=== PATIENT | male | born 2000 | race Caucasian/White ===

== ENCOUNTER 2022-05-30 10:00 | Outpatient (CLI) | payer BC, SELFPAY ==
--- NOTE | 2022-05-30 10:15 | CRLHL7_ITS ---
For Patients: As a result of the Century Cures Act, medical imaging exams and procedure reports are released immediately into your electronic medical record. You may view this report before your referring provider. If you have questions, please contact your health care provider. INDICATION: Neck pain. TECHNIQUE: Noncontrast sagittal T1, T2, STIR and axial GRE sequences are provided. No comparisons. FINDINGS: Loss of cervical lordosis which may be due to muscle spasm or positioning. The overall stature, alignment and intrinsic marrow signal of the cervical spine is within normal limits. Cervical cord is normal. No suspicious disc bulges or protrusions. No suspicious central canal or foraminal narrowing. IMPRESSION: 1. Loss of cervical lordosis which may be due to muscle spasm or positioning. 2. Otherwise, unremarkable MRI of the cervical spine. Dictated by Deon Castillo MD @ 05/30/2022 1:48:35 PM (Electronically Signed)
== END 2022-05-30 10:01 | disposition home or self-care (01) ==
PROVIDERS: PCP Family Medicine; Visit Provider Nurse Practitioner Family
DX: M25.512 Pain in left shoulder (principal); S43.432A Superior glenoid labrum lesion of left shoulder, initial encounter; M54.2 Cervicalgia
CPT/HCPCS: 72141

== ENCOUNTER 2022-06-15 07:56 | Outpatient (CLI) | payer BC, SELFPAY ==
--- NOTE | 2022-06-15 08:15 | CRLHL7_ITS ---
For Patients: As a result of the Century Cures Act, medical imaging exams and procedure reports are released immediately into your electronic medical record. You may view this report before your referring provider. If you have questions, please contact your health care provider. Indication: LT SHOULDER LABRAL LESION Procedure : Informed consent was obtained. The site was marked. Time-out was performed. The skin of the left shoulder was cleansed with ChloraPrep. A sterile drape was placed. 8 cc of 1 percent lidocaine was administered for superficial anesthesia. Subsequently a 22 gauge spinal needle was introduced into the left shoulder joint under intermittent fluoroscopic guidance. Injection of 2 cc nonionic Omnipaque 240 contrast confirmed intra-articular location. Subsequently 11 cc of dilute gadolinium were injected. The needle was removed and hemostasis achieved with direct pressure. A dressing was placed. The patient tolerated the procedure well without immediate complication and was immediately sent to MRI for imaging. Total fluoroscopy time 15 seconds. Impression: Successful fluoroscopically guided left shoulder arthrogram for MRI. Dictated by Jacob Green MD @ 06/15/2022 9:23:46 AM (Electronically Signed)
--- NOTE | 2022-06-15 09:15 | MR_ITS ---
[facility] [address] [facility] [address] Phone:?[phone] Fax:?[phone] Referring Physician Information: Kane Pelayo M.D. [address] [address] Phone:?[phone] Fax:?[phone] Patient:Ivanna High D.O.B:?2000 Sex:?Male Phone:?[phone] [facility] MRN:?[id number] Exam Date:?06/15/2022 ? EXAM: MR ARTHROGRAM of the?LEFT?SHOULDER CLINICAL INFORMATION: Male, 21 years old, with shoulder pain after fall injury 05/2018 INDICATION: Evaluate for anterior labral tear PRIOR SURGERY: None reported. PLAIN FILMS: None available. COMPARISONS: No prior MRIs available. TECHNICAL INFORMATION: Using a 1.5T MR scanner and a localizing surface coil: coronal obliques: PDFS, T1FS sagittal obliques: PD, T1FS axials: PD, T1FS SEDATION: None CONTRAST: No intravenous contrast was administered. FINDINGS: Bones: Proximal humerus: No fracture or marrow edema/pathology. No humeral Hill-Sachs or reverse Hill-Sachs lesion/impaction or contusion. Glenoid: No fracture or marrow edema/pathology. No osseous Bankart lesion. Rotator cuff and muscles/tendons: Supraspinatus: No tendinopathy, tear or atrophy. Infraspinatus: No tendinopathy, tear or atrophy. Teres minor: No tendinopathy, tear or atrophy. Subscapularis: No tendinopathy, tear or atrophy. Deltoid: No strain or atrophy. Coracoacromial arch: Acromion morphology: The acromion has type I morphology. No discrete subacromial osseous spur or os acromiale. Acromiohumeral space: The acromiohumeral space is within normal limits. Coracohumeral space: The coracohumeral space is within normal limits. Acromioclavicular joint: Joint: No acute injury, arthropathy, or inferior hypertrophy. Ligaments: Coracoclavicular ligaments are intact. Bursae: Subacromial-subdeltoid: No convincing subacromial bursal thickening/bursitis. Subcoracoid: No convincing subcoracoid bursal thickening/bursitis. Biceps tendon: The long head of the biceps tendon is present within the bicipital groove. The intra-articular and extra-articular segments are intact without tendinosis, tenosynovitis, or displacement Glenohumeral joint: Contrast: Gadolinium-based contrast distends the glenohumeral joint, as expected, and fails to extend into the subacromial-subdeltoid bursa. Articular cartilage: Humeral head: No osteochondral abnormalities. Glenoid: No osteochondral abnormalities. Loose bodies: No discrete intra-articular body within the joint. Labrum:?Surface fraying along the posterior superior labrum (coronal series 5 images 15-18), without more discrete appearance of labral tear. No other definite evidence for labral tear. No paralabral ganglion cyst is identified. Inferior glenohumeral ligament/axillary pouch:?Intact. The axillary pouch is normal in thickness and signal. No evidence of adhesive capsulitis or capsular injury. IMPRESSION: 1. Surface fraying of the posterior superior labrum, without more discrete appearance of SLAP tearing. No other definite evidence for labral tear. 2. No rotator cuff tendinopathy or tear 3. No tendinopathy, tear, or displacement of the long head of the biceps tendon. 4. No osteochondral defect. KME Electronically signed on 06/15/2022 1:45:00 PM by Danielle Brennan M.D.
== END 2022-06-15 07:57 | disposition home or self-care (01) ==
LOC: RAD 07:57
PROVIDERS: PCP Family Medicine; Visit Provider Orthopaedic Surgery Sports Medicine
DX: S43.432A Superior glenoid labrum lesion of left shoulder, initial encounter (principal); M25.512 Pain in left shoulder
CPT/HCPCS: 23350; 73222; 77002; A9575; Q9966

== ENCOUNTER 2022-06-30 15:30 | Outpatient (CLI) | payer BC, SELFPAY ==
--- OUTSIDE RECORDS SUMMARY | 2022-06-30 15:42 | XMS_ITS | Encounter Summary ---
:2000 Author Organization [facility] Address [address], [place] [address] Care Team Providers Name Role Phone Corinne Hazel MD Primary Care Provider Encounter Details Date Type Department Care Team Description 10/31/2019 Notes/Orders [facility] Kilo Gregg MD [address] [place] [address] [place] [address] [phone] (Wo rk) Social History Tobacco Use Types Packs/Day Years Used Date Smoking Tobacco: Never Smokeless Tobacco: Never Alcohol Use Standard Drinks/Week Comments Never 0 (1 standard drink = 0.6 oz pure alcoho l) Alcohol Habits Answer Date Recorded How often do you have a drink containing alcohol? Never 09/05/2018 How many drinks containing alcohol do you have on a typical Not asked day when you are drinking? How often do you have six or more drinks on one occasion? 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
--- OUTSIDE RECORDS SUMMARY | 2022-06-30 15:42 | XMS_ITS | Encounter Summary ---
:2000 Author Organization [facility] Address [address] [place] [address] Care Team Providers Name Role Phone Corinne Hazel MD Primary Care Provider Reason for Visit Reason Comments Knee Problem Encounter Details Date Type Department Care Team Description 09/13/2018 Office Visit [facility] Christiane Ku, Left kn ee pain, Center, Physical PT unspecified Therapy [address] [facility] chronicity (Primary [address] [place], [place] Dx) [address] [address] [place], [place] [address] [phone] Social History Tobacco Use Types Packs/Day Years [...] on file documented as of this encounter Progress Notes Christiane Ku, PT - 09/13/2018 9:30 AM CST Physical Therapy Post-Op Knee Evaluation/Plan of Care Visit Number: 1 [facility] Initial Certification Period: 09/13/2018 to 12/12/18 Referring Provider: Kilo Gregg MD Diagnosis: OCD lesion Date of Surgery: 09/05/2018 Surgical Procedure: 1. Left knee diagnostic arthroscopy with mobilization and debridement of the osteochondral lesion. 2. Microfracture of the base of the osteochondral lesion. 3. Open reduction internal fixation osteochondral lesion using 2 Arthrex bioabsorbable headless compression screws. Orders: Evaluate & treat and Per protocol Precautions/Contraindications: Plan will be for toe-touch weightbearing for 6 weeks. Range of motion 0-45 degrees in the brace. He can begin his CPM at 0-45 and increase up to 60 degrees. The goal for the first 2 weeks is 0-60 degrees, 0-90 degrees weeks 2-4, 0-120 degrees weeks 4-6, and then range of motion to tolerance. Physical therapy alternatively could use the [facility] or [facility] postop protocol Date of Onset: January 2018 Standardized Functional Score: PT - Musculoskeletal - Knee Knee Outcome Survey - ADL (0-100%, 100 being best): 58 Knee Outcome Survey - Sport (0-100%, 100% being best): 63 History: OCD lesion in 2014, treated non-operatively. Method of Injury: when pushing off first base in an attempt to steal second he twisted his knee and felt a pop Functional Limitations: Walking, stairs, bending his knee, squatting Patient???s Therapy Goals: return to ADL's and sports/fitness SUBJECTIVE: Pain Ratin/10 Falls in the Past Year: No. Past Medical History: See EMR for details regarding past medical history, medications and drug allergies. History is unremarkable. Review of Systems: Denies fever, chills, night sweats, unrelenting night pain, unexplained weight loss, bowel/bladder changes, saddle sensation changes No past medical history on file. No past surgical history on file. OBJECTIVE: General: Mood, orientation and behavior were appropriate. Patient was alert and oriented. Observation/Gait: NWB, B crutches - leans axilla on them rather than using arms Inspection of knee/LE: No signs of infection Edema: Patellar tap test: pos [place] test: pos ROM ([id number]): 0-0-30 Strength: Quad set: Poor - states he can feel the screws Supine SLR: Unable to lift leg unassisted Palpation: No tenderness Joint Mobility: Good patellar mobility Proprioception: Patient is non-weightbearing. TREATMENT TODAY: Physical Therapy Evaluation (CPT 83404): An evaluation was performed. The patient was determined to have low complexity based on history, examination, clinical presentation of the patient and the PT's clinical decision making. The patient was educated on the condition, planned therapy intervention and expectations from treatment. Goals were a collaborative effort of the therapist and patient. Therapeutic Exercise (CPT 07226) x 15 minutes: . gastroc stretch with strap Quad set - attempted Patellar mobilizations Instructed and set crutches to proper height Stair negotiation Timed Code Treatment Minutes: 15 Total Treatment Minutes: 30 Plan for next treatment session: kneehab for quad recruitment Education/Handouts: Diagnosis Education, Post-op restrictions, RICE principles, Signs of infection, Sleep/rest positions, Use of immobilizer Response to treatment: Good understanding of HEP, Improved gait ASSESSMENT: Therapist Impression: patient presents s/p the above surgical procedure. Very poor quad activation and muscle recruitment but improved ease of ambulation and stair negotiation following crutch adjustment. Would benefit from skilled intervention to address above impairments and return to pain free activities. Barriers to Learning: none Rehab Prognosis: Excellent PLAN: Planned Intervention/Education: Evaluation, Re-Evaluation, Education, Therapeutic Exercise, Manual Therapy, Neuromuscular Re-education, Self Care/Home Management, Gait Training, Therapeutic Activities,Isokinetic/Performance Testing, Aquatic THerapy, Ice, Heat, Ultrasound, Vasopneumatic Compression, E- Stim: Unattended PT Frequency/Duration: 2 x/week for 2 weeks and then following up when he returns for MD appointments Discharge Plan: Goal achievement, goal achievement with home exercise program or if progress plateaus. Informed Consent: Risks, benefits and alternatives to treatment have been explained. Patient and/or family in agreement with care plan. EXPECTED FUNCTIONAL OUTCOMES/GOALS: HEP/Independent Management: Demonstrate independence with HEP and self- management following each treatment session ADL's: Perform sit to stand transfer using involved lower extremity in 3-4 weeks. Sit for greater than 1 hour(s) with minimal/no symptoms in 4-8 weeks. Ambulation: Ambulate and navigate stairs safely with assistive device in 1-2 weeks. Evaluation and Plan of Care completed by: Christiane Ku PT 10:13 AM 09/13/2018 The paint stripper is completed by the therapist and the referring clinician's electronic signature certifies medical necessity for the plan above. 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 [place] [address] documented as of this encounter
--- OUTSIDE RECORDS SUMMARY | 2022-06-30 15:42 | XMS_ITS | Encounter Summary ---
:2000 Author Organization [facility] Address [address] [place] [address] Care Team Providers Name Role Phone Corinne Hazel MD Primary Care Provider Encounter Details Date Type Department Care Team Description 09/05/2018 Surgery [facility] Kilo Gregg MD LEFT knee diagnostic [address] [facility] [place] [address] arthroscopy and open [place], [place] [address] [place], [place] reduction internal [phone] fixation of [phone] (Wo rk) osteochondral lesion Social History Tobacco Use Types Packs/Day Years [...] on file documented as of this encounter Last Filed Vital Signs Vital Sign Reading Time Taken Comments Blood Pressure 152/82 09/05/2018 10:30 AM TILE ERECTOR Pulse 76 09/05/2018 10:30 AM TILE ERECTOR Temperature 36.8 ??C (98.2 ??F) 09/05/2018 10:30 AM TILE ERECTOR Respiratory Rate 16 09/05/2018 10:30 AM TILE ERECTOR Oxygen Saturation 100% 09/05/2018 10:30 AM TILE ERECTOR Inhaled Oxygen Concentration - - Weight 73.5 kg (162 lb) 09/05/2018 10:30 AM TILE ERECTOR Height 180.3 cm (5' 11) 09/05/2018 10:30 AM TILE ERECTOR Body Mass Index 22.59 09/05/2018 10:30 AM TILE ERECTOR Body Mass Index Percentile 52.86 % 09/05/2018 10:[address] Growth Chart: [facility] (Boys, 2-20 Years) documented in this encounter Discharge Instructions Discharge InstructionsToshia Wellington RN - 09/05/2018 3:57 PM CST Post-Operative instructions Stitches - keep dry. May shower but cover area with waterproof bag or wrap. Dressing- large dressing may be removed in 3 days and then redress with gauze and an NORBERTO wrap Activity- walking, ROM, towel roll exercises and strengthening at home. Brace locked in extension for ambulation and sleep. May unlock to do ROM exercises. PT will begin in 7-10 days. Flexion 0-60 only x 2 weeks. 0-90 for weeks 2-4. 0- 120 for weeks 4-6, then ROM to tolerance. Follow-up: 7-10days Weight bearing status: TTWB, crutches x 6 weeks CPM: 0-45 initially, increase by 5 - 10 degrees daily up to 60. Use for 1-2 weeks based on ROM. Kilo Gregg MD Discharge Information The following was provided to the patient - Instruction sets: Caring for yourself after surgery Collateral information: How to prevent and treat constipation after surgery Knee exercises following surgery Medication counseling Prescription Opioid Pain Medication Recover Well Understanding Pain Patient take-homes: Brace Ice pack(s) ERECTOR documented in this encounter Medications at Time of Discharge Medication Sig Dispensed Refills Start Date End Date Fexofenadine HCl (AKA Take by mouth 2 0 2 AMY) 30 MG tablet times daily. hydrOXYzine pamoate Take 1 Capsule by 30 Capsule 0 8 (VISTARIL) 25 MG capsule mouth three times a day as needed for Itching. oxyCODONE-acetaminophen Take 1-2 Tablets by 30 Tablet 0 (PERCOCET) 5-325 MG tablet mouth every 4 hours as needed. documented as of this encounter Progress Notes Kilo Gregg MD - 09/05/2018 12:06 PM CST The patient's pre operative history and physical has been reviewed by me. Patient examined today. Nointerval changes. Kilo Gregg MD ERECTOR documented in this encounter Procedure Notes Kilo Gregg MD - 09/05/2018 2:45 PM CST [facility] Brief Operative Progress Note Surgery Date: 09/05/2018 Surgeon(s) and Role: * Kilo Gregg MD - Primary Pre-op Diagnosis: Left unstable OCD lesion, lateral femoral condyle 18 x 24 mm Post-op Diagnosis: Same Procedure(s) (LRB): LEFT knee diagnostic arthroscopy and open reduction internal fixation of osteochondral lesion (Left) EBL: 10 cc Specimens: * No specimens in log * Complications / Findings: See dictation Kilo Gregg MD ERECTOR Kilo Gregg MD - 09/05/2018 12:00 PM CST NAME: HAYES HIGH MR#: [id number] CSN: [id number] AUTHENTICATING CLINICIAN: Kilo Gregg MD CONFIRM #: [id number] LOC: 725 OPERATIVE REPORT DATE OF OPERATION: 09/05/2018 : 2000 SURGEON: Kilo Gregg MD PREOPERATIVE DIAGNOSIS: Left knee unstable osteochondritis dissecans lesion, lateral femoral condyle, measuring 18 x 24 mm. POSTOPERATIVE DIAGNOSIS: Left knee unstable osteochondritis dissecans lesion, lateral femoral condyle, measuring 18 x 24 mm. PROCEDURE: 1.Left knee diagnostic arthroscopy with mobilization and debridement of the osteochondral lesion. 2.Microfracture of the base of the osteochondral lesion. 3.Open reduction internal fixation osteochondral lesion using 2 Arthrex bioabsorbable headless compression screws. ESTIMATED BLOOD LOSS: 10 mL. SPECIMENS: None. ANESTHESIA: General. CASINO HOST: GALINA Burns COMPLICATIONS: None. INDICATIONS: Mr. High is an 17-year-old gentleman who has had an unstable osteochondritis dissecans lesion based on the MRI scan. He is having continued pain after athletic activity. I saw him in April. We made this diagnosis. He was going off to college and wanted to wait until the wintertime to perform a surgery. He had been relatively sedentary and was having minimal symptoms. He did admit to playing basketball a couple times and did note increased symptoms. Based on the unstable nature of the lesion and thefact he is skeletally mature and continuing to have pain and unable to perform the activities that he enjoyed, we discussed the role of operative treatment, and the patient and patient's family electedto proceed. I counseled them in the preop area that this may be repairable. It may not and require secondary procedures. They were aware of all that and elected to proceed. We also reviewed all the risks and benefits of surgery, risks to include, not limited to pain, bleeding, infection, damage to nearby structures, including tendons, arteries, and nerves, incomplete resolution of symptoms, progression to arthritis, loosening of the fragment, nonunion, hardware failure, blood clot, heart attack, stroke, . They were aware of all this and elected to proceed. DESCRIPTION OF PROCEDURE: The patient was identified in the preoperative holding area. Correct site and side of surgery were signed. Consent was obtained. He was taken to the operating room where he underwent successful induction of general anesthesia. A nonsterile thigh tourniquet was placed, and the limb was prepped and draped in the usual sterile fashion. Preoperative antibiotics, clindamycin, were given as Ancef was on back order. The time-out procedure was performed again, identifying the correct patient, site, and side of surgery. We began with diagnostic arthroscopy. Standard infrapatellar arthroscopic portals were created. These were injected with 0.5% Marcaine plain. The scope was introduced. Findings are as follows: Patellofemoral joint: Showed no evidence of chondromalacia. Some mild synovitis was seen. Medial compartment: Showed no evidence of meniscal or chondral pathology. Intercondylar notch: Showed ACL and PCL were intact. Lateral compartment: Showed the meniscus was intact. Tibial cartilage was intact. There was an unstable osteochondral lesion involving the posterior weightbearing zone of the lateral femoral condyle. This measured approximately 18 mm medial to lateral by 24 mm anterior to posterior. There was viable bone on the undersurface of the chondral fragment. The bony bed of the lateral femoral condyle showed fibrinous tissue. There was an intact hinge on the inferomedial aspect. After diagnostic arthroscopy was performed, the unstable cartilage was debrided with a shaver and ring curette. The base of the lesion was debrided with a curette and shaver as was the undersurface of the osteochondral fragment. Microfracture was performed using an awl around the perimeter and base ofthe bony bed. Good bleeding bone was achieved. After all this was performed arthroscopically, we elected to make a small arthrotomy to have appropriate trajectory to place our screws. Scope instruments were removed. The lateral portal was extended proximally and distally. Skin flaps were created. A lateral arthrotomy was created, exposing the lateral femoral condyle. The lesion was probed and placed into the appropriate position, stabilized with 2 K-wires. We began with the posterior- more screw. The Arthrex cannulated drill was placed, drilled to the depth stop. The tap was placedover this. The guidewire was then removed, and the 18 mm x 3.7 mm Arthrex bioabsorbable compression screw was placed. Excellent purchase was achieved, and the screw head was recessed by approximately 2-3 mm. We then repeated this step with a more anterior screw, again drilling, tapping, removing the wire, and placing the screw in standard fashion, making sure that the head of the screw was recessed. After this was performed, gentle probe was used to confirm stability of the lesion. The knee was copiously irrigated. Ropivacaine was injected around the arthrotomy, and the arthrotomy was closed in layered fashion with 0 Vicryl, 2-0 Vicryl, 3-0 Monocryl for the skin, and a 3-0 nylon for the medial portal site. Sterile dressings were applied as well as a hinged knee brace. The patient was transferred to the PACU in stable condition. All counts were correct at the end of the case. There were no complications. Patient will not require any DVT prophylaxis. POSTOPERATIVE PLAN: Plan will be for toe-touch weightbearing for [...] the [facility]A OCD or OATS postop protocol if one has been developed. He will return in 1 week for suture removal, initiation of physical therapy, and I will see him back in 6 weeks for repeat clinical check. RTM:MEDQ C: R:09/05/18 15:03 CONFIRM#:[id number] ERECTOR documented in this encounter Plan of Treatment Scheduled Orders Name Type Priority Associated Diagnoses Order S chedule POCT Glucose: Point of Care Routine Once today st arting now for 1 Occurrences s tarting 09/05/2018 unti l 09/05/2018 documented as of this encounter Procedures Procedure Name Priority Date/Time Associated Diagnosis Comme nts KNEE ARTHROSCOPY WITH 09/05/2018 12:47 PM Knee pain, l eft REPAIR OSTEOCHONDRAL TILE ERECTOR LESION documented in this encounter Visit Diagnoses Diagnosis Knee pain, left Pain in joint, lower leg documented in this encounter Administered Medications Inactive Administered Medications - up to 3 most recent administrations Medication Order MAR Action Action Date Dose Rate Site bupivacaine-epinephrine PF Given 09/05/2018 1:07 PM TILE ERECTOR 9 mL Left Knee (SENSORCAINE) 0.5% -1:[id number] injection ONCE PRN, Starting on Luanne 09/05/18 at 1307, Until Luanne 09/05/18 at 1912, Intra-op diphenhydrAMINE (BENADRYL) injection 25- 50 mg Given 09/05/2018 3:00 PM TILE ERECTOR 25 mg 25-50 mg, Intravenous, Q6H PRN, Itching, Starting on Luanne 09/05/18 at 1524, Until Luanne 09/05/18 at 1912, PACU & Post-op EPINEPHrine 1 mg in sodium chloride 0.9 Given 09/05/2018 1:11 PM TILE ERECTOR 1 mL Left Knee % 3,000 mL ONCE PRN, Starting on Luanne 09/05/18 at 1311, Intra-op fentaNYL (SUBLIMAZE) injection 25-100 mc g 25-100 mcg, Intravenous, [id number], Pain, Sedation, Pro cedure, Severe Pain (pain score 8-10), Starting on Luanne 09/05/18 at 1522, Until Luanne 09/05/18 at 1911, Notify Anesthesiologist if total cumulative dose in excess of 250 mcg., Pre-op fentaNYL (SUBLIMAZE) injection 25-50 mcg 25-50 mcg, Intravenous, [id number], Other, Moderate to Severe Pain (pain score 5 and above) in the immediate postop period when faster on-s et, short acting agent is desired., Starting on Luanne 09/05/18 at 10 53, Until Luanne 09/05/18 at 1912, Administer every 5 minutes as needed, to a maximum cumulative dose of 250 mcg. For patients with a regional, spinal, or local anesth etic, may give for anticipated pain as the anesthetic wears off., PACU/Recovery HYDROmorphone injectable 0.2-0.4 mg 0.2-0.4 mg, Intravenous, Q10MIN PRN, Oth er, : Moderate to Severe Pain (pain score 5 and above) in the immediate postop period when longer acting agent is desired., Starting on Luanne 09/05/18 at 1053, Until Luanne 09/05/18 at 191, Maximum cumulative dose is 2 mg. For patients with a region al, spinal, or local anesthetic, may give for anticipated pain as the anesthetic wears off., PAC U/Recovery lactated ringers infusion Intravenous, at 30 mL/hr, CONTINUOUS, Starting on Luanne 09/05/18 at 1545, Pre-op meperidine (DEMEROL) injection 12.5 mg 12.5 mg, Intravenous, [id number], Shiverin g, Starting on Luanne 09/05/18 at 1053, Until Luanne 09/05/18 at 1912, For 2 doses, Maxim um cumulative dose is 25 mg. Do not give to patients receiving MAO inhibitors (e.g. phenelzine (NA RDIL), tranylcypromine (PARNATE), selegiline (ELDEPRYL))., PACU/Recovery midazolam (VERSED) injection 1-2 mg 1-2 mg, Intravenous, [id number], Sedation, Anxiety, Proc edure, Starting on Luanne 09/05/18 at 1522, Until Luanne 09/05/18 at 1912, MAX Dose 2mg, Pre-op morphine injectable 1-2 mg 1-2 mg, Intravenous, [id number], Other, Moderate to Malissa re Pain (pain score 5 and above) Moderate to Severe Pain (pain score 5 and above ) in the immediate postop period when longer acting agent is desired and HYDROmo rphone is not tolerated., Starting on Luanne 09/05/18 at 1053, Until Luanne 09/05/18 at 1912, Maximum cumulative dose is 12 mg. For patients with a regio nal, spinal, or local anesthetic, may give for anticipated pain as the anesthetic wears off., PAC U/Recovery ondansetron (ZOFRAN) injection 4 mg 4 mg, Intravenous, Q4H PRN, Nausea, Vomiting, Starting on Luanne 09/05/18 at 1053, Until Luanne 09/05/18 at 1912, If multiple medications ar e ordered for nausea or vomiting - administer in the following priority based on medications ordered, effectiveness and availability: ondanset saba (ZOFRAN) > prochlorPERAZINE (COMPAZINE) > diphenhydrAMINE (BENADRYL) > hydrOXYzine HCl (VISTAR IL)> ePHEDrine > scopolamine (TRANSDERM-SCOP)., PACU/Recovery ropivacaine (NAROPIN) injection Given 09/05/2018 2:15 PM TILE ERECTOR 30 mL Left Knee ONCE PRN, Starting on Luanne 09/05/18 at 1415, Until Luanne 09/05/18 at 1912, Intra-op documented in this encounter Active and Recently Administered Medications Times are shown in TILE ERECTOR. Scheduled Medication Order 09/03/2018 09/04/2018 09/05/2018 ceFAZolin (aka ANCEF) 2 g in dextrose 100 ml IVPB 1115 (Due) 2 g, Intravenous, Administer over 30 Min utes, ONCE, Luanne 09/05/18 at 1115, For 1 dose, Infuse within 60 minutes prior to incision; Re-dose 1 gram IV every 4 hours after initial dose until incision closed., Pre-op chloroprocaine (NESACAINE) 3 % injection 2 mL 1230 (Due) 2 mL, Regional Nerve Block, ONCE, Luanne 09/05/18 at 1230, For 1 do se, Pre-op Continuous Medication Order 09/03/2018 09/04/2018 09/05/2018 lactated ringers infusion 1545 ( Due) Intravenous, at 30 mL/hr, CONTINUOUS, Starting Luanne 09/05/18 at 1 545, Pre-op PRN Medication Order 09/03/2018 09/04/2018 09/05/2018 acetaminophen (TYLENOL) tablet 325-650 mg 325-650 mg, Oral, Q4H PRN, Fever, Mild P ain (pain score 1-4) (OR elevated temperature), Starting Luanne 09/05/18 at 1522, Give for mild pain or if patient prefers acetaminophen over other options for pain (all pain scores)., Post-op bupivacaine-epinephrine PF (SENSORCAINE) 0.5% -1:[id number] injectio n 1307 (Given - Provider: Kilo Gregg MD - Comment: injection) ONCE PRN, Starting Luanne 09/05/18 at 1307, Intra-op diphenhydrAMINE (BENADRYL) injection 25-50 mg 1500 (Given - Provider: Rosa Maria Cruz RN) 25-50 mg, Intravenous, Q6H PRN, Itching, Starting Luanne 09/05/18 at 1524, PACU & Post-op EPINEPHrine 1 mg in sodium chloride 0.9 % 3,000 mL 1311 (Given - Provider: Kilo Gregg MD) ONCE PRN, Starting Luanne 09/05/18 at 1311, Intra-op fentaNYL (SUBLIMAZE) injection 25-100 mcg 25-100 mcg, Intravenous, [id number], Pain, Sedation, Procedure, Severe Pain (pain score 8-10), Starting Luanne 09/05/18 at 1522, Notify Anesthesiologist if total cumulative dose in excess of 250 mcg., Pre-op fentaNYL (SUBLIMAZE) injection 25-50 mcg 25-50 mcg, Intravenous, [id number], Other, Moderate to Severe Pain (pain score 5 and above) in the immediate postop period when faster on-set, short acting agent is desired., Starting Luanne 09/05/18 at 1053 , Administer every 5 minutes as needed, to a maximum cumulative dose of 250 mcg. For patients with a regional, spinal, or local anesthetic, may give for anticipated pain as the anesthetic wears off., PACU/Recovery HYDROmorphone injectable 0.2-0.4 mg 0.2-0.4 mg, Intravenous, Q10MIN PRN, Oth er, : Moderate to Severe Pain (pain score 5 and above) in the immediate postop period when longer acting agent is desired., Starting Luanne 09/05/18 at 1053, Maximum cumulative dose is 2 mg. For patients w ith a regional, spinal, or local anesthetic, may give for anticipated pain as the anesthetic wears off., PACU/Recovery meperidine (DEMEROL) injection 12.5 mg 12.5 mg, Intravenous, [id number], Shiverin g, Starting Luanne 09/05/18 at 1053, For 2 doses, Maximum cumulative dose is 25 mg. Do not give to patients receiving MAO inhibitors (e.g. phenelzine (NARDIL), trany lcypromine (PARNATE), selegiline (ELDEPRYL))., PACU/Recovery midazolam (VERSED) injection 1-2 mg 1-2 mg, Intravenous, [id number], Sedation, Anxiety, Procedure, Starting Luanne 09/05/18 at 1522, MAX Dose 2mg, Pre-op morphine injectable 1-2 mg 1-2 mg, Intravenous, [id number], Other, Mo derate to Severe Pain (pain score 5 and above) Moderate to Severe Pain (pain score 5 and above) in the immediate postop period when longer acting agent is desired and HYDROmorphone is not tolerated., St arting Luanne 09/05/18 at 1053, Maximum cumulative dose is 12 mg. For patients with a regional, spinal, or local anesthetic, may give for anticipated pain as the anesthetic wears off., PACU/Recovery ondansetron (ZOFRAN) injection 4 mg 4 mg, Intravenous, Q4H PRN, Nausea, Vomi ting, Starting Luanne 09/05/18 at 1053, If multiple medications are ordered for nausea or vomiting - administer in the following priority based on medications ordere d, effectiveness and availability: ondan setron (ZOFRAN) > prochlorPERAZINE (COMPAZINE) > diphenhydrAMINE (BENADRYL) > hydrOXYzine HCl (VISTARIL)> ePHEDrine > scopolamine (TRANSDERM-SCOP)., PACU/Recovery oxyCODONE (ROXICODONE) immediate release tablet 5 mg 5 mg, Oral, Q4H PRN, Other, Severe Pain (pain score 8-10), Starting Luanne 09/05/18 at 1522, Post-op oxyCODONE-acetaminophen (PERCOCET) 5-325 MG per tablet 1-2 Table t 1-2 Tablet, Oral, Q4H PRN, Other, Modera te Pain (pain score 5-7), Starting Luanne 09/05/18 at 1522, Post-op ropivacaine (NAROPIN) injection 1415 (Given - Provider: Kilo Gregg MD) ONCE PRN, Starting Luanne 09/05/18 at 1415, Intra-op documented in this encounter Care Teams Back Up Worker Relationship Specialty Start Date End Date Corinne Hazel MD PCP - General 12/19/10 1415 [facility] [place] [id number] documented as of this encounter
--- OUTSIDE RECORDS SUMMARY | 2022-06-30 15:42 | XMS_ITS | Encounter Summary ---
:2000 Author Organization [facility] Address [address] [place] [address] Care Team Providers Name Role Phone Corinne Hazel MD Primary Care Provider Reason for Visit Reason Comments QUESTIONS, GENERAL Encounter Details Date Type Department Care Team Description 10/18/2018 Telephone [facility] Kilo Sky MD QUESTIONS, GENERAL [address] [facility] [address] [address] [place], [place] [address] [address] [place] [address] [phone] (Wo rk) Social History Tobacco Use Types [...] on file documented as of this encounter Nursing Notes Vibha Melvin RN - 10/18/2018 3:12 PM CST Mother is calling and would like PT orders faxed to: [facility] [phone]. Faxed orders along with op note. Mother will call back to schedule Jn's follow up. 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
--- OUTSIDE RECORDS SUMMARY | 2022-06-30 15:42 | XMS_ITS | Clinical Summary ---
:2000 [facility] Address [address], [place] [address] Care Team Providers Name Role Phone Corinne Hazel MD Primary Care Provider Source Comments You are receiving this document as you are listed as the primary care provider,follow-up provider, or the patient has been referred to you for consultation.This is in compliance with the Medicare and Medicaid EHR Incentive Program,which states Providers who transition their patient to another setting of careor provider of care or refers their patient to another provider of care shouldprovide summarycare record for each transition of care or referral. [employer] Allergies No known active allergies Medications Medication Sig Dispensed Refills Start Date End Date Status Fexofenadine HCl (AKA Take by mouth 2 0 04/16/2012 Active AMY) 30 MG tablet times daily. hydrOXYzine pamoate Take 1 Capsule by 30 Capsule 0 09/05/2018 Active (VISTARIL) 25 MG mouth three times capsule a day as needed for Itching. oxyCODONE-acetaminophe Take 1-2 Tablets 30 Tablet 0 09/05/2018 Active n (PERCOCET) 5-325 MG by mouth every 4 tablet hours as needed. Active Problems Problem Noted Date Closed fracture of left proximal tibia 07/15/2015 Osteochondritis dissecans 07/15/2015 [place]-Schlatter's disease 03/29/2015 Allergic rhinitis 04/16/2012 Overview: Allergic rhinitis- Immunizations Name Administration Dates Next Due 4vHPV (Gardasil) 03/26/2015 9vHPV (Gardasil 9) 07/08/2015 DTaP 05/09/2005, 05/09/2000, 03/14/2000, 01/11/2000 DTaP/Hib 02/18/2001 Flu Vac Preserv Free (3+yrs) 07/29/2010 HepA Ped/Adol (1-18 yrs) 11/27/2008, 05/06/2008 HepB Adult (Engerix-B, 20+ yrs, 3 11/19/2000, 05/09/2000, dose series) Hib (ActHIB) 05/09/2000, 03/14/2000, 01/11/2000 IPV (Polio) 05/09/2005, 05/09/2000, 03/14/2000, 01/11/2000 Influenza IIV4 (Quadrivalent) 0.5mL 07/08/2015 (78604) Influenza, Unspecified Formulation 07/14/2003, 09/23/2001, 1 10/15/2000 MCV4 (Menactra) 04/16/2012 MCV4 (Menveo) 03/26/2015 MMR 05/09/2005, 02/18/2001 Pneumococcal 7, PED 02/18/2001, 11/19/2000, 09/12/2000 TDAP (ADACEL) 04/16/2012 Varicella 11/27/2008, 11/19/2000 Social History Tobacco Use Types Packs/Day Years [...] Assigned at Date Recorded Not on file Last Filed Vital Signs Vital Sign Reading Time Taken Comments Blood Pressure 130/63 09/05/2018 3:54 PM [employer]OOK[facility] HELPER Pulse 86 09/05/2018 3:54 PM [facility] Temperature 36.3 ??C (97.4 ??F) 09/05/2018 3:50 PM [facility] HEL[facility] Respiratory Rate 16 09/05/2018 3:50 PM [facility] HELPER Oxygen Saturation 100% 09/05/2018 3:50 PM [facility]OOK[facility] HELPER Inhaled Oxygen Concentration - - Weight 73.5 kg (162 lb) 09/05/2018 10:30 AM [employer]OOKER HEL[employer] Height 180.3 cm (5' 11) 09/05/2018 10:30 AM COOKER HELPER Body Mass Index 22.59 09/05/2018 10:30 AM COOKER HELPER Plan of Treatment Health Maintenance Due Date Last Done Comments Hep C Screening (Preventive 1999 Services) COVID-19 Vaccine (#1) 05/08/2000 HIV Screening (Preventive 2015 Services) Adult Preventive Visit 2017 DTaP/Tdap/Td (7 - Tdap) 04/16/2022 04/16/2012, 05/09/2005, 02/18/2001, Additional history exists Influenza (#1) 2022 08/15/2019, 08/09/2018, 06/27/2017, Additional history exists Zoster/Shingles (1 of 2) 2049 HepB Completed 11/19/2000, 05/09/2000, 03/14/2000 Hib Completed 02/18/2001, 05/09/2000, 03/14/2000, Additional history exists Pneumococcal Aged Out 02/18/2001, 11/19/2000, No longe r eligible 09/12/2000 based on patient 's age to complete this topic IPV (Polio) Completed 05/09/2005, 05/09/2000, 03/14/2000, Additional history exists HepA Completed 11/27/2008, 05/06/2008 Varicella Completed 11/27/2008, 11/19/2000 MCV4 Aged Out 03/26/2015, 04/16/2012 No longer eligible based on patient 's age to complete this topic HPV Vaccine Completed 06/27/2017, 07/08/2015, 03/26/2015 Medical Devices Implanted Type Area Natural Gas Trader Device Shelf Model / Identifier Expiration Date Ser ial / Lot Bio-Compression Screw DEVICE Left: 04/16/20 19 [id number] / Implanted: Qty: 1 on 09/05/2018 by Kilo Gregg MD at [facility] 00 / [id number] Insurance Payer Benefit Subscriber ID Effective Phone Address Type Plan / Dates Group [facility] [id number] 2019-Pre [phone] [phone] [place] [address] Advance Directives Latest Code Status on File Code Status Date Activated Date Inactivated Comments Full Code 09/05/2018 12:08 PM 09/05/2018 7:17 PM Full code in effect for 30 days Care Teams Electrologist Relationship Specialty Start Date End Date Corinne Hazel MD PCP - General 12/19/10 [address] [id number]
--- OUTSIDE RECORDS SUMMARY | 2022-06-30 15:42 | XMS_ITS | Encounter Summary ---
:2000 [facility] Organization [facility] Address [address] [place] [address] Care Team Providers Name Role Phone Corinne Hazel MD Primary Care Provider Reason for Visit Reason Comments Post-Op Check Encounter Details Date Type Department Care Team Description 09/13/2018 Office Visit [facility] Cassidy Connors Postop check (Primary CENTER M, ATC Dx) [address] [place], [place] [address] Social History Tobacco Use Types Packs/Day Years [...] on file documented as of this encounter Patient Instructions Patient InstructionsCassidy Connors, ATC - 09/13/2018 11:[address] Kilo Gregg MD Orthopaedic Surgeon, Board Certified Overhead Distribution Engineer: Juliette Radford Please contact Juliette for all administrative questions Please contact [facility] Triage for all medical related questions at Medication Requests: Prescriptions are not filled on Weekends or on Weekdays after 3:00PM For all medication refills: Request a refill using [employer] or contact your Pharmacy TTWB for 6 wks ROM 0-45 degress in the brace CPM at 0-45 degrees and increase up to 60. First 2 wks 0-60. Wk 2-4 0-120 degrees. Wk 4-6 0-120. Continue PT Please provide disability parking accomodation STRIAL EDUCATION INSTRUCTOR documented in this encounter Progress Notes Cassidy Connors ATC - 09/13/2018 11:00 AM CST [facility] Orthopaedic Center Surgeon: Kilo Gregg MD Date of surgery: 09/05/18 Days Post-op: 8 Days Surgery: 1. Left knee diagnostic arthroscopy with mobilization and debridement of the osteochondral lesion. 2. Microfracture of the base of the osteochondral lesion 3. Open reduction internal fixation osteochondral lesion using 2 Arthrex bioabsorble headless compression screws Subjective: Hayes is a very pleasant 17 y.o male presenting for his first postop visit. He ambulated TTWB withcrutches locked in extension. His father accompanies him to this visit. Pain is controlled with current analgesics. Medication(s) being used: narcotic analgesics including Percocet. The patient denies fever, wound drainage, increasing redness, pus, increasing pain, increasing swelling. Post op problems reported: none. Pt reports attending PT at [facility], his first visit today. Objective: General : alert, cooperative, no distress, appears stated age Skin Closure: 3-0 Monocryl for the skin, which was used to close the longitudinal wound was snipped at skin, nylon portals were subcutaneous. Incision: healing well, no significant drainage, no dehiscence, no significant erythema Tenderness: none Wound Care: cleansed with alcohol x2, closed with steri strips and benzoin tincture Physical Exam: NA ROM: Not assessed Strength: Not assessed Neurologic Exam: WNL Neurovascularly intact distally. Sensation intact to light touch. Vascular Exam: WNL popliteal and post tib pulses. Capillary refill brisk. Calf and thigh are supple non tender. Assistive Devise: TTWB for 2 wks with brace. 0-45 degrees in the brace. Xray: not performed today. Assessment: 1. Postop check Plan: 1. At this point I reinforced pt will be TTWB for 6 wks, in the brace 2. Pt was provided a disability parking certificate as well as a statement he can provided to his school, so they will accommodate his parking needs. 3. P.T referral was previously submitted, Pt encouraged to attend. 4. CPM instructions given per operative report. 5. Follow up with Dr. Gregg will be in about 5 weeks time at which point we will be approximately 6weeks from surgery for clinical recheck. STRIAL EDUCATION INSTRUCTOR documented in this encounter Plan of Treatment Not on filedocumented as of this encounter Visit Diagnoses Diagnosis Postop check - Primary Follow-up examination, following unspeci fied surgery documented in this encounter Care Teams Front End Developer Relationship Specialty Start Date End Date Corinne Hazel MD PCP - General 12/19/[address] [place], [place] [address] [address] documented as of this encounter
--- OUTSIDE RECORDS SUMMARY | 2022-06-30 15:42 | XMS_ITS | Encounter Summary ---
:2000 [facility] Organization [facility] Address [address], [place] [address] Care Team Providers Name Role Phone Corinne Hazel MD Primary Care Provider Reason for Referral Procedure/Equipment (Routine) - Incomplete Specialty Diagnoses / Procedures Referred By Contact Refer red To Contact Diagnoses Left knee pain, unspecified chronicity Kilo Gregg MD Procedures XR Knee Lt [address] [place] [address] Referral ID Status Reason Start Date Expiration Date Visits V isits Requested Authorized [id number] Incomplete 11/27/2018 02/26/2020 1 1 Reason for Visit Reason Comments Knee Pain or Injury post op Encounter Details Date Type Department Care Team Description 11/27/2018 Office Visit [facility] Kilo Gregg MD Left knee pain, unspecified chronicity ( Primary Dx); CENTER [id number] [address] S/P left knee arthroscopy [address] [place], [place] [id number] [phone] Social History Tobacco Use Types Packs/Day Years [...] encounter Progress Notes Kilo Gregg MD - 11/27/2018 11:15 AM CDT Post-Operative knee progress note Name: Hyaes High : 2000 Date of visit: 11/27/18 Surgery: Left knee ORIF osteochondral lesion, microfracture. Date of surgery: 09/05/18 Patient returns today for follow up after above mentioned procedure. He continues physical therapy and is doing well. He reports decreased sensation around the incision but denies any other complaints today. Denies calf pain, chest pain, shortness of breath, fever, chills. Physical Exam, Left knee: Incisions clean, dry and intact. Full ROM. No effusion. Swelling: None. Nontender. No erythema No calf tenderness Stable Satya XRAYs: AP and lateral ordered and interpreted by me. No evidence of OCD loosening or hardware failure. Smooth bony and articular margins seen. Diagnosis: Status post above surgery. Doing well. Plan: Will obtain an AP lateral today and have the patient follow-up with me in 6-8 weeks when he returns from school. He will avoid any high-impact activity until then but can increase his strengthening with bike and elliptical but no running or jumping. They are happy with this. All questions were answered. Scribed for Kilo Gregg MD by Nicohle Aldana Product Designer. I, Kilo Gregg MD, have personally reviewed and agree with the information provided by the scribe. documented in this encounter Plan of Treatment Not on filedocumented as of this encounter Results XR Knee Lt 2 Views (11/27/2018 12:02 PM CDT) Anatomical Region Laterality Modality Lower Extremity, Knee Digital Radiograph y Specimen (Source) Anatomical Location Collection Method / Collectio n Time Received Time / Laterality Volume Narrative 12/09/2018 7:35 AM CDT AP and lateral left knee. ?? No evidence of OCD loosening or hardware failure. ??Smooth bony and articular margins seen. Kilo Gregg MD RAD GD documented in this encounter Visit Diagnoses Diagnosis Left knee pain, unspecified chronicity - Primary S/P left knee arthroscopy Other postprocedural status Left knee pain, unspecified chronicity documented in this encounter Care Teams Double Needle Stitcher Relationship Specialty Start Date End Date Corinne Hazel MD PCP - General 12/19/[address] [place] [address] documented as of this encounter
--- OUTSIDE RECORDS SUMMARY | 2022-06-30 15:42 | XMS_ITS | Encounter Summary ---
:2000 [facility] Address [address] [address] Care Team Providers Name Role Phone Corinne Hazel MD Primary Care Provider Reason for Visit Reason Comments QUESTIONS, GENERAL Encounter Details Date Type Department Care Team Description 10/14/2018 Telephone [facility] [address] Kilo Gregg MD QUESTIONS, GENERAL [address] [facility] [address] [place], [place] [address] [address] [place] [address] [phone] (Wo rk) Social History Tobacco Use Types [...] documented as of this encounter Nursing Notes Kilo Gregg MD - 10/15/2018 12:49 PM CST Called patient and discussed progress. Overall doing ok. PLAN: WBAT ROM to tolerance Follow up in 3-4 weeks to recheck and get Xrays S MOULD CLEANER Terry Dorsey RN - 10/14/2018 4:40 PM CST Pt's mom calling wondering if provider could call patient at [phone]. Pt is at college up in [place] and is not going to be able to make his Sunday appointment. Per mom pt is out of his brace and walking. Mom does not know his ROM. Mom would like provider to discuss with patient his progress and make sure he is recovering ok. Pt is usually free in the afternoon. Thank you Mom's cell is [phone] Pt's DOS was 09/05/18 1. Left knee diagnostic arthroscopy with mobilization and debridement of the osteochondral lesion. 2. Microfracture of the base of the osteochondral lesion. 3. Open reduction internal fixation osteochondral lesion using 2 Arthrex bioabsorbable headless compression screws. ?? S MOULD CLEANER documented in this encounter Plan of Treatment Not on filedocumented as of this encounter Visit Diagnoses Not on filedocumented in this encounter Care Teams Pipeline Operator Relationship Specialty Start Date End Date Corinne Hazel MD PCP - General 12/19/10 [address] [address] documented as of this encounter
--- OUTSIDE RECORDS SUMMARY | 2022-06-30 15:42 | XMS_ITS | Encounter Summary ---
:1999 Author Organization [facility] Address [address] [place] [address] Care Team Providers Name Role Phone Corinne Hazel MD Primary Care Provider Encounter Details Date Type Department Care Team Description 09/05/2018 Anesthesia Event [facility] Jorge A Rdz MD [address] [place], [place] [id number] 8100 [facility] Avinash Neff MD [address] [place], [place] [address] [place], [place] [address] Anesthesia Record Procedure Summary Procedure Name Responsible Anesthesia Start Anesthesia Stop Anesthesiologist Time Time LEFT knee diagnostic Jorge A Rdz MD 09/05/18 1243 1449 arthroscopy and open reduction internal fixation of osteochondral lesion (Left: Knee) Events Date Time Event Comment 09/05/2018 1128 IV plmt Kaleb Beach am, APRN, ORTHOPAEDIC DOCTOR 1133 IV Plmt Comp IV was placed in Preop area by Kaleb Jacobson APRN, ORTHOPAEDIC DOCTOR for a dministration of IV fluids, IV antibiotics, and IV pre-op sedation. Patient was continuously mon itored by Kaleb Jacobson APRN, ORTHOPAEDIC DOCTOR during the placement. 1243 1243 An Start 1248 An Start Data 1249 MD/DO Present 1250 An Induction 1252 An LMA 1307 an terry now 1340 MD/DO Present 1434 MD/DO Present 1443 An LMA Removed Spontaneous resp irations with adequate air exchange. LMA re moved without complications. Transported with oxygen to recovery. 1443 An Oxygen Mask Spontaneous res pirations with adequate air exchange. 1443 an stop data 1449 An Stop Care transferred . 1449 Care Handoff Note I discussed wi th the receiving nurse and we: 1) Identified the p atient, gann family member(s) or patient surrogat e 2) Identified the responsible practitioner 3) Reviewed the pertinent medical history 4) Discu ssed the surgical/procedure course 5) Reviewed intr a-op anesthesia management and issues during an esthesia 6) Set expectations for the post-procedu re period 7) Allowed opportunity for questions an d acknowledgement of understanding of report Electr onically signed by Kaleb Jacobson APRN, C RNA Name Total midazolam 2 mg/2 mL injection (aka VERSED) 2 mg FENTanyl injection (aka SUBLIMAZE) 100 mcg lidocaine 2% PF injection aka (XYLOCAINE) 60 mg propofol 10 mg/mL for procedural sedation (aka diPRIva n) 280 mg propofol 10 mg/mL (aka diPRIvan) 800.42 mg glycopyrrolate injection (aka ROBINUL) 0.2 mg ondansetron injection (aka ZOFRAN) 4 mg dexamethasone 4 mg/mL injection (aka DECADRON) 4 mg ketorolac 30 mg/mL injection (aka TORADOL) 30 mg HYDROmorphone 2 mg/mL injection (aka DILAUDID) 1.5 mg lactated ringer infusion 1,200 mL Agents Name O2 N2O Blood No blood administrations on file. Lines, Drains, and Airways Type Details Placement Removal Peripheral IV Placement Date: 09/05/18 0000 by 09/05/18 1711 b y 09/05/18; Kaleb Jacobson, Toshia Wellington RN Pre-existing: No; FILTERATION OPERATOR, LARY Inserted by?: ORTHOPAEDIC DOCTOR; Size (Gauge): 20 G; Orientation: Left; Site Prep: Alcohol; Local Anesthetic: Injectable, Lidocaine 1%; Insertion attempts: 1; Blood draw with insertion?: no; Patient Tolerance: Tolerated well; Removal Date: 09/05/18; Removal Time: 171; Removal Reason: Patient discharged LMA Placement Date: 09/05/18 1252 by 09/05/18 1443 b y 09/05/18; Placement Kaleb Jacobson, aKleb Jacobson, Time: 1252; Placed By: LARY BAILEY APRN, CRN A CRNA; Induction Type: IV; Size (mm): 5; Difficulty: Atraumatic; Removal Date: 09/05/18; Removal Time: 1443; Transferred with Oxygen: Yes Incision/Surgical 09/05/18; 1307; Knee; 09/05/18 1307 by 9 1712 by Lda, Site Anterior, Left; Ted Celis RN Discontinue 09/19/18; 1712 documented in this encounter Social History Tobacco Use Types Packs/Day Years [...] documented as of this encounter Progress Notes Kaleb Jacobson APRN, CRNA - 2018 7:11 AM CST Addendum created 11/08/18 0711 by Kaleb Jacobson APRN, CRNA Intraprocedure Staff edited SERVICE AMBASSADOR documented in this encounter Miscellaneous Notes Anesthesia Postprocedure Evaluation - Jorge A Rdz MD - 09/05/2018 4:17 PM CST [facility] An[facility] Post-op Note Patient: Hayes High Post-Op Diagnosis: Knee pain, left Procedure Performed: Procedure(s): LEFT knee diagnostic arthroscopy and open reduction internal fixation of osteochondral lesion Anesthesia Type: General Post-op vital signs: BP 130/63 Pulse 86 Temp 36.3 ??C (97.4 ??F) (Oral) Resp 16 Ht 5' 11 Wt 73.5 kg (162 lb) SpO2 100% BMI 22.59 kg/m?? Pain Score: Presence Of Pain: complains of pain/discomfort Preferred Pain Scale: number (Numeric Rating Pain Scale) Pain Rating (0-10): Rest: 2 Post-op assessment: No anesthesia complication. Patient location: Phase 2 Airway Status: Patent Cardiovascular function: Satisfactory Hydration status: Satisfactory PONV: None Level of Consciousness: Awake Fully Participates Postop Assessment: Patient tolerated procedure well. Electronically signed by: Jorge A Rdz MD 09/05/2018 4:17 PM SERVICE AMBASSADOR Anesthesia Preprocedure Evaluation - Jorge A Rdz MD - 09/05/2018 11:51 AM CST [facility] Anest[facility] Pre-op Evaluation Procedure: Procedure(s): LEFT knee diagnostic arthroscopy with possible debridement and possible open reduction internal fixation of osteochondral lesion HPI: 17 y.o. old male with Knee pain, left NPO Status: Last Fluid Intake Date: 09/04/18 Last Food Intake Date: 09/04/18 No Known Allergies History reviewed. No pertinent past medical history. Patient Active Problem List Diagnosis ??? Allergic rhinitis ??? Mal-Schlatter's disease ??? Closed fracture of left proximal tibia ??? Osteochondritis dissecans History reviewed. No pertinent surgical history. Outpatient Medications Marked as Taking for the 09/05/18 encounter (Hospital Encounter) Medication Sig Dispense Refill ??? Fexofenadine HCl (AKA AMY) 30 MG tablet Take by mouth 2 times daily. Current Facility-Administered Medications Medication Dose Route Frequency ??? ceFAZolin (aka ANCEF) 2 g in dextrose 100 ml IVPB 2 g Intravenous Once ??? chloroprocaine (NESACAINE) 3 % injection 2 mL 2 mL Regional Nerve Block Once ??? fentaNYL (SUBLIMAZE) injection 25-50 mcg 25-50 mcg Intravenous Q5MIN PRN ??? HYDROmorphone injectable 0.2-0.4 mg 0.2-0.4 mg Intravenous Q10MIN PRN ??? meperidine (DEMEROL) injection 12.5 mg 12.5 mg Intravenous Q5MIN PRN ??? morphine injectable 1-2 mg 1-2 mg Intravenous Q5MIN PRN ??? ondansetron (ZOFRAN) injection 4 mg 4 mg Intravenous Q4H PRN Labs: No results found for: SODIUM, K, CHLORIDE, CO2, BUN, CREATININE, GLUCOSE Lab Results Component Value Date/Time HGB 12.8 09/12/2000 04:34 PM No results found for: INR No results found for: HCGQUANT Urine : Urine : Blood Bank: No results found for: ABORH, ABSCR EKG: No results found for this or any previous visit. Physical Exam: BP (!) 152/82 Pulse 76 Temp 36.8 ??C (98.2 ??F) (Oral) Resp 16 Ht 5' 11 Wt 73.5 kg (162 lb) SpO2 100% BMI 22.59 kg/m?? Assessment/Plan: Review of Systems Patient does not have GERD. Patient is not a smoker. The patient denies alcohol use. Patient denies any recent URI. History of PONV: No. History of motion sickness: No. Patient denies any personal or family history of anesthesia complications (PONV). Exam Mental Status: Alert and oriented. Mallampati score: II (Two). Mouth opening: Normal Thyromental Distance: Normal Neck Extension: Full Neck Circumference > 40 cm?: No Current airway assessment:Normal Dentition: Normal. Cardiac Exam: Regular rate and rhythm. Respiratory Exam: Breath sounds clear to auscultation Assessment ASA Status: 1 . Plan Anesthesia type: General and LMA Induction: PropofolMaintenance: TIVA Postoperative pain management (PONV): Plan for postoperative opioid use PONV Risk Score Peds:0 PONV Risk Score Adult: 2 PONV Prophylaxis (planned):Ondansetron and Decadron Anesthetic plan, risks, benefits and alternatives discussed with: Patient H&P Reviewed and Patient examined, no change observed IV access Antibiotics per surgery Electronically signed by: Jorge A Rdz MD 09/05/2018 11:51 AM SERVICE AMBASSADOR documented in this encounter Plan of Treatment Not on filedocumented as of this encounter Visit Diagnoses Not on filedocumented in this encounter Administered Medications Inactive Administered Medications - up to 3 most recent administrations Medication Order MAR Action Action Date Dose Rate Site dexamethasone (aka DECADRON) Given 09/05/2018 1:12 PM FOOD SERVICE AMBASSADOR 4 mg injection Intravenous, Starting on Luanne 18 at 1312 fentaNYL (SUBLIMAZE) injection Given 09/05/2018 1:04 PM FOOD SERVICE AMBASSADOR 50 mcg Intravenous, Starting on Luanne 09/05/18 at 1243 Given 09/05/2018 12:43 PM FOOD SERVICE AMBASSADOR 50 mcg glycopyrrolate (aka ROBINUL) injection Given 09/05/2018 12:54 PM FOOD SERVICE AMBASSADOR 0.2 mg Intravenous, Starting on Luanne 09/05/18 at 1254 HYDROmorphone (DILAUDID) injection Given 09/05/2018 2:12 PM FOOD SERVICE AMBASSADOR 0.5 mg Starting on Luanne 09/05/18 at 1354, Until Luanne 09/05/18 at 1449 Given 09/05/2018 1:59 PM FOOD SERVICE AMBASSADOR 0.5 mg Given 09/05/2018 1:54 PM FOOD SERVICE AMBASSADOR 0.5 mg ketorolac (TORADOL) injection Given 09/05/2018 12:58 PM FOOD SERVICE AMBASSADOR 30 mg Intravenous, Starting on Luanne 09/05/18 at 1258, Until Luanne 09/05/18 at 1449 lactated ringers infusion Started 09/05/2018 2:02 PM FOOD SERVICE AMBASSADOR Starting on Luanne 09/05/18 at 1133 Started 09/05/2018 11:33 AM FOOD SERVICE AMBASSADOR lidocaine 2% PF (XYLOCAINE) injection Given 09/05/2018 12:50 PM FOOD SERVICE AMBASSADOR 60 mg Intravenous, Starting on Luanne 09/05/18 at 1250, Until Luanne 09/05/18 at 1449 midazolam (aka VERSED) injection Given 09/05/2018 12:43 PM FOOD SERVICE AMBASSADOR 2 mg Intravenous, Starting on Luanne 09/05/18 at 1243 ondansetron (ZOFRAN) injection Given 09/05/2018 2:24 PM FOOD SERVICE AMBASSADOR 4 mg Intravenous, Starting on Luanne 09/05/18 at 1424, Until Luanne 09/05/18 at 1449 propofol (aka diPRIvan) injection Given 09/05/2018 12:50 PM FOOD SERVICE AMBASSADOR 280 mg Intravenous, Starting on Luanne 09/05/18 at 1250 propofol (aka diPRIvan) Rate/Dose 09/05/2018 2:25 40 mcg/kg/min 17.6 4 injection Change PM FOOD SERVICE AMBASSADOR mL/hr Intravenous, Starting on Luanne 09/05/18 at 1250 Rate/Dose Change 09/05/2018 2:15 PM FOOD SERVICE AMBASSADOR 80 mcg/kg/min 35.28 mL/hr Rate/Dose Change 09/05/2018 1:15 PM FOOD SERVICE AMBASSADOR 120 mcg/kg/min 52.92 mL/hr documented in this encounter Care Teams Heel Trimmer Relationship Specialty Start Date End Date Corinne Hazel MD PCP - General 12/19/10 1415 [facility] [place] [id number] documented as of this encounter
--- OUTSIDE RECORDS SUMMARY | 2022-06-30 15:42 | XMS_ITS | Encounter Summary ---
:1999 [facility] Address [address], [place] [address] Care Team Providers Name Role Phone Corinne Hazel MD Primary Care Provider Encounter Details Date Type Department Care Team Description 10/31/2020 Notes/Orders [facility] Kilo Sky MD 8100 [facility] [address] [place] [address] [place] [address] [phone] (Wo rk) Social History Tobacco Use Types [...] on filedocumented in this encounter Care Teams Plant Nursery Worker Relationship Specialty Start Date End Date Corinne Hazel MD PCP - General 12/19/10 1415 [facility] [place] [phone] documented as of this encounter
--- OUTSIDE RECORDS SUMMARY | 2022-06-30 15:42 | XMS_ITS | Encounter Summary ---
:1999 [facility] Address [address] [place] [address] Care Team Providers Name Role Phone Corinne Hazel MD Primary Care Provider Reason for Referral Therapies (Routine) - Closed Specialty Diagnoses / Procedures Referred By Contact Refer red To Contact Diagnoses Left [place], [place] [address] [place] [address] Referral ID Status Reason Start Date Expiration Date Visits Requ ested Visits Authorized [id number] Closed 09/05/2018 11/04/2018 1 1 Scheduling Instructions This order is your clinician's recommend ation for a service and is not an insurance referral which authorizes payment. The r ecommended service and/or location may not be covered by your insurance plan. Please c all the number on your insurance card to find out your specific benefits and coverage for the recommended services and/or location. If you need help scheduling the recommen ded services, please ask your clinician's staff to assist you. MIXER Reason for Visit Reason Comments Knee Pain or Injury Encounter Details Date Type Department Care Team Description 09/05/2018 Notes/Orders [facility] Kilo Gregg MD Left knee pain, CENTER [address] [address] unspecified [address] [place], [place] chronicity (Primary [place], [place] [address] Dx) [phone] Social History Tobacco Use Types Packs/Day Years [...] as of this encounter Plan of Treatment Scheduled Referrals Name Type Priority Associated Diagnoses Order S chedumurali Physical Therapy Referral Routine Left knee pain, unspecif ied Ordered: 09/05/2018 chronicity documented as of this encounter Visit Diagnoses Diagnosis Left knee pain, unspecified chronicity - Primary documented in this encounter Care Teams Cancer Program Consultant Relationship Specialty Start Date End Date Corinne Hazel MD PCP - General 12/19/[address] [facility] [place] [phone] documented as of this encounter
--- OUTSIDE RECORDS SUMMARY | 2022-06-30 15:42 | XMS_ITS | Encounter Summary ---
:1999 Author Organization [facility] Address [address] [address] Care Team Providers Name Role Phone Corinne Hazel MD Primary Care Provider Encounter Details Date Type Department Care Team Description 09/05/2018 Notes/Orders [facility] [address] Kilo Gregg MD [address] [place] [address] [place] [address] [phone] (Wo rk) Social History Tobacco Use Types [...] on filedocumented in this encounter Care Teams Beef Farmer Relationship Specialty Start Date End Date Corinne Hazel MD PCP - General 12/19/10 1415 [facility] [place] [phone] documented as of this encounter
--- OUTSIDE RECORDS SUMMARY | 2022-06-30 15:42 | XMS_ITS | Encounter Summary ---
:1999 [facility] Organization [facility] Address [address] [place] [address] Care Team Providers Name Role Phone Corinne Hazel MD Primary Care Provider Reason for Visit Reason Comments Knee Problem Encounter Details Date Type Department Care Team Description 09/18/2018 Office Visit [facility] and Ed Sam Pritchett, Left kn pain, Center, Physical PT unspecified Therapy 8100 [facility] chronicity (Primary [address] [place], [place] Dx) [address] [address] [place], [place] [address] [phone] Social History Tobacco Use Types Packs/Day Years [...] documented as of this encounter Progress Notes Sam Pritchett, PT - 09/18/2018 9:45 AM CST [facility] Physical Therapy Daily Note Visit Number: 2 [facility] Initial Certification Period: 09/13/2018 to 12/12/18 Referring Provider: Kilo Gregg MD Diagnosis: OCD lesion Date of Surgery: 09/05/2018 Surgical Procedure: 1.?Left knee diagnostic arthroscopy with mobilization and debridement of the osteochondral lesion. 2.?Microfracture of the base of the osteochondral lesion. 3.?Open reduction internal fixation osteochondral lesion using 2 Arthrex bioabsorbable headless compression screws. ?? Orders: Evaluate & treat and Per protocol Precautions/Contraindications: Plan will be for toe-touch weightbearing for 6 weeks. ??Range of motion 0-45 degrees in the brace. ??He can begin his CPM at 0-45 and increase up to 60 degrees. ??The goal for the first 2 weeks is 0-60degrees, 0-90 degrees weeks 2- 4, 0-120 degrees weeks 4-6, and then range of motion to tolerance. ??Physical therapy alternatively could use the [facility] OCD or OATS postop protocol Date of Onset: January 2018 Standardized Functional Score: PT - Musculoskeletal - Knee Knee Outcome Survey - ADL (0-100%, 100 being best): 58 Knee Outcome Survey - Sport (0-100%, 100% being best): 63 ?? History: OCD lesion in 2014, treated non-operatively. Method of Injury: when pushing off first base in an attempt to steal second he twisted his knee and felt a pop Functional Limitations: Walking, stairs, bending his knee, squatting Patient???s Therapy Goals: return to ADL's and sports/fitness SUBJECTIVE: Patient Report: Patient reports that he is happy with his progression. He feels much better and notes that his knee can comfortably bend within his unlocked brace. OBJECTIVE: Today???s Findings: SLR: > 5 deg extensor lag Knee ROM: 0-60 deg Gait: TTWB TREATMENT TODAY: Therapeutic Exercise (CPT 68957) x 25 minutes: ?? Supine quad set ?? Supine heel slide ?? Supine straight leg raise ?? Sidelying hip abduction ?? Standing hip abduction/extension Timed Code Treatment Minutes: 25 Total Treatment Minutes: 25 ASSESSMENT: Patient presents with limited mobility within restrictions, quad weakness, and gait abnormality. Patient was encouraged in range of motion and progress strengthening for lower extremity muscles within NWB positions. Patient will benefit from continued physical therapy in order to improve function. PLAN: Knee AROM, quad strength, LE strengthening EXPECTED FUNCTIONAL OUTCOMES/GOALS: HEP/Independent Management: Demonstrate independence with HEP and self- management following each treatment session ADL's: Perform sit to stand transfer using involved lower extremity in 3-4 weeks. Sit for greater than 1 hour(s) with minimal/no symptoms in 4-8 weeks. Ambulation: Ambulate and navigate stairs safely with assistive device in 1-2 weeks. - MET Therapist: Sam Pritchett, PT 9:48 AM 09/18/2018 EL MAINTENANCE ELECTRICIAN documented in this encounter Plan of Treatment Not on filedocumented as of this encounter Visit Diagnoses Diagnosis Left knee pain, unspecified chronicity - Primary documented in this encounter Care Teams Air Conditioning Engineer Relationship Specialty Start Date End Date Corinne Hazel MD PCP - General 12/19/10 [address]15 [place] [address] documented as of this encounter
--- OUTSIDE RECORDS SUMMARY | 2022-06-30 15:42 | XMS_ITS | Encounter Summary ---
:1999 Author Organization [facility] Address [address] [place] [address] Care Team Providers Name Role Phone Corinne Hazel MD Primary Care Provider Reason for Referral Procedure/Equipment (Routine) - Incomplete Specialty Diagnoses / Procedures Referred By Contact Refer red To Contact Diagnoses S/P left knee arthroscopy Kilo Gregg MD Procedures Continuous Passive Motion for knees only (E0935) [address] [place] [address] Referral ID Status Reason Start Date Expiration Date Visits V isits Requested Authorized [id number] Incomplete 09/05/2018 12/05/2019 1 1 LAMINATOR Reason for Visit Reason Comments Knee Pain or Injury Encounter Details Date Type Department Care Team Description 09/05/2018 Notes/Orders [facility] Kilo Gregg MD S/P left knee CENTER [address] arthroscopy (Primary [address] [place], [place] Dx) [place], [place] [address] [phone] Social History Tobacco Use Types Packs/Day Years [...] as of this encounter Visit Diagnoses Diagnosis S/P left knee arthroscopy - Primary Other postprocedural status documented in this encounter Care Teams Probation Officer Relationship Specialty Start Date End Date Corinne Hazel MD PCP - General 12/19/10 1415 [place] [address] documented as of this encounter
--- OUTSIDE RECORDS SUMMARY | 2022-06-30 15:43 | XMS_ITS | Encounter Summary ---
:1999 Author Organization [facility] Address [address] [place] [address] Care Team Providers Name Role Phone Corinne Hazel MD Primary Care Provider Encounter Details Date Type Department Care Team Description 11/29/2015 [facility] 3931 Osteoc hondritis dessicans Radiology X-ray 3931 [place] [address] Social History Tobacco Use Types Packs/Day Years Used Date Smoking Tobacco: Never Assessed Alcohol Habits Answer Date Recorded How often [...] Not on filedocumented as of this encounter Procedures Procedure Name Priority Date/Time Associated Diagnosis Comme nts XR KNEE LT 4 VIEWS Routine 11/29/2015 8:46 AM Osteochondritis Results for this CDT dessicans procedure are i n the results section. documented in this encounter Results XR Knee Lt 4 Views (11/29/2015 8:46 AM CDT) Anatomical Region Laterality Modality Lower Extremity, Knee Other Specimen (Source) Anatomical Location Collection Method / Collectio n Time Received Time / Laterality Volume Narrative 11/29/2015 8:55 AM CDT COMPARISON: ??07/08/2015 FINDINGS: ??Area of osteochondritis diss ecans noted in the lateral femoral condyle posteriorly. No fragmentation is identified. Procedure Note Josué Buck MD - 03/05/2016Formatti ng of this note might be different from the original. COMPARISON: 07/08/2015 FINDINGS: Area of osteochondritis dissec ans noted in the lateral femoral condyle posteriorly. No fragmentation is identified. Brian Brennan MD RAD GD documented in this encounter Visit Diagnoses Diagnosis Osteochondritis dessicans Osteochondritis dissecans documented in this encounter Care Teams Datastage Architect Relationship Specialty Start Date End Date Corinne Hazel MD PCP - General 12/19/10 1415 [facility] [place] [phone] documented as of this encounter
--- OUTSIDE RECORDS SUMMARY | 2022-06-30 15:43 | XMS_ITS | Encounter Summary ---
:1999 [facility] Address [address] [address] Care Team Providers Name Role Phone Corinne Hazel MD Primary Care Provider Reason for Visit Reason Comments RESULTS, TEST Encounter Details Date Type Department Care Team Description 07/09/2015 Telephone [facility] Chava Iverson MD RESULTS, TEST 1415 [facility] . [address] [place] [address] [place] [address] [phone] (Wo rk) Social History Tobacco Use Types [...] documented as of this encounter Nursing Notes Iveth Casanova LPN - 07/09/2015 2:19 PM CDT Left v/m for parents with MD message. Chava Iverson MD - 07/09/2015 9:25 AM CDT pcd at [phone], knee XR normal, we will set up the MRI please arrange MRI at [facility] documented in this encounter Plan of Treatment Not on filedocumented as of this encounter Visit Diagnoses Diagnosis Knee instability, left - Primary Left knee pain Pain in joint, lower leg documented in this encounter Care Teams [place] Relationship Specialty Start Date End Date Corinne Hazel MD PCP - General 12/19/10 1415 [facility] [place] [phone] documented as of this encounter
--- OUTSIDE RECORDS SUMMARY | 2022-06-30 15:43 | XMS_ITS | Encounter Summary ---
:2000 Author Organization [facility] Address [address], [place] [address] Care Team Providers Name Role Phone Corinne [place]el MD Primary Care Provider Encounter Details Date Type Department Care Team Description 07/14/2015 Imaging [facility] MRI Left knee pain; [address] [facility] Knee instability, left [place], [place] [address] Social History Tobacco Use Types Packs/Day Years [...] Name Priority Date/Time Associated Diagnosis Comme nts MR KNEE LT WO IV Routine 07/14/2015 5:39 PM Left knee pa in Results for this CONT CDT Knee instability, procedure are in left the results section. documented in this encounter Results MR Knee Lt WO IV Cont (07/14/2015 5:39 PM CDT) Anatomical Region Laterality Modality Lower Extremity, Knee, Skeletal, Thigh, Leg Left Other Specimen (Source) Anatomical Location Collection Method / Collectio n Time Received Time / Laterality Volume Impressions 07/15/2015 10:14 AM CDT IMPRESSION: 1. Small nondisplaced and incomplete sub chondral fracture of the anterior surface of the lateral tibial plateau on sagittal image 26. 2. 2.5 x 1.6 cm OCD lesion of the hand icer ior weightbearing surface of the lateral femoral condyle. This has evidence for at least partial instability with a fluid signal cleft along the deep surface of a portion of this lesion. No displacement or significant loss of overlying articular cartilage. 3. No significant meniscal or ligament t ear. Narrative 07/15/2015 10:14 AM CDT TECHNIQUE: Routine MRI of the left knee was performed without contrast. COMPARISON: None. FINDINGS: MEDIAL COMPARTMENT: There are no focal c artilage defects. The medial meniscus is normal without evidence of tear. ?? LATERAL COMPARTMENT: There is a 2.5 x 1. 6 cm osteochondral lesion of the posterior weightbearing surface of the lateral femoral condyle. There is a thin T2 hyperintense rim along a significant portion o f the deep surface of the osteochondral lesion on sagittal image 21 and coronal image 8 wh ich does raise concern for at least partial instability of this lesion. There is also some fissuring of the articular cartilage along the margin of the osteochond ral lesion. There is no displacement pre sent. Mild marrow edema signal adjacent to this. Th ere is a small linear nondisplaced and incomplete subchondral fracture of the anterior surface of the lateral tibial plateau on sagittal image 26. No evidence for lateral meniscal tear. PATELLOFEMORAL JOINT: There are no focal cartilage defects in the patellofemoral joint. There is no significant joint effusion or popliteal cyst. No osteocartilaginous bodies are identified. LIGAMENTS AND TENDONS: No significant AC L fiber disruption. Small fluid along the posterior surface of the proximal ACL could represent focal joint fluid or small early cyst formation. PCL, MCL, and FCL are intact. Popliteus and biceps femori s tendons are intact. Anterolateral ligament is in tact. There is no evidence of injury to the posterolateral corner supporting structures. EXTENSOR MECHANISM: The quadriceps and p atellar tendons are normal. The medial retinaculum, medial patellofemoral ligament, and lateral retinaculum are normal. MARROW AND SOFT TISSUES: No additional a reas of significant bone marrow signal abnormality. As noted above, there is a small nondisplaced subchondral fracture of the anterior surface of the lateral tibi al plateau and a osteochondral lesion of the lateral femoral condyle. Procedure Note Diogo Berry MD - 03/05/2016 TECHNIQUE: Routine MRI of the left knee was performed without contrast. COMPARISON: None. FINDINGS: MEDIAL COMPARTMENT: There are no focal c artilage defects. The medial meniscus is normal without evidence of tear. LATERAL COMPARTMENT: There is a 2.5 x 1. 6 cm osteochondral lesion of the posterior weightbearing surface of the lateral femoral condyle. There is a thin T2 hyperintense rim along a significant portion of the deep surface of the osteochondral lesion on sagittal image 21 and coronal image 8 wh ich does raise concern for at least partial instability of this lesion. There is also some fissuring of the articular cartilage along the margin of the osteochondral lesion. There is no displacement present. Mild marrow edema signal adjacent to this. Th ere is a small linear nondisplaced and incomplete subchondral fracture of the anterior surface of the lateral tibial plateau on sagittal image 26. No evidence for lateral meniscal tear. PATELLOFEMORAL JOINT: There are no focal cartilage defects in the patellofemoral joint. There is no significant joint effusion or popliteal cyst. No osteocartilaginous bodies are identified. LIGAMENTS AND TENDONS: No significant AC L fiber disruption. Small fluid along the posterior surface of the proximal ACL could represent focal joint fluid or small early cyst formation. PCL, MCL, and FCL are intact. Popliteus and biceps femoris tendons are intact. Anterolateral ligament is in tact. There is no evidence of injury to the posterolateral corner supporting structures. EXTENSOR MECHANISM: The quadriceps and p atellar tendons are normal. The medial retinaculum, medial patellofemoral ligament, and lateral retinaculum are normal. MARROW AND SOFT TISSUES: No additional a reas of significant bone marrow signal abnormality. As noted above, there is a small nondisplaced subchondral fracture of the anterior surface of the lateral tibial plateau and a osteochondral lesion of the latera l femoral condyle. IMPRESSION IMPRESSION: 1. Small nondisplaced and incomplete sub chondral fracture of the anterior surface of the lateral tibial plateau on sagittal image 26. 2. 2.5 x 1.6 cm OCD lesion of the hand icer ior weightbearing surface of the lateral femoral condyle. This has evidence for at least partial instability with a fluid signal cleft along the deep surface of a portion of this lesion. No displacement or significant loss of overlying articular cartilage. 3. No significant meniscal or ligament t ear. Chava Iverson MD RAD MRI documented in this encounter Visit Diagnoses Diagnosis Left knee pain Pain in joint, lower leg Knee instability, left documented in this encounter Care Teams Onyx Chip Terrazzo Worker Relationship Specialty Start Date End Date Corinne [place] MD PCP - General 12/19/10 14[address] [facility] [place] [id number] documented as of this encounter
--- OUTSIDE RECORDS SUMMARY | 2022-06-30 15:43 | XMS_ITS | Encounter Summary ---
:2000 Author Organization [facility] Address [address], [place] [address] Care Team Providers Name Role Phone Corinne [place] MD Primary Care Provider Reason for Referral Procedure/Equipment (Routine) - Incomplete Specialty Diagnoses / Procedures Referred By Contact Refer red To Contact Diagnoses Osteochondritis gurpreetsicans Brian Brennan MD Procedures XR Knee Lt 4 Views [address] [place] [address] Referral ID Status Reason Start Date Expiration Date Visits V isits Requested Authorized [id number] Incomplete 07/20/2016 10/19/2017 1 1 Reason for Visit Reason Comments Knee Pain or Injury left Encounter Details Date Type Department Care Team Description 07/20/2016 Office Visit [facility] Brian Brennan, Oste ochondritis [address] (Primary Dx) Orthopedics [address] [place] [address] [phone] Social History Tobacco Use Types Packs/Day Years Used Date Smoking Tobacco: Never Alcohol Habits Answer Date Recorded How often [...] documented as of this encounter Progress Notes Brian Brennan - 09/05/2016 8:03 PM CST NAME: MICAH HIGH MR#: [id number] CSN: [id number] AUTHENTICATING CLINICIAN: Brian Brennan MD CONFIRM #: [id number] LOC: 211 CLINIC PROGRESS NOTE DATE OF VISIT: 07/20/2016 : 2000 Seen and accompanied by both parents for assessment of a left-sided OCD lesion. He is 15 years of age involved in multiple ways school sports, principally football during the course of the past football season as well as plans for the running sports and basketball this upcoming season. He is seen today with images of the knee in 4 respective views comparing it with previous MRIs dating back to November of 2015 as well as July of 2015. He has had multiple series to follow the integrity of the overlying cartilage given the size of this initial lesion which was dating back to June 2015, approximately a year ago. At that time, he had the changes and the subsequent MRI which by measurement was 2.5 x 1.6. It was on the posterior weightbearing surface. Today's x-rays show the lateral area per Radiology in multiple views to clinically have subchondral changes. The patient has no evidence of loose bodies. No mention of osteal chondroitic instability. The patient is wholly comfortable and denies any notable knee pain both on examination as well as with weightbearing. The patient's last MR arthrogramwas in November approximately 6 months prior. The lesion at that time shows it to be stable with healthy overlying cartilage, still some changes in the subchondral bone. The patient's MRI examination, serial studies as well as serial examinations were assessed. Interpretation at time of the last MRI showed the lesion on the weightbearing surfaces to be unchanged in size. They are described as some irregularities with cartilage overlying the lesion. There is seen to be some subchondral issues on the anterior margin. Question of partial linear extension of contrast between the lesion and the femur posterior medially. Study has not shown any notable interval change. The patient now is however virtually clinically comfortable and on examination the patient is normocephalic. No frontal bossing. No limb deformities with regard to length or girth. The range of motion of his involved knee in comparison with other side shows full flexion on the left side and right, full motor strength. No longer is there percussion tenderness along the left lateral condyle. There is no clicking. There is no evidence of restrictions of range. There are no effusions or swelling. The patient is clinically comfortable and doing well. I think that lesion is stable and symptomatic and all is well for him is the fact that it is a posterior weightbearing area. The patient has not had any changes since his last MRIs. The plain films show subchondral changes but no evidence of overlying instability. They will follow up to see me dependent upon his symptoms. He is going to return to basketball. If there is any change in his symptoms, i.e. swelling, clicking or a sense of giving way, he is to return for plain films. The films at that time will be taken without an MRI here in the clinic in 3 respective views to assess the fracture fragment. The timing of his return to comfort even during periods of heavy running if bones are well but if there is any change in his symptoms he will make his followup visits p.r.n. SPE:MEDQ C: CONFIRM #: [id number] NEERING OFFICER documented in this encounter Plan of Treatment Not on filedocumented as of this encounter Results XR Knee Lt 4 Views (07/20/2016 4:22 PM CDT) Anatomical Region Laterality Modality Lower Extremity, Knee Computed Radiograp hy Specimen (Source) Anatomical Collection Method Collection Time Re ceived Time Location / / Volume Laterality 07/20/2016 4:16 PM CDT Narrative 07/20/2016 4:28 PM CDT COMPARISON: ??04/06/2016 FINDINGS: ??Changes of osteochondritis d issecans seen involving the lateral femoral condyle slight fragmentation at this time. Procedure Note Josué Buck MD - 07/20/2016Format ting of this note might be different from the original. COMPARISON: 04/06/2016 FINDINGS: Changes of osteochondritis dis secans seen involving the lateral femoral condyle slight fragmentation at this time. 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
--- OUTSIDE RECORDS SUMMARY | 2022-06-30 15:43 | XMS_ITS | Encounter Summary ---
:2000 [facility] Address [address], [place] [address] Care Team Providers Name Role Phone Corinne [place] MD Primary Care Provider Reason for Visit Reason Comments Knee Problem Encounter Details Date Type Department Care Team Description 08/30/2015 Office Visit Specialty Center Brian Brennan, Oste ochondritis [address] dessicans (Primary Dx) Orthopedics [address] [place] [address], [address] [place] [id number] [phone] Social History Tobacco Use Types Packs/Day Years [...] this encounter Progress Notes Brian Brennan - 08/31/2015 9:49 AM CST Progress Notes signed by Brian Brennan MD at 09/01/15639 Author: Brian Brennan MD Service: (none) Author Type: Physician Filed: 09/01/15639 Note Time: 09/01/15147 Status: Signed Director Of Gift Planning: Brian Brennan MD (Physician) NAME: MICAH HIGH MR#: [id number] CSN: [id number] AUTHENTICATING CLINICIAN: Brian Brennan MD CONFIRM #: [id number] LOC: 211 CLINIC PROGRESS NOTE DATE OF VISIT: 08/30/2015 : 2000 Followup MRI arthrogram. Micah High is a 14-year-old boy, who presented with a nondisplaced fracture after a fall of his proximal tibial plateau, but he also had an MR arthrogram done in the first week of July. His lesion is approximately 2.5 x 1.6 in size on the weightbearing surface of the lateral femoral condyle. It is hyperdense in area. My interpretation is no notable contrast extension underneath the lesion. The articular surface appears grossly intact. The lesion appears intact. It is anondisplaced fracture on the margins. No past medical history on file. No past surgical history on file. History Substance Use Topics ??? Smoking status: Never Smoker ??? Smokeless tobacco: Not on file ??? Alcohol Use: Not on file Outpatient Prescriptions Prior to Visit Medication Sig ??? adapalene (DIFFERIN) 0.1 % gel Apply topically nightly. To the face. Start every other night; after 2 weeks, increase to every night. ??? clindamycin (CLEOCIN T) 1 % lotion Apply topically every morning. ??? doxycycline (MONODOX) 100 mg capsule Take 1 capsule by mouth daily (every 24 hours). ??? fexofenadine (AMY) 30 mg tablet Take by mouth 2 times daily. No facility-administered medications prior to visit. No family history on file. No Known Allergies Immunization History Administered Date(s) Administered ??? DTaP 01/11/2000, 03/14/2000, 05/09/2000, 05/09/2005 ??? DTaP-HiB 02/18/2001 ??? FLUARIX INFLUENZA QIV (36+ MOS) 07/08/2015 ??? HPV 03/26/2015 ??? HPV9 07/08/2015 ??? Hep A Ped/adol (1-18 yrs) 05/06/2008, 11/27/2008 ??? Hep B Adult Vaccine (20+ yrs) 03/14/2000, 05/09/2000, 11/19/2000 ??? Hib (ActHIB) 01/11/2000, 03/14/2000, 05/09/2000 ??? IPV 01/11/2000, 03/14/2000, 05/09/2000, 05/09/2005 ??? Influenza TIV 0.5ml (36+ mos) 07/29/2010 ??? Influenza Virus Trival (36+ mo) 07/14/2003 ??? Influenza Virus Trivalent/Conversion 08/15/2001, 09/23/2001 ??? MCV4 (Menactra) 04/16/2012 ??? MMR 02/18/2001, 05/09/2005 ??? Menveo (MCV4) 03/26/2015 ??? PCV7 09/12/2000, 11/19/2000, 02/18/2001 ??? Tdap (Adacel) 04/16/2012 ??? Varicella 11/19/2000, 11/27/2008 ROS: Patient has no evidence or history of neuromuscular disease or developmental delay.. No evidence of metabolic bone disease. ROS / Pertinent negatives 1. Constitution - developmentally within normal limits / No notable weight changes 2. Eyes - within normal limits 3. Cardiac - No history of heart disease 4. Bowel - No change in function 5. Bladder - Normal function 6. Musculoskeletal - No history of arthritis 7. Skin - No history of rashes or bruising or skin breakdown 8. Neuro - No loss of consciousness. Normal balance issues or seizures or static encephalopathy 9. Psych - No history of injurious behavior / lives in safe environment 10. Endocrine - No history of osteogenesis imperfecta or metabolic bone disease, no hemoglobinopathies or vascular conditions. EXAMINATION: His range of motion is full. He has no mechanical symptoms. He has no notable point tenderness with flexion and extension. There are no effusions. Spoke of with the brace getting back to sports for support, repeating x-rays in approximately 3 months' time. We had approximately a 20 minute to 30 minute discussion today regarding any change in symptoms, which would prompt an arthroscopic versus open stabilization with absorbable or nonabsorbable screws to stabilize the lesion. At present, given his lack of symptoms as well as the fact that it is intact and there is no notable extension underneath the lesion, he would follow up to see me on a 3-month basis. Plain films will be AP, lateral and notch views at that time. Any considerations of stabilization would be based upon any increase in symptoms or any change. He does not have to have an MRI a rthrogram of his left knee in such short sequence. 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
--- OUTSIDE RECORDS SUMMARY | 2022-06-30 15:43 | XMS_ITS | Encounter Summary ---
:2000 [facility] Address [address], [place] [address] Care Team Providers Name Role Phone Corinne [place] MD Primary Care Provider Reason for Visit Reason Comments ACNE Encounter Details Date Type Department Care Team Description 07/24/2015 Office Visit [facility] Acne vulgaris (Primary Dx) [address] [place] [address] Social History Tobacco Use Types Packs/Day Years [...] documented as of this encounter Progress Notes Leatha Monroy MD - 08/02/2015 9:46 PM CST This note has been dictated. Karols Monroy LASS FRAMES INSPECTOR Jennifer Juarez MD - 07/24/2015 12:33 PM CST Progress Notes signed by Jennifer Juarez MD at 08/02/152145 Author: Jennifer Juarez MD Service: (none) Author Type: Physician Filed: 08/02/152145 Note Time: 07/25/15 1016 Status: Addendum Engine Room Operator: Jennifer Juarez MD (Physician) Related Notes: Original Note by Jennifer Juarez MD (Physician) filed at 07/25/151931 NAME: MICAH HIGH MR#: [id number] CSN: [id number] AUTHENTICATING CLINICIAN: Jennifer Juarez MD CONFIRM #: [id number] LOC: 427 CLINIC PROGRESS NOTE DATE OF VISIT: 07/24/2015 : 2000 HISTORY OF PRESENT ILLNESS: Jn is a pleasant 14-year-old male who presents with his mother for evaluation of acne, which has been going on for six months on the face, and occasionally the chest. He has tried a gentle facial cleanser, BHA Astringent, Proactiv, benzoyl peroxide 2.5%, and salicylic acid. He notes some improvement, but finds these products to be drying. He notes that his face seems to get more red throughout the day at school. He plays football and wearing the helmet chin strap makes the acne worse on the chin. Since he has been injured and not playing football, the chin acne has improved. He does better in thesummer he feels. The chest flared some when he was playing basketball and sweating. He notes that hegets red spots, hard bumps, and pimples and he does pick at them. His mother had acne as a teenager,but she does not remember how this was treated. PAST MEDICAL HISTORY: Otherwise healthy. FAMILY HISTORY: He has a great grandmother with melanoma. SOCIAL: He plays football, basketball, and baseball. MEDICATIONS: Reviewed in [employer]. ALLERGIES: Reviewed in [employer]. He has seasonal allergies. REVIEW OF SYSTEMS: No other skin concerns. Feels otherwise well. PHYSICAL EXAMINATION: A focused exam of the face was noted for multiple closed comedones on the forehead and cheeks. Erythematous papules on the cheeks and chin, some of which are crusted. There is no evidence of scarring. ASSESSMENT/PLAN: 1. Mild to moderate comedonal and inflammatory acne. We recommend that Jn begin to use Adapalene 0.1% gel to the affected areas at night, clindamycin 1% lotion to the affected areas in the morning, and that he purchase an [id number] benzoyl peroxide wash for affected areas. Given his level of c oncern and the inflammatory component to his acne, we have prescribed doxycycline 100 mg daily to beused for three months. If at the end of three months he is not doing better, he should return to theclinic to discuss potential ongoing oral treatment. He should continue the topical treatments indefinitely for the next few years. 2. Return to clinic p.r.n. Dictated by: Leatha Monroy MD CC: JENNIFER JUAREZ MD [address] [place] [address] KKL:MEDQ C: CONFIRM #: [id number] I personally evaluated and examined the patient with the dermatology resident. I was present for thekey portions of the history and examination. I was present for procedures performed. I discussed andagree with the resident's findings, assessment and plan, as documented in the resident's note. Jennifer Juarez MD LASS FRAMES INSPECTOR documented in this encounter Plan of Treatment Not on filedocumented as of this encounter Visit Diagnoses Diagnosis Acne vulgaris - Primary Other acne documented in this encounter Care Teams Matte Cutter Relationship Specialty Start Date End Date Corinne Hazel MD PCP - General 12/19/10 1415 [place] [id number] documented as of this encounter
--- OUTSIDE RECORDS SUMMARY | 2022-06-30 15:43 | XMS_ITS | Encounter Summary ---
:2000 Author Organization [facility] Address [address], [place] [address] Care Team Providers Name Role Phone Corinne Hazel MD Primary Care Provider Reason for Visit Reason Comments Knee Pain or Injury L knee OCD lesion Encounter Details Date Type Department Care Team Description 05/02/2018 Office Visit [facility] Kilo Gregg, [facility] dissecans of knee, left [address] [facility] [id number] [place] [address] (Primary Dx) [place] [address] [phone] Social History Tobacco Use Types Packs/Day Years Used Date Smoking Tobacco: Never Smokeless Tobacco: Never Alcohol Habits Answer Date Recorded [...] Sign Reading Time Taken Comments Blood Pressure - - Pulse - - Temperature - - Respiratory Rate - - Oxygen Saturation - - Inhaled Oxygen Concentration - - Weight 73.6 kg (162 lb 4.8 oz) 05/02/2018 8:40 AM CDT Height 180.3 cm (5' 11) 05/02/2018 8:40 AM CDT Body Mass Index 22.64 05/02/2018 8:40 AM CDT Body Mass Index Percentile 56.21 % 05/02/2018 8:40 AM CD T Growth Chart: [facility] (Boys, 2-20 Years) documented in this encounter Progress Notes Kilo Gregg MD - 05/02/2018 12:00 PM CDT NAME: MICAH HIGH MR#: [id number] CSN: [id number] AUTHENTICATING CLINICIAN: Kilo Gregg MD CONFIRM #: [id number] LOC: 711 CLINIC PROGRESS NOTE DATE OF VISIT: 05/02/2018 : 2000 CHIEF COMPLAINT: Second opinion regarding left knee pain. HPI: Micah is an 17-year-old gentleman, who has had a longstanding history of left knee troubles. He has a history of an osteochondritis dissecans lesion, back in 2014 which was treated nonoperatively. Hehad been doing well with some intermittent pain and swelling in his knee until January 2018, when at theend of the baseball season [place] attempting to steal when he pushed off, twisted, felt a pop in his knee. Now, his knee gives out, feels unstable and he is having more lateral pain and swelling. He saw Dr. Brennan, who recommended surgical intervention at this point, given the unstable nature of the OCD and he presents to me for further treatment recommendations. Currently swelling is mild. No numbness, tingling. No hip or back pain. No other areas of injury. No other complaints atthis time. For complete details of his past medical history, past surgical history, medications, allergies, social and family history, review of systems, please refer the patient intake form from today as well asEpic, which I also reviewed today. PHYSICAL EXAM: GENERAL: Patient is alert and oriented x3. No acute distress. Well-appearing. Appears stated age. Normal and affect. VITALS: Reviewed in Epic. HEENT: Extraocular movements are intact. MUSCULOSKELETAL: Stands in neutral alignment. Walks with a nonantalgic gait. His lumbar spine is nontender to palpation. Full, painless range of motion of the lumbar spine. Bilateral hips show full, painless range of motion with normal strength and stability. Right knee exam is within normal limits. Nontender to palpation Range of motion: 0-135 Effusion: None Patellofemoral Crepitation: None Stable to varus and valgus stress at 0 and 30 degrees. Negative Satya Negative anterior drawer Negative posterior drawer Kit's test is negative No calf tenderness Grade 5 strength tibialis anterior, EHL, gastrocsoleus Sensation intact to light touch L2-S1 Foot warm, well perfused with normal cap refill. Left knee exam shows a trace effusion. Skin is intact. Range of motion is full 0 to 140 degrees. Symmetric to the contralateral side. He is nontender topalpation about the knee, over the epicondyles, condyles, joint lines. Negative anterior posterior drawer. Negative Satya's. Stable to varus and valgus stress 0 and 30 degrees. Negative Kit's and Apley's. No calf tenderness. Grade 5 strength to his anterior EHL, gastrocsoleus. Sensation intact to light touch L2-S1. The foot is warm, well perfused. Normal cap refill. IMAGING STUDIES: X-rays reviewed by me from 02/28/2018, show a lytic area at the distal lateral femoral condyle. No associated loose bodies present. No significant joint space narrowing. MRI scan reviewed by me from 03/11/2018, shows a lateral femoral condyle osteochondritis dissecans lesion, appears unstable. There is fluid deep to the lesion. The lesion has a good bony surface attached to the overlying cartilage which is intact. The lesion measures approximately 2.4 A to P by 1.8 cmmedial to lateral. No meniscus pathology or ligamentous pathology is appreciated. ASSESSMENT: Left knee lateral femoral condyle unstable osteochondritis dissecans lesion. PLAN: I discussed diagnosis, prognosis treatment with the patient. At this point, Jn is now skeletally mature. 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 Our plan will be for left knee diagnostic arthroscopy with plan for ORIF of the osteochondral lesion. If we are unable to perform an ORIF at that time due to the fragmentation or inability to achieve fixation in the bony fragment, then debridement would be performed and possible 2nd stage operation with an osteochondral allograft at a future date. We did discuss all of these options in detail, and they elected to proceed. Jn is headed off to college as a freshman at [employer] in a couple weeks and would like to delay surgery until the wintertime. I counseled him on signs and symptoms to look out for, for worsening of this and I think as long as he is maintaining a relatively sedentary lifestyle, given the fact that this is posterior to the weightbearing area, that he will be probably be okay to delay surgery until August. We did discuss that it is possible that the OCD could become further displaced creatinga locking phenomenon in the knee and may render the fragment irreparable. He is aware of this and will limit his activities. We will see him in August for operative treatment. We discussed all the risks and benefits of surgery and the surgery recovery time was outlined as well as the risks and benefits. All benefits and risks of surgery were discussed with the patient. These include but are not limitedto pain, bleeding, scarring, infection, damage to nearby structures including tendons, arteries and nerves, incomplete resolution of symptoms, need for further surgery, blood clots, heart attack, stroke and . The patient is aware of all these and would like to proceed. We will schedule the patient at the earliest convenience after appropriate preoperative clearance. 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
--- OUTSIDE RECORDS SUMMARY | 2022-06-30 15:43 | XMS_ITS | Encounter Summary ---
:2000 Author Organization [facility] Address [address] [address] Care Team Providers Name Role Phone Corinne Hazel MD Primary Care Provider Encounter Details Date Type Department Care Team Description 09/05/2018 Hospital Encounter [facility] Kilo Gregg MD [address] [facility] [address] [address] [place], [place] [address] [place], [place] [phone] (Wo rk) Social History Tobacco Use Types [...] Comments Blood Pressure 130/63 09/05/2018 3:54 PM [employer] Pulse 86 09/05/2018 3:54 PM [employer] Temperature 36.3 ??C (97.4 ??F) 09/05/2018 3:50 PM [employer] Respiratory Rate 16 09/05/2018 3:50 PM [employer] Oxygen Saturation 100% 09/05/2018 3:50 PM [employer] Inhaled Oxygen Concentration - - Weight 73.5 kg (162 lb) 09/05/2018 10:30 AM [employer] Height 180.3 cm (5' 11) 09/05/2018 10:30 AM [employer] Body Mass Index 22.59 09/05/2018 10:30 AM [employer] Body Mass Index Percentile 52.86 % 09/05/2018 10:[address] Growth Chart: [facility] (Boys, 2-20 Years) documented in this encounter [...] Understanding Pain Patient take-homes: Brace Ice pack(s) [employer] documented in this encounter Medications at Time [...] examined today. Nointerval changes. Kilo Gregg MD [employer] documented in this encounter Procedure Notes Kilo [...] / Findings: See dictation Kilo Gregg MD [employer] Kilo Gregg MD - 09/05/2018 12:00 PM CST NAME: HAYES HIGH MR#: [id number] CSN: [id number] AUTHENTICATING CLINICIAN: Kilo Gregg MD CONFIRM #: [id number] LOC: 725 OPERATIVE REPORT DATE OF OPERATION: [...] LOSS: 10 mL. SPECIMENS: None. ANESTHESIA: General. BANKRUPTCY PARALEGAL: GALINA Burns COMPLICATIONS: None. INDICATIONS: Mr. High [...] repeat clinical check. RTM:MEDQ C: R:09/05/18 15:03 CONFIRM#:[id number] [employer] documented in this encounter Plan of Treatment Scheduled Orders Name Type Priority Associated Diagnoses Order S chedule POCT Glucose: Point of Care Routine Once today st arting now for 1 Occurrences s tarting 09/05/2018 unti l 09/05/2018 documented as of this encounter Procedures Procedure Name Priority Date/Time Associated Diagnosis Comme nts KNEE ARTHROSCOPY WITH 09/05/2018 12:47 PM Knee pain, l eft REPAIR OSTEOCHONDRAL [employer] LESION documented in this encounter Visit Diagnoses Not on filedocumented in this encounter Administered Medications Inactive Administered Medications - up to 3 most recent administrations Medication Order MAR Action Action Date Dose Rate Site bupivacaine-epinephrine PF Given 09/05/2018 1:07 PM [employer] 9 mL Left Knee (SENSORCAINE) 0.5% -1:125859 injection ONCE PRN, Starting on Luanne 09/05/18 at 1307, Until Luanne 09/05/18 at 1912, Intra-op diphenhydrAMINE (BENADRYL) injection 25- 50 mg Given 09/05/2018 3:00 PM [employer] 25 mg 25-50 mg, Intravenous, Q6H PRN, Itching, Starting on Luanne 09/05/18 at 1524, Until Luanne 09/05/18 at 1912, PACU & Post-op EPINEPHrine 1 mg in sodium chloride 0.9 Given 09/05/2018 1:11 PM [employer] 1 mL Left Knee % 3,000 mL ONCE PRN, Starting on Luanne 09/05/18 at 1311, Intra-op fentaNYL (SUBLIMAZE) injection 25-100 mc g 25-100 mcg, Intravenous, [id number], Pain, Sedation, Pro cedure, Severe Pain (pain score 8-10), Starting on Luanne 09/05/18 at 1522, Until Luanne 09/05/18 at 1911, Notify Anesthesiologist if total cumulative dose in excess of 250 mcg., Pre-op fentaNYL (SUBLIMAZE) injection 25-50 mcg 25-50 mcg, Intravenous, [id number], Other, Moderate to Severe Pain (pain score 5 and above) in the immediate postop period when faster on-s et, short acting agent is desired., Starting on Luanne 09/05/18 at 10 53, Until Luanne 09/05/18 at 191, Administer every 5 minutes as needed, to [...] 09/05/18 at 1053, Until Luanne 09/05/18 at 1911, Maximum cumulative dose is 2 mg. For patients with a region al, spinal, or local anesthetic, may give for anticipated pain as the anesthetic wears off., PAC U/Recovery lactated ringers infusion Intravenous, at 30 mL/hr, CONTINUOUS, Starting on Luanne 09/05/18 at 1545, Pre-op meperidine (DEMEROL) injection 12.5 mg 12.5 mg, Intravenous, [id number], Shiverin g, Starting on Luanne 09/05/18 at 1053, Until Luanne 09/05/18 at 1911, For 2 doses, Maxim um cumulative dose is 25 mg. Do not give to patients receiving MAO inhibitors (e.g. phenelzine (NA RDIL), tranylcypromine (PARNATE), selegiline (ELDEPRYL))., PACU/Recovery midazolam (VERSED) injection 1-2 mg 1-2 mg, Intravenous, [id number], Sedation, Anxiety, Proc edure, Starting on Luanne 09/05/18 at 1522, Until Luanne 09/05/18 at 1911, MAX Dose 2mg, Pre-op morphine injectable 1-2 mg 1-2 mg, Intravenous, [id number], Other, Moderate to Malissa re Pain (pain [...] ropivacaine (NAROPIN) injection Given 09/05/2018 2:15 PM [employer] 30 mL Left Knee ONCE PRN, Starting on Luanne 09/05/18 at 1415, Until Luanne 09/05/18 at 1912, Intra-op documented in this encounter Active and Recently Administered Medications Times are shown in [employer]. Scheduled Medication Order 09/03/2018 09/04/2018 09/05/2018 ceFAZolin [...] pain scores)., Post-op bupivacaine-epinephrine PF (SENSORCAINE) 0.5% -1:[id number] injectio n 1307 (Given - Provider: Kilo [...] (SUBLIMAZE) injection 25-100 mcg 25-100 mcg, Intravenous, [id number], Pain, Sedation, Procedure, Severe Pain (pain score 8-10), Starting Luanne 09/05/18 at 1522, Notify Anesthesiologist if total cumulative dose in excess of 250 mcg., Pre-op fentaNYL (SUBLIMAZE) injection 25-50 mcg 25-50 mcg, Intravenous, [id number], Other, Moderate to Severe Pain (pain score [...] (DEMEROL) injection 12.5 mg 12.5 mg, Intravenous, [id number], Shiverin g, Starting Luanne 09/05/18 at 1053, For 2 doses, Maximum cumulative dose is 25 mg. Do not give to patients receiving MAO inhibitors (e.g. phenelzine (NARDIL), trany lcypromine (PARNATE), selegiline (ELDEPRYL))., PACU/Recovery midazolam (VERSED) injection 1-2 mg 1-2 mg, Intravenous, [id number], Sedation, Anxiety, Procedure, Starting Luanne 09/05/18 at 1522, MAX Dose 2mg, Pre-op morphine injectable 1-2 mg 1-2 mg, Intravenous, [id number], Other, Mo derate to Severe Pain (pain [...] Intra-op documented in this encounter Care Teams Veneer Lathe Operator Relationship Specialty Start Date End Date Corinne Hazel MD PCP - General 12/19/10 [address] [facility] [place] [address] documented as of this encounter
--- OUTSIDE RECORDS SUMMARY | 2022-06-30 15:43 | XMS_ITS | Encounter Summary ---
:2000 Author Organization [facility] Address [address] [place] [address] Care Team Providers Name Role Phone Corinne Hazel MD Primary Care Provider Encounter Details Date Type Department Care Team Description 11/29/2015 Hospital Baptism Brian Brennan Osteochondr itis Encounter Radiology MRI PMD dessicans [address] [facility] [address] [phone] Social History Tobacco Use Types Packs/Day Years [...] on file documented as of this encounter Medications at Time of Discharge Medication Sig Dispensed Refills Start Date End Date Fexofenadine HCl (AKA Take by mouth 2 0 2 AMY) 30 MG tablet times daily. adapalene (AKA DIFFERIN) Apply topically 45 g 11 201409/05/2018 0.1 % gel nightly. To the face. Start every other night; after 2 weeks, increase to every night. clindamycin (AKA CLEOCIN Apply topically 60 mL 201409/05/2018 T) 1 % lotion every morning. doxycycline monohydrate Take 1 capsule by 60 capsule 2 09/2109/05/2018 (MONODOX) 100 MG capsule mouth 2 times daily. documented as of this encounter Plan of Treatment Not on filedocumented as of this encounter Procedures Procedure Name Priority Date/Time Associated Diagnosis Comme nts MR POST ARTHROGRAM Routine 11/29/2015 2:18 Osteochondritis Res ults for this KNEE LT PM CDT dessicans procedure are i n the results section. documented in this encounter Results MR Post Arthrogram Knee Lt (11/29/2015 2:18 PM CDT) Anatomical Region Laterality Modality Lower Extremity, Knee, Skeletal, Thigh, Leg, Other Other Specimen (Source) Anatomical Location Collection Method / Collectio n Time Received Time / Laterality Volume Impressions 11/29/2015 2:57 PM CDT IMPRESSION: ?? 1. Osteochondral lesion in the posterior weightbearing portion of the lateral femoral condyle is unchanged in size. As on the prior study, there is irregularity involving the cartilage overlying the pos terior medial aspect of the lesion with possible partial linear extension of contrast bet ween the lesion and the femur posteromedially. The overall appearance is similar to the previous study. 2. Previously seen subchondral fracture involving the anterior margin of the lateral tibial plateau is no longer visualized. Narrative 11/29/2015 2:57 PM CDT TECHNIQUE: ??Routine MR arthrogram marcell col of the left knee was performed following the intraarticular injection of 20 mL of sterile saline with a 1:400 dilution of Gadavist. COMPARISON: ??08/30/2015. FINDINGS: MEDIAL COMPARTMENT: ??There are no focal cartilage defects. The medial meniscus is normal without evidence of tear. LATERAL COMPARTMENT: ??Osteochondral les ion involving the posterior weightbearing portion of the lateral femoral condyles unchanged in size measuring 2.6 x 2.0 cm. As on the prior study, there is hyperi ntense T2 signal intensity at the interf rae between the osteochondral lesion and the femur. Mild irregularity involving the cartilage overlying the posterior medial aspect of the lesion is again noted with possible partial linear extension of contrast be tween the lesion and the femur posterome dially. The lateral meniscus is normal without evide nce of tear. PATELLOFEMORAL JOINT: ??There are no foc al cartilage defects in the patellofemoral joint. ? No osteocartilaginous bodies are identified. LIGAMENTS AND TENDONS: ??The anterior an d posterior cruciate ligaments, medial collateral ligament, iliotibial band, fibular collateral ligament and biceps femoris tendons are intact. The popliteus musc le and tendon are normal. There is no ev idence of injury to the posterolateral corner supp orting structures. The quadriceps and patellar tendons are normal. MARROW AND SOFT TISSUES: ??See above gurpreet cription of the osteochondral lesion in the lateral femoral condyle. Marrow signal is otherwise normal Procedure Note Pradip Fuller MD - 03/05/2016 TECHNIQUE: Routine MR arthrogram protoco l of the left knee was performed following the intraarticular injection of 20 mL of sterile saline with a 1:400 dilution of Gadavist. COMPARISON: 08/30/2015. FINDINGS: MEDIAL COMPARTMENT: There are no focal c artilage defects. The medial meniscus is normal without evidence of tear. LATERAL COMPARTMENT: Osteochondral lesio n involving the posterior weightbearing portion of the lateral femoral condyles unchanged in size measuring 2.6 x 2.0 cm. As on the prior study, there is hyperintense T2 signal intensity at the interface betwee n the osteochondral lesion and the femur. Mild irregularity involving the cartilage overlying the posterior medial aspect of the lesion is again noted with possible partial linear extension of contrast between the lesion and the femur posteromedially. Th e lateral meniscus is normal without evide nce of tear. PATELLOFEMORAL JOINT: There are no focal cartilage defects in the patellofemoral joint. No osteocartilaginous bodies are identified. LIGAMENTS AND TENDONS: The anterior and posterior cruciate ligaments, medial collateral ligament, iliotibial band, fibular collateral ligament and biceps femoris tendons are intact. The popliteus muscle and tendon are normal. There is no evidence of injury to the posterolateral corner supp orting structures. The quadriceps and patellar tendons are normal. MARROW AND SOFT TISSUES: See above descr iption of the osteochondral lesion in the lateral femoral condyle. Marrow signal is otherwise normal IMPRESSION IMPRESSION: 1. Osteochondral lesion in the posterior weightbearing portion of the lateral femoral condyle is unchanged in size. As on the prior study, there is irregularity involving the cartilage overlying the posterior medial aspect of the lesion with possible partial linear extension of contrast bet ween the lesion and the femur posteromedially. The overall appearance is similar to the previous study. 2. Previously seen subchondral fracture involving the anterior margin of the lateral tibial plateau is no longer visualized. Brian Brennan MD RAD MRI documented in this encounter Visit Diagnoses Diagnosis Osteochondritis dessicans Osteochondritis dissecans documented in this encounter Care Teams Purchasing/Receiving Relationship Specialty Start Date End Date Corinne Hazel MD PCP - General 12/19/[address] [place] [id number] documented as of this encounter
--- OUTSIDE RECORDS SUMMARY | 2022-06-30 15:43 | XMS_ITS | Encounter Summary ---
:2000 Author Organization [facility] Address [address] [place] [address] Care Team Providers Name Role Phone Corinne Hazel MD Primary Care Provider Encounter Details Date Type Department Care Team Description 08/30/2015 [facility] Brian Brennan Osteochondr itis Encounter Radiology MRI PMD dissecans [address] [facility] [address] [phone] Social History Tobacco Use Types Packs/Day Years [...] 2 AMY) 30 MG tablet times daily. doxycycline (AKA Take 1 capsule by 30 capsule 2 07/24/2015 0 09/21/2015 VIBRAMYCIN) 100 MG mouth daily (every capsule 24 hours). adapalene (AKA DIFFERIN) Apply topically 45 g 11 201409/05/2018 0.1 % gel nightly. To the face. Start every other night; after 2 weeks, increase to every night. clindamycin (AKA CLEOCIN Apply topically 60 mL 11 201409/05/2018 T) 1 % lotion every morning. documented as of this encounter Plan of Treatment Not on filedocumented as of this encounter Procedures Procedure Name Priority Date/Time Associated Diagnosis Comme nts MR POST ARTHROGRAM Routine 08/30/2015 2:46 Osteochondritis Res ults for this KNEE LT PM COMIC BOOK DESIGNER dissecans procedure are i n the results section. documented in this encounter Results MR Post Arthrogram Knee Lt (08/30/2015 2:46 PM COMIC BOOK DESIGNER) Anatomical Region Laterality Modality Lower Extremity, Knee, Skeletal, Thigh, Leg, Other Other Specimen (Source) Anatomical Location Collection Method / Collectio n Time Received Time / Laterality Volume Impressions 08/30/2015 3:22 PM COMIC BOOK DESIGNER IMPRESSION: ?? 1. 2.4 x 1.6 cm osteochondral lesion of the posterior weightbearing surface of the lateral femoral condyle. At least partial instability persists with thin T2 hyperintense rim about this lesion, not sig nificantly changed. Question tiny focus of contrast extension between this lesion and the avila bchondral bone at the anteromedial margin on coronal image 9 and 10. Overlying articular cartilage is otherwise intact. 2. Healing nondisplaced subchondral frac ture of the anterior margin of the lateral tibial plateau with only minimal residual bone marrow edema. Narrative 08/30/2015 3:22 PM COMIC BOOK DESIGNER TECHNIQUE: ??Routine MR arthrogram marcell col of the left knee was performed following the intraarticular injection of 10 mL of sterile saline with a 1:400 dilution of Gadavist. COMPARISON: ??07/26/2015 and 07/14/2015 FINDINGS: MEDIAL COMPARTMENT: ??There are no focal cartilage defects. The medial meniscus is normal without evidence of tear. LATERAL COMPARTMENT: ??2.4 x 1.6 cm oste ochondral lesion of the posterior weightbearing surface of the lateral femoral condyle is again seen. Thin T2 hyperintense rim about the majority of this lesion persists, similar when compared to prior study. Question tiny focus of contrast extensio n between this lesion and the subchondral bone at its anteromedial margin on coronal image 9 and 10. Overlying articular cartilage otherwise appears intact. The nondisplaced subchondral fracture of the lateral tibial plateau demonstrates only minimal residual bone marrow edema. The lateral meniscus is normal without e vidence of tear. PATELLOFEMORAL JOINT: ??There are no foc al cartilage defects in the patellofemoral joint. There [...] tendons are normal. MARROW AND SOFT TISSUES: ??No soft tissu e mass. Bone marrow signal is otherwise within normal limits. Procedure Note Vandana Levine MD - 03/05/2016Formattalthea funes of this note might be different from the original. TECHNIQUE: Routine MR arthrogram protoco l of the left knee was performed following the intraarticular injection of 10 mL of sterile saline with a 1:400 dilution of Gadavist. COMPARISON: 07/26/2015 and 07/14/2015 FINDINGS: MEDIAL COMPARTMENT: There are no focal c artilage defects. The medial meniscus is normal without evidence of tear. LATERAL COMPARTMENT: 2.4 x 1.6 cm osteoc hondral lesion of the posterior weightbearing surface of the lateral femoral condyle is again seen. Thin T2 hyperintense rim about the majority of this lesion persists, similar when compared to prior study. Question tiny focus of contrast extensio n between this lesion and the subchondral bone at its anteromedial margin on coronal image 9 and 10. Overlying articular cartilage otherwise appears intact. The nondisplaced subchondral fracture of the lateral tibial plateau demonstrates only minimal residual bone marrow edema. The lateral meniscus is normal without e vidence of tear. PATELLOFEMORAL JOINT: There are no [...] tendons are normal. MARROW AND SOFT TISSUES: No soft tissue mass. Bone marrow signal is otherwise within normal limits. IMPRESSION IMPRESSION: 1. 2.4 x 1.6 cm osteochondral lesion of the posterior weightbearing surface of the lateral femoral condyle. At least partial instability persists with thin T2 hyperintense rim about this lesion, not significantly changed. Question tiny foc us of contrast extension between this lesion and the avila bchondral bone at the anteromedial margin on coronal image 9 and 10. Overlying articular cartilage is otherwise intact. 2. Healing nondisplaced subchondral frac ture of the anterior margin of the lateral tibial plateau with only minimal residual bone marrow edema. Brian Brennan MD RAD MRI documented in this encounter Visit Diagnoses Diagnosis Osteochondritis dissecans documented in this encounter Care Teams Lumber Estimator Relationship Specialty Start Date End Date Corinne Hazel MD PCP - General 12/19/[address] [place], [place] [address] [address] documented as of this encounter
--- OUTSIDE RECORDS SUMMARY | 2022-06-30 15:43 | XMS_ITS | Encounter Summary ---
:2000 Author Organization [facility] Address [address] [place] [address] Care Team Providers Name Role Phone Corinne Hazel MD Primary Care Provider Encounter Details Date Type Department Care Team Description 07/26/2015 Hospital [facility] Brian Brennan Osteochondr itis Encounter Radiology PMD dessicans [address] [facility] [address] [phone] Social History Tobacco Use Types Packs/Day Years [...] Name Priority Date/Time Associated Diagnosis Comme nts FL PRE MR Routine 07/26/2015 2:31 PM Osteochondritis Result s for this INJECTION KNEE LT MANUFACTURING PROJECT ENGINEER dessicans procedure are in the results section. documented in this encounter Results FL Pre MR Injection Knee Lt (07/26/2015 2:31 PM MANUFACTURING PROJECT ENGINEER) Anatomical Region Laterality Modality Lower Extremity, Knee Other Specimen (Source) Anatomical Location Collection Method / Collectio n Time Received Time / Laterality Volume Narrative 07/26/2015 2:58 PM MANUFACTURING PROJECT ENGINEER The risks and benefits of the procedure were discussed with the patient. ??Patient was prepped and draped in a normal sterile fashion. ??1% lidocaine was used for local anesthetic. ??Under fluoroscopic guidance a 22-gauge needle was placed in to the left knee joint from a medial approach. ??Nee dle position confirmed with 2 mL injection of Isovue-200. Approximately 30 mL of 1 in 400 diluted diluted Gadavist into Isovue-200 were injected (0.05 cc Gadavist used for dilution). ??No complications. ? Procedure Note Darrick Jenkins MD - 03/05/2016For matting of this note might be different from the original. The risks and benefits of the procedure were discussed with the patient. Patient was prepped and draped in a normal sterile fashion. 1% lidocaine was used for local anesthetic. Under fluoroscopic guidance a 22-gauge needle was placed into the left knee joint from a medial approach. Needl e position confirmed with 2 mL injection of Isovue-200. Approximately 30 mL of 1 in 400 diluted diluted Gadavist into Isovue-200 were injected (0.05 cc Gadavist used for dilution). No complications. Brian Brennan MD RAD [place] documented in this encounter Visit Diagnoses Diagnosis Osteochondritis dessicans Osteochondritis dissecans documented in this encounter Care Teams Tare Worker Relationship Specialty Start Date End Date Corinne Hazel MD PCP - General 12/19/[address] [place] [address] documented as of this encounter
--- OUTSIDE RECORDS SUMMARY | 2022-06-30 15:43 | XMS_ITS | Encounter Summary ---
:2000 Author [facility] Address [address], [place] [address] Care Team Providers Name Role Phone Corinne Hazel MD Primary Care Provider Reason for Visit Procedure/Equipment (Routine) - Incomplete Specialty Diagnoses / Procedures Referred By Contact Refer red To Contact Diagnoses Osteochondritis dissecans Brian Brennan MD Procedures XR Knee Lt 4 Views [address] [place] [address] Referral ID Status Reason Start Date Expiration Date Visits V isits Requested Authorized [id number] Incomplete 02/28/2018 05/30/2019 1 1 Encounter Details Date Type Department Care Team Description 02/28/2018 [facility] Brian Brennan, Osteochondritis dissecans Radiology X-ray [address] [facility] [address] [place], [place] [address] [place] [address] [id number] Social History Tobacco Use Types Packs/Day Years [...] nts XR KNEE LT 4 VIEWS Routine 02/28/2018 2:52 PM Osteochondritis Results for this CDT dissecans procedure are i n the results section. documented in this encounter Results XR Knee Lt 4 Views (02/28/2018 2:52 PM CDT) Anatomical Region Laterality Modality Lower Extremity, Knee Computed Radiograp hy Specimen (Source) Anatomical Collection Method Collection Time Re ceived Time Location / / Volume Laterality 02/28/2018 2:44 PM CDT Narrative 02/28/2018 3:04 PM CDT COMPARISON: ??07/20/2016 FINDINGS: ??Area of osteochondritis diss ecans in the central portion of the lateral femoral condyle is again visualized but previously seen fragment does not appear present. No other change. Procedure Note Josué Buck MD - 02/28/2018Format ting of this note might be different from the original. COMPARISON: 07/20/2016 FINDINGS: Area of osteochondritis dissec ans in the central portion of the lateral femoral condyle is again visualized but previously seen fragment does not appear present. No other change. Brian Brennan MD RAD GD documented in this encounter Visit Diagnoses Diagnosis Osteochondritis dissecans documented in this encounter Care Teams Worm Raiser Relationship Specialty Start Date End Date Corinne Hazel MD PCP - General 12/19/10 [address] [facility] [place] [id number] documented as of this encounter
--- OUTSIDE RECORDS SUMMARY | 2022-06-30 15:43 | XMS_ITS | Encounter Summary ---
:2000 Author Organization [facility] Address [address] [place] [address] Care Team Providers Name Role Phone Corinne Hazel MD Primary Care Provider Encounter Details Date Type Department Care Team Description 07/15/2015 Notes/Orders [facility] Chava Iverson, Closed fracture of [address] proximal end of left [place] [address] tibia with routine [phone] Ave healing, unspecified [place] [phone] fracture morphology, subsequent enco unter (Work) (Primary Dx) Social History Tobacco Use Types Packs/Day Years [...] as of this encounter Visit Diagnoses Diagnosis Closed fracture of proximal end of left tibia with routine healing, unspecified fracture morphology, subsequent encounte r - Primary documented in this encounter Care Teams Senior Lead Developer Relationship Specialty Start Date End Date Corinne Hazel MD PCP - General 12/19/[address] [place] [address] documented as of this encounter
--- OUTSIDE RECORDS SUMMARY | 2022-06-30 15:43 | XMS_ITS | Encounter Summary ---
:2000 [facility] Address [address] [place] [address] Care Team Providers Name Role Phone Corinne Hazel MD Primary Care Provider Encounter Details Date Type Department Care Team Description 07/08/2015 [facility] Knee instability, [facility] [facility] [place], [place] [id number] Social History Tobacco Use Types Packs/Day Years [...] Associated Diagnosis Comme nts XR KNEE LT 3 VIEWS Routine 07/08/2015 4:28 PM Knee instability , Results for this CDT left procedure are i n the results section. documented in this encounter Results XR Knee Lt 3 Views (07/08/2015 4:28 PM CDT) Anatomical Region Laterality Modality Lower Extremity, Knee Other Specimen (Source) Anatomical Location Collection Method / Collectio n Time Received Time / Laterality Volume Narrative 07/08/2015 4:33 PM CDT COMPARISON: ??None. FINDINGS: ??Three views were obtained. ? ?No acute or significant bone or joint abnormality of the left knee is identified. ??Alignment is unremarkable. If internal drainage movement is clinically suspected, MRI could be performed. Procedure Note Josué Buck MD - 03/05/2016Formatti ng of this note might be different from the original. COMPARISON: None. FINDINGS: Three views were obtained. No acute or significant bone or joint abnormality of the left knee is identified. Alignment is unremarkable. If internal drainage movement is clinically suspected, MRI could be performed. Chava Iverson MD RAD GD documented in this encounter Visit Diagnoses Diagnosis Knee instability, left documented in this encounter Care Teams Sourcer Relationship Specialty Start Date End Date Corinne Hazel MD PCP - General 12/19/10 [address] [place] [address] documented as of this encounter
--- OUTSIDE RECORDS SUMMARY | 2022-06-30 15:43 | XMS_ITS | Encounter Summary ---
:2000 [facility] Address [address] [address] Care Team Providers Name Role Phone Corinne Hazel MD Primary Care Provider Reason for Visit Reason Comments ACNE Encounter Details Date Type Department Care Team Description 01/28/2016 Office Visit Batool Horta MD Acne vulgaris (Primary Dx); Dermatology [address] [place] [address] Nevus spis; [address] [facility] [place] [address] [place], [place] [phone] Social History Tobacco Use Types Packs/Day Years [...] documented as of this encounter Progress Notes Batool Urbina MD - 01/28/2016 12:46 PM CDT Chief Complaint Patient presents with ??? Acne Pt here for a recheck of acne History of Present Illness: Hayes High is a 15 y.o. male who presents to clinic today with his mother for follow up of acne.He was last seen in Dermatology on 07/24/[address] Jennifer Kelly in resident clinic for treatment of mild to moderate comedonal and inflammatory acne. He was prescribed Adapalene 0.1% gel to be applied tothe affected areas at night as well as clindamycin 1% lotion to use in the morning, and he was instructed to purchase an [id number] benzoyl peroxide wash for affected areas. He was also started on doxycycline 100 mg daily to be used for three months. Today the patient returns to clinic for recheck of acne. He states he has been taking doxycycline since his last visit. His acne flared two months after his last visit, despite being on doxycycline. Heis currently taking 100 mg tablets twice a day. He also uses a benzoyl peroxide 2.5% gel in the mornings. His acne has recently become worse, although today is a good day in terms of acne. He is frustrated with his acne and is not happy with the current level of involvement. He reports he was consistently using adapalene 0.1% gel every night, but did not like the adapalene and felt it irritated his skin and made his acne worse. He stopped adapalene after two months of use and he believes his acne improved. The patient is interested in other therapeutic options for his acne. He does not voice other concerns at this time. Past Medical History: Otherwise healthy. Family History: He has a great grandmother with melanoma. Mother had acne as a teenager. Social History: The patient is accompanied by his mother. He plays football, basketball, and baseball. Medications: The patient has a current medication list which includes the following prescription(s): adapalene, clindamycin, doxycycline, and fexofenadine. Allergies: The patient has No Known Allergies. Review of Systems: Allergy/Immunologic: No history of hypersensitivity to injected anesthesia or topical care products. Skin: See HPI for pertinent positives. Physical Examination: General: Well-appearing male, in no distress, alert and oriented, ambulates without difficulty. Skin: Focused exam of the face, neck, chest and back. Pertinent findings: - Scattered open and closed comedones primarily on the face, chest and shoulders. Relatively few inflammatory papules. - Nevus spilus on the right back. Exam otherwise was normal. Assessment and Plan: 1. Mild to moderate comedonal and inflammatory acne. Discussed pathophysiology of acne. Patient desires treatment. Provided prescription for tretinoin 0.025% cream. Risks and benefits of topical retinoids including irritation, increased photosensitivity, and possible cosmetic benefit were discussed. Patient was counseled to use a pea-sized amount to their entire clean, dry face nightly. May start every third nightand gradually increase to nightly. Irritation may be addressed by decreasing the frequency of use orincreasing moisturization with a mild, non-comedogenic moisturizer such as Cetaphil. Benzoyl peroxide 5% wash. Risks and benefits of benzyl peroxide including irritation, drying, and possible bleaching of fabrics, was discussed. Patient was counseled to use on a once a day basis. The wash should be applied to the affected areas, and subsequently rinsed well. Doxycycline 100 mg BID prescribed. Reviewed risks and benefits of doxycycline including interaction with calcium, photosensitivity, dizziness, GI upset/nausea, photosensitivity. The patient will discontinue use and call if they are having any side effects. Also reviewed how to properly take the medicin e, i.e.: take with food and do not take both tablets at the same time. 2. Nevus spilus on the back. Benign nature discussed, patient reassured. Follow up: Return to clinic in 3 months to evaluate response to therapy, and adjust her treatment regimen as indicated. Scribe Disclosure: Shaniqua Waddell, am serving as a scribe to document services personally performed by Batool Urbina MD at this visit, based upon the providers statements to me. All documentation has been reviewed bythe aforementioned doctor prior to being entered into the official medical record. Entered on 01/28/2016. Batool Waddell MD, attest that the above named individual is acting in scribe capacity, has observed my performance of the services performed at this visit and has documented them in accordance withmy direction. Entered on 01/28/2016 at 9:20 AM. ER GENETICS ASSISTANT Batool Urbina MD - 01/28/2016 12:46 PM CDT Total visit time 25 minutes, majority spent in counseling documented in this encounter Plan of Treatment Not on filedocumented as of this encounter Visit Diagnoses Diagnosis Acne vulgaris - Primary Other acne Nevus spilus Benign neoplasm of skin, site unspecifie d Multiple pigmented nevi Benign neoplasm of skin, site unspecifie d documented in this encounter Care Teams Medical Facilities Section Director Relationship Specialty Start Date End Date Corinne Hazel MD PCP - General 12/19/[address] [facility] [address] documented as of this encounter
--- OUTSIDE RECORDS SUMMARY | 2022-06-30 15:43 | XMS_ITS | Encounter Summary ---
:2000 [facility] Address [address], [place] [address] Care Team Providers Name Role Phone Corinne Hazel MD Primary Care Provider Reason for Visit Reason Comments Knee Pain or Injury Encounter Details Date Type Department Care Team Description 11/29/2015 Office Visit Specialty Center Brian Brennan, Oste ochondritis [address] (Primary Dx) Orthopedics [address] [place] [address], [address] [place] [address] [phone] Social History Tobacco Use Types Packs/Day Years [...] this encounter Progress Notes Brian Brennan - 12/10/2015 1:20 PM CDT Progress Notes signed by Brian Brennan MD at 12/10/15 5007 Author: Brian Brennan MD Service: (none) Author Type: Physician Filed: 12/10/15 1504 Note Time: 12/10/151421 Status: Signed Machining And Assembly Supervisor: Brian Brennan MD (Physician) NAME: MICAH HGIH MR#: [id number] CSN: [id number] AUTHENTICATING CLINICIAN: Brian Brennan MD CONFIRM #: [id number] LOC: 211 CLINIC PROGRESS NOTE DATE OF VISIT: 11/29/2015 : 2000 A 15-year-old boy seen today for followup of a left OCD lesion. He is otherwise relatively comfortable, but has had intermittent discomfort over the last weekend in which he was playing basketball and noted discomfort in the region of his left knee. He had x-rays taken today and subsequently had an MRI arthrogram done on the same day. The x-rays themselves showed no loose bodies. There is an area of osteochondritis in the lateral femoral condyle posteriorly, but no fragmentation. The MRI itself shows no notable interval change or fragmentation. There is a stable fragment over the top, which is unchanged. The lesion is in the posterior weightbearing surface of the femoral condyle. The posterior aspect of the lesion is otherwise intact. There is no profound area of subchondral joint fluid based on the imaging. The patient's ligaments are otherwise wholly intact. No past medical history on file. No [...] mg capsule Take 1 capsule by mouth 2 times daily. ??? fexofenadine (AMY) 30 mg tablet Take [...] delay.. No evidence of metabolic bone disease. EXAMINATION: He is comfortable at rest. Pain with deep palpation. No evidence of effusions or locking. He is ligamentally intact. His motor strength is 5/5. His patella tracking is grossly normal with deep palpation along the femoral condyle. He has minimal tenderness when flexed at 90 degrees. He has no locking or clicking. His recent exercise regimen has included doing squats with 1 knee for whatever reason. Inorder to strengthen his lesion, it was emphasized that is not la, particularly given the amount ofweight he has been putting on his shoulders and probably the reason for his increase in discomfort, he has displaced his lesion. I want to see him back and hold him from sports until he is comfortable.He will take nonsteroidals for other issues. He will follow up with imaging in mid March of 2016. SPE:LUDA C: CONFIRM #: [id number] documented in this encounter Plan of Treatment Not on filedocumented as of this encounter Visit Diagnoses Diagnosis Osteochondritis dessicans - Primary Osteochondritis dissecans documented in this encounter Care Teams Textile Conservator Relationship Specialty Start Date End Date Corinne Hazel MD PCP - General 12/19/10 [address] [facility] [place] [address] documented as of this encounter
--- OUTSIDE RECORDS SUMMARY | 2022-06-30 15:43 | XMS_ITS | Encounter Summary ---
:1999 Author Organization [facility] Address [address] [address] Care Team Providers Name Role Phone Corinne Hazel MD Primary Care Provider Reason for Visit Reason Comments Symptoms Encounter Details Date Type Department Care Team Description 09/21/2015 Telephone [facility] [address] Jennifer Kelly MD Symptoms Dermatology [address] [place] [address] [place], [place] [id number] [phone] Social History Tobacco Use Types Packs/Day Years [...] documented as of this encounter Nursing Notes Kamala Sullivan RN - 09/21/2015 10:48 AM CST spoke with mom and discussed how to take doxy. patient is taking correctly. Per verbal order from Dr. Leticia merlos to refill doxy bid for 3 months. pt is to follow up in 3 months. appt scheduled. patient is also applying topicals nightly. she will call in if not improved after 1 month. R RESOURCE MANAGER Jennifer Kelly MD - 09/21/2015 9:50 AM CST Please call pt- sometimes acne will get worse before it gets better. I would up his dose of doxycycline to 100mg PO BID as long as he is tolerating it well. Make sure he is avoiding calcium at the timehe takes farhan doxy. This will help with the worsening of his acne while farhan topicals kick in. R RESOURCE MANAGER Samantha Elizabeth RN - 09/21/2015 9:23 AM CST LAST VISIT: 07-24-2015 NEXT VISIT: none NAME OF CALLER: Mother--Joya NAME OF CLINICIAN: Josey and Porfirio MESSAGE: Was seen for acne. Mother states that his acne is 10 times worse that it was at the time ofvisit. He did stop the BP wash and changed to a water base wash. She states that he has more pimplesand a lot of redness. He is using the medications as directed. They are wondering what he should be doing next. It is difficult for him to come to clinic as he lives in [place] and has basketball until the mid-end of Oct. He had been seen at a Sunday clinic. Please advise Mother. PHARMACY UPDATED IN MEDS AND ORDERS: yes CALL PATIENT BACK: yes CALL BACK PHONE NUMBER: [phone]--Joya MESSAGE OK: no R RESOURCE MANAGER documented in this encounter Plan of Treatment Not on filedocumented as of this encounter Visit Diagnoses Not on filedocumented in this encounter Care Teams Personal Investment Adviser Relationship Specialty Start Date End Date Corinne Hazel MD PCP - General 12/19/10 [address] [id number] documented as of this encounter
--- OUTSIDE RECORDS SUMMARY | 2022-06-30 15:43 | XMS_ITS | Encounter Summary ---
:2000 Author Organization [facility] Address [address] [place] [address] Care Team Providers Name Role Phone Corinne Hazel MD Primary Care Provider Reason for Referral Procedure/Equipment (Routine) - Incomplete Specialty Diagnoses / Procedures Referred By Contact Refer red To Contact Procedures Kilo Gregg MD [facility] Knee [address] [place] [address] Referral ID Status Reason Start Date Expiration Date Visits V isits Requested Authorized [id number] Incomplete 09/02/2018 12/02/2019 1 1 ESS MAINTENANCE TECHNICIAN Encounter Details Date Type Department Care Team Description 09/02/2018 Notes/Orders [facility] Kilo Gregg MD [address] [place] [address] [phone] (Wo rk) Social History Tobacco Use Types [...] on filedocumented as of this encounter Results [facility] Arthroscopy Knee Lt (09/05/2018 10:18 AM PROCESS MAINTENANCE TECHNICIAN) Anatomical Region Laterality Modality Lower Extremity, Knee Endoscopy Specimen (Source) Anatomical Location Collection Method / Collectio n Time Received Time / Laterality Volume Kilo Gregg MD RAD NON-REPORTABLES documented in this encounter Visit Diagnoses Not on filedocumented in this encounter Care Teams Compo Caster Relationship Specialty Start Date End Date Corinne Hazel MD PCP - General 12/19/10 1415 [facility] [place] [id number] documented as of this encounter
--- OUTSIDE RECORDS SUMMARY | 2022-06-30 15:43 | XMS_ITS | Encounter Summary ---
:1999 Author Organization [facility] Address [address], [place] [address] Care Team Providers Name Role Phone Corinne Hazel MD Primary Care Provider Reason for Visit Reason Comments Knee Pain or Injury left Encounter Details Date Type Department Care Team Description 03/11/2018 Office Visit Specialty Center Brian Brennan, Oste ochondritis [address] JOHN SANCHEZ dissecans of knee, left Orthopedics [address] [place] [address] (Primary Dx) [address] [facility]. [facility], [address] [place] [address] [phone] Social History Tobacco Use Types Packs/Day Years [...] this encounter Progress Notes Brian Brennan - 04/21/2018 5:32 PM CDT NAME: MICAH HIGH MR#: [id number] CSN: [id number] AUTHENTICATING CLINICIAN: Brian Brennan MD CONFIRM #: [id number] LOC: 211 CLINIC PROGRESS NOTE DATE OF VISIT: 03/11/2018 : 2000 NARRATIVE SUMMARY: He is seen accompanied by his mother for review of his MRI. He is a young boy, who has a history of osteochondritis dissecans dating back to 2015. I had not seen him for about 2 years until approximately 2 weeks ago when he presented. He had been playing baseball for his local high school. He is a high school senior, going off to college to [employer] in the fall of 2018. He was pushing off on his involved left leg, taking a lead off first base as a base runner, and felt a click and onset ofpain that he has not had for years. He had imaging done on 02/28 showing the area of osteochondritisdissecans with a questionable central portion of lateral change. The patient's bony architecture wasotherwise normal. It was not notable for any type of loose bodies, but on the notch view on the lateral cortex there was a sclerotic margin and a lesion which measured as before, roughly 15 mm in width, and on lateral view approximately an inch in length. He has been leading his life and playing multiple contact sports for his local high school in [place], [place] in [facility]. He is doing well.He has developed well. He is going off to college soon. He is accompanied by his mother today. We had discussed the need for an MRI to see greater details in the stability of his osteochondrotic lesion. We also talked about the ability of stabilization and/or grafting depending upon what the sports physician, typically in my practice Jeff wynn at [facility], would do. The images themselves, however, were able to be reviewed. They are notable for the osteochondrotic lesion, which measures approximately 2.4 x 1.8. It is grossly unchanged in appearance over the posterior weightbearing surface of the lateral condyle. There is edema along the deep margins and linear fluid signal undercutting a portion of it with concerns per Radiology of its lesional stability. The patient studies are negative forany evidence of loose bodies or any evidence of ligamental compromise. The menisci are within normallimits. The patient is otherwise only complaining when crouching over in a deep crouch, and he worksin [employer] this summer. He is now walking back to full activities, and the initial discomfort has improved. Mother wanted him looked at before his taking off soon for college. He wants to play intramural activities, and before progressing to those things I want him to see Dr. White for advice. [place] that if he needed any arthroscopic procedures, that he would likely have those when he is coming back for school break. The timing of those things, of course, I would leave up, after interpretation of the MRI and the history, to Dr. White. At present, the patient is alert, oriented, and cooperative, and walking in about the clinic without crutches. He does not have any notable effusions. His range of motion is virtually complete. He has some tenderness over the posterior aspect of the lateralfemoral condyle and presumably in the region of the lesion. There is no clicking. With flexion and percussion over the lateral condyle, there is some discomfort in the region of the above-noted osteocho ndrotic area. The patient is going to follow up to see me on a p.r.n. basis. SPE:MEDQ C: CONFIRM #: [id number] documented in this encounter Plan of Treatment Not on filedocumented as of this encounter Visit Diagnoses Diagnosis Osteochondritis dissecans of knee, left - Primary documented in this encounter Care Teams Computer Analyst Relationship Specialty Start Date End Date Corinne Hazel MD PCP - General 12/19/10 1415 [facility] [place] [id number] documented as of this encounter
--- OUTSIDE RECORDS SUMMARY | 2022-06-30 15:43 | XMS_ITS | Encounter Summary ---
:2000 Author Organization [facility] Address [address], [place] [address] Care Team Providers Name Role Phone Corinne Hazel MD Primary Care Provider Reason for Visit Reason Onset Date Comments LETTER NEEDED 07/24/2016 Encounter Details Date Type Department Care Team Description 07/24/2016 Telephone Specialty Center [facility] Venkatesh Brennan MD LETTER NEEDED [facility] Orthopedics [address] [place] [address] [place] [address] [place] [address] [phone] Social History Tobacco Use Types Packs/Day Years [...] documented as of this encounter Nursing Notes Valerie Gabriel LPN - 07/24/2016 12:00 PM CST Faxed TRUCTION FOREMAN Renetta Winston RN - 07/24/2016 9:10 AM CST Jn needs a letter stating that he was in clinic on 07/20/16 for an appointment. Please fax to Joya at [phone]. TRUCTION FOREMAN documented in this encounter Plan of Treatment Not on filedocumented as of this encounter Visit Diagnoses Not on filedocumented in this encounter Care Teams Construction Ironworker Relationship Specialty Start Date End Date Corinne Hazel MD PCP - General 12/19/10 [facility] [place] [id number] documented as of this encounter
--- OUTSIDE RECORDS SUMMARY | 2022-06-30 15:43 | XMS_ITS | Encounter Summary ---
:2000 [facility] Address [address] [address] Care Team Providers Name Role Phone Corinne Hazel MD Primary Care Provider Reason for Referral Procedure/Equipment (Routine) - Incomplete Specialty Diagnoses / Procedures Referred By Contact Refer red To Contact Diagnoses Osteochondritis dissecans Brian Brennan MD Procedures MR Knee Lt WO IV Cont [address] [place] [address] Referral ID Status Reason Start Date Expiration Date Visits V isits Requested Authorized [id number] Incomplete 02/28/2018 05/30/2019 1 1 Reason for Visit Procedure/Equipment (Routine) - Incomplete Specialty Diagnoses / Procedures Referred By Contact Refer red To Contact Diagnoses Osteochondritis dissecans Brian Brennan MD Procedures MR Knee Lt WO IV Cont [address] [place] [address] Referral ID Status Reason Start Date Expiration Date Visits V isits Requested Authorized [id number] Incomplete 02/28/2018 05/30/2019 1 1 Encounter Details Date Type Department Care Team Description 03/11/2018 Hospital Orthodoxy Brian Brennan Osteochondr itis Encounter Radiology MD felix MICHAUD [address] [facility] [address] [phone] Social History Tobacco Use Types Packs/Day Years [...] T) 1 % lotion every morning. doxycycline (AKA Take 1 capsule by 60 capsule 3 01/28/2016 1 11/06/2017 VIBRAMYCIN) 100 MG mouth 2 times daily. capsuleIndications: Acne Take with food. Can vulgaris cause sun sensitivity. Take x 3 mos then taper off. doxycycline monohydrate Take 1 capsule by 60 capsule 2 09/2109/05/2018 (MONODOX) 100 MG capsule mouth 2 times daily. tretinoin (AKA RETIN-A) Apply topically 45 g 11 016 09/05/2018 0.025 % nightly. Apply small creamIndications: Acne amount every third vulgaris night, increase to nightly as tolerated. documented as of this encounter Plan of Treatment Not on filedocumented as of this encounter Procedures Procedure Name Priority Date/Time Associated Diagnosis Comme nts MR KNEE LT WO IV Routine 03/11/2018 3:18 PM Osteochondritis Re sults for this CONT CDT dissecans procedure are i n the results section. documented in this encounter Results MR Knee Lt WO IV Cont (03/11/2018 3:18 PM CDT) Anatomical Region Laterality Modality Lower Extremity, Knee, Skeletal, Thigh, Leg Left Magnetic Resonance Specimen (Source) Anatomical Collection Method Collection Time Re ceived Time Location / / Volume Laterality 03/11/2018 2:40 PM CDT Impressions 03/11/2018 3:59 PM CDT IMPRESSION: 1. Grossly unchanged appearance of the 2 .4 x 1.8 cm osteochondral lesion over the posterior weightbearing surface of the lateral femoral condyle, again demonstrating edema along its deep margin, and dem onstrating linear fluid signal undercutt ing portions of the lesion, findings which remain worrisome for lesional instability. 2. Mild muscular strain injury involving a markedly hypertrophied ??vs prominent anatomic variant of the sartorius muscle at the level of the medial joint line. Narrative 03/11/2018 3:59 PM CDT TECHNIQUE: Routine MRI of the left knee was performed without contrast. COMPARISON: 11/29/2015 FINDINGS: MEDIAL COMPARTMENT: Medial meniscus inta ct. Medial compartment cartilage intact. LATERAL COMPARTMENT: Lateral meniscus in tact. Redemonstration of 2.4 cm (oblique anterior-posterior and posterior dimension; series 7, image 23) x 1.8 cm (medial-lateral dimension; series 10, image 11) osteochondral lesion over the posterior weightbearing surface of the lateral femoral condyle, with intact overlying cartilage, and moderate edema tracking deep to the subchondral plate. Additionally, th ere is redemonstration of thin linear fl uid signal along the deep margin of the osteochondral lesion (series 7, image 23), similar compared to the prior examination. Lateral tibial plateau cartilage intact. PATELLOFEMORAL JOINT: Patellofemoral com partment cartilage intact. Trace physiologic joint fluid. No loose bodies. No drainable popliteal cyst. LIGAMENTS AND TENDONS: The anterior and posterior cruciate ligaments, medial collateral ligament, iliotibial band, fibular collateral ligament and biceps femoris tendons are intact. The popliteus muscle and tendons are normal. There is no barb dence of injury to the posterolateral corner supporting structures. Redemonstration of a hypertrophied / prominent anatomic variant of the sartorius muscle, demon strating mild intramuscular edema at the level of the joint line (series 6, image 16), reflecting sequelae of muscular strain injury. EXTENSOR MECHANISM: The quadriceps and p atellar tendons are intact. The medial retinaculum, medial patellofemoral ligament, and lateral retinaculum are intact. Nonedematous scarring of the fat along the deep margin of Hoffa's fat pad (series 7, image 20; series 8, image 20), of doubtful clinical significance. Linear high T2 signal within Hoffa's fat pad (series 7, image 26) is within normal limits for the patient's stated age. MARROW AND SOFT TISSUES: Questionable ed mg within the periphery of the medial femoral condyle (series 10, image 18). No fracture. No soft tissue mass lesion identified. Multilobulated/multiseptated viviane glion cyst located along the proximal as pect of the joint medially, measuring roughly 2.9 x 2.4 x 1.9 cm. Procedure Note Jorge A Hernandes MD - 03/11/2018Format ting of this note might be different from the original. TECHNIQUE: Routine MRI of the left knee was performed without contrast. COMPARISON: 11/29/2015 FINDINGS: MEDIAL COMPARTMENT: Medial meniscus inta ct. Medial compartment cartilage intact. LATERAL COMPARTMENT: Lateral meniscus in tact. Redemonstration of 2.4 cm (oblique anterior-posterior and posterior dimension; series 7, image 23) x 1.8 cm (medial-lateral dimension; series 10, image 11) osteochondral lesion over the posterior weightbearing surface of the lateral femoral condyle, with intact overlying cartilage, and moderate edema tracking deep to the subchondral plate. Additionally, there is redemonstration of thin linear fluid signal along the deep marni n of the osteochondral lesion (series 7, image 23), similar compared to the prior examination. Lateral tibial plateau cartilage intact. PATELLOFEMORAL JOINT: Patellofemoral com partment cartilage intact. Trace physiologic joint fluid. No loose bodies. No drainable popliteal cyst. LIGAMENTS AND TENDONS: The anterior and posterior cruciate ligaments, medial collateral ligament, iliotibial band, fibular collateral ligament and biceps femoris tendons are intact. The popliteus muscle and tendons are normal. There is no evidence of inju ry to the posterolateral corner supporting structures. Redemonstration of a hypertrophied / prominent anatomic variant of the sartorius muscle, demonstrating mild intramuscular edema at the level of the joint line (se jeb 6, image 16), reflecting sequelae of muscular strain injury. EXTENSOR MECHANISM: The quadriceps and p atellar tendons are intact. The medial retinaculum, medial patellofemoral ligament, and lateral retinaculum are intact. Nonedematous scarring of the fat along the deep margin of Hoffa's fat pad (series 7, joann ge 20; series 8, image 20), of doubtful clinical significance. Linear high T2 signal within Hoffa's fat pad (series 7, image 26) is within normal limits for the patient's stated age. MARROW AND SOFT TISSUES: Questionable ed mg within the periphery of the medial femoral condyle (series 10, image 18). No fracture. No soft tissue mass lesion identified. Multilobulated/multiseptated ganglion cyst located along the proximal aspect of the joint m edially, measuring roughly 2.9 x 2.4 x 1.9 cm. IMPRESSION IMPRESSION: 1. Grossly unchanged appearance of the 2 .4 x 1.8 cm osteochondral lesion over the posterior weightbearing surface of the lateral femoral condyle, again demonstrating edema along its deep margin, and demonstrating linear fluid signal undercutting portions of th e lesion, findings which remain worrisome for lesional instability. 2. Mild muscular strain injury involving a markedly hypertrophied vs prominent anatomic variant of the sartorius muscle at the level of the medial joint line. Brian Brennan MD RAD MRI documented in this encounter Visit Diagnoses Diagnosis Osteochondritis dissecans documented in this encounter Care Teams Silk Soaker Relationship Specialty Start Date End Date Corinne Hazel MD PCP - General 12/19/[address] [place] [address] [place] [id number] documented as of this encounter
--- OUTSIDE RECORDS SUMMARY | 2022-06-30 15:43 | XMS_ITS | Encounter Summary ---
:1999 Author Organization [facility] Address [address], [place] [address] Care Team Providers Name Role Phone Corinne Hazel MD Primary Care Provider Reason for Visit Procedure/Equipment (Routine) - Incomplete Specialty Diagnoses / Procedures Referred By Contact Refer red To Contact Diagnoses Osteochondritis dessicans Brian Brennan MD Procedures XR Knee Lt 4 [address] [place] [address] Referral ID Status Reason Start Date Expiration Date Visits V isits Requested Authorized [id number] Incomplete 07/20/2016 10/19/2017 1 1 Encounter Details Date Type Department Care Team Description 07/20/2016 [facility] 39[address] Brian Brennan, Osteochondritis dessicans Radiology X-ray 3931 [facility] [address] [place], [place] [phone] [place] [phone] Social History Tobacco Use Types Packs/Day Years [...] nts XR KNEE LT 4 VIEWS Routine 07/20/2016 4:22 PM Osteochondritis Results for this CDT dessicans procedure [...] dissecans documented in this encounter Care Teams Cook Jelly Relationship Specialty Start Date End Date Corinne Hazel MD PCP - General 12/19/10 1415 [facility] [place] [phone] documented as of this encounter
--- OUTSIDE RECORDS SUMMARY | 2022-06-30 15:43 | XMS_ITS | Encounter Summary ---
:1999 Author Organization [facility] Address [address] [place] [address] Care Team Providers Name Role Phone Corinne Hazel MD Primary Care Provider Encounter Details Date Type Department Care Team Description 07/26/2015 [facility] Osteochondr itis Encounter Radiology MRI PMD dessicans [address] [facility] [address] [phone] Social History Tobacco Use Types Packs/Day Years [...] Diagnosis Comme nts MR POST ARTHROGRAM Routine 07/26/2015 3:21 Osteochondritis Res ults for this KNEE LT PM DIRECTOR OF NUCLEAR MEDICINE dessicans procedure are i n the results section. documented in this encounter Results MR Post Arthrogram Knee Lt (07/26/2015 3:21 PM DIRECTOR OF NUCLEAR MEDICINE) Anatomical Region Laterality Modality Lower Extremity, Knee, Skeletal, Thigh, Leg, Other Other Specimen (Source) Anatomical Location Collection Method / Collectio n Time Received Time / Laterality Volume Impressions 07/26/2015 3:50 PM DIRECTOR OF NUCLEAR MEDICINE IMPRESSION: ?? 1. 2.5 x 1.6 cm OCD lesion in the sewer digger ior weightbearing portion of the lateral femoral condyle is unchanged in position and appearance. Findings are suggestive of at least partial instability. No defi nite contrast extension between the OCD lesion and subchondral bone. Overlying articular ca rtilage is intact. 2. Healing nondisplaced subchondral frac ture in the anterior aspect of the lateral tibial plateau. Narrative 07/26/2015 3:50 PM DIRECTOR OF NUCLEAR MEDICINE TECHNIQUE: ??Routine MR arthrogram marcell col of the left knee was performed following the intraarticular injection of 10 mL of sterile saline with a 1:400 dilution of Gadavist. COMPARISON: ??07/14/2015 FINDINGS: MEDIAL COMPARTMENT: No chondral defects in the medial compartment. The medial meniscus is normal without evidence of tear. LATERAL COMPARTMENT: ??2.5 x 1.6 cm oste ochondritis desiccation lesion within the posterior weightbearing portion of the lateral femoral condyle is redemonstrated. There is a thin hyper T2 intense rim a round a significant portion of the OCD l esion which is suspicious for at least partial insta bility. No definite extension of intra- articular contrast between the OCD lesion and subchondral bone. Overlying articular cartilage is intact. Nonspecific increa sed T1 signal in and around the OCD lesi on could represent hemorrhage. Nondisplaced subch ondral fracture in the lateral tibial plateau is redemonstrated with decreased marrow edema. No lateral meniscal tears. PATELLOFEMORAL JOINT: ??There are no foc al [...] tendons are normal. MARROW AND SOFT TISSUES: ??Marrow signal is otherwise unremarkable. No soft tissue masses. Procedure Note Darrick Jenkins MD - 03/05/2016For matting of this note might be different from the original. TECHNIQUE: Routine MR arthrogram protoco l of the left knee was performed following the intraarticular injection of 10 mL of sterile saline with a 1:400 dilution of Gadavist. COMPARISON: 07/14/2015 FINDINGS: MEDIAL COMPARTMENT: No chondral defects in the medial compartment. The medial meniscus is normal without evidence of tear. LATERAL COMPARTMENT: 2.5 x 1.6 cm osteoc hondritis desiccation lesion within the posterior weightbearing portion of the lateral femoral condyle is redemonstrated. There is a thin hyper T2 intense rim around a significant portion of the OCD lesion wh ich is suspicious for at least partial insta bility. No definite extension of intra- articular contrast between the OCD lesion and subchondral bone. Overlying articular cartilage is intact. Nonspecific increased T1 signal in and around the OCD lesion could represent hemorrhage. Nondisplaced subch ondral fracture in the lateral tibial plateau is redemonstrated with decreased marrow edema. No lateral meniscal tears. PATELLOFEMORAL JOINT: There are no focal cartilage [...] tendons are normal. MARROW AND SOFT TISSUES: Marrow signal i s otherwise unremarkable. No soft tissue masses. IMPRESSION IMPRESSION: 1. 2.5 x 1.6 cm OCD lesion in the sewer digger ior weightbearing portion of the lateral femoral condyle is unchanged in position and appearance. Findings are suggestive of at least partial instability. No definite contrast extension between the OCD lesion and subchondral bone. Overlying articular ca rtilage is intact. 2. Healing nondisplaced subchondral frac ture in the anterior aspect of the lateral tibial plateau. Brian Brennan MD RAD MRI documented in this encounter Visit Diagnoses Diagnosis Osteochondritis dessicans Osteochondritis dissecans documented in this encounter Care Teams Clay Worker Relationship Specialty Start Date End Date Corinne Hazel MD PCP - General [facility]19/10 [facility] [address] documented as of this encounter
--- OUTSIDE RECORDS SUMMARY | 2022-06-30 15:43 | XMS_ITS | Encounter Summary ---
:2000 [facility] Address [address], [place] [address] Care Team Providers Name Role Phone Corinne Hazel MD Primary Care Provider Reason for Visit Reason Comments Information Encounter Details Date Type Department Care Team Description 07/15/2015 Telephone [facility] Chava Iverson MD Information 1415 [facility] . [address] [place] [address] [place], [place] [address] (Wo rk) Social History Tobacco Use Types [...] encounter Nursing Notes Iveth Casanova LPN - 07/15/2015 2:33 PM CDT Called mom with message. Mom's number is [phone]. 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 I will call them later to give them all the details but for now he should come in to clinic for crutches and a knee immobilizer and he will need to see ortho on Sunday for the computer terminal operator plan, I'll put in the order for the ortho appt, mom can call our marine fireman to set up the appt. I have reviewed his MRI with Dr Brennan in ortho and he plans to see him on Sunday documented in this encounter Plan of Treatment Not on filedocumented as of this encounter Visit Diagnoses Diagnosis Closed fracture of left proximal tibia, unspecified fracture morphology, initial encounter - Primary Osteochondritis dessicans Osteochondritis dissecans documented in this encounter Care Teams Chartered Accountant Relationship Specialty Start Date End Date Corinne Hazel MD PCP - General 12/19/10 [address] [place] [address] documented as of this encounter
--- OUTSIDE RECORDS SUMMARY | 2022-06-30 15:43 | XMS_ITS | Encounter Summary ---
:2000 Author Organization [facility] Address [address] [place] [address] Care Team Providers Name Role Phone Corinne Hazel MD Primary Care Provider Encounter Details Date Type Department Care Team Description 08/30/2015 [facility] Osteochondr itis Encounter Radiology PMD dissecans [address] [facility] [address] [phone] Social History Tobacco Use Types Packs/Day Years [...] every morning. documented as of this encounter Miscellaneous Notes Medication History - Jack Graham MD - 08/30/2015 11:59 PM CST INPATIENT MEDS Encounter Date: 08/30/15 iopamidol (ISOVUE-200) 41 % injection 10 mL Start Date:08/30/15, End Date:08/30/15, Frequency:ONCE Taken Dose Action User Route Site Recorded Comment Reason 08/30/15 1430 10 mL Given Laura K McInturf, ARRT Intracapsular - 08/30/15 1408 - - gadobutrol (GADAVIST) 1 mmol/mL injection 0.05 mL Start Date:08/30/15, End Date:08/30/15, Frequency:ONCE Taken Dose Action User Route Site Recorded Comment Reason 08/30/15 1430 0.05 mL Given Laura K McInturf, ARRT Intracapsular - 08/30/15 140 - - NE ARCHITECT documented in this encounter Plan of Treatment Not on filedocumented as of this encounter Procedures Procedure Name Priority Date/Time Associated Diagnosis Comme nts FL PRE MR Routine 08/30/2015 2:05 PM Osteochondritis Result s for this INJECTION KNEE LT MARINE ARCHITECT dissecans procedure are in the results section. documented in this encounter Results FL Pre MR Injection Knee Lt (08/30/2015 2:05 PM MARINE ARCHITECT) Anatomical Region Laterality Modality Lower Extremity, Knee Other Specimen (Source) Anatomical Location Collection Method / Collectio n Time Received Time / Laterality Volume Narrative 08/30/2015 3:24 PM MARINE ARCHITECT FINDINGS: The procedure, goals, risks and benefits of the procedure were discussed with the patient, who gave full written and verbal consent to proceed. The location of the procedure was confirmed, the skin initialed, and pause for cause per formed. Using sterile technique, local anesthesi a and fluoroscopic guidance a 22 gauge needle was advanced into the left knee from a medial approach. Intraarticular location of the needle tip was confirmed with the injection. 10 mL of 1 in 400 dilute d Gadavist into 15 mL normal saline and 5 mL Isovue 200 were injected (0.05 cc Gadavist used for dilution) without complication. Procedure Note Vandana Levine MD - 03/05/2016Formzulay funes of this note might be different from the original. FINDINGS: The procedure, goals, risks an d benefits of the procedure were discussed with the patient, who gave full written and verbal consent to proceed. The location of the procedure was confirmed, the skin initialed, and pause for cause performed. Using sterile technique, local anesthesi a and fluoroscopic guidance a 22 gauge needle was advanced into the left knee from a medial approach. Intraarticular location of the needle tip was confirmed with the injection. 10 mL of 1 in 400 diluted Daniel avist into 15 mL normal saline and 5 mL Isovue 200 were injected (0.05 cc Gadavist used for dilution) without complication. Brian Brennan MD [facility] documented in this encounter Visit Diagnoses Diagnosis Osteochondritis dissecans documented in this encounter Care Teams Hand Splitter Relationship Specialty Start Date End Date Corinne Hazel MD PCP - General 12/19/10 [facility] [place] [id number] documented as of this encounter
--- OUTSIDE RECORDS SUMMARY | 2022-06-30 15:43 | XMS_ITS | Encounter Summary ---
:1999 [facility] Address [address] [place] [address] Care Team Providers Name Role Phone Corinne Hazel MD Primary Care Provider Encounter Details Date Type Department Care Team Description 04/06/2016 [facility] 3931 Osteoc hondritis dessicans Radiology X-ray 3931 [place] [address] Social History Tobacco Use Types Packs/Day Years [...] nts XR KNEE LT 3 VIEWS Routine 04/06/2016 2:48 PM Osteochondritis Results for this CDT dessicans procedure are i n the results section. documented in this encounter Results XR Knee Lt 3 Views (04/06/2016 2:48 PM CDT) Anatomical Region Laterality Modality Lower Extremity, Knee Other Specimen (Source) Anatomical Location Collection Method / Collectio n Time Received Time / Laterality Volume Narrative 04/06/2016 3:02 PM CDT COMPARISON: ??11/29/2015 FINDINGS: ??No significant change and th e lucent lesion of the lateral femoral condyle consistent with osteochondritis dissecans this posterior in position. Procedure Note Josué Buck MD - 05/15/2016Formatti ng of this note might be different from the original. COMPARISON: 11/29/2015 FINDINGS: No significant change and the lucent lesion of the lateral femoral condyle consistent with osteochondritis dissecans this posterior in position. Brian Brennan MD RAD GD documented in this encounter Visit Diagnoses Diagnosis Osteochondritis dessicans Osteochondritis dissecans documented in this encounter Care Teams Pediatrician Managing Partner Relationship Specialty Start Date End Date Corinne Hazel MD PCP - General 12/19/10 1415 [facility] [place] [id number] documented as of this encounter
--- OUTSIDE RECORDS SUMMARY | 2022-06-30 15:43 | XMS_ITS | Encounter Summary ---
:1999 Author [facility] Address [address], [place] [address] Care Team Providers Name Role Phone Corinne Hazel MD Primary Care Provider Reason for Visit Reason Comments Return Call Encounter Details Date Type Department Care Team Description 03/04/2018 Telephone Special[facility] JOHN Hinds nd, Brian Morales MD Return Call Orthopedics [address] [place] [address] [address] [place] [address] [place] [address] [phone] Social History Tobacco Use Types Packs/Day Years [...] encounter Nursing Notes Valerie Gabriel LPN - 03/04/2018 12:13 PM CDT Called # below and prompted through authorization and the recording then said no prior auth required. Called Mom and gave this message Amanda Patel RN - 03/04/2018 10:49 AM CDT Patient's mother, Joya, calls to request a return call to discuss patient's MRI of his left knee. His insurance company requires a prior auth. [employer] (ph.) [phone]. Ronda can be reached at [phone]. documented in this encounter Plan of Treatment Not on filedocumented as of this encounter Visit Diagnoses Not on filedocumented in this encounter Care Teams Flat Optical Element Maker Relationship Specialty Start Date End Date Corinne Hazel MD PCP - General 12/19/10 1415 [facility] [place] [id number] documented as of this encounter
--- OUTSIDE RECORDS SUMMARY | 2022-06-30 15:43 | XMS_ITS | Encounter Summary ---
:1999 Author Organization [facility] Address [address] [place] [address] Care Team Providers Name Role Phone Corinne Hazel MD Primary Care Provider Encounter Details Date Type Department Care Team Description 07/15/2015 Notes/Orders Chava Roger, Closed fracture of left prox imal tibia, unspecified fracture morphology, initial encounter (Primary Dx); [address] [facility] [facility] [place] Osteochondritis dessicans Nga. [address] [place] [address] [place] [phone] [place] [address] Social History Tobacco Use Types Packs/Day Years [...] dissecans documented in this encounter Care Teams In Store Marketing Representative Relationship Specialty Start Date End Date Corinne Hazel MD PCP - General 12/19/10 [address] [place] [address] documented as of this encounter
--- OUTSIDE RECORDS SUMMARY | 2022-06-30 15:43 | XMS_ITS | Encounter Summary ---
:1999 [facility] Address [address] [place] [address] Care Team Providers Name Role Phone Corinne Hazel MD Primary Care Provider Reason for Visit Reason Comments Knee Pain or Injury Encounter Details Date Type Department Care Team Description 07/08/2015 Office Visit [facility] Chava Iverson, Knee instability, left (Prim nicole Dx); [address] [place] Nga Conway MD Need for HPV vaccination; [place] [address] Need for influenza vaccinati on [phone] [place] [address] Social History Tobacco Use Types Packs/Day Years [...] - Inhaled Oxygen Concentration - - Weight 67.6 kg (149 lb) 07/08/2015 3:48 PM CDT Height - - Body Mass Index - - documented in this encounter Progress Notes Chava Iverson MD - 07/09/2015 10:20 AM CDT Impression: 1. Instability, left knee 2. Pain, left knee SUBJECTIVE: This patient is a 14 y.o. male seen today with his father for evaluation of left knee instability. This patient reports that he injured his left knee 10 days ago. He was tackled from behindwhile playing football, fell back and hyperflexed his left knee. He heard a pop at that time. He didnot have any significant swelling or erythema of the knee following this injury however he has noticed his knee will give out intermittently. He has mild pain when it gives out but generally speaking he's not had significant pain or swelling of the knee. This patient has noted that while going throughhis daily activities or playing basketball or football with certain motions of his left knee the knee will buckle and give out and he will fall to the ground. No Known Allergies Outpatient Prescriptions Prior to Visit Medication Sig Dispense Refill ??? fexofenadine (AMY) 30 mg tablet Take by mouth 2 times daily. No facility-administered medications prior to visit. Patient Active Problem List Diagnosis ??? Allergic rhinitis- February/March ??? [place]-Schlatter's disease No past medical history on file. No past surgical history on file. No family history on file. Pediatric History Patient Guardian Status ??? Mother: JOYA HIGH ??? Father: Dylon High Other Topics Concern ??? Bike Helmet No ??? City Water No ??? Exercise No ??? Guns In Home Yes Locked ??? Seat Belt No ??? Special Diet No ??? Weight Concern No Social History Narrative OBJECTIVE: Alert, comfortable. 149 lb (04335 g) (75.62 %, Source: [facility] 2-20 Years) Filed Vitals: 07/08/15 1548 Weight: 149 lb (71204 g) Vital Signs: Reviewed; See Flowsheet Charting in LastWord. Extremities: Both lower extremities are normal to visual inspection. There is no bruising or swelling. He does not have any specific point tenderness about his left knee. There is no joint fluid present. He has no issues with medial or lateral stress. Anterior and posterior drawer test are normal. Radiographic examination of left knee is unremarkable. ASSESSMENT AND PLAN: Diagnosis and Associated Orders ICD-10-CM ICD-9-CM 1. Knee instability, left M25.362 718.86 XR Knee Left 3 Views 2. Need for HPV vaccination Z23 V04.89 HPV9 (Gardasil) 3. Need for influenza vaccination Z23 V04.81 Fluarix Influenza QIV (36+ mos) I explained to father and the patient that given his clinical picture and mechanism of injury it is possible that he injured his anterior or posterior cruciate ligament. This would explain the relativelack of pain in the presence of instability. Plan will be to check an MRI of his left knee. The patient was discharged ambulatory and in stable condition. Return to clinic if symptoms persist or increase or if new symptoms develop. *SH~DNS~SOAP documented in this encounter Plan of Treatment Not on filedocumented as of this encounter Visit Diagnoses Diagnosis Knee instability, left - Primary Need for HPV vaccination Need for prophylactic vaccination and in oculation against other viral diseases Need for influenza vaccination Need for prophylactic vaccination and in oculation against influenza documented in this encounter Care Teams Street Supervisor Relationship Specialty Start Date End Date Corinne Hazel MD PCP - General 12/19/10 [facility] [place] [address] documented as of this encounter
--- OUTSIDE RECORDS SUMMARY | 2022-06-30 15:43 | XMS_ITS | Encounter Summary ---
:1999 Author Organization [facility] Address [address] [place] [address] Care Team Providers Name Role Phone Corinne Hazel MD Primary Care Provider Encounter Details Date Type Department Care Team Description 11/29/2015 [facility] Brian Brennan Osteochondr itis Encounter Radiology PMD dessicans [address] [facility] [address] [phone] Social History Tobacco Use Types Packs/Day Years [...] times daily. documented as of this encounter Miscellaneous Notes Medication History - Jack Graham MD - 11/29/2015 11:59 PM CDT INPATIENT MEDS Encounter Date: 11/29/15 iopamidol (ISOVUE-200) 41 % injection 3 mL Start Date:11/29/15, End Date:11/29/15, Frequency:ONCE Taken Dose Action User Route Site Recorded Comment Reason 11/29/15 1345 3 mL Given Caridad K Entinger Intracapsular - 11/29/15 1324 - - gadobutrol (GADAVIST) 1 mmol/mL injection 0.1 mL Start Date:11/29/15, End Date:11/29/15, Frequency:ONCE Taken Dose Action User Route Site Recorded Comment Reason 11/29/15 1345 0.1 mL Given Caridad K Entinger Intracapsular - 11/29/15 1324 - - documented in this encounter Plan of Treatment Not on filedocumented as of this encounter Procedures Procedure Name Priority Date/Time Associated Diagnosis Comme nts FL PRE MR Routine 11/29/2015 1:22 PM Osteochondritis Result s for this INJECTION KNEE LT CDT dessicans procedure are in the results section. documented in this encounter Results FL Pre MR Injection Knee Lt (11/29/2015 1:22 PM CDT) Anatomical Region Laterality Modality Lower Extremity, Knee Other Specimen (Source) Anatomical Location Collection Method / Collectio n Time Received Time / Laterality Volume Narrative 11/29/2015 2:13 PM CDT FINDINGS: The procedure, goals, risks and benefits of the procedure were discussed with the patient and his mother, who gave full written and verbal consent to proceed. The location of the procedure was confirmed, the skin initialed, and paus e for cause performed. Using sterile technique, loca l anesthesia and fluoroscopic guidance a 22 gauge needle was advanced into the left knee. Intraarticular location of the needle tip was confirmed with the injection of 1 mL of Isovue. 20 mL of 1 in 400 diluted Gadavist into normal saline were injecte d (0.05 cc Gadavist used for dilution) without complication. Procedure Note Pradip Fuller MD - 03/05/2016 FINDINGS: The procedure, goals, risks an d benefits of the procedure were discussed with the patient and his mother, who gave full written and verbal consent to proceed. The location of the procedure was confirmed, the skin initialed, and pause for cause performed. Using sterile technique, loca l anesthesia and fluoroscopic guidance a 22 gauge needle was advanced into the left knee. Intraarticular location of the needle tip was confirmed with the injection of 1 mL of Isovue. 20 mL of 1 in 400 diluted Gadavist into normal saline were injecte d (0.05 cc Gadavist used for dilution) without complication. Brian Brennan MD [facility] documented in this encounter Visit Diagnoses Diagnosis Osteochondritis dessicans Osteochondritis dissecans documented in this encounter Care Teams Industrial Gas Servicer Relationship Specialty Start Date End Date Corinne Hazel MD PCP - General 12/19/[address] [place], [place] [address] [id number] documented as of this encounter
--- OUTSIDE RECORDS SUMMARY | 2022-06-30 15:43 | XMS_ITS | Encounter Summary ---
:2000 Author Organization [facility] Address [address] [place] [address] Care Team Providers Name Role Phone Corinne Hazel MD Primary Care Provider Reason for Referral Procedure/Equipment (Routine) - Incomplete Specialty Diagnoses / Procedures Referred By Contact Refer red To Contact Diagnoses Osteochondritis dissecans Brian Brennan MD Procedures MR Knee Lt WO IV Cont [address] [place] [address] Referral ID Status Reason Start Date Expiration Date Visits V isits Requested Authorized [id number] Incomplete 02/28/2018 05/30/2019 1 1 Procedure/Equipment (Routine) - Incomplete Specialty Diagnoses / Procedures Referred By Contact Refer red To Contact Diagnoses Osteochondritis dissecans Brian Brennan MD Procedures XR Knee Lt 4 Views [address] [place] [address] Referral ID Status Reason Start Date Expiration Date Visits V isits Requested Authorized [id number] Incomplete 02/28/2018 05/30/2019 1 1 Reason for Visit Reason Comments INJURY, KNEE left Encounter Details Date Type Department Care Team Description 02/28/2018 Office Visit Specialty Center Brian Brennan, Oste ochondritis dissecans (Primary Dx); [address] Osteochondritis dissecans of knee, left; Orthopedics 200 [facility] Left knee pain, unspecified chronicity [address] [facility]. [facility]. [place], [facility], [address] [place] [address] [phone] Social History Tobacco Use Types Packs/Day Years [...] this encounter Progress Notes Brian Brennan - 03/23/2018 6:37 PM CDT NAME: MICAH HIGH MR#: [id number] CSN: [id number] AUTHENTICATING CLINICIAN: Brian Brennan MD CONFIRM #: [id number] LOC: 211 CLINIC PROGRESS NOTE DATE OF VISIT: 02/28/2018 : 2000 This is an 17-year-old accompanied by his mother. He is a high school senior. He is going up to college in the fall. Said he was doing well. Last time he saw me was in July 2016. He had had an osteochondrotic lesion on his left side in the region of his posterior weightbearing surface on the lateral femoral condyle. He was stable and comfortable with no effusions or clicking and doing well and discharged to p..n. followup. 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 When pushing off, he felt a notable click in the region of his lateral knee, something that had not bothered him over the course of over 2 years. He had been doing well. Had taken part in virtually all high school sports and has not been seen since his freshman year in high school. Now, he is a senior, though, the concern is there being some underlying change in the region of his previous lesion, which had been asymptomatic. He has been able to weightbear and has managed the pain since the onset of his discomfort earlier in the week on his own by limiting his weightbearing and using nonsteroidals. He has not had any pain in his opposite knee, nor has he had any pain in the other joints. He has not had any issues regarding endocrinopathies or developmental concerns in the distant past. He is currently working in [employer], getting up and down, and has been able to do that since the onset of his pain, but it has bothered him a fair bit. He had imaging done today, as well as a physical exam. I did a 4-view series of his knee. The images show the area of the osteochondritis dissecans in the central portion of the lateral femoral condyle. The previous concerns of there being a potential fragment does not appear present on today's film. There are no other changes, as noted by Radiology. The medial femoral condyle is uninvolved.The patella itself is within normal limits. On the AP view of his films, there is no narrowing of his joint space. On his lateral view, the area of concern measures roughly 1-2 cm in length on the later al view. On the flexion view, the area of concern measures approximately 17 mm in width on the condyle itself. There is a sclerotic margin around the lesion itself. The patient's emergent or sunrise view is unremarkable. Mother and I spoke today after this physical exam. EXAM: GENERAL: Exam shows him to be well appearing, age appropriate, relatively mature. No evidence of frontal bossing or concerns of endocrinopathies. EXTREMITIES: His range of motion of his left knee is complete. No locking. He has negative anterior drawer and posterior drawer. No appreciable effusion. Flexing up to 120 degrees, I am able to percussand feel over the lateral condylar region of the lesion. He is minimally tender. He is able to weight bear without discomfort and get up and down from a crouched position. Not able to elicit any crepitus or locking. His motor strength is 5/5, and he is neurovascularly intact. His mother was with him today. With his going up to school with the new onset of this symptom of an audible and palpable crack in the region of the knee, I want to make sure that there has been no compromise to his overlying cartilage, make sure if there are any concerns regarding stability of the lesion. The lesion measures approximately 1.7 x 2 cm in length. It is on the posterior weightbearing surface of that lateral condyle. As before, in discussion that if, in fact, the lesion became unstable, it could re-warrant stabilization and even grafting and a long period of limited weightbearing. He is, this summer, working in [employer] and wants to make as much money to pay for school in the fall, b ut we spoke, depending upon the findings of the MRI, that if he wanted something addressed prior to his departure, it might well be necessary if there was a change on the overlying cartilage. The MRI will be arranged here through [facility]. I want to go over it with him. The findings would determine whether I have to send him to one of the arthroscopic sports physicians if it warrants some type of visualization or surgical management. SPE:LUDA C: CONFIRM #: [id number] documented in this encounter Plan of Treatment Not on filedocumented as of this encounter Results MR Knee Lt WO [...] joint line. Brian Brennan MD RAD MRI XR Knee Lt 4 Views (02/28/2018 2:52 [...] this encounter Visit Diagnoses Diagnosis Osteochondritis dissecans - Primary Osteochondritis dissecans of knee, left Left knee pain, unspecified chronicity Osteochondritis dissecans Osteochondritis dissecans documented in this encounter Care Teams Tile Layer Helper Relationship Specialty Start Date End Date Corinne Hazel MD PCP - General 12/19/10 [address] [place] [address] documented as of this encounter
--- OUTSIDE RECORDS SUMMARY | 2022-06-30 15:43 | XMS_ITS | Encounter Summary ---
:2000 Author Organization [facility] Address [address] [address] Care Team Providers Name Role Phone Corinne Hazel MD Primary Care Provider Reason for Visit Reason Comments Knee Pain or Injury Encounter Details Date Type Department Care Team Description 04/06/2016 Office Visit Specialty Center Brian Brennan, Oste ochondritis [address] (Primary Dx) Orthopedics [address] [place] [address], [address] [place] [address] [phone] Social History Tobacco Use Types Packs/Day Years [...] this encounter Progress Notes Brian Brennan - 05/11/2016 10:13 PM CDT Progress Notes signed by Brian Brennan MD at 05/12/16 1150 Author: Brian Brennan MD Service: (none) Author Type: Physician Filed: 05/12/16 1310 Note Time: 05/12/16 1305 Status: Signed Appeals Rn: Brian Brennan MD (Physician) NAME: MICHA HIGH MR#: [id number] CSN: [id number] AUTHENTICATING CLINICIAN: Brian Brennan MD CONFIRM #: [id number] LOC: 211 CLINIC PROGRESS NOTE DATE OF VISIT: 04/06/2016 : 2000 SUBJECTIVE: Jn is 15 years of age and has a history of left OCD lesion. He is accompanied by both parents. He states that since last being seen in August 2015 and approximately 4 months in November 2015, he has had progressively increased comfort with no swelling. His last images were in November 2013, showing an MR arthrogram with stable healing lesion. Films taken today show no significant change in the lesion of the lateral femoral condyle, to be consistent with OCD or osteochondritis dissecans. Patient states that there are presently no symptoms. He has been taking part in lifting, and wants to begin football during the fall of 2015. There is no clicking or effusion per his history. He has had no comparable pain in any other joint surfaces. No past medical history on file. No past surgical history on file. Social History Substance Use Topics ??? Smoking status: [...] capsule by mouth 2 times daily. ??? doxycycline (VIBRAMYCIN) 100 mg capsule Take 1 capsule by mouth 2 times daily. Take with food. Can cause sun sensitivity. Take x 3 mos then taper off. ??? fexofenadine (AMY) 30 mg tablet Take by mouth 2 times daily. ??? tretinoin (RETIN-A) 0.025 % cream Apply topically nightly. Apply small amount every third night,increase to nightly as tolerated. No facility-administered medications prior to visit. No [...] delay.. No evidence of metabolic bone disease. PHYSICAL EXAMINATION: GENERAL: He is comfortable at rest. He is cooperative, alert. HEENT: Normocephalic. MUSCULOSKELETAL: No evidence of limb deformities. No pain with motion of his upper extremities nor his lower extremities. There is no evidence of effusions on the involved left knee. His range of motion is complete. There is no ligamental instability. His motor exam is complete. His sensation is intact to light touch. Passive and active range of motion is complete. DIAGNOSTIC DATA: X-rays taken in 3 respective views AP, lateral, and Merchant views, show the notch view showing the lesion along the lateral joint line to be presently still intact. The lateral view shows the lesion with no significant rim formation, but also no significant loose bodies. The AP view shows no joint space narrowing. 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 Growth plates are closing. He is involved in multiple sports. Presently wholly comfortable at rest. No evidence of nonunion. No evidence of any instability clinically or radiographically. He is going to take part, and come back to see me after the season. Plain films will be taken at that point. At that point, if the season goes well, from a surgical standpoint he should be able to be followed on a p.r.n. basis now at 15 years of age. SPE:MEDJacinda C: CONFIRM #: [id number] documented in this encounter Plan of Treatment Not on filedocumented as of this encounter Visit Diagnoses Diagnosis Osteochondritis dessicans - Primary Osteochondritis dissecans documented in this encounter Care Teams Public Relations Manager Relationship Specialty Start Date End Date Corinne Hazel MD PCP - General 12/19/10 [facility]5 [facility] [place] [id number] documented as of this encounter
--- OUTSIDE RECORDS SUMMARY | 2022-06-30 15:43 | XMS_ITS | Encounter Summary ---
:2000 Author Organization [facility] Address [address], [place] [address] Care Team Providers Name Role Phone Corinne Hazel MD Primary Care Provider Reason for Referral Specialty Diagnoses / Procedures Referred By Contact Refer red To Contact Chava Iverson MD [facility] [place] [address] Referral ID Status Reason Start Date Expiration Date Visits Requ ested Visits Authorized IOLOGY NURSE PRACTITIONER Reason for Visit Reason Comments LEG PAIN Encounter Details Date Type Department Care Team Description 07/19/2015 Office Visit Specialty Center Brian Brennan Clos ed fracture of left proximal tibia, unspecified fracture morphology, initial encounter; [facility] Osteochondritis dessicans Orthopedics [address] [place] [address], [id number] [id number] [phone] Social History Tobacco Use Types Packs/Day Years [...] this encounter Progress Notes Brian Brennan - 08/08/2015 10:12 PM CST Progress Notes signed by Brian Brennan MD at 08/09/15 223 Author: Brian Brennan MD Service: (none) Author Type: Physician Filed: 08/09/15 1227 Note Time: 08/09/151218 Status: Signed General Clerk: Brian Brennan MD (Physician) NAME: MICAH HIGH MR#: [id number] CSN: [id number] AUTHENTICATING CLINICIAN: Brian Brennan MD CONFIRM #: [id number] LOC: 211 CLINIC PROGRESS NOTE DATE OF VISIT: 07/19/2015 : 2000 A followup for Jn Ragsdale is a 14-year-old who is presently comfortable. Denies any notable pain. His most recent imagingwas an MRI on 07/14. He is here today for assessment of his left knee. The MRI, itself, was done without contrast. He has a 07/08 imaging of his knee. It is notable for a 2.5 x 1.6 osteochondral lesionin the posterior weightbearing surface of the lateral femoral condyle. It is small, nondisplaced, and has a small chondral fracture on the lateral tibial plateau as well. Those are the things that prompted his visit as his most recent injury. 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 Both parents were with him today. Because of the concerns regarding the classification of its stability, I want to get an MR arthrogram in order to repeat the images for the sake of being able to determine whether, in fact, this is wholly stable. He will return to see me for the above-stated study. The images will be done in order to determine a flap. If, in fact, there is notable amount of fluid under the flap, I would consider stabilization with potential grafting, with an open arthrotomy. He is presently asymptomatic, with no effusions, no clicking, and no history of disturbances, and so the likelihood of just holding off from sports until there is further union and healing to allow this to heal over the course of the next several months is an option as well. Followup will be with the MR arthrogram, which will be scheduled here at [facility]. SPE:MEDQ C: CONFIRM #: [id number] IOLOGY NURSE PRACTITIONER documented in this encounter Plan of Treatment Scheduled Referrals Name Type Priority Associated Diagnoses Order S chedu Orthopaedic Consult Referral Routine Closed fracture of le ft Ordered: 07/19/2015, Adult/Peds proximal tibia, Expires: 10/2014 unspecified fracture morphology, initial encounter Osteochondritis dessicans documented as of this encounter Visit Diagnoses Diagnosis Closed fracture of left proximal tibia, unspecified fracture morphology, initial encounter Osteochondritis dessicans Osteochondritis dissecans documented in this encounter Care Teams Stock Repairer Relationship Specialty Start Date End Date Corinne Hazel MD PCP - General 12/19/10 [address] [place] [address] documented as of this encounter
--- OUTSIDE RECORDS SUMMARY | 2022-06-30 15:43 | XMS_ITS | Encounter Summary ---
:2000 Author Organization [facility] Address [address] [address] Care Team Providers Name Role Phone Corinne Hazel MD Primary Care Provider Encounter Details Date Type Department Care Team Description 07/29/2015 Notes/Orders [facility] Brian Brennan, Oste ochondritis [address] [place] (Primary Dx) Orthopedics [address] [place] [address], [address] [place] [id number] [phone] Social History Tobacco Use Types Packs/Day Years [...] Visit Diagnoses Diagnosis Osteochondritis dissecans - Primary documented in this encounter Care Teams Rubber Chemist Relationship Specialty Start Date End Date Corinne Hazel MD PCP - General 12/19/10 [address] [place] [address] documented as of this encounter
--- OUTSIDE RECORDS SUMMARY | 2022-06-30 15:43 | XMS_ITS | Encounter Summary ---
:2000 [facility] Address [address], [place] [address] Care Team Providers Name Role Phone Corinne Hazel MD Primary Care Provider Encounter Details Date Type Department Care Team Description 07/16/2015 Notes/Orders [facility] Chava Iverson MD [address] [facility] . [address] [place] [address] [place] [address] [phone] (Wo rk) Social History Tobacco Use Types [...] documented as of this encounter Progress Notes Chava Iverson MD - 07/16/2015 10:48 AM CDT I have reviewed his MRI results with Dr. Brennan. He recommended knee immobilizer and crutches for afracture of his tibial plateau. With regard to his osteochondritis and the potential for instabilityhe recommended followup in orthopedic clinic on Sunday. Given the appearance on MRI he would likely r ecommend operative repair now before a piece of his cartilage breaks loose. I discussed this recommendation with the family and they will see Dr. Brennan on Sunday. documented in this encounter Plan of Treatment Not on filedocumented as of this encounter Visit Diagnoses Not on filedocumented in this encounter Care Teams Engineering Patternmaker Relationship Specialty Start Date End Date Corinne Hazel MD PCP - General 12/19/10 14[address] [facility] [place] [id number] documented as of this encounter
--- OUTSIDE RECORDS SUMMARY | 2022-06-30 15:43 | XMS_ITS | Encounter Summary ---
:2000 Author Organization [facility] Address [address] [address] Care Team Providers Name Role Phone Corinne Hazel MD Primary Care Provider Reason for Visit Reason Comments INJURY, KNEE Encounter Details Date Type Department Care Team Description 07/26/2015 Office Visit Specialty Center Brian Brennan, Oste ochondritis [address] (Primary Dx) Orthopedics [address] [place] [address], [address] [place] [address] [phone] Social History Tobacco Use Types Packs/Day Years [...] this encounter Progress Notes Brian Brennan - 08/17/2015 11:18 AM CST Progress Notes signed by Brian Brennan MD at 08/17/15 0685 Author: Brian Brennan MD Service: (none) Author Type: Physician Filed: 08/17/15 5752 Note Time: 08/17/15 9289 Status: Signed Medical Dermatologist: Brian Brennan MD (Physician) NAME: MICAH HIGH MR#: [id number] CSN: [id number] AUTHENTICATING CLINICIAN: Brian Brennan MD CONFIRM #: [id number] LOC: 211 CLINIC PROGRESS NOTE DATE OF VISIT: 07/26/2015 : 2000 14-year-old boy who is seen today for an MRI arthrogram of his left knee. He is here with both parents. Assessment of the images were done. The post MRI arthrogram was able to be reviewed in order to assess any instability of the fracture. The 2.5 x 1.6 osteochondrotic lesion on the posterior weightbearing surface of the lateral condyle of the femur is noted. There is cartilage over the greater part of the lesion. It is in the weightbearing surface. It is unchanged in position. There is a question of instability or at least partial instability on the very margins of the tip but no evidence of change in position. There is no definitive contrast extension between the lesion and the subchondral bone. The overlying cartilage is intact. The changes he had over the lateral tibial plateau from trauma whichprompted the films detecting this lesion is basically healing and nondisplaced. He is comfortable atrest. Approximately 20 minutes discussion including review of the images and the review of the physical findings with the patient and me and the family is discussed. He is abstaining from sports. Will n eed plain films and potentially in approximately 4-6 months' time a repeat MRI arthrogram. Stabilization of an unstable lesion could be proceeded with if there is any evidence of dye extravasation under the lesion. The cartilage, however, for the most part appears intact. We are waiting for it to heal. The dye and the overlying callus appearing grossly stable at this point does not prompt any type ofarthroscopic stabilization. Any change in position, any increasing mechanical symptoms would prompt a screw fixation with potential allograft depending upon subsequent images. SPE:MEDQ C: CONFIRM #: [id number] WRIGHT HELPER documented in this encounter Plan of Treatment Not on filedocumented as of this encounter Visit Diagnoses Diagnosis Osteochondritis dessicans - Primary Osteochondritis dissecans documented in this encounter Care Teams Fisher Quahog Relationship Specialty Start Date End Date Corinne Hazel MD PCP - General 12/19/10 [address] [place] [address] documented as of this encounter
--- OUTSIDE RECORDS SUMMARY | 2022-06-30 15:44 | XMS_ITS | Encounter Summary ---
:1999 Author Organization [facility] Address [address] [place] [address] Care Team Providers Name Role Phone Corinne Hazel MD Primary Care Provider Encounter Details Date Type Department Care Team Description 05/06/2008 Office Visit [facility] Yue Mcleod MD [address]. [address] [facility] [place] [address] [place] [address] [phone] Social History Tobacco Use Types Packs/Day Years [...] documented as of this encounter Progress Notes Yue Mcleod - 05/06/2008 12:01 AM CDT Progress Notes signed by Yue Mcleod MD at 05/06/08 1626 Author: Yue Mcleod MD Service: (none) Author Type: Physician Filed: 01/07/11 0746 Note Time: 05/06/08 0001 Status: Signed Website Admin: Yue Mcleod MD (Physician) Well Child/Adolescent Visit or Sports Physical IMPRESSION: Well child visit. Murmur. Demographics: Accompanied by mother. Patient is 7 years old. Patient is in third grade of school. Interval History: Needs more angelito because increased the dose. Eats 3 meals per day with a varied diet. Calcium intake adequate. Has good sleep habits. No concerns about social interactions. Appears to be emotionally stable. School / Activities: School: No concerns about school. Grades in school include A's. Grades in school include B's. Activity: Gets regular activity. Organized Activity: baseball, football, Current Medical Concerns: Allergic rhinitis-2 tsp of Angelito bid helps, Past History: ADR's, Medications, and Problem List reviewed and updated today on the Health Profile of [facility]. Previous Illness: History of allergic rhinitis. Online medical records were reviewed by me. Social / Family History: Family: Father's occupation: Records Management Specialist Mother's occupation: [employer] Number of siblings: Catherine-5 yo healthy Environment: [place]. No pets. Safety: Not using bicycle helmets consistently. Wearing seatbelts consistently. Guns in home(locked in safe). Asthma(dad's side). PHYSICAL EXAM: (See online scanned documents for percentile graphs) Current Weight: 61.6 lbs. / 28.0kg. Current Height: 51.25 inches Current BMI: 16.5 Kg/meters squared Blood Pressure: 82/60 General Appearance: Alert, comfortable. HEENT: Canals/TM's normal, conjunctivae non-injected, sclerae anicteric, no strabismus, oral mucosa 5moist without lesions. Neck: Supple, no mass or goiter. Chest: Clear with 6normal effort. CV: Regular rate w 1-2/6 SE murmur LSB, pulses normal to palpation. Murmur does not change with position, decreased with valsalva. Abdomen: Soft, nontender without hepatosplenomegaly or masses. Extremities: 9Full range of motion without abnormality. Neuro: Normal tone and symmetric :reflexes. Spine: Grossly normal. Skin: No abnormal rash. Weight: Appears proportional to height. /Pelvic: Testes descended and normal bilaterally, no inguinal hernia, normal anus, circumcised without lesions. Genitalia & Pubic Hair: Jace stage 1. ASSESSMENT: 1.Well child visit. 2.Murmur-likely innocent, but still very appreciable and doesn't change with position. PLAN: Immunizations: Hepatitis A vaccine given. CXR/EKG and will f/u by phone with results. Follow Up: In one year or sooner prn. *SH~PC~WSP ~ Shorthand Note completed on: 05/06/2008 4:22 PM documented in this encounter Plan of Treatment Not on filedocumented as of this encounter Procedures Procedure Name Priority Date/Time Associated Diagnosis Comme nts XR CHEST 2 VIEWS Routine 05/06/2008 5:19 PM Resul ts for this CDT procedure are i n the results section. documented in this encounter Results XR Chest 2 Views (05/06/2008 5:19 PM CDT) Anatomical Region Laterality Modality Chest, Lung Other Specimen (Source) Anatomical Location Collection Method / Collectio n Time Received Time / Laterality Volume Impressions 05/06/2008 5:19 PM CDT : ??Normal. [id number] Dictating JOSUÉ PRESSLEY RADIOLOGIST Narrative 05/06/2008 5:19 PM CDT No comparison. Cardiovascular system appears within nor mal limits. Lungs are clear. Normal situs. ??Normal exam does not pre clude further evaluation, as clinically indicated, with consideration of EKG and/or cardiac ultrasound. Procedure Note Josué Buck - 11/23/2016Formatting o f this note might be different from the original. No comparison. Cardiovascular system appears within nor mal limits. Lungs are clear. Normal situs. Normal exam does not precl ude further evaluation, as clinically indicated, with consideration of EKG and/or cardiac ultrasound. IMPRESSION : Normal. [id number] Dictating JOSUÉ PRESSLEY RADIOLOGIST uYe Mcleod MD RAD GD documented in this encounter Visit Diagnoses Not on filedocumented in this encounter Care Teams Marine Technician Relationship Specialty Start Date End Date Corinne Hazel MD PCP - General 12/19/10 [address] [place] [address] documented as of this encounter
--- OUTSIDE RECORDS SUMMARY | 2022-06-30 15:44 | XMS_ITS | Encounter Summary ---
:1999 [facility] Address [address], [place] [address] Care Team Providers Name Role Phone Corinne Hazel MD Primary Care Provider Encounter Details Date Type Department Care Team Description 03/09/2011 PN Conversion Only SENIOR CYTOGENETIC TECHNOLOGIST [address], Sondra W, [address] [place] [address] [address] [place], [place] [address] (Wo rk) Social History Tobacco Use Types [...] Name Priority Date/Time Associated Diagnosis Comme nts SURGICAL DARIUS BUCIO Routine 03/09/2011 7:00 AM Re sults for this MARLO CDT procedure are i n the results section. documented in this encounter Results Pathology Report (03/09/2011 7:00 AM CDT) Component Value Ref Test Analysis Performed At [facility] gist Range Method Time Signature Path: ? Final DERMATOPATHOLOGY REPO RT HP CONVERSION Pathology #: [id number] ? Date Obtained: 03/09/2011 ?Date Received: 03/10/2011 DIAGNOSIS: ? Skin, right upper back, shave biopsy: ?- Irritated benign compound melanocytic nevus. ? MXAX SCHMIDT ? (electronic signatur e) ? 03/13/2011 ??11:4 8 CLINICAL NOTES: ? 5mm x 6mm slope shouldered papule with irregular colo r pattern and ? scalloped borders R/O DN ORGAN/TISSUE SITE ? Right upper back GROSS DESCRIPTION: ? Received in a formalin-filled container labeled with the patient's ? name is a 4 x 3 x 1 mm shave biopsy of skin. The spec imen is ? bisected and submitted entirely in one cassette. ?WEIDA MICROSCOPIC DESCRIPTION: ? Microscopic evaluation performed. ?End of Report Specimen Anatomical Collection Method Collection Time Receive d Time (Source) Location / / Volume Laterality SHAVE BIOPSY OF 03/09/2011 7:00 AM 2010 7:00 SKIN / Unknown CDT AM CDT Sondra Weir PA-C LAB_1 Performing Organization Address City/State/ZIP Code Phon e Number HP CONVERSION documented in this encounter Visit Diagnoses Not on filedocumented in this encounter Care Teams Spreading Machine Operator Relationship Specialty Start Date End Date Corinne Hazel MD PCP - General 12/19/[address] [place] [address] documented as of this encounter
--- OUTSIDE RECORDS SUMMARY | 2022-06-30 15:44 | XMS_ITS | Encounter Summary ---
:1999 [facility] Address [address] [address] Care Team Providers Name Role Phone Corinne Hazel MD Primary Care Provider Reason for Visit Reason Comments LAB RESULTS Encounter Details Date Type Department Care Team Description 04/18/2012 Telephone [facility] Nichole Caputo MD LAB RESULTS [address] [facility] . [address] [facility] [place] [address] [place] [address] [phone] (Wo rk) Social History Tobacco Use Types [...] documented as of this encounter Nursing Notes Fallon Hadley LPN - 04/18/2012 11:08 AM CDT I called and spoke to the mother. I gave the cholesterol result and informed parent that the patientshould cont good physical activity and healthy eating habits. We will recheck at next visit. Mom ok with plan of care. Phone note is complete. Nichole Caputo MD - 04/18/2012 10:43 AM CDT Cholesterol elevated at 207. Would recommend cont good physical activity and healthy eating habits. Will recheck at next visit. documented in this encounter Plan of Treatment Not on filedocumented as of this encounter Visit Diagnoses Not on filedocumented in this encounter Care Teams Digital Forensic Analyst Relationship Specialty Start Date End Date Corinne Hazel MD PCP - General 12/19/10 [address] [facility] [address] documented as of this encounter
--- OUTSIDE RECORDS SUMMARY | 2022-06-30 15:44 | XMS_ITS | Encounter Summary ---
:1999 [facility] Organization [facility] Address [address], [place] [address] Care Team Providers Name Role Phone Corinne Hazel MD Primary Care Provider Encounter Details Date Type Department Care Team Description 01/25/2009 Office Visit [facility] Corinne Hazel MD [address] [facility] . [address] [place] [address] [place], [place] [id number] (Wo rk) Social History Tobacco Use Types [...] Pressure - - Pulse - - Temperature 37.7 ??C (99.9 ??F) 01/25/2009 10:26 AM CDT C: 3 7.7 C Respiratory Rate - - Oxygen Saturation - - Inhaled Oxygen Concentration - - Weight 31.1 kg (68 lb 8 oz) 01/25/2009 10:26 AM CDT C: 31.1kg Height - - Body Mass Index - - documented in this encounter Progress Notes Corinne Hazel MD - 01/25/2009 12:01 AM CDT Progress Notes signed by Corinne Hazel MD at 01/25/09 1056 Author: Corinne Hazel MD Service: (none) Author Type: Physician Filed: 01/07/11 1432 Note Time: 01/25/09 0001 Status: Signed Pricing Director: Corinne Hazel MD (Physician) Acute Clinic Visit IMPRESSION: Strep pharyngitis. SUBJECTIVE: History of Present Illness: Accompanied By: Father. Symptom(s): Pt here for ST, fever for 24 hr. No other sx. No rashes, no GI sx. No URI sx. Acute Medications Used / Exposures: No acute medications being used Patient has been exposed to ill contacts. Patient has been exposed to strep. Patient is not exposed to tobacco in the home. Denies travel outside of the [place] in recent weeks. Past / Family History: ADR's, Medications, and Problem List reviewed and updated today on the Health Profile of [facility]. Past History of: Allergic rhinitis. OBJECTIVE: Weight: 68.5 Temperature: 99.8 degrees F. General: well appearing; alert and appropriate. Eyes: no injection or drainage. Ears: canals and tympanic membranes normal bilaterally. Nose: normal nares without drainage. Oropharynx: moist mucus membranes, palatal petechiae, palatal erythema, symmetric tonsils, tonsillar erythema, scant tonsillar exudate Neck: supple with shotty ant cervical nodes all nontender. No other masses. Chest: clear to auscultation; normal effort. Cardiac: regular rate without murmur. Abdomen: soft, nontender; no masses. Skin: exam normal. Labs/Studies Done Today Rapid Strep: positive. ASSESSMENT: Strep pharyngitis. PLAN: Prescriptions provided, see OP Med list on Health Profile in [facility]. Patient was given discharge instructions and was discharged in stable condition. *SH~PC~AURELIANO ~ Shorthand Note completed on: 01/25/2009 10:55 AM documented in this encounter Plan of Treatment Not on filedocumented as of this encounter Visit Diagnoses Not on filedocumented in this encounter Care Teams Hydrographical Technical Officer Relationship Specialty Start Date End Date Corinne Hazel MD PCP - General 12/19/10 [address] [place] [address] documented as of this encounter
--- OUTSIDE RECORDS SUMMARY | 2022-06-30 15:44 | XMS_ITS | Encounter Summary ---
:1999 Author Organization [facility] Address [address], [place] [address] Care Team Providers Name Role Phone Corinne Hazel MD Primary Care Provider Reason for Visit Reason Comments Skin Check Encounter Details Date Type Department Care Team Description 04/01/2015 Initial Consult Sondra Jamison, Multiple pigmented nevi (Primary Dx); Dermatology BRIGID Nevus spilus of back [address] [facility] [address] [place] [address] [place] [address] [phone] Social History Tobacco Use Types Packs/Day Years [...] documented as of this encounter Progress Notes Sondra Weir, BRIGID - 04/02/2015 11:29 AM CDT Subjective: Hayes High is a 14 y.o. male who presents for general skin examination. Patient has no personalhistory of skin cancer or melanoma. His maternal great- grandmother had melanoma. Mom notes that hereis a mole on his back that looks like it has changed in color. This has been there for several years. Patient Active Problem List Diagnosis Date Noted ??? Murdock-Schlatter's disease 03/29/2015 ??? Allergic rhinitis- 04/16/2012 Current Outpatient Prescriptions on File Prior to Visit Medication Sig Dispense Refill ??? fexofenadine (AMY) 30 mg tablet Take by mouth 2 times daily. No current facility-administered medications on file prior to visit. No Known Allergies Review of Systems Pertinent items are noted in HPI. Objective: General: alert, cooperative, no distress, appears stated age Eyes: negative Skin Exam: no rashes There were no significant lesions on complete cutaneous exam of head, neck,anterior and posterior trunk, bilateral upper and lower extremities There are sparsely scattered dark brown macules and shallow papules across his trunk and extremities measuring 3-4 mm in diameter each. On the right lower thoracic back there is a 10 mm x 8 mm melissa patch with speckled dark pigments within it. The melissa portion has well demarcated borders. This is consistent with a nevus spilus. Assessment: Pigmented nevi. Nevus spilus. Plan: 1. No treatment of any of the skin growth is required at this time. Because there is concern this has been changing, I took photographs today and asked them to return in 6 months for re-evaluation. Momagrees with this plan. ABCDE's of melanoma reviewed. If they note further changes, they can return sooner. Good sun protection measures reviewed and encouraged. 2. The types of changes to observe for were again reviewed. Verbal patient instruction given. 3. Follow up in 6 months. documented in this encounter Plan of Treatment Not on filedocumented as of this encounter Visit Diagnoses Diagnosis Multiple pigmented nevi - Primary Benign neoplasm of skin, site unspecifie d Nevus spilus of back documented in this encounter Care Teams Spaghetti Press Helper Relationship Specialty Start Date End Date Corinne Hazel MD PCP - General 12/19/10 [address] [facility] [place] [address] documented as of this encounter
--- OUTSIDE RECORDS SUMMARY | 2022-06-30 15:44 | XMS_ITS | Encounter Summary ---
:1999 [facility] Address [address], [place] [address] Care Team Providers Name Role Phone Corinne Hazel MD Primary Care Provider Reason for Visit Reason Comments IMMUNIZATIONS Encounter Details Date Type Department Care Team Description 05/19/2014 Telephone [facility] Corinne Hazel MD IMMUNIZATIONS [address] [facility] . [address] [facility] [place] [address] [place] [address] [phone] (Wo rk) Social History Tobacco Use Types [...] documented as of this encounter Nursing Notes Amiar Desouza RN - 05/19/2014 8:56 AM CDT Spoke with mom who is calling to check it pt is up to date on immunizations. Pt is up to date. He shirley freshman in high school. Plans to have next Well Child check next year. No further questions. documented in this encounter Plan of Treatment Not on filedocumented as of this encounter Visit Diagnoses Not on filedocumented in this encounter Care Teams Traffic Control Officer Relationship Specialty Start Date End Date Corinne Hazel MD PCP - General 12/19/10 14[address] [facility] [place] [id number] documented as of this encounter
--- OUTSIDE RECORDS SUMMARY | 2022-06-30 15:44 | XMS_ITS | Encounter Summary ---
:1999 [facility] Address [address], [place] [address] Care Team Providers Name Role Phone Corinne Hazel MD Primary Care Provider Encounter Details Date Type Department Care Team Description 07/18/2010 Office Visit Corinne Armenta MD [address] [place], [place] [address] (Wo rk) Social History Tobacco Use Types [...] - Inhaled Oxygen Concentration - - Weight 39.5 kg (86 lb 15.9 oz) 07/18/2010 5:33 PM CDT C : 39.5kg Height - - Body Mass Index - - documented in this encounter Progress Notes Corinne Hazel MD - 07/18/2010 12:01 AM CDT SUBJECTIVE : Patient accompanied by his parents for evaluation of left heel pain. Began while he was playing baseball this summer. Has worsened this fall with football. He will be starting basketball soon and wants evaluation and management assistance. Heel pain has been bilaterally in the past but it is now worse than the left. Noted swelling over the heels in the past. Has used upportive mechanisms including ice and anti-inflammatories. There is no known trauma. Family also concerned as he is very flat-footed has some in turning of the feet while playing football. He has recently gotten new shoes with good arch supports they have not resolved the discomfort. Medications: Reviewed and updated today, see [facility] Medications. Adverse Drug Reactions: Reviewed and updated today, see [facility] ADR list. OBJECTIVE Vital Signs : [facility], [facility]. Weight 87 pounds Extremities: Bilateral heel exams have tenderness over the Achilles apophyseal area. He is more tender on the left than the right. He has normal vascularity sensory and range of motion although somewhat tight and bilateral gastrocs. He has bilateral hyperpronation and pes planus. With ambulation he shows mild intoeing. Labs: Left heel x-ray is unremarkable interpreted by myself. 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 Spenko.arch supports Discussed podiatry referral family declines Discussed PT evaluation for strengthening and stretching Ibuprofen and icing p.r.n. Return activities as tolerated *SH~DNS~ documented in this encounter Plan of Treatment Not on filedocumented as of this encounter Procedures Procedure Name Priority Date/Time Associated Diagnosis Comme nts XR CALCANEUS LT 2+ Routine 07/18/2010 6:14 PM Res ults for this VIEWS CDT procedure are i n the results section. documented in this encounter Results XR Calcaneus Lt 2+ Views (07/18/2010 6:14 PM CDT) Anatomical Region Laterality Modality Lower Extremity, Foot, Foot & Ankle Othe r Specimen (Source) Anatomical Location Collection Method / Collectio n Time Received Time / Laterality Volume Impressions 07/18/2010 6:14 PM CDT : ??Left heel within normal limits. Dictating JOSUÉ PRESSLEY RADIOLOGIST Narrative 07/18/2010 6:14 PM CDT COMPARISON: ??None. FINDINGS: ??No significant bone or joint abnormality is noted. Procedure Note Josué Buck MD - 03/02/2016Formatti ng of this note might be different from the original. COMPARISON: None. FINDINGS: No significant bone or joint a bnormality is noted. IMPRESSION : Left heel within normal limits. Dictating JOSUÉ PRESSLEY T RADIOLOGIST Corinne Hazel MD RAD GD documented in this encounter Visit Diagnoses Not on filedocumented in this encounter Care Teams Estimator And Drafter Supervisor Relationship Specialty Start Date End Date Corinne Hazel MD PCP - General 12/19/10 [address] [place], [place] [address] documented as of this encounter
--- OUTSIDE RECORDS SUMMARY | 2022-06-30 15:44 | XMS_ITS | Encounter Summary ---
:2000 Author Organization [facility] Address [address] [place] [address] Care Team Providers Name Role Phone Corinne Hazel MD Primary Care Provider Reason for Visit Reason Comments WELL CHILD EXAM Encounter Details Date Type Department Care Team Description 04/16/2012 Office Visit [facility], Routine child health exam (P rimary Dx); [address] MD Nichole Need for meningococcus vaccine; [place] [address] [address] [facility] Need for Tdap vaccination; [phone] Ave Examination of eyes and vision; [place] Other examinati on of ears and hearing [address] Social History Tobacco Use Types Packs/Day Years [...] Sign Reading Time Taken Comments Blood Pressure 106/64 04/16/2012 3:23 PM CDT Pulse - - Temperature - - Respiratory Rate - - Oxygen Saturation - - Inhaled Oxygen Concentration - - Weight 41.3 kg (91 lb) 04/16/2012 3:23 PM CDT Height 150.5 cm (4' 11.25) 04/16/2012 3:23 PM CDT Body Mass Index 18.22 04/16/2012 3:23 PM CDT Body Mass Index Percentile 52.45 % 04/16/2012 3:23 PM CD T Growth Chart: [facility] (Boys, 2-20 Years) documented in this encounter Progress Notes Nichole Caputo MD - 04/16/2012 4:02 PM CDT Well Child/Adolescent Visit or Sports Physical IMPRESSION: Well adolescent visit. Demographics: Accompanied by mother. Patient is 11 years old. Patient is in seventh grade of school. Interval History: No specific patient concerns. No specific parental concerns. Nutrition: Eats 3 meals per day with a varied diet. Sleep: No concerns about sleep habits. Emotional/Social: (PSC) Pediatric Symptom Checklist was administered. No concerns were identified. Teen Screen was administered. No concerns were identified. Social Interaction: No concerns about social interactions. Appears to be emotionally stable. Good interactions with peers. Dental: Child has visited a dental health professional in the last year. Child is brushing teeth on a daily basis. School / Activities: School: No concerns about school. Grades in school include A's. Activity: Gets regular activity. Organized Activity: Baseball. Basketball. Football. Past History: Past History: Allergies, Medications, and Problem List reviewed and updated today in the Electronic Medical Record. Previous Illness: History of allergic rhinitis. Review of Systems: Except for items noted above, remainder of complete review of systems was negative. Social / Family History: Family: Parents . Father's occupation: construction/drywall Mother's occupation: insurance/computer work Number of siblings: 1 Environment: City water. No pets. Safety: Not using bicycle helmets consistently. Wearing seatbelts consistently. Guns in home. Asthma. Premature coronary artery disease. Diabetes. No family history of food allergies. Hypercholesterolemia. Hypertension. No family history of mental illness. Substance abuse. PHYSICAL EXAM: (See online scanned documents for percentile graphs) Vital signs updated and reviewed in the Electronic Medical Record. General Appearance: Alert, comfortable. Weight: Weight appears proportional to height. HEENT: Canals/TM's normal, conjunctivae non-injected, sclerae anicteric, no strabismus, oral mucosa moist without lesions. Neck: Supple, no mass or goiter. Chest: Clear with normal effort. CV: Regular rate w/o murmur, normal pulses. PHYSICAL EXAM II: Abdomen: Soft, nontender, without hepatospenomegaly or masses. Extremities: Full range of motion without abnormalities. Sexual Maturity Rating (Genitalia): Jace stage 2. Sexual Maturity Rating (Pubic Hair): Jace stage 1. Neuro: Normal tone and symmetric reflexes, moves all extremities. Skin: No rash, bruising, or lesions. Vision/Hearing: Vision Testing: Normal for age in each eye. Audiogram: Audiogram normal at all frequencies in each ear. ASSESSMENT: Well adolescent visit. PLAN: Immunizations: MCV4 vaccine given. Tdap vaccine given. Labs: Cholesterol and HDL. Sports Clearance: Form completed for sports participation. Cleared for all sports activities. General Counseling: Expected clinical course reviewed. Parental concerns discussed. Parents reassured about concerns. Behavior/Environment/Social: Bike helmet use discussed. *SH~PC~WSP ~ Shorthand Note completed on: 04/16/2012 4:01 PM documented in this encounter Plan of Treatment Not on filedocumented as of this encounter Visit Diagnoses Diagnosis Need for meningococcus vaccine Need for other specified prophylactic va ccination against single bacterial disease Need for Tdap vaccination Need for prophylactic vaccination with c ombined noetzhktwu-igoanzc-zhibcijxt (DTP) vaccine Examination of eyes and vision Other examination of ears and hearing documented in this encounter Care Teams Analytical Tech Relationship Specialty Start Date End Date Corinne Hazel MD PCP - General 12/19/10 [address] [place] [address] documented as of this encounter
--- OUTSIDE RECORDS SUMMARY | 2022-06-30 15:44 | XMS_ITS | Encounter Summary ---
:2000 Author Organization [facility] Address [address] [place] [address] Care Team Providers Name Role Phone Corinne Hazel MD Primary Care Provider Encounter Details Date Type Department Care Team Description 02/21/2008 Office Visit [facility] Mini Samuel [address] [facility] [place] [address] Social History Tobacco Use Types Packs/Day Years [...] Pressure - - Pulse - - Temperature 36.2 ??C (97.2 ??F) 02/21/2008 3:01 PM AXILLARY C: 36.2 C CDT Respiratory Rate - - Oxygen Saturation - - Inhaled Oxygen - - Concentration Weight 28.3 kg (62 lb 7.7 02/21/2008 3:01 PM C: 28.3kg oz) CDT Height - - Body Mass Index - - documented in this encounter Progress Notes Mini Samuel - 02/21/2008 12:01 AM CDT Progress Notes signed by Mini Samuel DO at 02/21/08 1601 Author: Mini Samuel DO Service: (none) Author Type: Physician Filed: 01/07/11 0600 Note Time: 02/21/08 0001 Status: Signed Composition Tile Layer: Mini Samuel DO (Physician) Acute Clinic Visit IMPRESSION: Occipital lymph node SUBJECTIVE: History of Present Illness: Symptom(s): 7 year old male, notice by mother to have a bump on back of his head, was initially more swollen, and is now smaller. No recent hx of fever, weight loss or infections. Has been staying healthy. Meds This Illness: No acute medications being used Past History: Adverse Drug Reactions: None. Chronic Medications: None. OBJECTIVE: Vital Signs: Vital Signs taken today were reviewed on the flowsheet in LastWord. General: Well-appearing in NAD. Head: 2mm firm lymph node palpable on right posterior occiput. Eyes: External exam is normal bilaterally. Ears: Bilateral pinnae, canals and TMs normal. Oropharynx: Normal, mucous membranes moist, tonsils symmetric without redness or exudate. Neck: Supple without significant adenopathy or thyromegaly. Respiratory: Lung sounds clear to auscultation without respiratory distress. Cardiac: RRR without murmur. ASSESSMENT: Occipital lymph node PLAN: Reassurance. f/up indications discussed. *SH~PC~QURI ~Shorthand Note completed on: 02/21/2008 4:00 PM documented in this encounter Plan of Treatment Not on filedocumented as of this encounter Visit Diagnoses Not on filedocumented in this encounter Care Teams Ore Grader Relationship Specialty Start Date End Date Corinne Hazel MD PCP - General 12/19/10 [address] [facility] [place] [phone] documented as of this encounter
--- OUTSIDE RECORDS SUMMARY | 2022-06-30 15:44 | XMS_ITS | Encounter Summary ---
:2000 Author Organization [facility] Address [address] [place] [address] Care Team Providers Name Role Phone Corinne Hazel MD Primary Care Provider Encounter Details Date Type Department Care Team Description 03/05/2007 Office Visit [facility] Alejo Pearce MD [address] [facility] . [address] [place] [address] [place], [place] [address] (Wo rk) Social History Tobacco Use Types [...] Pressure - - Pulse - - Temperature 36.6 ??C (97.9 ??F) 03/05/2007 4:01 PM CDT C: 36 .6 C Respiratory Rate - - Oxygen Saturation - - Inhaled Oxygen Concentration - - Weight 24.5 kg (53 lb 15.9 oz) 03/05/2007 4:01 PM CDT C : 24.5kg Height - - Body Mass Index - - documented in this encounter Progress Notes Alejo Pearce MD - 03/05/2007 12:01 AM CDT Progress Notes signed by Alejo Pearce MD at 04/04/07 0263 Author: Alejo Pearce MD Service: (none) Author Type: Physician Filed: 01/06/11 Note Time: 03/05/072017 Status: Signed Partner Management Consultant: Alejo Pearce MD (Physician) NAME: MICAH HIGH MR#: [id number] ACCT: [id number] VISIT: [id number] DICTATING CLINICIAN: ALEJO PEARCE MD JOB: [id number] LOC: 1202 CLINIC PROGRESS NOTE DATE OF VISIT: 03/05/2007 SUBJECTIVE: : 2000. Here for concerns of allergies, accompanied by mother. Reports they have been more pronounced this spring and fall than previously. Have tried Claritin nmxw-vsx-jtxxcxm with improvement in coryza, however, ongoing rhinorrhea and sneezing. Is having episodes of epistaxis as well. Otherwise no associated symptoms. FAMILY HISTORY: Positive for eczema and seasonal allergies. No history of asthma. No tobacco use or exposure. ADR/ALLERGIES: NO KNOWN DRUG ALLERGIES. MEDICATIONS: Reviewed and updated in patient health profile. OBJECTIVE: VS: T: 97.8. Wt: 54 lb. He is awake, alert, no apparent distress. Head: Normocephalic. Conjunctivae are clear. Sinuses bilateral moderately edematous with clear sinus discharge, pale in appearance. TMs are clear. Oropharynx is clear. Uvula midline. NECK: Supple. No adenopathy. LUNGS: Clear to auscultation bilaterally. No rales, rhonchi, or wheezes. Normal respiratory effort. SKIN: Otherwise warm and dry. ASSESSMENT: Seasonal allergies. PLAN: Will try Kristine 30 mg p.o. b.i.d. If failing to respond, consider referral to allergy. Could also try Zyrtec before consultation requested. [facility]:[id number] C: 03/06/07 14:43 DOCUMENT: [id number] documented in this encounter Plan of Treatment Not on filedocumented as of this encounter Visit Diagnoses Not on filedocumented in this encounter Care Teams Dice Table Person Relationship Specialty Start Date End Date Corinne Hazel MD PCP - General 12/19/10 [address] [facility] [place] [id number] documented as of this encounter
--- OUTSIDE RECORDS SUMMARY | 2022-06-30 15:44 | XMS_ITS | Encounter Summary ---
:2000 Author Organization [facility] Address [address] [address] Care Team Providers Name Role Phone Corinne Hazel MD Primary Care Provider Encounter Details Date Type Department Care Team Description 01/16/2011 PN Conversion Only [facility] Cinthia Zafar, Medicine HYDROMETEOROLOGICAL TECHNICIAN, CONSTRUCTION CONTRACTOR [address] [place] [address] [place] [address] [phone] Social History Tobacco Use Types Packs/Day Years [...] on filedocumented in this encounter Care Teams Crossing Guard Relationship Specialty Start Date End Date Corinne Hazel MD PCP - General 12/19/10 [address] [facility] [place] [phone] documented as of this encounter
--- OUTSIDE RECORDS SUMMARY | 2022-06-30 15:44 | XMS_ITS | Encounter Summary ---
:2000 [facility] Address [address], [place] [address] Care Team Providers Name Role Phone Corinne Hazel MD Primary Care Provider Reason for Visit Reason Comments POISON PATITO Encounter Details Date Type Department Care Team Description 03/11/2012 Nurse Triage [facility] Corinne Hazel MD POISON PATITO [address] [facility] . [address] [facility] [place] [address] [place] [address] [phone] (Wo rk) Social History Tobacco Use Types [...] documented as of this encounter Nursing Notes Patty Storm RN - 03/11/2012 1:41 PM CDT Protocol: POISON PATITO - [place] - [id number] Affirmative: Face, eyes, lips or genitals are involved Disposition of See in Primary Care Office within 48 Hours suggested. Mom calling. 11 year old with poison patito, states is spreading. Mom wondering about a scrub that others have mentioned to her. The rash is on his face, did advise pt. be seen. Mom is going to consider it she said, and call back if she wants to book an appt. Shanae Martinez - 03/11/2012 1:19 PM CDT mom calling with questions regarding poison patito documented in this encounter Plan of Treatment Not on filedocumented as of this encounter Visit Diagnoses Not on filedocumented in this encounter Care Teams Electrical Appliance Mechanic Relationship Specialty Start Date End Date Corinne Hazel MD PCP - General 12/19/10 [address] [facility] [place] [phone] documented as of this encounter
--- OUTSIDE RECORDS SUMMARY | 2022-06-30 15:44 | XMS_ITS | Encounter Summary ---
:2000 Author Organization [facility] Address [address] [place] [address] Care Team Providers Name Role Phone Corinne Hazel MD Primary Care Provider Encounter Details Date Type Department Care Team Description 03/09/2011 Office Visit [facility] Sondra Weir PA-C [address] [place] [address] [place] [address] [phone] (Wo rk) Social History Tobacco Use Types [...] as of this encounter Progress Notes Sondra Weir PA-C - 03/09/2011 12:01 AM CDT Procedure Note: Skin Lesion Excision CHIEF COMPLAINT: Skin mole(s) Past History: NO personal history of skin cancer. Except as noted, past medical history was reviewed and found to be negative. Except as noted, social history was reviewed and found to be negative. Family History: No history of skin cancer in 1st degree family member. No history of melanoma in 1st degree family member. Adverse Drug Reactions: Patient's ADR's were reviewed and updated today on the Health Profile screen of Electronic Medical Record. Location #1: lateral upper back Number of Lesions Treated @ This Site: 1Mom states it has been there for years. Recently has changed in size and shape. Size: 0.5 cm x 0.6 cm Characteristics: brown, with variable coloration, irregular border, papule, ASSESSMENT: Changing nevus/mole (238.2) PROCEDURE NOTE: Discussed risk of pain, infection, scarring, hypopigmentation, hyperpigmentation, and recurrence or need for retreatment. Benefits of treatment and alternative treatments were also discussed.Sterile technique was used throughout the procedure. Skin was cleaned & prepped with Hibiclens. Area surrounding the lesion was infiltrated with Xylocaine (Lidocaine) with epinephrine. Sodium bicarbonate buffer was used in the anesthetic. Dermal shave biopsy was performed using a flexible shave biopsy blade. Aluminum chloride was applied for hemostasis. Specimen(s) sent to pathology. Skin closure was not necessary. No bleeding was present upon the completion of the procedure. The wound was coated with antibacterial ointment. Band-Aid applied to wound(s). PLAN: Signs of infection (spreading erythema, increasing pain, purulent discharge) were discussed. No swimming, keep lesion clean and dry except for showering until the sutures are removed, or fall out (if absorbable). Keep area covered with a sterile dry dressing as instructed. The pt. will be notified of the pathology results via telephone. Patient was given discharge instructions and was discharged in stable condition. Return to clinic as needed. *SH~PC~SLB ~Shorthand Note completed on: 03/09/2011 3:43 PM documented in this encounter Plan of Treatment Not on filedocumented as of this encounter Visit Diagnoses Not on filedocumented in this encounter Care Teams Integration Aide Relationship Specialty Start Date End Date Corinne Hazel MD PCP - General 12/19/10 14[address] [facility] [place] [phone] documented as of this encounter
--- OUTSIDE RECORDS SUMMARY | 2022-06-30 15:44 | XMS_ITS | Encounter Summary ---
:2000 Author Organization [facility] Address [address], [place] [address] Care Team Providers Name Role Phone Corinne Hazel MD Primary Care Provider Encounter Details Date Type Department Care Team Description 04/16/2012 Lab Visit [facility] Routine child health exam [address] [facility] . [place] [id number] Social History Tobacco Use Types Packs/Day Years [...] Name Priority Date/Time Associated Diagnosis Comme nts LIPID PANEL AND Routine 04/16/2012 4:27 PM Routine child healt h Results for this DIRECT LDL(IF CDT exam procedure are in NEEDED) the results section. documented in this encounter Results (ABNORMAL) Lipid Panel and Direct LDL(If Needed) (04/16/2012 4:27 PM CDT) [facility] Method Time Signature Cholesterol 147 0 - 170 HP CONVERSION mg/dL Triglycerides 207 (H) 0 - 149 HP CONVERSION mg/dL HDL Cholesterol 46 >39 mg/dL HP CONVERSION Cholesterol/HDL 3.2 HP CONVERSION Ratio Screen LDL Calculated 60 19 - 110 HP CONVERSION mg/dL Length Of Fast 12 HP CONVERSION Specimen Anatomical Collection Method Collection Time Receive d Time (Source) Location / / Volume Laterality 04/16/2012 4:27 PM 04/16/201 2 8:11 CDT PM CDT Narrative HP CONVERSION - 04/16/2012 8:38 PM CDT Performed at [facility], [address] [place] [address] Nichole Caputo MD LAB_1 Performing Organization Address City/State/ZIP Code Phon e Number HP CONVERSION documented in this encounter Visit Diagnoses Diagnosis Routine child health exam Routine infant or child health check documented in this encounter Care Teams Belt Maker Helper Relationship Specialty Start Date End Date Corinne Hazel MD PCP - General 12/19/10 [address] [place] [address] documented as of this encounter
--- OUTSIDE RECORDS SUMMARY | 2022-06-30 15:44 | XMS_ITS | Encounter Summary ---
:1999 Author Organization [facility] Address [address] [place] [address] Care Team Providers Name Role Phone Corinne Hazel MD Primary Care Provider Reason for Visit Reason Comments WELL CHILD EXAM Encounter Details Date Type Department Care Team Description 03/26/2015 Office Visit [facility] Chava Iverson, Routine child health exam (P rimary Dx); [address] Need for HPV vaccination; [place] [address] [place] [address] Need for meningococcus vacci ne; [phone] Av[place]i Screening for developmental handicaps in hardness inspector; CESARIO CRUZ Examination of eyes and vision; 88[address] Other examination of ears and hearing; [phone] Mal-Schlatte r's disease, unspecified laterality (Work) Social History Tobacco Use Types Packs/Day Years [...] Sign Reading Time Taken Comments Blood Pressure 110/64 03/26/2015 9:07 AM CDT Pulse - - Temperature - - Respiratory Rate - - Oxygen Saturation - - Inhaled Oxygen Concentration - - Weight 64 kg (141 lb 3.2 oz) 03/26/2015 9:07 AM CDT Height 174 cm (5' 8.5) 03/26/2015 9:07 AM CDT Body Mass Index 21.15 03/26/2015 9:07 AM CDT Body Mass Index Percentile 64.06 % 03/26/2015 9:07 AM CD T Growth Chart: [facility] (Boys, 2-20 Years) documented in this encounter Progress Notes Chava Iverson MD - 03/29/2015 12:29 PM CDT 14 year old well-child check Impression: Healthy Demographics: 14 y.o. male accompanied by father School grade:10 Interval History: concerns today? knee pain, mild, below knee, worse after exercise diet- adequate dairy and protein constipation- no enuresis/encopresis- no sleeps well, not up at night, has good sleep habits temperament- easy brushing- yes, flossing- no dental visit- yes, within the past 12 mo gets regular activity- yes Sports PE history: history of concussion- no history of injury- no family history of CV issue under 40 years old- no Developmental history: vision- no concerns hearing- no concerns PSC- normal YPSC- no concerns Past history: No Known Allergies Outpatient Prescriptions Prior to Visit Medication Sig Dispense Refill ??? fexofenadine (AMY) 30 mg tablet Take by mouth 2 times daily. No facility-administered medications prior to visit. Patient Active Problem List Diagnosis ??? Allergic rhinitis- February/March ??? Clayton-Schlatter's disease No past medical history on file. No past surgical history on file. No family history on file. Pediatric History Patient Guardian Status ??? Mother: Joya High ??? Father: Dylon Hgih Other Topics Concern ??? Bike Helmet No ??? City Water No ??? Exercise No ??? Guns In Home Yes Locked ??? Seat Belt No ??? Special Diet No ??? Weight Concern No Social History Narrative Review of systems- unremarkable social interactions- no concerns school- good performance, no issues active- yes, sedentary- no Social history: tobacco use- none alcohol use- none drugs- denies use sexual history- denies sexual activity menarche- not applicable PE: Filed Vitals: 03/26/15 0907 BP: 110/64 Height: 5' 8.5 (174 cm) Weight: 141 lb 3.2 oz (64325 g) Wt Readings from Last 3 Encounters: 03/26/15 141 lb 3.2 oz (83013 g) (69.93 %*) 04/16/12 91 lb (23051 g) (43.21 %*) 07/18/10 86 lb 15.9 oz (01478 g) (74.38 %*) * Growth percentiles are based on [facility] 2-20 Years data. 5' 8.5 (174 cm) (62.42 %, Source: [facility] 2-20 Years) General- interactive, comfortable, MMM, color normal HEENT- TM/canals- normal, conjunctivae non-injected, anicteric, RRR bilaterally, oral mucosa normal Neck- supple, FROM, no adenopathy Chest- CTA, normal respiratory effort CV- RRR, normal S1S2, no murmurs, pulses symmetric throughout, including femoral Abdomen- S/NT/ND, no HSM, no G/R - circumcised, normal male and testes descended Hips- FROM Neuro- normal tone, bulk and reflexes Spine- normal, no deviation Extremities- normal, FROM throughout, bilateral swelling at tib tub Skin- no rash Weight proportional to height breasts- normal development Jace stage- 5 anisocoria- none Hearing Screening 125Hz 250Hz 500Hz 1000Hz 2000Hz 4000Hz 8000Hz Right ear: 20 20 20 20 Left ear: 20 20 20 20 Visual Acuity Screening Right eye Left eye Both eyes Without correction: 20/20 20/20 20/20 With correction: Assessment: 1. healthy 14yo male Plan: Diagnosis (ICD9) and Associated Orders ICD-9-CM ICD-10-CM 1. Routine child health exam V20.2 Z00.129 OK DEVELOPMENTAL TEST, MORSE IMMUNIZATION COUNSELING PERFORMED BY CLINICIAN HPV (Gardasil) MCV4 (Menveo) OK VISUAL SCREENING TEST, BILAT OK PURE TONE HEARING TEST, AIR 2. Need for HPV vaccination V04.89 Z23 IMMUNIZATION COUNSELING PERFORMED BY CLINICIAN HPV (Gardasil) 3. Need for meningococcus vaccine V03.89 Z23 IMMUNIZATION COUNSELING PERFORMED BY CLINICIAN MCV4 (Menveo) 4. Screening for developmental handicaps in hardness inspector V79.3 Z13.4 OK DEVELOPMENTAL TEST, MORSE 5. Examination of eyes and vision V72.0 Z01.00 OK VISUAL SCREENING TEST, BILAT 6. Other examination of ears and hearing V72.19 Z01.10 OK PURE TONE HEARING TEST, AIR 7. Clayton-Schlatter's disease, unspecified laterality 732.4 M92.50 symptomatic management reviewed Immunization counseling: completed for all immunization components received by the patient today cholesterol screened- no Dental counseling: discussed dental care sports clearance- cleared for all sports anticipatory guidance handout given expected clinical course reviewed parental concerns discussed At risk behaviors including smoking , drinking and sexual activity discussed, questions answered . counseling provided regarding risks/benefits of vaccinations next appt- in 3 years other follow up- none bike helmet use discussed school performance discussed C & TC- not C&TC patient parenting techniques discussed. *SH~DNS~CUSTOM documented in this encounter Plan of Treatment Not on filedocumented as of this encounter Visit Diagnoses Diagnosis Screening for developmental handicaps in hardness inspector Need for HPV vaccination Need for prophylactic vaccination and in oculation against other viral diseases Need for meningococcus vaccine Need for other specified prophylactic va ccination against single bacterial disease Examination of eyes and vision Other examination of ears and hearing Mal-Schlatter's disease, unspecified laterality documented in this encounter Care Teams Blasting Contract Miner Relationship Specialty Start Date End Date Corinne Hazel MD PCP - General 12/19/10 [facility] [place] [address] documented as of this encounter
--- OUTSIDE RECORDS SUMMARY | 2022-06-30 15:44 | XMS_ITS | Encounter Summary ---
:1999 Author Organization [facility] Address [address] [address] Care Team Providers Name Role Phone Corinne Hazel MD Primary Care Provider Encounter Details Date Type Department Care Team Description 05/06/2008 PN Conversion Only [facility] CONVERSIO N Yue Mcleod, [address] [place] [address] [facility] [place], [place] [address] (Wo rk) Social History Tobacco Use Types [...] on filedocumented in this encounter Care Teams Earth Science Technical Officer Relationship Specialty Start Date End Date Corinne Hazel MD PCP - General 12/19/10 1415 [facility] [place] [id number] documented as of this encounter
--- OUTSIDE RECORDS SUMMARY | 2022-06-30 15:44 | XMS_ITS | Encounter Summary ---
:1999 Author Organization [facility] Address [address] [address] Care Team Providers Name Role Phone Corinne Hazel MD Primary Care Provider Reason for Visit Reason Comments Other Encounter Details Date Type Department Care Team Description 03/16/2011 Telephone [facility] Eleonora Weir PA-C Other [address] [place] [address] [place] [address] [phone] (Wo rk) Social History Tobacco Use Types [...] documented as of this encounter Progress Notes Eleonora Weir PA-C - 03/16/2011 3:46 PM CDT Benign biopsy results left on their voicemail. Created on 16Mar2011 3:46pm by ELEONORA GARCIA documented in this encounter Plan of Treatment Not on filedocumented as of this encounter Visit Diagnoses Not on filedocumented in this encounter Care Teams Value Stream Coach Relationship Specialty Start Date End Date Corinne Hazel MD PCP - General 12/19/10 1415 [facility] [place] [id number] documented as of this encounter
--- OUTSIDE RECORDS SUMMARY | 2022-06-30 15:44 | XMS_ITS | Encounter Summary ---
:1999 Author Organization [facility] Address [address] [place] [address] Care Team Providers Name Role Phone Corinne Hazel MD Primary Care Provider Encounter Details Date Type Department Care Team Description 05/06/2008 PN Conversion Only [facility] Liang Galan MD [address] [facility] [address] [place] [address] [phone] Social History Tobacco Use Types Packs/Day Years [...] Sign Reading Time Taken Comments Blood Pressure 82/60 05/06/2008 3:45 PM CDT Pulse - - Temperature - - Respiratory Rate - - Oxygen Saturation - - Inhaled Oxygen Concentration - - Weight 27.9 kg (61 lb 9.5 oz) 05/06/2008 3:45 PM CDT C: 27.9kg Height 130.2 cm (4' 3.25) 05/06/2008 3:45 PM CDT C: 13 0.2cm Body Mass Index 16.49 05/06/2008 3:45 PM CDT Body Mass Index Percentile 61.82 % 05/06/2008 3:45 PM CD T Growth Chart: [facility] (Boys, 2-20 Years) documented in this encounter Plan of Treatment Not on filedocumented as of this encounter Procedures Procedure Name Priority Date/Time Associated Diagnosis Comme nts ECG 12 LEAD [facility] Routine 05/06/2008 5:11 PM Res ults for this CDT procedure are i n the results section. documented in this encounter Results ECG 12 lead clinic (05/06/2008 5:11 PM CDT) Specimen (Source) Anatomical Collection Method Collection Time Re ceived Time Location / / Volume Laterality 05/06/2008 5:11 PM CDT Narrative HP CONVERSION - 05/06/2008 5:11 PM CDT Pediatric ECG Analysis Normal sinus rhythm Normal ECG No previous ECGs available Imr Conversion PN ECG ORDERABLES Performing Organization Address City/State/ZIP Code Phon e Number HP CONVERSION documented in this encounter Visit Diagnoses Not on filedocumented in this encounter Care Teams Pyrometer Operator Relationship Specialty Start Date End Date Corinne Hazel MD PCP - General 12/19/[address] [place] [address] [place] [id number] documented as of this encounter
--- OUTSIDE RECORDS SUMMARY | 2022-06-30 15:44 | XMS_ITS | Encounter Summary ---
:1999 Author Organization [facility] Address [address], [place] [address] Care Team Providers Name Role Phone Corinne Hazel MD Primary Care Provider Encounter Details Date Type Department Care Team Description 11/27/2008 Nursing Visit [facility] Bernardo Amaro, PA-C [address] [place] [address] [place] [address] [place] [address] [phone] (Wo rk) Social History Tobacco Use Types [...] on filedocumented in this encounter Care Teams Tentering Machine Feeder Relationship Specialty Start Date End Date Corinne Hazel MD PCP - General 12/19/10 [facility]15 [facility] [place] [address] documented as of this encounter
--- OUTSIDE RECORDS SUMMARY | 2022-06-30 15:44 | XMS_ITS | Encounter Summary ---
:1999 Author Organization [facility] Address [address], [place] [address] Care Team Providers Name Role Phone Corinne Hazel MD Primary Care Provider Encounter Details Date Type Department Care Team Description 03/09/2011 PN Conversion Only [facility] [address], Dermatology [address] [place], [place] [address] [address] [place], [place] [phone] [address] (Wo rk) Social History Tobacco Use Types [...] on filedocumented in this encounter Care Teams Financial Planner Relationship Specialty Start Date End Date Corinne Hazel MD PCP - General 12/19/10 [address]15 [place] [id number] documented as of this encounter
--- OUTSIDE RECORDS SUMMARY | 2022-06-30 15:44 | XMS_ITS | Encounter Summary ---
:1999 Author Organization [facility] Address [address], [place] [address] Care Team Providers Name Role Phone Corinne Hazel MD Primary Care Provider Reason for Visit Reason Comments Other Encounter Details Date Type Department Care Team Description 02/19/2009 Telephone [facility] Lisa Ortiz MD Other 1415 [facility] . 1415 [place] [address] [place] [address] [phone] (Wo rk) Social History Tobacco Use Types [...] documented as of this encounter Progress Notes Center, Message - 02/19/2009 9:42 AM CDT Phone Note filed by Targovax at 01/06/11 5737 Author: [employer] Service: (none) Author Type: (none) Filed: 01/06/11 0414 Note Time: 02/19/09941 Status: Signed Cloth Finishing Range Operator Chief: Targovax (Resource) Medication Issue/Refill Caller Name/Relationship:Hetal/mom Primary Fur Cleaner:none Patient has contacted Pharmacy (yes/no):y Comments:Mom states she received letter from insurance that angleito is not covered, mom would like alternate rx. Mom states she did not have rx filled for angleito that pt received in fall. Pt has been using rx from [facility], mom states rx is for 1 tsp which does not work at all so mom has been giving pt 2 tsp. Pharmacy Name & Phone #:[facility] Street or City:[facility] Drug Name:alternate to angelito Strength:unk Dose/Route/Freq:higher dose requested Chargemaster Specialist:Hetal Best call back number:[phone] Is it OK to leave a confidential message on this voicemail?y Created on 19Feb2009 9:42am by KASEY MAYA On 19Feb2009 10:22am RAJ LANIER wrote: Mom states her insurance ([employer]) will no longer cover Angelito. Would like something similiar. States this worked well. Patient weighs 68.5#. Needs today. [facility]. PHone: [phone] gladys/hetal On 19Feb2009 11:22am ABILIO DOMINGUEZ wrote: Mom calling back to say would [facility] [place] - call [phone]. On 19Feb2009 4:15pm MINAL CONTRERAS wrote: Mom calling back phone [phone] On 19Feb2009 4:20pm RAJ LANIER wrote: Mom calling back. Needs rx today. [id number]. Mom: Hetal [phone] On 19Feb2009 5:26pm LISA ORTIZ III wrote: Called mom and told her to try zyrtec 10mg po qd. Mom will try that. Acknowledged by LISA ORTIZ III on 5:26pm Acknowledged by PROSPER RUEDA on 5:33pm NICAL AGRONOMIST documented in this encounter Plan of Treatment Not on filedocumented as of this encounter Visit Diagnoses Not on filedocumented in this encounter Care Teams Tool Specialist Relationship Specialty Start Date End Date Corinne Hazel MD PCP - General 12/19/10 [address] [place] [address] documented as of this encounter
--- OUTSIDE RECORDS SUMMARY | 2022-06-30 15:44 | XMS_ITS | Encounter Summary ---
:1999 Author Organization [facility] Address [address] [place] [address] Care Team Providers Name Role Phone Corinne Hazel MD Primary Care Provider Encounter Details Date Type Department Care Team Description 01/25/2009 PN Conversion Only [facility] CON[facility] Corinne Hazel, [address] [facility] [address] 1419 [facility] evert [place] [address] (Wo rk) Social History Tobacco [...] Name Priority Date/Time Associated Diagnosis Comme nts STREP GROUP A Routine 01/25/2009 11:20 AM Results for this ANTIGEN TEST CDT procedure are i n the results section. documented in this encounter Results Strep Group A Antigen Test (01/25/2009 11:20 AM CDT) Analysis Performed At [facility] Time Signature Strep Group A Positive Negative HP CONVERSION Antigen Test Specimen (Source) Anatomical Collection Method Collection Time Re ceived Time Location / / Volume Laterality 01/25/2009 11:20 AM CDT Corinne Hazel MD LAB_1 Performing Organization Address City/State/ZIP Code Phon e Number HP CONVERSION documented in this encounter Visit Diagnoses Not on filedocumented in this encounter Care Teams Textile Converter Relationship Specialty Start Date End Date Corinne Hazel MD PCP - General 12/19/10 [address] [place] [address] documented as of this encounter
--- OUTSIDE RECORDS SUMMARY | 2022-06-30 15:45 | XMS_ITS | Continuity of Care Document ---
:1999 Author Organization [facility] Address [address] [place] [address] Care Team Providers Name Role Phone Ricardo Garcia Primary Care Provider Unavailable Hernando Villarreal Admitting Physician Allergies, Adverse Reactions, Alerts No known allergies. Medications Active Medications Medication Dose Units Route Sig Qty Start Date Status Triamcinolone Acetonide 1 APPLIC Topical Two times per nuary 2019 Active day Problem List Active Problems Medical Problem Onset Date Status Palpitations Active Cheilitis Active Puncture wound of foot Active Inactive/Resolved Problems Medical Problem Onset Date Status Palpitations Inactive Procedures Procedure Date Status Holter Monitor 48 hr * December 08, 2021 completed Relevant Diagnostic Tests and/or Laboratory Data No known relevant diagnostic tests, laboratory data, and/or discharge summary. Chief Complaint and Reason for Visit Encounter Admit Date Chief Complaint Reason for Visit Departed Emergency January 01, 2022 8:55pm - L foot INJ, muscle contractions Hospital Discharge Instructions Additional Discharge Instructions Thank you for andrews leija us take care of you I appreciate your time and t rust We discussed puncture wound to the foot with a nail about a week ago We discussed home care which was appropriate We discussed body aches neck stiffness and clenching jaw Your exam is reassuring First, the puncture wound is soft without significant erythema no swelling; I do not suspect a bacterial infection Second, the remainder of you r exam is reassuring; tolerating diet, normal breathing, no muscle spasm, and so on; I do not suspect early tetanus We administered tetanus upda te No further evaluation or milan atment recommended tonight We need to see you again if your symptoms get worse instead of better Instruction/Education Provided Puncture Wound in the F oot (ED) Hospital Discharge Medications Medication Dose Units Route Sig Qty Days Order Date Status In structions Triamcinolone 1 APPLIC Topical Two times 01 October Activ e Acetonide per day 2019 Encounters Encounter Facility Location Admit/Visit Discharge/Departure Atte nding Date Date Provider Departed [facility] January 01, 2022 January 01, 2022 10:31p m Emergency Hospital Department 8:55pm Departed [facility] December 08, 2021 December 08, 2021 9:48am [facility] 9:47am [facility] [place] Functional Status No known functional status. Immunizations Immunization Name Date Given Type Tdap-Tetanus, Diphtheria, Acellular Pertussis January 01, 2022 Administered Plan of Care Instructions Puncture Wound in the Foot (ED) Social History No known social history. Vital Signs Vital Reading Result Reference Range Collection Date/ Time Height 180.34 cm January 01, 2022 9 :06pm Weight 79.379 kg January 01, 2022 9 :06pm Temperature 99.3 F 97.5 F-99.6 F January 01, 2022 9 :06pm Pulse 89 BPM 60-100 January 01, 2022 9 :06pm Respiration 18 RPM 12-20 January 01, 2022 9 :06pm Pulse Oximetry 99 % 88-100 January 01, 2022 9 :06pm Blood Pressure Systolic 164 95-135 December 9:06pm Blood Pressure Diastolic 96 55-85 December 162021 9:06pm
--- OUTSIDE RECORDS SUMMARY | 2022-06-30 15:45 | XMS_ITS | Encounter Summary ---
:1999 [facility] Address [address] [address] Care Team Providers Name Role Phone Corinne Hazel MD Primary Care Provider Encounter Details Date Type Department Care Team Description 03/05/2007 PN Conversion Only [facility] CONVERSION [address] [place] [address] Social History Tobacco Use Types Packs/Day Years [...] on filedocumented in this encounter Care Teams Bottom Precipitator Operator Relationship Specialty Start Date End Date Corinne Hazel MD PCP - General 12/19/10 [address] [place] [id number] documented as of this encounter
--- OUTSIDE RECORDS SUMMARY | 2022-06-30 15:45 | XMS_ITS | Continuity of Care Document ---
:1999 Author Organization [facility] Address [address] [place] [address] Allergies, Adverse Reactions, Alerts No known allergies. Medications Active Medications Medication Dose Units Route Sig Qty Start Date Status Triamcinolone Acetonide 1 APPLIC Topical Two times per nualbany 2019 Active day Problem List Active Problems Medical Problem Onset Date Status Palpitations Active Cheilitis Active Inactive/Resolved Problems Medical Problem Onset Date Status Palpitations Inactive Puncture wound of foot Inactive Procedures No known history of procedures. Relevant Diagnostic Tests and/or Laboratory Data No known relevant diagnostic tests, laboratory data, and/or discharge summary. Hospital Discharge Instructions No known hospital discharge instructions. Hospital Discharge Medications Medication Dose Units Route Sig Qty Days Order Date Status In structions Triamcinolone 1 APPLIC Topical Two times 01 October Activ e Acetonide per day 2019 Functional Status No known functional status. Immunizations Immunization Name Date Given Type Tdap-Tetanus, Diphtheria, Acellular Pertussis January 01, 2022 Administered Plan of Care No Known Plan of Care Information Social History No known social history. Vital Signs No known vital signs results.
--- OUTSIDE RECORDS SUMMARY | 2022-06-30 15:45 | XMS_ITS | Encounter Summary ---
:1999 Author Organization [facility] Address [address] [place] [address] Phone Care Team Providers Name Role Phone Unavailable Primary Care Provider Unavailable Encounter Details Date Type Department Care Team Description 10/20/2020 Lab Requisition INDEPENDENT Pradip Montelongo, [facility] and [facility] SANC[facility] (suspected) exposure [address] [facility] [address] [place] [address] [place] communicable diseases [phone] [place] [id number] Social History Tobacco Use Types Packs/Day Years Used Date Never Assessed Sex Assigned at Date Recorded Not on file documented as of this encounter Plan of Treatment Not on filedocumented as of this encounter Visit Diagnoses Diagnosis Contact with and (suspected) exposure to other viral communicable diseases documented in this encounter
--- OUTSIDE RECORDS SUMMARY | 2022-06-30 15:45 | XMS_ITS | Continuity of Care Document ---
:1999 Author Organization Formerly [facility], later [facility] Address [address] [place] [address] Care Team Providers Name Role Phone NONE Primary Care Provider Unavailable Surinder Aguero Attending Physician Allergies, Adverse Reactions, Alerts No known allergies. Medications Active Medications Medication Dose Units Route Sig Qty Start Date Status Triamcinolone Acetonide 1 APPLIC Topical Two times per 2019 Active day Problem List Active Problems Medical Problem Onset Date Status Cheilitis Active Procedures No known history of procedures. Relevant [...] Discharge/Departure Atte nding Date Date Provider Departed [facility] May 25May 25, 2020 Benjamín parekh [place] [address] 4:52pm 4:53pm Surinder Otto() Departed [facility] May 25May 25, 2020 Kane calvert [facility] [place] [address] 4:43pm 5:03pm Surinder terry Office Visit Functional Status No known functional status. Immunizations No known immunizations. Payers Payer Name Policy Covered Covered Relationship Subscriber Subsc riber Id Type Democrat Democrat Id SELF PAY UNITED MICAH [id number] Self / Same As MICAH PRIEST [id number] [employer] [facility] Patient Plan of Care No Known Plan of Care Information Social History No known social history. Vital Signs No known vital signs results.
--- OUTSIDE RECORDS SUMMARY | 2022-06-30 15:45 | XMS_ITS | Encounter Summary ---
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 LEO, CM [address]. [address] [place] [address] [place] [address] [phone] Social History Tobacco Use Types Packs/Day Years [...] documented as of this encounter Progress Notes Cinthia Zafar - 05/10/2004 12:01 AM CDT H&P signed by Cinthia Zafar APRN, LEATHER BELT SHAPER at 05/10/04 1230 Author: ISA Chavez Service: (none) Author Type: Nurse Practitioner Filed: 01/06/11 0053 Note Time: 05/10/04 0001 Status: Signed Gate Technician: ISA Chavez (Nurse Practitioner) No History of Respiratory Disease Patient is in daycare Adverse Drug Reactions & Chronic Medications: No Adverse Drug Reactions No chronic medications OBJECTIVE: Temperature: 98.6 degrees F. Weight: General: well appearing; alert and appropriate. Eyes: no injection or drainage. Ears: left canal normal, left tympanic membrane erythematous, right canal normal, right tympanic membrane erythematous Nose: normal nares without drainage. Neck: supple without adenopathy or goiter. Chest: clear to auscultation; normal effort Cardiac: regular rate without murmur. Lab & X-Ray: Not done ASSESSMENT: Left Otitis Externa Right Otitis Externa PLAN: Amoxicillin 80-90 mg/kg/day divided BID for 10 days. Patient was given discharge instructions and was discharged in stable condition. Return to clinic in 3-5 days, sooner PRN Shorthand Note completed on: 05/10/2004 12:31 PM documented in this encounter Plan of Treatment Not on filedocumented as of this encounter Visit Diagnoses Not on filedocumented in this encounter Care Teams Sliver Machine Operator Relationship Specialty Start Date End Date Corinne Hazel MD PCP - General 12/19/[address] [place] [address] [place] [phone] documented as of this encounter
--- OUTSIDE RECORDS SUMMARY | 2022-06-30 15:45 | XMS_ITS | Encounter Summary ---
:1999 Author Organization [employer] Address [address] [place] [address] Phone Care Team Providers Name Role Phone Unavailable Primary Care Provider Unavailable Encounter Details Date Type Department Care Team Description 10/27/2020 Lab Requisition INDEPENDENT Pradip Montelongo, Contact [facility] and [facility] SANC[facility]Z (suspected) exposure [address] [facility] [address] [place] [address] [place] communicable diseases [phone] [place] [address] Social History Tobacco Use Types Packs/Day Years Used Date Never Assessed Sex Assigned at Date Recorded Not on file documented as of this encounter Plan of Treatment Not on filedocumented as of this encounter Visit Diagnoses Diagnosis Contact with and (suspected) exposure to other viral communicable diseases documented in this encounter
--- OUTSIDE RECORDS SUMMARY | 2022-06-30 15:45 | XMS_ITS | Continuity of Care Document ---
:1999 Author Organization [facility] Address [address] [place] [address] Care Team Providers Name Role Phone Benjamin Miranda Admitting Physician Allergies, Adverse Reactions, Alerts No known allergies. Medications Active Medications Medication Dose Units Route Sig Qty Start Date Status Triamcinolone Acetonide 1 APPLIC Topical Two times per 15 Ja misha 2019 Active day Problem List Active Problems Medical Problem Onset Date Status Palpitations Active Palpitations Active Cheilitis Active Procedures Procedure Date Status ED ECG November 04, 2021 completed Relevant Diagnostic Tests and/or Laboratory Data Laboratory Results Test Date/Time Result Interp. Ref. Range Result Comment White Blood Count November 04, 7.7 K/uL 4.0-10.0 2021 4:46pm Red Blood Count November 04, 5.08 M/uL 4.63-6.08 2021 4:46pm Hemoglobin November 04, 16.0 g/dL 13.7-17.5 2021 4:46pm Hematocrit November 04, 46.8 % 40.1-51.0 2021 4:46pm Mean Corpuscular Volume November 04, 92.10 fl 80.00-98.0 0 2021 4:46pm Mean Corpuscular November 04, 31.5 pg 25.6-32.2 Hemoglobin 2021 4:46pm Mean Corpuscular Hgb November 04, 34.2 g/dl 32.2-36.0 Concent Diff 2021 4:46pm Red Cell Distribution November 04, 11.9 % 11.6-14.4 Width 2021 4:46pm Platelet Count November 04, 265 K/uL 421-999 4384 4:46pm Mean Platelet Volume November 04, 8.7 fL Low 9.1-12.4 2021 4:46pm Nucleated Red Blood November 04, 0.0 % 0.0-0.2 Cells % (auto) 2021 4:46pm Absolute Neutrophils November 04, 5.19 K/uL 1.56-6.13 (auto) 2021 4:46pm Absolute Immature November 04, 0.03 k/uL 0.00-0.07 Granulocyte (auto 2021 4:46pm Absolute Lymphocytes November 04, 1.72 K/uL 1.18-3.74 (auto) 2021 4:46pm Absolute Monocytes November 04, 0.55 K/uL 0.24-0.82 (auto) 2021 4:46pm Absolute Eosinophils November 04, 0.20 K/uL 0.04-0.54 (auto) 2021 4:46pm Absolute Basophils November 04, 0.04 K/uL 0.00-0.20 (auto) 2021 4:46pm Nucleated RBC Absolute November 04, 0.00 M/uL 0.00-0.12 Count (auto) 2021 4:46pm Sodium Level November 04, 139 mmol/L 590-192 0990 4:46pm Potassium Level November 04, 4.0 mmol/L 3.5-5.1 2021 4:46pm Chloride Level November 04, 104 mmol/L 98-107 2021 4:46pm Carbon Dioxide Level November 04, 30 mmol/L 23-32 2021 4:46pm Anion Gap November 04, 5 5-15 2021 4:46pm Glucose Level November 04, 108 mg/dL High 60-99 2021 4:46pm Blood Urea Nitrogen November 04, 12 mg/dL 8-23 2021 4:46pm Creatinine November 04, 1.25 mg/dL 0.80-1.50 2021 4:46pm Estimat Glomerular November 04, > 60 Race : Filtration Rate 2021 4:46pm Referenc e Units: mL/min/1.73m2 *Calculated us ing the MDRD equation* In EMR click o n external links for further EGFR information. Calcium Level November 04, 9.0 mg/dL 8.5-10.5 2021 4:46pm Albumin November 04, 4.6 g/dL 3.5-5.0 2021 4:46pm Total Protein November 04, 7.1 g/dL 6.0-8.0 2021 4:46pm Alkaline Phosphatase November 04, 71 U/L 45-122 2022 4:46pm Aspartate Amino Transf November 04 U/L 10-40 (AST/SGOT) 2021 4:46pm Alanine November 04 12 U/L Low 18-65 Aminotransferase 2021 4:46pm Total Bilirubin November 04, 0.5 mg/dL 0.2-1.0 2021 4:46pm Magnesium Level November 04, 1.8 mg/dL 1.5-2.4 2021 4:46pm Thyroid Stimulating November 04, 2.066 uIU/mL 0.350-4.800 Hormone (TSH) 2021 4:46pm Chief Complaint and Reason for Visit Encounter Admit Date Chief Complaint Reason for Visit Departed Emergency November 04, 2021 4:08pm + High HR, shaking Hospital Discharge Instructions Additional Discharge Instructions Your evaluation was reassuring. Your EKG and lab work were reassuring, includ ing thyroid tests. We placed an order for a cardia c monitor. You will receive a call to schedule p icking it up. Please follow up with your physicia n. Return if you develop any new or otherwise concerning symptoms. No Instructions/Education Provided Hospital Discharge Medications Medication Dose Units Route Sig Qty Days Order Date Status In structions Triamcinolone 1 APPLIC Topical Two times 01 October Activ e Acetonide per day 2019 Encounters Encounter Facility Location Admit/Visit Discharge/Departure Atte nding Date Date Provider Departed [facility] Emergency November 04November 04, 2021 Emergency Hospital Department 2021 4:08pm 5:50pm Registered [facility] Cardiology November 04, [facility] 2021 Functional Status No known functional status. Immunizations No known immunizations. Plan of Care No Known Plan of Care Information Social History No known social history. Vital Signs Vital Reading Result Reference Range Collection Date/ Time Height 177.8 cm November 04 4:11pm Weight 79.379 kg November 04 4:11pm Temperature 98.0 F 97.5 F-99.6 F November 04 4:11pm Pulse 117 BPM 60-100 November 04 4:11pm Respiration 18 RPM 12-20 November 04 4:11pm Pulse Oximetry 98 % 88-100 November 04 4:11pm Blood Pressure Systolic 179 95-135 November 04, 2021 4:11pm Blood Pressure Diastolic 128 55-85 Februar 2 4:11pm
--- OUTSIDE RECORDS SUMMARY | 2022-06-30 15:45 | XMS_ITS | Continuity of Care Document ---
:1999 Author Organization Formerly [facility] Address [address] [place] [address] Care Team Providers Name Role Phone EDDOC, ED TEMP X Admitting Physician Unavailable Allergies, Adverse Reactions, Alerts No known allergies. Medications Active Medications Medication Dose Units Route Sig Qty Start Date Status Triamcinolone Acetonide 1 APPLIC Topical Two times per nu2019 Active day Problem List Active Problems Medical Problem Onset Date Status Cheilitis Active Procedures Procedure Date Status ED ECG November 04, 2021 completed Relevant Diagnostic Tests and/or Laboratory Data No known relevant diagnostic tests, laboratory data, and/or discharge summary. Chief Complaint and Reason for Visit Encounter Admit Date Chief Complaint Reason for Visit Registered Emergency November 04, 2021 4:08pm + High HR, shaking Hospital Discharge Instructions No known hospital discharge instructions. Hospital Discharge Medications Medication Dose Units Route Sig Qty Days Order Date Status In structions Triamcinolone 1 APPLIC Topical Two times 01 October Activ e Acetonide per day 2019 Encounters Encounter Facility Location Admit/Visit Discharge/Departure Atte nding Date Date Provider Registered [facility] Emergency November 04, Emergency Hospital Department 2021 4:08pm Registered [facility] Cardiology November 04, Pradip Blair [...] 2021 4:11pm Blood Pressure Diastolic 128 55-85 ua2021 4:11pm
--- OUTSIDE RECORDS SUMMARY | 2022-06-30 15:45 | XMS_ITS | Encounter Summary ---
:1999 Author Organization [facility] Address [address] [place] [address] Care Team Providers Name Role Phone Corinne Hazel MD Primary Care Provider Encounter Details Date Type Department Care Team Description 05/10/2004 [facility] Cinthia Covarrubias APRN, [address] [place] [address] [address] [phone] [place], [place] [address] Social History Tobacco Use Types Packs/Day Years [...] Cinthia Zafar - 05/10/2004 12:01 AM CDT Progress Notes signed by Cinthia Zafar APRN, [facility]AB [facility] at 05/09/05 1033 Author: ISA Chavez Service: (none) Author Type: Nurse Practitioner Filed: 01/06/11 0054 Note Time: 05/10/04 0001 Status: Signed Certified Energy Manager: ISA Chavez (Nurse Practitioner) Acute Clinic Visit IMPRESSION: Acute Right Otitis Media Chief Complaint: Ear pain SUBJECTIVE: History of Present Illness: Pt. was accompanied by mother History given by the patient's mother Symptoms are stable Ear Pain Taking liquids well Meds This Illness: No acute medications being used Adverse Drug Reactions & Chronic Medications: Patient's Adverse Drug Reactions were reviewed and updated today on the Health Profile screen of [employer] Chronic medications were reviewed and updated today on Health Profile in [employer]. OBJECTIVE: Vital Signs taken today were reviewed on the flowsheet in [employer]. Ears: right tympanic membrane erythematous Oropharynx: moist mucus membranes without ulcerations; tonsils symmetric without erythema or exudate. Neck: supple without adenopathy or goiter. Chest: clear to auscultation; normal effort Lab & X-Ray: Not done ASSESSMENT: Acute Right Otitis Media PLAN: Amoxicillin 80-90 mg/kg/day divided BID for 10 days. RTC PRN if not gradually improving *SH~PC~AURELIANO ~ Shorthand Note completed on: 05/09/2005 10:37 AM documented in this encounter Plan of Treatment Not on filedocumented as of this encounter Visit Diagnoses Not on filedocumented in this encounter Care Teams Electric Pile Driver Operator Relationship Specialty Start Date End Date Corinne Hazel MD PCP - General 12/19/10 [facility] [place] [phone] documented as of this encounter
--- OUTSIDE RECORDS SUMMARY | 2022-06-30 15:45 | XMS_ITS | Encounter Summary ---
:1999 Author Organization [employer] Address [address] [address] Phone Care Team Providers Name Role Phone Unavailable Primary Care Provider Unavailable Encounter Details Date Type Department Care Team Description 12/30/2020 Lab Requisition [facility]DEPENDENT [facility] [address] [place], [place] [address] Social History Tobacco Use Types Packs/Day Years Used Date Never Assessed Sex Assigned at Date Recorded Not on file documented as of this encounter Plan of Treatment Not on filedocumented as of this encounter Visit Diagnoses Not on filedocumented in this encounter
--- OUTSIDE RECORDS SUMMARY | 2022-06-30 15:45 | XMS_ITS | Encounter Summary ---
:1999 Author Organization [employer] Address [address] [place] [address] Phone Care Team Providers Name Role Phone Unavailable Primary Care Provider Unavailable Encounter Details Date Type Department Care Team Description 12/30/2020 Lab Requisition INDEPENDENT Pradip Montelongo, Contact [place] and [facility] SANCHEZ (suspected) exposure [address] [place] [address] [place] communicable diseases [phone] [place], [place] [id number] Social History Tobacco Use Types Packs/Day Years Used Date Never Assessed Sex Assigned at Date Recorded Not on file documented as of this encounter Plan of Treatment Not on filedocumented as of this encounter Procedures Procedure Name Priority Date/Time Associated Diagnosis Comme nts SARS-COV-2 RNA Routine 12/29/2020 2:50 PM Contact with and Res ults for this (COVID-19), CDT (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 documented in this encounter Results SARS-COV-2 RNA (COVID-19), MOLECULAR DETECTION (COVOO) (12/29/2020 2:50 PM CDT) [facility] Method Time Signature SARS-CoV-2 Undetected Undetected 12/31/2020 [facility] RNA 5:39 PM CDT LABORATORIES (COVID-19) Comment: SARS-CoV-2 RNA absent. This result does not rule out COVID-19 in the patient, as the sensitiv ity of the test depends on the timing of the specimen co llection and the quality of the specimen. Result should b e correlated with patient's history and clinical presentat ion. SARS-CoV-2 RNA Method SEE COMMENTS 12/31/2020 5:39 PM [facility] Summary CDT LABORATORIES Comment: THFSH- This PCR test uses the TaqPath CO VID-19 Combo Kit ([employer] Is[employer].) and is perform ed on the Fuhu magnetic particle proces sor and Applied manetch Fast Dx Real-Time PCR Sy stem. It has received Emergency Use Authorization (EU A) by the U.S. Food and Drug Administration. Performance jeanne racteristics were verified by [facility] in a manner cons istent with CLIA requirements. Fact sheets for this Emergency Use Autho rization (EUA) can be found at the following links: https://www.fda.gov/media/570128/downloa d for Healthcare Providers https://www.fda.gov/media/719178/downloa d for Patients Test Performed by: [facility] [address] [place] [address] 593 Insulation Supervisor: Presley Colin M.D. Ph. D.; CLIA# [id number] Source Nares 12/31/2020 5:39 PM CDT [facility] Patient Race Not Provided 12/31/2020 5:39 PM CDT [facility] Patient Ethnicity Not Provided 12/31/2020 5:39 PM CDT [facility] Specimen Anatomical Collection Method Collection Time Receive d Time (Source) Location / / Volume Laterality Swab BOTH ANTERIOR Non-blood 12/29/2020 2:50 PM 12/31/19 21 5:46 NARES / Unknown collection / CDT PM CDT Unknown Pradip Montelongo MD EC PATHOLOGY ORDERABLES Performing Organization Address City/State/ZIP Code Phon e Number [place] [address] documented in this encounter Visit Diagnoses Diagnosis Contact with and (suspected) exposure to other viral communicable diseases documented in this encounter
--- OUTSIDE RECORDS SUMMARY | 2022-06-30 15:45 | XMS_ITS | Encounter Summary ---
:2000 Author Organization [facility] Address [address] [place] [address] Care Team Providers Name Role Phone Corinne Hazel MD Primary Care Provider Encounter Details Date Type Department Care Team Description 08/18/2003 PN Conversion Only [place] [facility] Nurse, [facility] [address] [facility] [place] [address] Social History Tobacco Use Types Packs/Day Years [...] documented as of this encounter Progress Notes Phone Note, Clinician - 07/07/2003 12:01 AM CDT Phone Note filed by Clinician Phone Note at 01/03/11 4367 Author: Clinician Phone Note Service: (none) Author Type: Resource Filed: 01/03/11 1223 Note Time: 07/07/03 0001 Status: Signed Inspector Aide: Clinician Phone Note (Resource) - REFERRED PATIENT TO URGENT CARE AT [facility] * HOME PHONE:[phone] * SUBJECTIVE: PATIENT COMPLAINS OF... Pain with urination, -Male Mom calling that 2y old son is crying that it hurts to urniate--feels like penis 'is on fire'. Is going every couple miniutes. No fever. ALLERGIES/SENSITIVITIES... nkda; 07/07/03 CURRENT MEDICATIONS... none 07/07/03 PERTINENT PAST HISTORY... HEALTHY; 07/07/03 ASSESSMENT: Urinary pain-(child)-triage guideline DISPOSITION: SEMI-URGENT WEIGHT: 30 PLAN: RECOMMENDED THE FOLLOWING... Referenced guideline Urinary pain-(child)-triage guideline. Schedule appointment with provider within 16 hours Remind caregiver/patient that urine will be collected at the time of appointment -Encourage increased intake of clear liquids -Give acetaminophen as directed for discomfort Mom will try and get him up to [facility] tonight. Advised that urine will be collected. Patient information given per Urinary Pain nurse guideline. Verbalizes understanding and agrees with phone care recommendation INFORMED PATIENT TO CALLBACK IF... Reasons to call back reviewed- caller verbalizes understanding of the need to call back for the following reasons: CALL BY ANAIS POLK SEMI 07/07/2003 04:28PM [phone] ADDENDUM: Selena Vasques - 05/07/2003 12:01 AM CDT Progress Notes signed by Selena High MD at 05/12/03 0803 Author: Selena High MD Service: (none) Author Type: Physician Filed: 01/05/11 1626 Note Time: 05/07/03 0001 Status: Signed Inspector Aide: Selena High MD (Physician) NAME: MICAH PRIEST MR: [id number] ACCT: [id number] VISIT: [id number] DICTATING CLINICIAN: SELENA HIGH MD JOB: [id number] CLINIC PROGRESS NOTE DATE OF VISIT: 05/07/2003 SUBJECTIVE: : 2000. Please see [facility] shingle in chart. Micah is a 3-1/2-year-old male who presents for well child visit. Mom's current concerns are regarding possible right knee pain and a change in Micah's sleep pattern. She states that for the past couple of weeks she has noted that when Jn wakes up in the morning he has a mild right-sided limp and sometimes complains of right knee pain. This resolves by later in the morning. She states that it does not ever look swollen. It has never looked red. He has never had any fever or rash. It has never impaired his activity. She denies any significant trauma other than normal toddler lumps and bumps. She states that she wonders if he may be feeding off of her own as well as her 's concern that Micah has knee pain. There is no family history of JRA. Regarding Micah's sleep, he awakens 2-3 times a week in the middle of the night and states that he feels afraid and requires a parent to get into bed with him and sleep with him until he again falls asleep. This pattern may repeat itself during the night. Micah does have a sister who was born 2 months ago. He had been sleeping well prior to that time. He does share a room with the but is not awakened by her or her night time feeding schedule. He does not have any symptoms of night terrors and does not state that he is having nightmares, just that he is waking up and saying he feels afraid and needs the comfort of a parent. Other than these issues, Micah has been doing well. MEDICATIONS: None. ADR/ALLERGIES: NO KNOWN DRUG ALLERGIES. ROS: A complete ROS is obtained and is non-contributory except as noted. OBJECTIVE: VS: BP: 86/50. Ht: 38-3/4 in. (50th percentile.) Wt: 32 lb. (45th percentile.) Reveals an alert, interactive, and cooperative male in no apparent distress. Examination of the bilateral lower extremities is negative for any diffusion, erythema, warmth, or tenderness, over the hip joint, knee joint, and the ankle. There is full range of motion both actively and passively without any pain. There is no joint laxity. SKIN: No rashes. Please refer to [facility] shingle in chart for rest of physical examination. DATA: Leg lengths are symmetric at 20 in. ASSESSMENT: No dictation required. Normal growth and development at 3-1/2 years of age. PLAN: 1. Micah's mother was instructed to call or return to clinic should Micah develop any other symptoms referable to his lower extremities. 2. Micah's mother was instructed on how to deal with the onset of sleep issues. She was informed that sleep patterns follow new developmental stages and can change secondary to progression into a new stage. This may be exacerbated by having a new baby in the home. Mom was instructed to be a presence to Micah initially by resting on the floor beside him, then by the door of his room, and then outside of his door, gradually removing herself from his room but giving him the reassurance that his parents are still in the home. 3. Micah is to return in 1 year for well child visit. His mother was instructed to return to clinic as needed for questions or concerns regarding his health. TT: CT: NAVI:[id number] C: 05/07/03 22:30 DOCUMENT: [id number] LATHE OPERATOR Robert Romero MD - 02/25/2003 12:01 AM CDT Progress Notes signed by MATEO Sibley at 02/26/03 1039 Author: MATEO Sibley Service: (none) Author Type: Physician Filed: 01/05/11 1519 Note Time: 02/25/03 0001 Status: Signed Inspector Aide: MATEO Sibley (Physician) NAME: MICAH PRIEST MR: [id number] ACCT: [id number] VISIT: [id number] DICTATING CLINICIAN: ROBERT ROMERO MD JOB: [id number] CLINIC PROGRESS NOTE DATE OF VISIT: 02/25/2003 SUBJECTIVE: Micah is here for fever. See shingle in the chart. OBJECTIVE: ASSESSMENT: Acute pharyngitis. Rapid strep negative. PLAN: Symptomatic cares. Return if the fever persist or if he gets worse. TT: CT: [id number] C: 02/26/03 10:31 DOCUMENT: [id number] Robert Romero MD - 12/24/2002 12:01 AM CDT Progress Notes signed by MATEO Sibley at 12/26/02 0858 Author: MATEO Sibley Service: (none) Author Type: Physician Filed: 01/05/11 1418 Note Time: 12/24/02 0001 Status: Signed Inspector Aide: MATEO Sibley (Physician) NAME: MICAH PRIEST MR: [id number] ACCT: [id number] VISIT: [id number] DICTATING CLINICIAN: ROBERT ROMERO MD JOB: [id number] CLINIC PROGRESS NOTE DATE OF VISIT: 12/24/2002 SUBJECTIVE: : 2000. CHART NUMBER: [id number]. Micah is here for persistent cold and cough symptoms. See shingle in the chart. OBJECTIVE: ASSESSMENT: Acute sinusitis. PLAN: Amoxicillin, 500 mg b.i.d. times two weeks. Follow up on a p.r.n. basis. TT: CT: [id number] C: 12/26/02 08:41 DOCUMENT: [id number] Corinne Hazel MD - 10/22/2001 12:01 AM CST Progress Notes signed by Corinne Hazel MD at 11/07/01 1334 Author: Corinne Hazel MD Service: (none) Author Type: Physician Filed: 01/05/11 0438 Note Time: 10/22/01 0001 Status: Signed Inspector Aide: Corinne Hazel MD (Physician) IMPRESSION: Prominence of the left clavicle, probably normal with no SUBJECTIVE: Goran is a 24-yehfw-qsz brought in by his parents for evaluation of a lump on the left side of his clavicle. They think it has been there about a week and a half. He complains intermittently of discomfort but he will raise his arms to have his shirt removed. Moves the arms without difficulty. They are unsure of any specific trauma but report that he does fall once in a while so he may have had some injury. They were apparently seen in an urgent care setting but no definitive abnormalities on an x-ray were seen. The parents are quite concerned about this and would like further evaluation. They also want him checked because he developed a croupy cough last night, no fever. Drinking fluids well but would like his ears and lungs checked. MEDICATIONS: He is on no medications. ADR/ALLERGIES: NO DRUG ALLERGIES. OBJECTIVE: Physical exam reveals an alert, nontoxic little boy who is quite playful. HEENT: His TMs are clear bilaterally. His nares have scant, watery discharge. Oral cavity is unremarkable. LUNGS: Clear on auscultation. No rales, rhonchi or wheezes. He does have and occasional inspiratory stridor with crying. EXTREMITIES: Uses both hands drawing and playing in the exam room without apparent difficulty. He does have some resistance to palpation over the proximal aspect of the left clavicle. I feel no significant abnormalities, no step offs. Possibly a slight prominence of the left clavicle with junction to the sternum. Clavicle x-rays are obtained bilaterally which show no abnormalities. Reviewed with radiology who see no signs of an old fracture, no abnormal bony prominences of the clavicles or the ribs. ASSESSMENT: 1. Prominence of the left clavicle, probably normal with no evidence of clavicle fracture. 2. Upper respiratory illness/croup. PLAN: 1. Symptomatic care. 2. Follow up at well-child exam. TT: CT: [facility]:[id number] C: DOCUMENT: [id number] LATHE OPERATOR Corinne Hazel MD - 01/17/2001 12:01 AM CDT Progress Notes signed by Corinne Hazel MD at 02/27/01 1814 Author: Corinne Hazel MD Service: (none) Author Type: Physician Filed: 01/04/11 1966 Note Time: 01/17/01 0001 Status: Signed Inspector Aide: Corinne Hazel MD (Physician) IMPRESSION: Suture removal. SUBJECTIVE: Goran is a 70-myupi-aga here for suture removal. One suture was removed from his right cheek. He tolerated this well. He is on no medication. NO DRUG ALLERGIES. OBJECTIVE: SKIN: There is good wound closure maintained. ASSESSMENT: Suture removal. PLAN: Wound care reviewed. Follow up p.r.n. [facility]:[id number] C: DOCUMENT: [id number] Corinne Hazel MD - 01/14/2001 12:01 AM CDT Progress Notes signed by Corinne Hazel MD at 02/13/01 1033 Author: Corinne Hazel MD Service: (none) Author Type: Physician Filed: 01/04/11 0655 Note Time: 01/14/01 0001 Status: Signed Inspector Aide: Corinne Hazel MD (Physician) IMPRESSION: Suture removal with one remaining stitch left in place for stabalization of the wound. SUBJECTIVE: Jn is here for removal of stitches that were placed in his chin, right side, after a traumatic injury last . He has done well since he was sutured. Mother had some questions today regarding some behavioral issues; those were addressed with regard to aggressive behaviors they have seen, with biting and hitting. He is on no medications. ALLERGIES: NO DRUG ALLERGIES. OBJECTIVE: VITALS: WT: 24 pounds. GENERAL: He was an alert, poorly cooperative patient. Approximately eight interrupted sutures were removed. One stitch was left in place with inability to find a removal point for the knot without causing significant loosening of the skin edges and subsequent bleeding. There was some disruption of his surface margins toward the right side after suture removal. Steri-Strips were placed with good wound closure. No active bleeding was noted. ASSESSMENT: Suture removal with one remaining stitch left in place for stabalization of the wound. PLAN: 1. Steri-Strips will be left in place. Patient will follow up in three days for removal of remaining stitch and replacement of Steri-Strips. 2. Behavioral questions were answered. Will follow up at next well child exam for further developmental issues. [facility]:[id number] C: DOCUMENT: [id number] Corinne Hazel MD - 11/19/2000 12:01 AM CST Progress Notes signed by Corinne Hazel MD at 01/03/01 1708 Author: Corinne Hazel MD Service: (none) Author Type: Physician Filed: 01/04/112149 Note Time: 11/19/00 0001 Status: Signed Inspector Aide: Corinne Hazel MD (Physician) IMPRESSION: NO DICTATION REQUIRED FOR THIS NOTE Lindsey Jordan MD - 11/07/2000 12:01 AM CST Progress Notes signed by Lindsey Jordan MD at 02/12/01 0905 Author: Lindsey Jordan MD Service: (none) Author Type: Physician Filed: 01/04/112138 Note Time: 11/07/00 0001 Status: Signed Inspector Aide: Lindsey Jordan MD (Physician) IMPRESSION: Probable viral URI. SUBJECTIVE: This is a 1-year-old brought in by mother because she is concerned he may have strep pharyngitis. He first became ill about a week and a half ago with a cough and runny nose and off and on has run low-grade fevers, but none for the last four days. Several days into his illness he was seen in [place] at urgent care and mom was told his throat was red. A rapid strep was done and was negative, but she was told by the physician that a followup culture was not necessary. He continues to be fussy at times and appetite is somewhat decreased. He does take fluids well. He has daycare at his aunt's house, and she says he tends to be whiny there, but does console. He has had no rashes. Cough and runny nose are better though still persists at some degree. He is otherwise healthy. MEDICATIONS: Only medication is PediaCare and Tylenol p.r.n. ALLERGIES: NO KNOWN DRUG ALLERGIES. OBJECTIVE: T: 97.7, tympanic. Wt: 23 pounds 2-1/2 ounces. GENERAL: [place] and healthy appearing boy. HEENT: TMs clear. Nose mild rhinorrhea. Throat clear. NECK: Supple. No lymphadenopathy. LUNGS: Clear throughout. CV: Regular rate and rhythm. No murmurs, gallops or rubs. ABDOMEN: Soft and nontender. SKIN: No rashes except for a mild red rash noted just around the rectal area. It did not have the appearance of yeast, however. Probably an irritant type rash, mother said he had increased bowel movements of four today though these were not loose. Discussed possibility of rectal strep with mom and did rectal strep culture. ASSESSMENT: Probable viral URI. PLAN: Push fluids, observation and symptomatic cares. Told mom that we would expect him to continue to get better and symptoms resolve. If not, to return. As above, rectal strep culture is pending. EAS:[id number] C: DOCUMENT: [id number] Grace Garsia MD - 07/28/2000 12:01 AM CST Progress Notes signed by Grace Garsia MD at 09/05/00 9714 Author: Grace Garsia MD Service: (none) Author Type: Physician Filed: 01/04/111953 Note Time: 07/28/00 0001 Status: Signed Inspector Aide: Grace Garsia MD (Physician) IMPRESSION: Right serous otitis media. SUBJECTIVE: This is an 8-1/2-month-old who is in today with croupy cough and URI symptoms for the past week. He did not sleep well last night. He has been pulling on his right ear, mom is concerned about a possible ear infection. He has never had an ear infection in the past . OBJECTIVE: T: 97.4. Wt: 21.9. He is alert, interactive and smiling. EARS: Left TM appears normal. Right TM is slightly retracted and injected with serous fluid behind the TM, decreased movement. NOSE: Congested with clear rhinorrhea. OROPHARYNX: Appears normal, no erythema or exudate. NECK: Supple, no lymphadenopathy. LUNGS: Clear to auscultation without obvious wheezes, rales or crackling. He is in no respiratory distress. No retractions are noted. HEART: Regular rate and rhythm, no murmurs. ABDOMEN: Soft, nontender. SKIN: No rashes. ASSESSMENT: Right serous otitis media. PLAN: Because he is symptomatic with this will go ahead and start amoxicillin 250 per 5 cc, 6 cc p.o. b.i.d. for ten days. Ear recheck in two to three weeks. JKM:[id number] C: DOCUMENT: [id number] LATHE OPERATOR Robert Romero MD - 2000 12:01 AM CDT Progress Notes signed by MATEO Sibley at 99 1431 Author: MATEO Sibley Service: (none) Author Type: Physician Filed: 01/04/11 1621 Note Time: 99 0001 Status: Signed Inspector Aide: MATEO Sibley (Physician) IMPRESSION: Voi-pnds-ggj male with a history of projectile vomiting off andon. SUBJECTIVE: Micah is a pww-kwrq-hhy who is brought in because of concerns about vomiting. He was fine until Sunday night when he had one projectile vomiting. Mom said that he almost threw up his entire feeding. He usually takes about four ounces at a time. On Sunday he was fine. Last night he had one forceful projectile vomiting again. Through the night he had two feedings and kept that down. This morning he had four ounces of Similac and mom says that he must have thrown at least three ounces of that back up. He does not appear to be very fussy. He has been slightly congested. No history of fever. He has been fussy sometimes and draws up his knees and screams. He is on Similac. Mom switched him from the iron-fortified to the low-iron formula because he was getting constipated. Micah is the first-born male infant in the family. There is no history of pyloric stenosis. OBJECTIVE: On exam he was an awake, alert, zyi-agnp-jmy in no acute distress. Wt: 10 pounds 15.25 ounces. weight was 7 pounds 10 ounces. When he was here for his sqg-rzuk-prpcsgl, he was 8 pounds 1 ounces. His anterior fontanelle was soft. Pupils were equal, round and reactive to light. EOMs were full. Conjunctiva was noninjected. Both his TMS were normal. He had moist mucous membranes. His throat was noninjected. NECK: Supple. LUNGS: Clear. CARDIOVASCULAR EXAMINATION: Normal S1, S2, there were no murmurs. ABDOMEN: Soft and nontender. There were no palpable masses. He had active bowel sounds. SKIN: Warm and well profuse. There were no rashes. He appeared to be quite hungry during my exam. I had mom feed him a bottle of formula. He took four ounces of Similac and kept that down. ASSESSMENT: Mnn-lmgp-zbi male with a history of projectile vomiting off and on. PLAN: Observation. Discussed pyloric stenosis. If he was to have projectile vomiting with every feeding, told mom to bring him in so that we could do a barium swallow and an upper GI. DA:[id number] C: DOCUMENT: [id number] Carol Barton MD - 2000 12:01 AM CST Progress Notes signed by Carol Barton MD at 12/19/992017 Author: Carol Barton MD Service: (none) Author Type: Physician Filed: 01/04/11 1552 Note Time: 99 0001 Status: Signed Inspector Aide: Carol Barton MD (Physician) IMPRESSION: Well-child check. Avc-kuxi-ywd. SUBJECTIVE: Micah is a exz-layu-bth infant brought in today for a well- child check. He was born with a heart murmur that was felt to be a PDA murmur and it has since resolved. Parents state that he is doing quite well. He is taking 2.5 to 3 ounces of Similac with iron every three hours. He wakes up almost every three hours at night to eat. Did encourage that they try to lengthen these a little bit more at nighttime and certainly not wake him up. He is having no trouble with constipation. He is having a soft stool every day to every other day. Sleep is appropriate. Development seems to be appropriate. They have no concerns with hearing and vision. We spent a fair amount of time discussing safety issues. Handouts regarding his two month vaccinations was given today. OBJECTIVE: EXAM: He is alert, cooperative. OFC: 13.5 inches, 25th percentile. Ht: 21 inches, 80th percentile. Wt: 8 pounds 1.25 ounces, 50th percentile up from his weight of 7 pounds 10 ounces. HEENT EXAM: [place] was soft. Conjunctiva were clear. Normal ocular alignment. Red reflex was easily visualized. TMS were normal. OROPHARYNX: Unremarkable, no adenopathy, no thyromegaly. CARDIOVASCULAR, RESPIRATORY, ABDOMINAL, NEUROLOGICAL EXAM: Within normal limits. EXAM: Testes are down. No evidence of inguinal hernia. He was circumcised in the hospital prior to discharge and this was healing well, but no evidence of secondary infection. ASSESSMENT: Well-child check. Icx-pmyb-eag. PLAN: Followup at two months. Sooner with concerns. WMB:[id number] C: DOCUMENT: [id number] documented in this encounter Plan of Treatment Not on filedocumented as of this encounter Procedures Procedure Name Priority Date/Time Associated Diagnosis Comme nts XR CLAVICLE Routine 10/22/2001 3:59 PM Results f or this END LATHE OPERATOR procedure are i n the results section. GIARDIA ANTIGEN Routine 06/23/2001 8:30 AM Result s for this SCREEN CDT procedure are i n the results section. OVA AND PARASITE Routine 06/22/2001 12:00 PM Resu lts for this CDT procedure are i n the results section. GROUP B STREP Routine 11/07/2000 4:00 PM Results for this SCREEN (OB PTS) END LATHE OPERATOR procedure ar e in the results section. HEMOGLOBIN, BLOOD Routine 09/12/2000 4:34 PM Resu lts for this END LATHE OPERATOR procedure are i n the results section. documented in this encounter Results XR Clavicle (10/22/2001 3:59 PM END LATHE OPERATOR) Anatomical Region Laterality Modality Other Specimen (Source) Anatomical Location Collection Method / Collectio n Time Received Time / Laterality Volume Impressions 10/22/2001 3:59 PM END LATHE OPERATOR : ?NORMAL CLAVICLES. FINDINGS: ?BOTH CLAVICLES ARE INTACT. THERE I S NO FRACTURE OR ?DISLOCATION NOTED. THE AC JOINTS A PPEAR NORMAL BILATERALLY. ?THE CLAVICULAR MANUBRIAL JOINTS AL SO APPEAR NORMAL. ?[facility] TECH-ID : ? RE TRANS-ID: ? EDR Narrative 10/22/2001 3:59 PM END LATHE OPERATOR CLINICAL DATA: ?PAIN Procedure Note Jorge A White MD - 11/23/2016Format ting of this note might be different from the original. CLINICAL DATA: PAIN IMPRESSION : NORMAL CLAVICLES. FINDINGS: BOTH CLAVICLES ARE INTACT. THERE IS NO FRACTURE OR DISLOCATION NOTED. THE AC JOINTS APPEAR NORMAL BILATERALLY. THE CLAVICULAR MANUBRIAL JOINTS ALSO AP PEAR NORMAL. [facility] TECH-ID : RE TRANS-ID: EDR Corinne Hazel MD RAD GD Giardia Antigen Screen (06/23/2001 8:30 AM CDT) athologist Signature Giardia Ab SEE TEXT HP CONVERSION Comment: Patient: MICAH PRIEST Giardia Screen @ ?Collected: ??[id number] ??[id number] Source: Stool ? Processed: ??[id number] ??0904 ? 12 Final Report ------ ?[id number] ??1442 Positive for Giardia antigen Department notified on 06/24/01 1445; SURESH NTED TO LEANA IQBAL, FOR DR. GRACE GARSIA BY [facility] This reportable disease has been reporte d to the [place] [facility]. @ = Giardia Screen Performed at ??[address] [facility] ?[id number] Specimen (Source) Anatomical Collection Method Collection Time Re ceived Time Location / / Volume Laterality 06/23/2001 8:30 AM CDT Grace Garsia MD LAB_1 Performing Organization Address City/State/ZIP Code Phon e Number HP CONVERSION (ABNORMAL) Ova and Parasite (06/22/2001 12:00 PM CDT) [facility] gist Method Time Signature Ova & Parasite SEE TEXT HP CONVERSION Concentrate (A) Comment: Patient: MICAH PRIEST Ova + Parasite Exam @ ? Collected: ??[id number] ??1200 Source: Stool ? Processed: ??[id number] ??0904 ? 12 Final Report ------ ?[id number] ??1324 Giardia lamblia Cysts seen This reportable disease has been reporte d to the [place] Department [facility]. Printed to: FARIDA SCHUMACHER (LP54) BY MARY. Specimen (Source) Anatomical Collection Method Collection Time Re ceived Time Location / / Volume Laterality 06/22/2001 12:00 PM CDT Grace Garsia MD LAB_1 Performing Organization Address City/State/ZIP Code Phon e Number HP CONVERSION Group B Strep Screen (OB Pts) (11/07/2000 4:00 PM END LATHE OPERATOR) Analysis Performed At Patho logist Time Signature Culture Strep SEE TEXT HP CONVERSION Screen Other Source Comment: Patient: MICAH PRIEST Culture Strep Scr Other Source @ ?Collected: ??[id number] ??1600 Source: RECTAL ?Processed: ??[id number] ??1600 ? 12 Final Report ------ ?[id number] ??1349 No group A or B Streptococcus isolated @ = Strep Screen Performed at ??[address] [place] ?[address] Specimen (Source) Anatomical Collection Method Collection Time Re ceived Time Location / / Volume Laterality 11/07/2000 4:00 PM END LATHE OPERATOR Lindsey Jordan MD LAB_1 Performing Organization Address City/[facility] Phon e Number HP CONVERSION Hemoglobin, Blood (09/12/2000 4:34 PM END LATHE OPERATOR) athologist Signature Hemoglobin 12.8 10.5 - 13.5 HP CONVERSION gm/dL Specimen (Source) Anatomical Collection Method Collection Time Re ceived Time Location / / Volume Laterality 09/12/2000 4:34 PM END LATHE OPERATOR Corinne Hazel MD LAB_1 Performing Organization Address City/[facility] Phon e Number HP CONVERSION documented in this encounter Visit Diagnoses Not on filedocumented in this encounter Care Teams 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
--- OUTSIDE RECORDS SUMMARY | 2022-06-30 15:45 | XMS_ITS | Continuity of Care Document ---
:2000 Author Organization [facility]ly [facility] Address [address] [place] [address] Care Team Providers Name Role Phone Benjamin Miranda Attending Physician Ricardo Garcia Primary Care Provider Unavailable Allergies, Adverse Reactions, Alerts No known [...] Monitor 48 hr * December 08, 2021 active Relevant Diagnostic Tests and/or Laboratory Data No known relevant diagnostic tests, laboratory data, and/or discharge summary. Chief Complaint and Reason for Visit Encounter Admit Date Chief Complaint Reason for Visit Departed Clinical December 08, 2021 9:47am Palpitations/Tachycardia Hospital Discharge Instructions No known hospital discharge instructions. Hospital Discharge Medications Medication Dose Units Route Sig Qty Days Order Date Status In structions Triamcinolone 1 APPLIC Topical Two times 01 October Activ e Acetonide per day 2019 Encounters Encounter Facility Location Admit/Visit Discharge/Departure Atte nding Date Date Provider Departed [facility] December 08, 2021 December 08, 2021 9:48am Ruth [facility] Hospital Services [facility] 9:47am Benjamin [place] Functional Status No known functional status. Immunizations No known immunizations. Plan of Care No Known Plan of Care Information Social History No known social history. Vital Signs No known vital signs results.
--- OUTSIDE RECORDS SUMMARY | 2022-06-30 15:45 | XMS_ITS | Continuity of Care Document ---
:1999 Author Organization [facility] Address [address] [place] [address] Allergies, Adverse Reactions, Alerts No known allergies. Medications Active Medications Medication Dose Units Route Sig Qty Start Date Status Triamcinolone Acetonide 1 APPLIC Topical Two times per nuhollister 2019 Active day Problem List Active Problems [...]
--- OUTSIDE RECORDS SUMMARY | 2022-06-30 15:45 | XMS_ITS | Continuity of Care Document ---
:2000 Author Organization [facility]ly [facility] Address [address] [place] [address] Care Team Providers Name Role Phone Benjamin Miranda Admitting Physician Allergies, Adverse Reactions, Alerts No known allergies. Medications Active Medications Medication Dose Units Route Sig Qty Start Date Status Triamcinolone Acetonide 1 APPLIC Topical Two times per 15 Ja msiha 2019 Active day Problem List Active Problems [...] 4:46pm Platelet Count November 04, 265 K/uL [phone] 4:46pm Mean Platelet Volume November 04, 8.7 [...] 4:46pm Sodium Level November 04, 139 mmol/L [phone] 4:46pm Potassium Level November 04, 4.0 mmol/L [...] Alkaline Phosphatase November 04, 71 U/L 45-122 2021 4:46pm Aspartate Amino Transf November 04, 24 U/L 10-40 (AST/SGOT) 2021 4:46pm Alanine November [...] Discharge/Departure Atte nding Date Date Provider Departed [facility] Emergency November 04November 04, 2021 Emergency Hospital Department 2021 4:08pm 5:50pm Registered [facility] November 04, Pradip [facility] [...] 4:11pm Blood Pressure Diastolic 128 55-85 Februar y 2021 4:11pm
--- OUTSIDE RECORDS SUMMARY | 2022-06-30 15:45 | XMS_ITS | Continuity of Care Document ---
:2000 Author Organization [facility] Address [address] [place] [address] Care Team Providers Name Role Phone Benjamin [...] 4:46pm Platelet Count November 04, 265 K/uL [phone] 4:46pm Mean Platelet Volume November 04, 8.7 [...] 4:46pm Sodium Level November 04, 139 mmol/L [phone] 4:46pm Potassium Level November 04, 4.0 mmol/L [...] Discharge/Departure Atte nding Date Date Provider Departed [facility] Emergency November 04November 04, 2021 Emergency [...]
--- OUTSIDE RECORDS SUMMARY | 2022-06-30 15:45 | XMS_ITS | Clinical Summary ---
:2000 Author Organization [employer] Address [address] [address] Phone Care Team Providers Name Role Phone Unavailable Primary Care Provider Unavailable Allergies No known active allergies Medications Medication Sig Dispensed Refills Start Date End Date Status Misc Natural Products Take by mouth. 0 Active (MATURE PAYAL HERBAL REMEDY OR) Social History Tobacco Use Types Packs/Day Years Used Date Never Assessed Sex Assigned at Date Recorded Not on file Last Filed Vital Signs Vital Sign Reading Time Taken Comments Blood Pressure 126/68 04/10/2020 9:00 PM CDT Pulse 98 04/10/2020 9:00 PM CDT Temperature 37.3 ??C (99.1 ??F) 04/10/2020 5:00 PM CDT Respiratory Rate 16 04/10/2020 9:00 PM CDT Oxygen Saturation 97% 04/10/2020 9:00 PM CDT Inhaled Oxygen Concentration - - Weight 79.4 kg (175 lb) 04/10/2020 5:00 PM CDT Height 177.8 cm (5' 10) 04/10/2020 5:00 PM CDT Body Mass Index 25.11 04/10/2020 5:00 PM CDT Plan of Treatment Not on file Advance Directives For more information, please contact: [phone] Latest Code Status on File Code Status Date Activated Date Inactivated Comments Full Code 04/10/2020 7:35 PM 04/11/2020 1:18 AM
--- OUTSIDE RECORDS SUMMARY | 2022-06-30 15:45 | XMS_ITS | Encounter Summary ---
:2000 [facility] Address [address], [place] [address] Care Team Providers Name Role Phone Corinne Hazel MD Primary Care Provider Encounter Details Date Type Department Care Team Description 02/25/2003 PN Conversion Only [place] CONVERSION Robert Rogers M, [address] [facility] [place] [address] [place] [address] (Wo rk) Social History Tobacco Use Types [...] Diagnosis Comme nts STREP GROUP A Routine 02/25/2003 4:47 PM Results for this ANTIGEN TEST CDT procedure are i n the results section. BETA STREP FOLLOWUP Routine 02/25/2003 4:47 PM Re sults for this CDT procedure are i n the results section. documented in this encounter Results Strep Group A Antigen Test (02/25/2003 4:47 PM CDT) [facility] Strep Group A Negative Negative HP CONVERSION Antigen Test Comment: Culture to follow. Specimen (Source) Anatomical Collection Method Collection Time Re ceived Time Location / / Volume Laterality 02/25/2003 4:47 PM CDT Robert Rogers MD LAB_1 Performing Organization Address City/[facility] Code Phon e Number HP CONVERSION Beta Strep Followup (02/25/2003 4:47 PM CDT) P athologist Signature Strep Screen SEE TEXT HP CONVERSION Comment: Patient: MICAH HIGH Rapid Strep Follow up Culture @ ? Collected: ??[id number] Source: Throat ?Processed: ??[id number] ??[id number] ? S Final Report ------ ?[id number] ??[id number] No beta hemolytic Strep group A isolated . @ = Rapid F/U Cult Performed at ??[address] [place] ?[address] Specimen (Source) Anatomical Collection Method Collection Time Re ceived Time Location / / Volume Laterality 02/25/2003 4:47 PM CDT Robert Rogers MD LAB_1 Performing Organization Address City/[facility] Phon e Number HP CONVERSION documented in this encounter Visit Diagnoses Not on filedocumented in this encounter Care Teams Medical Territory Manager Relationship Specialty Start Date End Date Corinne Hazel MD PCP - General 12/19/10 [address] [facility] [place] [address] documented as of this encounter
--- OUTSIDE RECORDS SUMMARY | 2022-06-30 15:45 | XMS_ITS | Continuity of Care Document ---
:2000 Author Organization [facility] Address [address] [place] [address] Care Team Providers Name Role Phone Benjamin [...] Discharge/Departure Atte nding Date Date Provider Departed [facility] December 08, 2021 December 08, 2021 9:48am Ruth [facility] Hospital Services [facility] 9:47am Benjamin Mes[place] Functional Status No known functional status. Immunizations No known immunizations. Plan of Care No Known Plan of Care Information Social History No known social history. Vital Signs No known vital signs results.
--- OUTSIDE RECORDS SUMMARY | 2022-06-30 15:45 | XMS_ITS | Continuity of Care Document ---
:2000 Author Organization [facility] Address [address] [place] [address] Care Team Providers Name Role Phone Benjamin [...] Discharge/Departure Atte nding Date Date Provider Departed [facility] December 08, 2021 December 08, 2021 9:48am [facility] Services [facility] 9:47am Benjamin Mesa Functional Status No known functional status. Immunizations No known immunizations. Plan of Care No Known Plan of Care Information Social History No known social history. Vital Signs No known vital signs results.
--- OUTSIDE RECORDS SUMMARY | 2022-06-30 15:45 | XMS_ITS | Encounter Summary ---
:2000 Author Organization [facility] Address [address] [place] [address] Care Team Providers Name Role Phone Corinne Hazel MD Primary Care Provider Encounter Details Date Type Department Care Team Description 05/09/[address] [facility] [address] [facility] . [address] [place] [address] [place], [place] [address] (Wo rk) Social History Tobacco Use Types [...] Sign Reading Time Taken Comments Blood Pressure 76/46 05/09/2005 4:06 PM CDT Pulse - - Temperature - - Respiratory Rate - - Oxygen Saturation - - Inhaled Oxygen Concentration - - Weight 19 kg (42 lb) 05/09/2005 4:06 PM CDT C: 19.1kg Height 111.8 cm (3' 8) 05/09/2005 4:06 PM CDT C: 111.8 cm Tbsvfi-ldo-Yjcmzt Percentile 45.85 % 05/09/2005 4:06 PM CDT Growth Chart: CDC (Boys, 2-20 Years) Body Mass Index 15.25 05/09/2005 4:06 PM CDT Body Mass Index Percentile 45.62 % 05/09/2005 4:06 PM CD T Growth Chart: [facility] (Boys, 2-20 Years) documented in this encounter Progress Notes Rolando Stevens MD - 05/09/2005 12:01 AM CDT Progress Notes signed by Rolando Stevens MD at 05/10/05 1456 Author: Rolando Stevens MD Service: (none) Author Type: Physician Filed: 01/06/11 0741 Note Time: 05/09/05 0001 Status: Signed Pharmacology Teacher: Rolando Stevens MD (Physician) NAME: MICAH HIGH MR: [id number] ACCT: [id number] VISIT: [id number] DICTATING CLINICIAN: ROLANDO STEVENS MD JOB: [id number] CLINIC PROGRESS NOTE DATE OF VISIT: 05/09/2005 SUBJECTIVE: : 2000 Well child check. A 4-year-old male, here with his mother. Chief concern is that he occasionally complains that his ears are plugged. She is concerned about ear wax. Would like that checked out. Second issue is that since 01/2005, she has noticed that when he has bowel movements, there will be a round lump about almost a cm in size that will protrude and retract after having bowel movement. It is not painful. He has had no bleeding. He has regular bowel movements. They are formed. They are not hard. He has no straining issues. No hematochezia. MEDICATIONS: Multivitamin. ADR/ALLERGIES: NO DRUG ALLERGIES. PAST MEDICAL HISTORY: Unremarkable. SOCIAL HISTORY: No tobacco exposure. He lives with his mom and dad and 2-year-old sister. Starting kindergarten this year. IMMUNIZATIONS: Is due for DTaP, MMR, and IPV. Developmental screening is normal up to 5 years of age. His mom reports he is very active. He rides his bike, plays baseball. OBJECTIVE: VS: BP: 76/46. Ht: 44 in., 75th percentile. Wt: 42 lb., 75th percentile. Vision screening is 20/20. Hearing screening is normal each ear. See form in chart. GENERAL: He is alert and awake, in no acute distress. Gfg-eui-ewcqwtnqv. HEENT: NC/AT. JAVIER, EOMI. Conjunctivas clear. Funduscopic exam is grossly normal. No strabismus. TMs are white and pearly. There is minimal yellowish ear wax noted. Oral mucosa appears moist, no erythema or lesions. NECK: Supple, no lymphadenopathy. No thyromegaly. CARDIOVASCULAR: Regular rate and rhythm, with a IK/ systolic murmur appreciated heard over the left sternal border. Normal S1, S2. PULMONARY: Clear to auscultation bilaterally. No rales, wheezes, or rhonchi. ABDOMEN: Soft, nontender, nondistended, no masses. Bowel sounds positive. BACK: Spine straight. No CVA tenderness. EXTREMITIES: No cyanosis, clubbing, or edema. Positive pulses x 4. GENITAL: Testes descended bilaterally. No masses, no hernias. SKIN: Warm and dry, no rash. ASSESSMENT: 1. Well child check. Provided the handout on anticipatory guidance. He is meeting all of his developmental milestones. Updated IPV, DTaP, and MMR vaccines today. Should followup for routine health maintenance every 1-2 years. Reassured that his ear exam is normal and discussed using mineral oil, baby oil, or olive oil 3 drops 3 times a day for a week to prevent buildup 3 times a year. 2. Heart murmur. This appears to be a new heart murmur, not mentioned in previous exams. On exam today, it appears to be an innocent murmur. Will have evaluated further by a consult in Pediatric Cardiology. 3. Hemorrhoid concerns. What she is describing sounds consistent with an internal hemorrhoid. Since it is not bleeding and not causing him any symptoms, will continue to monitor. If interested, will refer to General Surgery for possible banding under sedation if it persists or for further evaluation. Anoscopy was deferred today since the patient's age, recommended to mother that further exam may require sedation. PLAN: See assessment. RIC:[id number] C: 05/10/05 14:19 DOCUMENT: [id number] documented in this encounter Plan of Treatment Not on filedocumented as of this encounter Visit Diagnoses Not on filedocumented in this encounter Care Teams Machine Riveter Relationship Specialty Start Date End Date Corinne Hazel MD PCP - General 12/19/10 1415 [facility] [place] [id number] documented as of this encounter
--- OUTSIDE RECORDS SUMMARY | 2022-06-30 15:45 | XMS_ITS | Encounter Summary ---
:2000 Author Organization [employer] Address [address] [place] [address] Phone Care Team Providers Name Role Phone Unavailable Primary Care Provider Unavailable Encounter Details Date Type Department Care Team Description 09/06/2020 Lab Requisition INDEPENDENT Pradip Montelongo, Contact wi and LAB-[place]KH[place] SANCHEZ (suspected) exposure [address] [place] [address] [place] communicable diseases [phone] [place] [address] Social History Tobacco Use Types Packs/Day Years Used Date Never Assessed Sex Assigned at Date Recorded Not on file documented as of this encounter Plan of Treatment Not on filedocumented as of this encounter Visit Diagnoses Diagnosis Contact with and (suspected) exposure to other viral communicable diseases documented in this encounter Additional Health Concerns Infection Onset Date Last Indicated Resolved Time COVID-19 Confirmed 09/03/2020 09/03/2020 10/03/2020 11 :06 PM POLY OPERATOR documented as of this encounter
--- OUTSIDE RECORDS SUMMARY | 2022-06-30 15:46 | XMS_ITS | Encounter Summary ---
:2000 Author Organization [employer] [facility] Address [address] [place] [address] Phone Care Team Providers Name Role Phone Unavailable Primary Care Provider Unavailable Encounter Details Date Type Department Care Team Description 07/23/2020 Lab Requisition INDEPENDENT Pradip Montelongo, Contact wi and LAB-VICTOR MANUEL SANCHEZ (suspected) exposure [address] [facility] [address] [place] [address] [place] communicable diseases [phone] [place], [place] [address] Social History Tobacco Use Types Packs/Day Years Used Date Never Assessed Sex Assigned at Date Recorded Not on file documented as of this encounter Plan of Treatment Not on filedocumented as of this encounter Procedures Procedure Name Priority Date/Time Associated Diagnosis Comme nts SARS-COV-2 RNA Routine 07/23/2020 Contact with and Results f or this (COVID-19), MOLECULAR (suspected) exposur e to procedure are in the DETECTION (COVOO) other viral communicabl e results section. diseases documented in this encounter Results SARS-COV-2 RNA (COVID-19) - (COVID) (07/23/2020) [facility] Method Time Signature SARS-CoV-2 Undetected Undetected 07/29/2020 [facility] RNA 6:31 AM [facility] (COVID-19) Comment: SARS-CoV-2 RNA absent. This result does not rule out COVID-19 in the patient, as the sensitiv ity of the test depends on the timing of the specimen co llection and the quality of the specimen. Result should b e correlated with patient's history and clinical presentat ion. SARS-CoV-2 RNA Method SEE COMMENTS 07/29/2020 6:31 AM [facility] Summary [facility] Comment: THFSH- This test uses the TaqPath COVID- 19 Combo Kit ([employer] Isidra.) and is performed on the AquaMost magnetic particle processor and Applied LoveSpace Fast Dx Real-Time PCR System. It has rec eived Emergency Use Authorization (EUA) by the U.S. Food and Drug Administration. Performance characterist ics were verified by [facility] in a manner consistent wi CLIA requirements. Fact sheets for this Emergency Use Autho rization (EUA) can be found at the following links: https://www.fda.gov/media/398235/downloa d for Healthcare Providers https://www.fda.gov/media/890136/downloa d for Patients Test Performed by: [facility] [address] [place] [address] 60 Venet[address] Blind Mechanic: Presley Colin M.D. Ph. D.; CLIA# [id number] Source Nares 07/29/2020 6:31 AM [facility] Patient Race Refused 07/29/2020 6:31 AM COMMERCIAL ARTIST LETTERING [facility] Patient Ethnicity Refused 07/29/2020 6:31 AM [facility] Specimen (Source) Anatomical Collection Method Collection Time Re ceived Time Location / / Volume Laterality Swab ENTIRE ANTERIOR 07/23/2020 07/26/2020 6 :03 NARIS / Unknown PM [facility] Pradip Montelongo MD EC PATHOLOGY ORDERABLES Performing Organization Address City/State/ZIP Code Phon e Number [place] [phone] documented in this encounter Visit Diagnoses Diagnosis Contact with and (suspected) exposure to other viral communicable diseases documented in this encounter Additional Health Concerns Infection Onset Date Last Indicated Resolved Time COVID-19 Confirmed 09/03/2020 09/03/2020 10/03/2020 11 :06 PM COMMERCIAL ARTIST LETTERING documented as of this encounter
--- OUTSIDE RECORDS SUMMARY | 2022-06-30 15:46 | XMS_ITS | Encounter Summary ---
:2000 Author Organization [employer] Address [address] [address] Phone Care Team Providers Name Role Phone Unavailable Primary Care Provider Unavailable Encounter Details Date Type Department Care Team Description 04/10/2020 Travel Social History Tobacco Use Types Packs/Day Years Used Date Never Assessed Sex Assigned at Date Recorded Not on file COVID-19 Exposure Response Date Recorded In the last month, have you been in contact with No / Unsure 04/10/2020 5:14 PM CDT someone who was confirmed or suspected to have Coronavirus / COVID-19? documented as of this encounter Plan of Treatment Not on filedocumented as of this encounter Visit Diagnoses Not on filedocumented in this encounter
--- OUTSIDE RECORDS SUMMARY | 2022-06-30 15:46 | XMS_ITS | Encounter Summary ---
:2000 Author Organization [employer] [facility] Address [address] [place] [address] Phone Care Team Providers Name Role Phone Unavailable Primary Care Provider Unavailable Encounter Details Date Type Department Care Team Description 09/02/2020 Lab Requisition INDEPENDENT Pradip Montelongo, Contact wi and LAB-VICTOR MANUEL SANCHEZ (suspected) exposure [address] [place] [address] [place] communicable diseases [phone] [place], [place] [id number] Social History Tobacco Use Types Packs/Day Years Used Date Never Assessed Sex Assigned at Date Recorded Not on file documented as of this encounter Plan of Treatment Not on filedocumented as of this encounter Procedures Procedure Name Priority Date/Time Associated Diagnosis Comme nts SARS-COV-2 RNA Routine 09/03/2020 1:56 PM Contact with and Res ults for this (COVID-19), DIALYSIS PATIENT CARE TECHNICIAN (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 documented in this encounter Results (ABNORMAL) SARS-COV-2 RNA (COVID-19), MOLECULAR DETECTION (COVOO) (09/03/2020 1:56 PM DIALYSIS PATIENT CARE TECHNICIAN) [facility] Method Time Signature SARS-CoV-2 Detected (A) Undetected 09/04/2020 [facility] RNA 8:56 PM [facility] PATIENT CARE TECHNIC[facility] (COVID-19) Comment: SARS-CoV-2 RNA present. SARS-CoV-2 RNA Method SEE COMMENTS 09/04/2020 8:56 PM [facility] Summary DIALYSIS PATIENT CARE TECHNICIAN LAB[facility]ATORIES Comment: PKELM- This test uses the PerkinElmer Ne w Coronavirus Nucleic Acid Detection Kit ([employer].), and is performed on the Beem instrument and Applied Biosystems 7500 Fast Real-Time PCR Syste m. It has received Emergency Use Authorization (EUA) by the U.S. Food and Drug Administration, and is modified from the aprn's instructions with a bridging study. Perf ormance characteristics were verified by [facility] in in a manner consistent with CLIA requirements. Fact sheets for this Emergency Use Autho rization (EUA) can be found at the following links: https://www.fda.gov/media/404422/downloa d for Healthcare Providers https://www.fda.gov/media/569159/downloa d for Patients Test Performed by: Formerly named [facility] [address] [place], [place] [address] Shaper And Presser: Presley Colin M.D. Ph. D.; CLIA# [id number] Source Nares 09/04/2020 8:56 PM DIALYSIS PATIENT CARE TECHNICIAN [facility] Patient Race Refused 09/04/2020 8:56 PM DIALYSIS PATIENT CARE TECHNICIAN [facility] Patient Ethnicity Refused 09/04/2020 8:56 PM DIALYSIS PATIENT CARE TECHNICIAN [facility] Specimen Anatomical Collection Method Collection Time Receive d Time (Source) Location / / Volume Laterality Swab ENTIRE ANTERIOR 09/03/2020 1:56 PM 2019 6:20 NARIS / Unknown DIALYSIS PATIENT CARE TECHNICIAN PM DIALYSIS PATIENT CARE TECHNICIAN Pradip Montelongo MD EC PATHOLOGY ORDERABLES Performing Organization Address City/State/ZIP Code Phon e Number [place] [phone] documented in this encounter Visit Diagnoses Diagnosis Contact with and (suspected) exposure to other viral communicable diseases documented in this encounter Additional Health Concerns Infection Onset Date Last Indicated Resolved Time COVID-19 Confirmed 09/03/2020 09/03/2020 10/03/2020 11 :06 PM DIALYSIS PATIENT CARE TECHNICIAN documented as of this encounter
--- OUTSIDE RECORDS SUMMARY | 2022-06-30 15:46 | XMS_ITS | Encounter Summary ---
:2000 Author Organization [facility] [facility] [facility] Address [address] [place] [address] Phone Care Team Providers Name Role Phone Unavailable Primary Care Provider Unavailable Encounter Details Date Type Department Care Team Description 08/25/2020 Lab Requisition INDEPENDENT Pradip Montelongo, Contact wi and LAB-SUKHDEV SANCHEZ (suspected) exposure [address] [place] [address] [place] communicable diseases [phone] [place] [address] Social History Tobacco Use Types Packs/Day Years [...] 09/03/2020 09/03/2020 10/03/2020 11 :06 PM COMMERCIAL REVIEW APPRAISER documented as of this encounter
--- OUTSIDE RECORDS SUMMARY | 2022-06-30 15:46 | XMS_ITS | Encounter Summary ---
:2000 Author Organization [facility] Address [address] [place] [id number] Phone Care Team Providers Name Role Phone Unavailable Primary Care Provider Unavailable Encounter Details Date Type Department Care Team Description 08/10/2020 Lab Requisition INDEPENDENT Kiana Carreon and [facility] MANUEL Mcconnell APRN, (suspected) exposure [address] [facility] [place] [id number] communicable diseases [phone] [place] [address] Social History Tobacco Use Types Packs/Day Years [...] Confirmed 09/03/2020 09/03/2020 10/03/2020 11 :06 PM BENZENE WASHER documented as of this encounter
--- OUTSIDE RECORDS SUMMARY | 2022-06-30 15:46 | XMS_ITS | Encounter Summary ---
:2000 Author Organization [facility] Address [address] [place] [address] Phone Care Team Providers Name Role Phone Unavailable Primary Care Provider Unavailable Encounter Details Date Type Department Care Team Description 07/29/2020 Lab Requisition INDEPENDENT Pradip Montelongo, Contact wi and [facility]-[place] SANCHEZ (suspected) exposure [address] [place] [address] [place] communicable diseases [phone] [place] [address] Social History Tobacco Use Types Packs/Day Years [...] Confirmed 09/03/2020 09/03/2020 10/03/2020 11 :06 PM NATIONAL SERVICE OFFICER documented as of this encounter
--- OUTSIDE RECORDS SUMMARY | 2022-06-30 15:46 | XMS_ITS | Encounter Summary ---
:2000 Author Organization [facility] [facility] Address [address] [place] [address] Phone Care Team Providers Name Role Phone Unavailable Primary Care Provider Unavailable Encounter Details Date Type Department Care Team Description 08/04/2020 Lab Requisition INDEPENDENT Pradip Montelongo, Contact wi and [facility] SANCHEZ (suspected) exposure [address] [place] [address] [place] communicable diseases [phone] [place] [address] Social History Tobacco Use Types Packs/Day Years [...] Confirmed 09/03/2020 09/03/2020 10/03/2020 11 :06 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
--- OUTSIDE RECORDS SUMMARY | 2022-06-30 15:46 | XMS_ITS | Encounter Summary ---
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 short of breath. documented in this encounter Plan of Treatment Not on filedocumented as of this encounter Procedures Procedure Name Priority Date/Time Associated Comments Diagnosis URINALYSIS, REFLEX TO STAT 04/10/2020 7:27 PM Results for this MICROSCOPIC CDT procedure are i n the results section. XR CHEST 1 VIEW STAT 04/10/2020 6:05 PM Lactic acidosis Res ults for this CDT procedure are i n the results section. CT ABDOMEN PELVIS W IV STAT 04/10/2020 5:58 PM Lactic acido sis Results for this CONTRAST CDT procedure are i n the results section. HOLD LI HEPARIN STAT 04/10/2020 5:17 PM CDT HOLD NA CITRATE STAT 04/10/2020 5:17 PM CDT HOLD EDTA STAT 04/10/2020 5:17 PM CDT HOLD SERUM TUBE STAT 04/10/2020 5:17 PM CDT C REACTIVE PROTEIN STAT 04/10/2020 5:17 PM Res ults for this CDT procedure are i n the results section. COMPREHENSIVE STAT 04/10/2020 5:17 PM Results for this METABOLIC PANEL CDT procedure ar e in the results section. HEMOGRAM/DIFF STAT 04/10/2020 5:17 PM Results for this CDT procedure are i n the results section. MAGNESIUM STAT 04/10/2020 5:17 PM Results f or this CDT procedure are i n the results section. LIPASE STAT 04/10/2020 5:17 PM Results f or this CDT procedure are i n the results section. LACTIC ACID, VENOUS STAT 04/10/2020 5:17 PM Re sults for this CDT procedure are i n the results section. ALCOHOL STAT 04/10/2020 5:17 PM Results f or this CDT procedure are i n the results section. POINT OF CARE Routine 04/10/2020 4:58 PM Results for this ULTRASOUND CDT procedure are i n the results section. documented in this encounter Results (ABNORMAL) URINALYSIS, REFLEX TO MICROSCOPIC (04/10/2020 7:27 PM CDT) [facility] Method Time Signature Urine Color Yellow Yellow 04/10/2020 [facility] 7:47 PM CDT CLINICAL LABORATORY Urine Clear Clear 04/10/2020 [facility] Appearance 7:47 PM CDT CLINICAL LABORATORY Urine Specific >1.060 (A) 1.003 - 04/10/2020 [facility] [place] 1.035 7:47 PM CDT CLINICAL LABORATORY Urine pH 5.0 5.0 - 8.0 04/10/2020 [facility] 7:47 PM CDT CLINICAL LABORATORY Urine Glucose Negative Negative 04/10/2020 [facility] 7:47 PM CDT CLINICAL LABORATORY Urine Ketones 20 (A) Negative 04/10/2020 [facility] 7:47 PM CDT CLINICAL LABORATORY Urine Protein Negative Negative, 04/10/2020 [facility] Trace mg/dL 7:47 PM CDT CLINICAL LABORATORY Urine Nitrites Negative Negative 04/10/2020 [facility] 7:47 PM CDT CLINICAL LABORATORY Urine Negative Negative 04/10/2020 [facility] Leukocyte 7:47 PM CDT CLINICAL Esterase LABORATORY Specimen Anatomical Collection Method Collection Time Receive d Time (Source) Location / / Volume Laterality Urine specimen DATA ENTRY ASSOCIATE Non-blood 04/10/2020 7:27 PM 2019 7:35 (specimen) MID-STREAM URINE collection / CDT PM CDT SPECIMEN OBTAINED Unknown BY CLEAN CATCH PROCEDURE / Unknown Narrative [facility] CLINICAL LABORATORY - 04/10/2020 7:47 PM CDT A routine urine not reflexing to a micro scopic exam automatically means the dipstick blood test is negative. Giovanna Vazquez MD EC URINE ORDERABLES Performing Organization Address City/State/ZIP Code Phon e Number [facility] CLINICAL LABORATORY [address] [place] [id number] XR CHEST 1 VIEW (04/10/2020 6:05 PM CDT) Anatomical Region Laterality Modality Chest Radiographic Imaging Specimen (Source) Anatomical Collection Method Collection Time Re ceived Time Location / / Volume Laterality 04/10/2020 6:05 PM CDT Narrative 04/12/2020 9:45 AM CDT This document is currently in Final Status Exam XR CHEST 1 VIEW HISTORY: Shortness of breath; FINDINGS: Findings of ground-glass opacity and pos sible laceration in the right middle lobe are better evaluated on the CT abdomen and pelvis. Pulmonary vascularity normal. Heart size normal. IMPRESSION: 1. No acute finding. 2. Right middle lobe pulmonary contusion with possible laceration, better evaluated on CT abdomen and pelvis. Consider chest CT for further evaluation. Dictated By: Angel Dey 04/10/20 6:52 PM Edited By: ЮЛИЯ 04/10/2020 6:56 PM Electronically Signed: Angel Gonzales 04/12/2020 9:45 AM Procedure Note Angel Dey MD - 04/12/2020F ormatting of this note might be different from the original. This document is currently in Final Stat us Exam XR CHEST 1 VIEW HISTORY: Shortness of breath; FINDINGS: Findings of ground-glass opacity and pos sible laceration in the right middle lobe are better evaluated on the CT abdomen and pelvis. Pulmonary vascularity normal. Heart size normal. IMPRESSION: 1. No acute finding. 2. Right middle lobe pulmonary contusion with possible laceration, better evaluated on CT abdomen and pelvis. Consider chest CT for further evaluation. Dictated By: Angel Dey 04/10/20 6:52 PM Edited By: 04/10/2020 6:56 PM Electronically Signed: Angel Gonzales 04/12/2020 9:45 AM [facility]ario GIANG DIAGNOSTIC IMAGING ORDERA BLES CT ABDOMEN PELVIS W IV CONTRAST (04/10/2020 5:58 PM CDT) Anatomical Region Laterality Modality Abdomen, Pelvis Computed Tomography Specimen (Source) Anatomical Collection Method Collection Time Re ceived Time Location / / Volume Laterality 04/10/2020 5:58 PM CDT Narrative 04/12/2020 9:45 AM CDT This document is currently in Final Status Exam CT ABDOMEN PELVIS W IV CONTRAST HISTORY: Blunt trauma, bruising; ?? FINDINGS: In the right middle lobe, there is parti ally imaged ground-glass opacity and cystic areas. There are a few small ground-glass opacities in the bilateral lower lungs. Adrenals are unremarkable. Kidneys are u nremarkable. Pancreas is unremarkable. Liver is unremarkable. Gallbladder is unremarkable. Aorta is normal caliber. Bowel is normal caliber, without wall thickeni ng. No fluid collection or free air. Uri nary bladder, unremarkable. Prostate, unremarkable. No acute fracture is identified. IMPRESSION: 1. ??In the right middle lobe, there are partially imaged findings of confluent ground-glass opacity and small cystic areas. The findings likely represent pulmonary contusion with laceration. Smaller gr ound-glass opacities in the imaged bilat eral lower lobes could also represent contusions. Consider chest CT for more complete evaluation of the findings. 2. ??No acute traumatic injury is identi fied in the abdomen/pelvis. Dictated By: Angel Dey 04/10/20 6:48 PM Edited By: ЛЮИЯ 04/10/2020 6:55 PM Electronically Signed: Angel Gonzales ch 04/12/2020 9:45 AM Procedure Note Angel Dey MD - 04/12/2020F ormatting of this note might be different from the original. This document is currently in Final Stat us Exam CT ABDOMEN PELVIS W IV CONTRAST HISTORY: Blunt trauma, bruising; FINDINGS: In the right middle lobe, there is parti ally imaged ground-glass opacity and cystic areas. There are a few small ground-glass opacities in the bilateral lower lungs. Adrenals are unremarkable. Kidneys are u nremarkable. Pancreas is unremarkable. Liver is unremarkable. Gallbladder is unremarkable. Aorta is normal caliber. Bowel is normal caliber, without wall thickening. No fluid collection or free air. Urinary bladder, unremarkable. Prostate, unremarkable. No acute fracture is identified. IMPRESSION: 1. In the right middle lobe, there are p artially imaged findings of confluent ground-glass opacity and small cystic areas. The findings likely represent pulmonary contusion with laceration. Smaller ground-glass opacities in the imaged bilateral lower lobes could also represent contusions. Consider chest CT for more complete evaluation of the findings. 2. No acute traumatic injury is identifi ed in the abdomen/pelvis. Dictated By: Angel Dey 04/10/20 6:48 PM Edited By: ЮЛИЯ 04/10/2020 6:55 PM Electronically Signed: Angel Gonzales ch 04/12/2020 9:45 AM Rosario Mendosa PA-C EC CT ORDERABLES LIPASE (04/10/2020 5:17 PM CDT) athologist Signature Lipase 35 12 - 84 04/10/2020 [facility] CLINICAL IU/L 5:43 PM CDT LABORATORY Specimen Anatomical Collection Method / Collection Time Recei dayton Time (Source) Location / Volume Laterality Blood BLOOD SPECIMEN / Venipuncture / 04/10/2020 5:17 2019 5:20 Unknown Unknown PM CDT PM CDT Giovanna Vazquez MD EC CHEMISTRY ORDERABLES Performing Organization Address City/[facility] Phon e Number [facility] CLINICAL LABORATORY [address] [place] [phone] ALCOHOL (04/10/2020 5:17 PM CDT) athologist Signature Alcohol <10.0 <=10.0 04/10/2020 [facility] CLINICAL mg/dL 5:43 PM CDT LABORATORY Specimen Anatomical Collection Method / Collection Time Recei dayton Time (Source) Location / Volume Laterality Blood BLOOD SPECIMEN / Venipuncture / 04/10/2020 5:17 2019 5:20 Unknown Unknown PM CDT PM CDT Giovanna Vazquez MD EC CHEMISTRY ORDERABLES Performing Organization Address [facility] Phon e Number [facility] CLINICAL LABORATORY [address] [place] [phone] (ABNORMAL) LACTIC ACID, VENOUS (04/10/2020 5:17 PM CDT) athologist Signature Lactic Acid, 2.5 (H) 0.5 - 2.0 04/10/2020 [facility] Venous mmol/L 5:37 PM CDT CLINICAL LABORATORY Specimen Anatomical Collection Method / Collection Time Recei dayton Time (Source) Location / Volume Laterality Blood BLOOD SPECIMEN / Venipuncture / 04/10/2020 5:17 2019 5:20 Unknown Unknown PM CDT PM CDT Giovanna Vazquez MD EC CHEMISTRY ORDERABLES Performing Organization Address City/[facility] Phon e Number [facility] CLINICAL LABORATORY [address] [place] [phone] (ABNORMAL) MAGNESIUM (04/10/2020 5:17 PM CDT) athologist Signature Magnesium 1.7 (L) 1.8 - 2.7 04/10/2020 [facility] mg/dL 5:43 PM CDT CLINICAL LABORATORY Specimen Anatomical Collection Method / Collection Time Recei dayton Time (Source) Location / Volume Laterality Blood BLOOD SPECIMEN / Venipuncture / 04/10/2020 5:17 2019 5:20 Unknown Unknown PM CDT PM CDT Narrative [facility] CLINICAL LABORATORY - 04/10/2020 5:43 PM CDT Beginning May 26, 2019, the Magne sium reagent on the [employer] updated to a new enzymatic method that will repo rt in mg/dL. ??Previously, values were reported in mEq/L. ??The values will ivet ft with an approximate factor of 1.215. ??Please take this data into account whe n comparing current Magnesium results to those run before May 26, 2019. Giovanna Vazquez MD EC CHEMISTRY ORDERABLES Performing Organization Address City/[facility] Phon e Number [facility] CLINICAL LABORATORY [address] [place] [phone] C-REACTIVE PROTEIN (04/10/2020 5:17 PM CDT) P athologist Signature C-Reactive <0.1 0.0 - 0.8 04/10/2020 [facility] Protein mg/dL 5:43 PM CDT CLINICAL LABORATORY Specimen Anatomical Collection Method / Collection Time Recei dayton Time (Source) Location / Volume Laterality Blood BLOOD SPECIMEN / Venipuncture / 04/10/2020 5:17 2019 5:20 Unknown Unknown PM CDT PM CDT iGovanna Vazquez MD EC CHEMISTRY ORDERABLES Performing Organization Address City/[facility] Phon e Number [facility] CLINICAL LABORATORY [address] [place] [phone] (ABNORMAL) COMPREHENSIVE METABOLIC PANEL (04/10/2020 5:17 PM CDT) Patholo gist Method Time Signature Sodium 140 134 - 143 04/10/2020 [facility] mEq/L 5:43 PM CDT CLINICAL LABORATORY Potassium 3.7 3.4 - 5.1 04/10/2020 [facility] mEq/L 5:43 PM CDT CLINICAL LABORATORY Chloride 101 99 - 110 04/10/2020 [facility] mEq/L 5:43 PM CDT CLINICAL LABORATORY Carbon Dioxide 25 19 - 29 04/10/2020 [facility] mEq/L 5:43 PM CDT CLINICAL LABORATORY Anion Gap 14.0 3.0 - 15.0 04/10/2020 [facility] mEq/L 5:43 PM CDT CLINICAL LABORATORY Blood Urea 17 5 - 24 04/10/2020 [facility] Nitrogen mg/dL 5:43 PM CDT CLINICAL LABORATORY Creatinine 1.42 (H) 0.70 - 04/10/2020 [facility] 1.20 mg/dL 5:43 PM CDT CLINICAL LABORATORY Glomerular >60 >60 04/10/2020 [facility] Filtration Rate mL/min/1.7 5:43 PM CDT CLINICAL 3 m*2 LABORATORY Comment: Complications of CKD and risk o f cardiovascular disease increase when GFR is below 60ml.min/1.73m2. A persistently re duced GFR is a specific indication of Chronic Kidney Disease. The eGFR calculation has not been validated in patients >70yrs. Calcium 9.9 8.4 - 10.5 04/10/2020 5:43 PM [facility] CL INICAL mg/dL CDT LABORATORY Glucose 103 (H) 70 - 99 mg/dL 04/10/2020 5:43 PM [facility] CLINICAL CDT LABORATORY Protein, Total 7.8 6.0 - 8.0 04/10/2020 5:[address] [facility] CLINICAL g/dL CDT LABORATORY Albumin 5.0 3.5 - 5.0 04/10/2020 5:43 PM [facility] CLI NICAL g/dL CDT LABORATORY Alkaline Phosphatase 72 40 - 150 IU/L 04/10/2020 5:43 PM [facility] CLINICAL CDT LABORATORY Aspartate 48 (H) 10 - 40 IU/L 04/10/2020 5:43 PM [facility] CLINICAL Aminotransferase CDT LABORATORY Alanine Aminotransferase 32 6 - 40 IU/L 04/10/2020 5: 43 PM [facility] CLINICAL CDT LABORATORY Bilirubin, Total 0.8 0.2 - 1.2 04/10/2020 5:43 PM [facility] CLINICAL mg/dL CDT LABORATORY Specimen Anatomical Collection Method / Collection Time Recei dayton Time (Source) Location / Volume Laterality Blood BLOOD SPECIMEN / Venipuncture / 04/10/2020 5:17 2019 5:20 Unknown Unknown PM CDT PM CDT Narrative [facility] CLINICAL LABORATORY - 04/10/2020 5:43 PM CDT Current ADA criteria for Glucose: ?Normal: 70-99 mg/dL ?Impaired Fasting Glucose: 100-125 mg/dL ?Diabetes Mellitus: at or above 126 mg/dL The diagnosis of diabetes must be confir med on a subsequent day by measuring Fasting Plasma Glucose, 2-hr PG or random plasma glucose (if symptoms are present). Giovanna Vazquez MD EC CHEMISTRY ORDERABLES Performing Organization Address City/State/ZIP Code Phon e Number [facility] CLINICAL LABORATORY [address] [place] [address] (ABNORMAL) HEMOGRAM/DIFFERENTIAL (04/10/2020 5:17 PM CDT) [facility] Method Time Signature WBC 21.0 (H) 3.2 - 04/10/2020 [facility] 11.0 5:25 PM CDT CLINICAL 10*9/L LABORATORY RBC 4.95 4.14 - 04/10/2020 [facility] 5.76 5:25 PM CDT CLINICAL 10*12/L LABORATORY HGB 15.9 12.9 - 04/10/2020 [facility] 16.9 g/dL 5:25 PM CDT CLINICAL LABORATORY HCT 44.2 38.4 - 04/10/2020 [facility] 49.7 % 5:25 PM CDT CLINICAL LABORATORY MCV 89.3 81.4 - 04/10/2020 [facility] 99.0 fL 5:25 PM CDT CLINICAL LABORATORY MCH 32.1 26.7 - 04/10/2020 [facility] 33.1 pg 5:25 PM CDT CLINICAL LABORATORY MCHC 36.0 (H) 31.6 - 04/10/2020 [facility] 35.5 g/dL 5:25 PM CDT CLINICAL LABORATORY RDW 11.7 11.3 - 04/10/2020 [facility] 14.6 % 5:25 PM CDT CLINICAL LABORATORY PLT 289 130 - 375 04/10/2020 [facility] 10*9/L 5:25 PM CDT CLINICAL LABORATORY Neutrophils % 86.0 % 04/10/2020 [facility] 5:25 PM CDT CLINICAL LABORATORY Lymphocytes % 6.6 % 04/10/2020 [facility] 5:25 PM CDT CLINICAL LABORATORY Monocytes % 6.9 % 04/10/2020 [facility] 5:25 PM CDT CLINICAL LABORATORY Eosinophils % 0.0 % 04/10/2020 [facility] 5:25 PM CDT CLINICAL LABORATORY Basophils % 0.2 % 04/10/2020 [facility] 5:25 PM CDT CLINICAL LABORATORY Immature 0.3 % 04/10/2020 [facility] Granulocytes % 5:25 PM CDT CLINICAL LABORATORY Neutrophils 18.0 (H) 1.5 - 7.6 04/10/2020 [facility] Absolute 10*9/L 5:25 PM CDT CLINICAL LABORATORY Lymphocytes 1.4 0.8 - 3.3 04/10/2020 [facility] Absolute 10*9/L 5:25 PM CDT CLINICAL LABORATORY Monocytes 1.5 (H) 0.2 - 0.9 04/10/2020 [facility] Absolute 10*9/L 5:25 PM CDT CLINICAL LABORATORY Eosinophils 0.0 0.0 - 0.4 04/10/2020 [facility] Absolute 10*9/L 5:25 PM CDT CLINICAL LABORATORY Basophils 0.1 0.0 - 0.1 04/10/2020 [facility] Absolute 10*9/L 5:25 PM CDT CLINICAL LABORATORY Immature 0.07 (H) 0.00 - 04/10/2020 [facility] Granulocytes 0.06 5:25 PM CDT CLINICAL Absolute 10*9/L LABORATORY Specimen Anatomical Collection Method / Collection Time Recei dayton Time (Source) Location / Volume Laterality Blood BLOOD SPECIMEN / Venipuncture / 04/10/2020 5:17 2019 5:20 Unknown Unknown PM CDT PM CDT Giovanna Vazquez MD EC HEMATOLOGY ORDERABLES Performing Organization Address City/[facility] Phon e Number [facility] CLINICAL LABORATORY [address] [place] [phone] HOLD SERUM TUBE (04/10/2020 5:17 PM CDT) Specimen Anatomical Collection Method / Collection Time Recei dayton Time (Source) Location / Volume Laterality Blood BLOOD SPECIMEN / Venipuncture / 04/10/2020 5:17 2019 5:20 Unknown Unknown PM CDT PM CDT Giovanna Vazquez MD EC CHEMISTRY ORDERABLES Performing Organization Address City/[facility] Phon e Number [facility] CLINICAL LABORATORY [address] [place] [phone] HOLD NA CITRATE (04/10/2020 5:17 PM CDT) Specimen Anatomical Collection Method / Collection Time Recei dayton Time (Source) Location / Volume Laterality Blood BLOOD SPECIMEN / Venipuncture / 04/10/2020 5:17 2019 5:20 Unknown Unknown PM CDT PM CDT Giovanna Vazquez MD EC HEMATOLOGY ORDERABLES Performing Organization Address [facility] Phon e Number [facility] CLINICAL LABORATORY [address] [place] [phone] HOLD PURPLE TUBE (04/10/2020 5:17 PM CDT) Specimen Anatomical Collection Method / Collection Time Recei dayton Time (Source) Location / Volume Laterality Blood BLOOD SPECIMEN / Venipuncture / 04/10/2020 5:17 2019 5:20 Unknown Unknown PM CDT PM CDT Giovanna Vazquez MD EC HEMATOLOGY ORDERABLES Performing Organization Address [facility] Code Phon e Number [facility] CLINICAL LABORATORY [address] [place] [phone] HOLD LI HEPARIN (04/10/2020 5:17 PM CDT) Specimen Anatomical Collection Method / Collection Time Recei dayton Time (Source) Location / Volume Laterality Blood BLOOD SPECIMEN / Venipuncture / 04/10/2020 5:17 2019 5:20 Unknown Unknown PM CDT PM CDT Giovanna Vazquez MD EC CHEMISTRY ORDERABLES Performing Organization Address [facility] Phon e Number [facility] CLINICAL LABORATORY [address] [place] [phone] POINT OF CARE ULTRASOUND (04/10/2020 4:58 PM CDT) Specimen (Source) Anatomical Collection Method Collection Time Re ceived Time Location / / Volume Laterality 04/10/2020 4:58 PM CDT Narrative [facility] - 05/17/2020 3:08 AM CDT [facility] - Point of Care Ultrasound Exam Date: 04/10/2020 Exam Type: E-FAST ([id number]) Hot Box Operator: Rosario Mendosa Attending: GIOVANNA VAZQUEZ Worksheet: POCUS_EFAST Exam Information: ?? A focused (limited) ultrasound exam of the peritoneal space (including the following areas sub-phrenic, Morison's pouch, splenorenal, superior colic gutters, and retro-vesicular), pericardial space, and pleural spaces was performed to john luate for free fluid. ?? A focused (limited) ultrasound exam of the pleural spaces was performed to evaluate for pneumothorax or pulmonary edema. ?? Exam type: Clinically indicated (Pako led and sent to PACS) Indication(s) for Exam: ?? The exam was performed with the [facility] [employer] indications: Blunt trauma Views Obtained & Images Saved for These Views: ?? The following organs were examined a s part of the FAST exam: The heart, diaphragms, liver, spleen, kidneys, and bladder were identified and examined. ?? The following spaces were examined a s part of the FAST exam: Pericardial, pleural, sub-phrenic, Morison's pouch, splenorenal, superior colic gutters, and retro-vesicular spaces were examined. ?? Right anterior / superior thorax: Ad equate ?? Right lateral / inferior thorax: Sneha quate ?? Left anterior / superior thorax: Sneha quate Findings: ?? Morison's pouch (RUQ): Fluid absent ?? RIGHT pleural space: Fluid absent ?? Splenorenal space (LUQ): Fluid absen t ?? LEFT pleural space: Fluid absent ?? Pericardial space: Fluid absent ?? Pericardial tamponade?: Absent ?? Retrovesicular space: Fluid absent ?? Lung sliding: Present ?? Lung sliding: Present Interpretation: ?? No pathologic free fluid Confirmatory study: ?? What confirmatory study was done?: C T Physician Signature: ?? I have reviewed and I agree with the above documentation: Not signed Images: Worksheet: POCUS_FAST Exam Information: ?? A focused (limited) ultrasound exam of the peritoneal space (including the following areas sub-phrenic, Morison's pouch, splenorenal, superior colic gutters, and retro-vesicular), pericardial space, and pleural spaces was performed to john luate for free fluid. ?? Exam type: Clinically indicated (Pako led and sent to PACS) Indication(s) for Exam: ?? The exam was performed with the [facility] [employer] indications: Blunt trauma Views Obtained & Images Saved for These Views: ?? The following organs were examined a s part of the FAST exam: The heart, diaphragms, liver, spleen, kidneys, and bladder were identified and examined. ?? The following spaces were examined a s part of the FAST exam: Pericardial, pleural, sub-phrenic, Morison's pouch, splenorenal, superior colic gutters, and retro-vesicular spaces were examined. Findings: ?? Morison's pouch (RUQ): Fluid absent ?? RIGHT pleural space: Fluid absent ?? LEFT pleural space: Indeterminate ?? Pericardial space: Fluid absent ?? Retrovesicular space: Fluid absent Interpretation: ?? No pathologic free fluid ?? Other: Suzan Mendosa obtained the im ages. I reviewed them after collection. Confirmatory study: ?? What confirmatory study was done?: C T ?? Confirmatory study findings: CT a/p w/o injury. No clear effusion/free fluid of b/l pulmonary bases Physician Signature: ?? I have reviewed and I agree with the above documentation: Signed by GIOVANNA VAZQUEZ on , April 15, 2020 at 4:13:38 PM Images: Procedure Note Rosario Mendosa PA-C - 05/17/2020Fo rmatting of this note might be different from the original. [facility] Point of Care Ultrasou nd Exam Date: 04/10/2020 Exam Type: E-FAST ([id number]) Hot Box Operator: Rosario Mendosa Attending: GIOVANNA VAZQUEZ Worksheet: POCUS_EFAST Exam Information: A focused (limited) ultrasound exam of the peritoneal space (including the following areas sub-phrenic, Morison's pouch, splenorenal, superior colic gutters, and retro-vesicular), pericardial space, and pleural spaces was performed to evaluate for free fluid. A focused (limited) ultrasound exam of the pleural spaces was performed to evaluate for pneumothorax or pulmonary edema. Exam type: Clinically indicated (Billed and sent to PACS) Indication(s) for Exam: The exam was performed with the followi ng indications: Blunt trauma Views Obtained & Images Saved for These Views: The following organs were examined as p art of the FAST exam: The heart, diaphragms, liver, spleen, kidneys, and bladder were identified and examined. The following spaces were examined as p art of the FAST exam: Pericardial, pleural, sub-phrenic, Morison's pouch, splenorenal, superior colic gutters, and retro-vesicular spaces were examined. Right anterior / superior thorax: Adequ ate Right lateral / inferior thorax: Adequa te Left anterior / superior thorax: Adequa te Findings: Morison's pouch (RUQ): Fluid absent RIGHT pleural space: Fluid absent Splenorenal space (LUQ): Fluid absent LEFT pleural space: Fluid absent Pericardial space: Fluid absent Pericardial tamponade?: Absent Retrovesicular space: Fluid absent Lung sliding: Present Lung sliding: Present Interpretation: No pathologic free fluid Confirmatory study: What confirmatory study was done?: CT Physician Signature: I have reviewed and I agree with the ab ove documentation: Not signed Images: Worksheet: POCUS_FAST Exam Information: A focused (limited) ultrasound exam of the peritoneal space (including the following areas sub-phrenic, Morison's pouch, splenorenal, superior colic gutters, and retro-vesicular), pericardial space, and pleural spaces was performed to evaluate for free fluid. Exam type: Clinically indicated (Billed and sent to PACS) Indication(s) for Exam: The exam was performed with the followi ng indications: Blunt trauma Views Obtained & Images Saved for These Views: The following organs were examined as p art of the FAST exam: The heart, diaphragms, liver, spleen, kidneys, and bladder were identified and examined. The following spaces were examined as p art of the FAST exam: Pericardial, pleural, sub-phrenic, Morison's pouch, splenorenal, superior colic gutters, and retro-vesicular spaces were examined. Findings: Morison's pouch (RUQ): Fluid absent RIGHT pleural space: Fluid absent LEFT pleural space: Indeterminate Pericardial space: Fluid absent Retrovesicular space: Fluid absent Interpretation: No pathologic free fluid Other: Suzan Mendosa obtained the image s. I reviewed them after collection. Confirmatory study: What confirmatory study was done?: CT Confirmatory study findings: CT a/p w/o injury. No clear effusion/free fluid of b/l pulmonary bases Physician Signature: I have reviewed and I agree with the ab ove documentation: Signed by GIOVANNA VAZQUEZ on March at 4:13:38 PM Images: Rosario GIANG US ORDERABLES Performing Organization Address City/State/ZIP Code Phon e Number [facility]PATH documented in this encounter Visit Diagnoses Diagnosis Lactic acidosis - Primary Acidosis Contusion of right lung, initial encount er ELEANOR (acute kidney injury) (HCC) Acute kidney failure, unspecified Dehydration documented in this encounter Administered Medications Inactive Administered Medications Medication Order MAR Action Action Date Dose Rate Site iohexol (Omnipaque) 350 MG/ML 125 Given 04/10/2020 5:55 PM CDT 1 25 mL mL 125 mL, IV Push, ONCE, 1 dose, On 04/10/20 at 1800 lactated ringers infusion New Bag 04/10/2020 7:53 PM CDT 999 mL/hr Intravenous, at 125 mL/hr, CONTINUOUS, Starting on 04/10/20 at 2000, Until 04/11/20 at 0113 sodium chloride 0.9% New Bag by Other 04/10/2020 5:00 PM CDT 1,000 mL 1000 mL/hr (NS) infusion 1,000 mL 1,000 mL, Intravenous, at 1,000 mL/hr, ONCE, 1 dose, On 04/10/20 at 1830 sodium chloride 0.9% BOLUS BAG New Bag 04/10/2020 6:14 PM CDT 1,000 mL 1000 mL/hr 1,000 mL 1,000 mL, Intravenous, at 1,000 mL/hr, ONCE, 1 dose, On 04/10/20 at 1830 sodium chloride 0.9% IV FLUSH (NS) SYRINGE 10 Given 5:51 PM CDT 10 mL mL 10 mL, IV Flush, ONCE, 1 dose, On 04/10/20 at 1800 sodium chloride 0.9% IV FLUSH (NS) SYRINGE 10 Given 5:55 PM CDT 10 mL mL 10 mL, IV Flush, ONCE, 1 dose, On 04/10/20 at 1800 documented in this encounter Historical Medications This list may reflect changes made after this encounter. Medication Sig Dispensed Refills Start Date End Date [facility] Natural Products (MATURE Take by mouth. 0 PAYAL HERBAL REMEDY OR) added in this encounter Active and Recently Administered Medications Times are shown in CDT. Scheduled Medication Order 04/08/2020 04/09/2020 04/10/2020 iohexol (Omnipaque) 350 MG/ML 125 mL (COMPLETED) 1755 (Given - Provider: Emory Elizabeth, RT(R)) 125 mL, IV Push, ONCE, 1 dose, 04/10/20 at 1800 sodium chloride 0.9% (NS) infusion 1,000 mL (COMPLETED) 1700 (New Bag by Other - Provider: Lyndsay Moyer RN)1807 (Stopped - Provider: Lyndsay Moyer, EMLISSA) 1,000 mL, Intravenous, at 1,000 mL/hr, ONCE, 1 dose, 04/10/20 at 1830 sodium chloride 0.9% BOLUS BAG 1,000 mL (COMPLETED) 1813 (New Bag - Provider: Lyndsay Moyer, MELISSA)1922 (Stopped - Provider: Polina Beck RN) 1,000 mL, Intravenous, at 1,000 mL/hr, ONCE, 1 dose, 04/10/20 at 1830 sodium chloride 0.9% IV FLUSH (NS) SYRINGE 10 mL (COMPLETED) 175 (Given - Provider: Emory Elizabeth RT(R)) 10 mL, IV Flush, ONCE, 1 dose, 04/10/20 at 1800 sodium chloride 0.9% IV FLUSH (NS) SYRINGE 10 mL (COMPLETED) 175 (Given - Provider: Emory Elizabeth, RT(R)) 10 mL, IV Flush, ONCE, 1 dose, 04/10/20 at 1800 Continuous Medication Order 04/08/2020 04/09/2020 04/10/2020 lactated ringers infusion 1952 ( New Bag - Provider: Polina Beck RN - Comment: Dionne)2109 (Stopped - Provider: Polina Beck RN) Intravenous, at 125 mL/hr, CONTINUOUS, S tarting on 04/10/20 at 2000, Until 04/11/20 at 0113 documented in this encounter
--- OUTSIDE RECORDS SUMMARY | 2022-06-30 15:46 | XMS_ITS | Encounter Summary ---
:1999 Author Organization [facility] Address [address] [place] [address] Phone Care Team Providers Name Role Phone Unavailable Primary Care Provider Unavailable Encounter Details Date Type Department Care Team Description 07/16/2020 Lab Requisition INDEPENDENT Pradip Montelongo, Contact wi and LAB-VICTOR MANUEL SANCHEZ (suspected) exposure [address] [place] [address] [facility] communicable diseases [phone] [place], [place] [id number] Social History Tobacco Use Types Packs/Day Years Used Date Never Assessed Sex Assigned at Date Recorded Not on file documented as of this encounter Plan of Treatment Not on filedocumented as of this encounter Procedures Procedure Name Priority Date/Time Associated Diagnosis Comme nts SARS-COV-2 RNA Routine 07/19/2020 2:45 PM Contact with and Res ults for this (COVID-19), [facility] (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 documented in this encounter Results SARS-COV-2 RNA (COVID-19) - (COVID) (07/19/2020 2:45 PM [facility]) [facility] Method Time Signature SARS-CoV-2 Undetected Undetected 07/21/2020 [facility] RNA 8:36 PM [facility] (COVID-19) Comment: SARS-CoV-2 RNA absent. This result does not rule out COVID-19 in the patient, as the sensitiv ity of the test depends on the timing of the specimen co llection and the quality of the specimen. Result should b e correlated with patient's history and clinical presentat ion. SARS-CoV-2 RNA Method SEE COMMENTS 07/21/2020 8:36 PM [facility] Summary [facility] Comment: THFSH- This test uses the TaqPath COVID- 19 Combo Kit ([employer] and is performed on the Glowbl magnetic particle processor and Applied PlaceIQ 7500 Fast Dx Real-Time PCR System. It has rec eived Emergency Use Authorization (EUA) by the U.S. Food and Drug Administration. Performance characterist ics were verified by [facility] in a manner consistent wi CLIA requirements. Fact sheets for this Emergency Use Autho rization (EUA) can be found at the following links: https://www.fda.gov/media/510366/downloa d for Healthcare Providers https://www.fda.gov/media/041946/downloa d for Patients Test Performed by: [place] [id number] Supervisor Gluing: Presley Colin M.D. Ph. D.; CLIA# [id number] Source Nares 07/21/2020 8:36 PM [facility] Patient Race Refused 07/21/2020 8:36 PM [facility] Patient Ethnicity Refused 07/21/2020 8:36 PM [facility] Specimen Anatomical Collection Method Collection Time Receive d Time (Source) Location / / Volume Laterality Swab ENTIRE ANTERIOR 07/19/2020 2:45 PM 2019 6:21 NARIS / Unknown [facility] PM [facility] Pradip Montelongo MD [facility] PATHOLOGY ORDERABLES Performing Organization Address City/State/ZIP Code Phon e Number [place] [phone] documented in this encounter Visit Diagnoses Diagnosis Contact with and (suspected) exposure to other viral communicable diseases documented in this encounter Additional Health Concerns Infection Onset Date Last Indicated Resolved Time COVID-19 Confirmed 09/03/2020 09/03/2020 10/03/2020 11 :06 PM [facility] documented as of this encounter
--- OUTSIDE RECORDS SUMMARY | 2022-06-30 15:46 | XMS_ITS | Encounter Summary ---
:1999 Author Organization [facility] Address [address] [place] [address] Phone Care Team Providers Name Role Phone Unavailable Primary Care Provider Unavailable Encounter Details Date Type Department Care Team Description 08/19/2020 Lab Requisition INDEPENDENT Pradip Montelongo, Contact wi and [facility]-[place] SANCHEZ (suspected) exposure [address] [place] [address] [place] communicable diseases [phone] [place] [id number] Social History Tobacco Use Types Packs/Day Years [...] Confirmed 09/03/2020 09/03/2020 10/03/2020 11 :06 PM PAROLE HEARING OFFICER documented as of this encounter
[2022-06-30 17:23] LABS: Chloride* 101 mmol/L (96-114); Potassium* 4.7 mmol/L (3.6-5.1); Sodium* 141 mmol/L (135-149)
[2022-06-30 17:25] LABS: Carbon Dioxide* 30 mmol/L (20-32); Cholesterol* 149 mg/dL (90-199); Creatinine* 1.1 mg/dL (0.5-1.5); Estimated Glomerular Filt Rate 97 ml/min
[2022-06-30 17:26] LABS: Alanine Aminotransferase* 13 U/L (4-50); Alkaline Phosphatase* 78 U/L (40-150); Aspartate Amino Transferase* 23 U/L (12-35); Bilirubin Direct* 0.2 mg/dL (0.0-0.5); Bilirubin Total* 0.6 mg/dL (0.1-1.5); Blood Urea Nitrogen* 14 mg/dL (5-24); Calcium* 10.1 mg/dL (8.4-10.6); Glucose* 102 mg/dL (60-115); Total Protein* 7.6 g/dL (6.0-8.3); Triglycerides* 153 mg/dL (40-149)
[2022-06-30 17:27] LABS: HDL Cholesterol* 57 mg/dL (>=40); LDL Cholesterol Calculated 61 mg/dL (<100)
== END 2022-06-30 15:31 | disposition home or self-care (01) ==
PROVIDERS: PCP Family Medicine; Visit Provider Internal Medicine Cardiovascular Disease
DX: I10 Essential (primary) hypertension (principal)
CPT/HCPCS: 80048; 80061; 80076; 83835; 84443

== ENCOUNTER 2022-07-04 09:18 | Outpatient (CLI) | payer BC, SELFPAY ==
--- OUTSIDE RECORDS SUMMARY | 2022-07-04 09:20 | XMS_ITS | Encounter Summary ---
:1999 Author [facility] Address [address] [address] Care Team Providers Name Role Phone Corinne Hazel MD Primary Care Provider Encounter Details Date Type Department Care Team Description 10/31/2020 Notes/Orders [facility] Kilo Sky MD 8[address] [facility] [address] [place] [address] [place] [address] [phone] (Wo rk) Social History Tobacco Use Types [...] on filedocumented in this encounter Care Teams Director Hair Relationship Specialty Start Date End Date Corinne Hazel MD PCP - General 12/19/10 1415 [facility] [place] [id number] documented as of this encounter
--- OUTSIDE RECORDS SUMMARY | 2022-07-04 09:20 | XMS_ITS | Clinical Summary ---
:1999 Author [facility] Address [address], [place] [address] Care Team Providers Name Role Phone Corinne [...] for each transition of care or referral. [employer] Allergies No known active allergies Medications Medication [...] left proximal tibia 07/15/2015 Osteochondritis dissecans 07/15/2015 [place]-Schlatter's disease 03/29/2015 Allergic rhinitis 04/16/2012 Overview: Allergic [...] 03/14/2000, 01/11/2000 Influenza IIV4 (Quadrivalent) 0.5mL 07/08/2015 (86117) Influenza, Unspecified Formulation 07/14/2003, 09/23/2001, 1 10/15/2000 [...] Comments Blood Pressure 130/63 09/05/2018 3:54 PM QUEBRACHO TANNER Pulse 86 09/05/2018 3:54 PM [facility]BR[facility]O TANNER Temperature 36.3 ??C (97.4 ??F) 09/05/2018 3:50 PM QUEBRACHO TANNER Respiratory Rate 16 09/05/2018 3:50 PM QUEBRACHO TANNER Oxygen Saturation 100% 09/05/2018 3:50 PM QUEBRACHO TANNER Inhaled Oxygen Concentration - - Weight 73.5 kg (162 lb) 09/05/2018 10:30 AM QUEBRACHO TANNER Height 180.3 cm (5' 11) 09/05/2018 10:30 AM QUEBRACHO TANNER Body Mass Index 22.59 09/05/2018 10:30 AM QUEBRACHO TANNER Plan of Treatment Health Maintenance Due Date [...] 07/08/2015, 03/26/2015 Medical Devices Implanted Type Area College Counselor Device Shelf Model / Identifier Expiration Date Ser ial / Lot Bio-Compression Screw DEVICE Left: 04/16/20 19 [id number] / Implanted: Qty: 1 on 09/05/2018 by Kilo Gregg MD at [facility] 00 / [id number] Insurance Payer Benefit Subscriber ID Effective Phone Address Type Plan / Dates Group [facility] [id number] 2019-Pre [phone] [phone] [place] [address] Advance Directives Latest Code Status on File Code Status Date Activated Date Inactivated Comments Full Code 09/05/2018 12:08 PM 09/05/2018 7:17 PM Full code in effect for 30 days Care Teams Religion Department Chair Relationship Specialty Start Date End Date Corinne Hazel MD PCP - General 12/19/10 1415 [place] [id number]
--- OUTSIDE RECORDS SUMMARY | 2022-07-04 09:21 | XMS_ITS | Encounter Summary ---
:1999 Author Organization [facility] Address [address] [place] [address] Care Team Providers Name Role Phone Corinne Hazel MD Primary Care Provider Encounter Details Date Type Department Care Team Description 04/06/2016 [facility] 3931 Osteoc hondritis dessicans Radiology X-ray 3931 [place] [address] Social History Tobacco Use Types Packs/Day Years [...] dissecans documented in this encounter Care Teams Rig Hand Relationship Specialty Start Date End Date Corinne Hazel MD PCP - General 12/19/10 1415 [facility] [place] [id number] documented as of this encounter
--- OUTSIDE RECORDS SUMMARY | 2022-07-04 09:21 | XMS_ITS | Encounter Summary ---
:1999 Author Organization [facility] Address [address] [place] [address] Care Team Providers Name Role Phone Corinne Hazel MD Primary Care Provider Encounter Details Date Type Department Care Team Description 11/29/2015 [facility] Brian Brennan Osteochondr itis Encounter Radiology MRI PMD dessicans [address] [facility] [address] [phone] Social History Tobacco Use Types Packs/Day Years [...] dissecans documented in this encounter Care Teams Acoustical Tile Carpenters Supervisor Relationship Specialty Start Date End Date Corinne Hazel MD PCP - General 12/19/[address] [place] [address] documented as of this encounter
--- OUTSIDE RECORDS SUMMARY | 2022-07-04 09:21 | XMS_ITS | Encounter Summary ---
:1999 Author Organization [facility] Address [address] [place] [address] Care Team Providers Name Role Phone Corinne Hazel MD Primary Care Provider Encounter Details Date Type Department Care Team Description 11/29/2015 Hospital [facility] Brian Brennan Osteochondr itis Encounter Radiology PMD dessicans [address] [facility] [address] [phone] Social History Tobacco Use Types Packs/Day Years [...] without complication. Brian Brennan MD [facility] documented in this encounter Visit Diagnoses Diagnosis Osteochondritis dessicans Osteochondritis dissecans documented in this encounter Care Teams Policy Value Calculator Relationship Specialty Start Date End Date Corinne Hazel MD PCP - General 12/19/[address] [place], [place] [address] [place] [id number] documented as of this encounter
--- OUTSIDE RECORDS SUMMARY | 2022-07-04 09:21 | XMS_ITS | Encounter Summary ---
:1999 [facility] Address [address] [address] Care Team Providers Name Role Phone Corinne Hazel MD Primary Care Provider Reason for Visit Reason Comments Knee Pain or Injury left Encounter Details Date Type Department Care Team Description 03/11/2018 Office Visit Specialty Center Brian Brennan, Oste ochondritis 3931 JOHN SANCHEZ dissecans of knee, left Orthopedics [address] [place] [address] (Primary Dx) 3931 [facility], [address] [place] [address] [phone] Social History Tobacco Use Types Packs/Day Years [...] 5:32 PM CDT NAME: MICAH HIGH MR#: [id number] CSN: [id number] AUTHENTICATING CLINICIAN: Brian Brennan MD CONFIRM #: [id number] LOC: 211 CLINIC PROGRESS NOTE DATE OF [...] school senior, going off to college to [employer] in the fall of 2018. He was [...] sports for his local high school in [place], [place] in [facility]. He is doing well.He has developed [...] typically in my practice Jeff wynn at [facility], would do. The images themselves, however, [...] in a deep crouch, and he worksin [employer] this summer. He is now walking back [...] a p.r.n. basis. SPE:MEDQ C: CONFIRM #: [id number] documented in this encounter Plan of Treatment Not on filedocumented as of this encounter Visit Diagnoses Diagnosis Osteochondritis dissecans of knee, left - Primary documented in this encounter Care Teams Sales Department Supervisor Relationship Specialty Start Date End Date Corinne Hazel MD PCP - General 12/19/10 1415 [facility] [place] [id number] documented as of this encounter
--- OUTSIDE RECORDS SUMMARY | 2022-07-04 09:21 | XMS_ITS | Encounter Summary ---
:1999 Author [facility] Address [address] [place] [address] Care Team Providers Name Role Phone Corinne Hazel MD Primary Care Provider Encounter Details Date Type Department Care Team Description 09/05/2018 Anesthesia Event [facility] Jorge A Rdz MD [address] [place], [place] [address] 8100 [facility] Avinash Neff MD [address] [place], [place] [address] [place], [place] [address] Anesthesia Record Procedure Summary Procedure Name Responsible Anesthesia Start Anesthesia Stop Anesthesiologist Time Time LEFT knee diagnostic Jorge A Rdz MD 09/05/18 1243 1449 arthroscopy and open reduction internal fixation of osteochondral lesion (Left: Knee) Events Date Time Event Comment 09/05/2018 1128 IV plmt Kaleb Beach am, APRN, SHIP JOINER 1133 IV Plmt Comp IV was placed in Preop area by Kaleb Jacobson APRN, SHIP JOINER for a dministration of IV fluids, IV antibiotics, and IV pre-op sedation. Patient was continuously mon itored by Kaleb Jacobson APRN, SHIP JOINER during the placement. 1243 1243 An Start [...] Kaleb Jacobson, Toshia Wellington RN Pre-existing: No; INTERMEDIATE MANAGER, LARY Inserted by?: SHIP JOINER; Size (Gauge): 20 G; Orientation: Left; Site Prep: Alcohol; Local Anesthetic: Injectable, Lidocaine 1%; Insertion attempts: 1; Blood draw with insertion?: no; Patient Tolerance: Tolerated well; Removal Date: 09/05/18; Removal Time: 171; Removal Reason: Patient discharged LMA Placement Date: 09/05/18 1252 by 09/05/18 1443 b y 09/05/18; Placement Kaleb Jacobson, Kaleb Jacobson, Time: 1252; Placed By: LARY BAILEY [...] Kaleb Jacobson APRN, CRNA Intraprocedure Staff edited ERTY ANALYST documented in this encounter Miscellaneous Notes Anesthesia [...] Jorge A Rdz MD 09/05/2018 4:17 PM ERTY ANALYST Anesthesia Preprocedure Evaluation - Jorge A Rdz [...] Jorge A Rdz MD 09/05/2018 11:51 AM ERTY ANALYST documented in this encounter Plan of Treatment Not on filedocumented as of this encounter Visit Diagnoses Not on filedocumented in this encounter Administered Medications Inactive Administered Medications - up to 3 most recent administrations Medication Order MAR Action Action Date Dose Rate Site dexamethasone (aka DECADRON) Given 09/05/2018 1:12 PM PROPERTY ANALYST 4 mg injection Intravenous, Starting on Luanne 18 at 1312 fentaNYL (SUBLIMAZE) injection Given 09/05/2018 1:04 PM PROPERTY ANALYST 50 mcg Intravenous, Starting on Luanne 09/05/18 at 1243 Given 09/05/2018 12:43 PM PROPERTY ANALYST 50 mcg glycopyrrolate (aka ROBINUL) injection Given 09/05/2018 12:54 PM PROPERTY ANALYST 0.2 mg Intravenous, Starting on Luanne 09/05/18 at 1254 HYDROmorphone (DILAUDID) injection Given 09/05/2018 2:12 PM PROPERTY ANALYST 0.5 mg Starting on Luanne 09/05/18 at 1354, Until Luanne 09/05/18 at 1449 Given 09/05/2018 1:59 PM PROPERTY ANALYST 0.5 mg Given 09/05/2018 1:54 PM PROPERTY ANALYST 0.5 mg ketorolac (TORADOL) injection Given 09/05/2018 12:58 PM PROPERTY ANALYST 30 mg Intravenous, Starting on Luanne 09/05/18 at 1258, Until Luanne 09/05/18 at 1449 lactated ringers infusion Started 09/05/2018 2:02 PM PROPERTY ANALYST Starting on Luanne 09/05/18 at 1133 Started 09/05/2018 11:33 AM PROPERTY ANALYST lidocaine 2% PF (XYLOCAINE) injection Given 09/05/2018 12:50 PM PROPERTY ANALYST 60 mg Intravenous, Starting on Luanne 09/05/18 at 1250, Until Luanne 09/05/18 at 1449 midazolam (aka VERSED) injection Given 09/05/2018 12:43 PM PROPERTY ANALYST 2 mg Intravenous, Starting on Luanne 09/05/18 at 1243 ondansetron (ZOFRAN) injection Given 09/05/2018 2:24 PM PROPERTY ANALYST 4 mg Intravenous, Starting on Luanne 09/05/18 at 1424, Until Luanne 09/05/18 at 1449 propofol (aka diPRIvan) injection Given 09/05/2018 12:50 PM PROPERTY ANALYST 280 mg Intravenous, Starting on Luanne 09/05/18 at 1250 propofol (aka diPRIvan) Rate/Dose 09/05/2018 2:25 40 mcg/kg/min 17.6 4 injection Change PM PROPERTY ANALYST mL/hr Intravenous, Starting on Luanne 09/05/18 at 1250 Rate/Dose Change 09/05/2018 2:15 PM PROPERTY ANALYST 80 mcg/kg/min 35.28 mL/hr Rate/Dose Change 09/05/2018 1:15 PM PROPERTY ANALYST 120 mcg/kg/min 52.92 mL/hr documented in this encounter Care Teams Entertainment Usher Relationship Specialty Start Date End Date Corinne Hazel MD PCP - General 12/19/10 1415 [facility] [place] [phone] documented as of this encounter
--- OUTSIDE RECORDS SUMMARY | 2022-07-04 09:21 | XMS_ITS | Encounter Summary ---
:1999 [facility] Address [address] [address] Care Team Providers Name Role Phone Corinne Hazel MD Primary Care Provider Reason for Visit Reason Comments Knee Pain or Injury Encounter Details Date Type Department Care Team Description 04/06/2016 Office Visit Specialty Center Brian Brennan, Oste ochondritis [address] (Primary Dx) Orthopedics [address] [place] [address], [address] [place] [address] [phone] Social History Tobacco Use Types Packs/Day Years [...] signed by Brian Brennan MD at 05/12/16 2250 Author: Brian Brennan MD Service: (none) Author Type: Physician Filed: 05/12/16 1310 Note Time: 05/12/16 1305 Status: Signed Perennial House Manager: Brian Brennan MD (Physician) NAME: MICAH HIGH MR#: [id number] CSN: [id number] AUTHENTICATING CLINICIAN: Brian Brennan MD CONFIRM #: [id number] LOC: 211 CLINIC PROGRESS NOTE DATE OF [...] years of age. SPE:MEDJacinda C: CONFIRM #: [id number] documented in this encounter Plan of Treatment Not on filedocumented as of this encounter Visit Diagnoses Diagnosis Osteochondritis dessicans - Primary Osteochondritis dissecans documented in this encounter Care Teams Flap Maker Relationship Specialty Start Date End Date Corinne Hazel MD PCP - General 12/19/10 [facility]5 [facility] [place] [id number] documented as of this encounter
--- OUTSIDE RECORDS SUMMARY | 2022-07-04 09:21 | XMS_ITS | Encounter Summary ---
:1999 Author Organization [facility] Address [address], [place] [address] Care Team Providers Name Role Phone Corinne Hazel MD Primary Care Provider Reason for Visit Procedure/Equipment (Routine) - Incomplete Specialty Diagnoses / Procedures Referred By Contact Refer red To Contact Diagnoses Osteochondritis dessicans Brian Brennan MD Procedures XR Knee Lt 4 Views 200 [place] [address] Referral ID Status Reason Start Date Expiration Date Visits V isits Requested Authorized [id number] Incomplete 07/20/2016 10/19/2017 1 1 Encounter Details Date Type Department Care Team Description 07/20/2016 [facility] 3931 Brian Brennan, Osteochondritis dessicans Radiology X-ray 3931 [facility] 200 [place], [place] [address] [place] [address] [id number] Social History Tobacco Use Types Packs/Day Years [...] dissecans documented in this encounter Care Teams Drama Therapist Relationship Specialty Start Date End Date Corinne Hazel MD PCP - General 12/19/10 1415 [facility] [place] [id number] documented as of this encounter
--- OUTSIDE RECORDS SUMMARY | 2022-07-04 09:21 | XMS_ITS | Encounter Summary ---
:1999 Author Organization [facility] Address [address] [place] [address] Care Team Providers Name Role Phone Corinne Hazel MD Primary Care Provider Encounter Details Date Type Department Care Team Description 09/05/2018 Surgery [facility] Kilo Gregg MD LEFT knee diagnostic 8100 [facility] [place] [address] arthroscopy and open [place], [place] [address] [place], [place] reduction internal [phone] fixation of [phone] (Wo rk) osteochondral lesion Social History Tobacco [...] Comments Blood Pressure 152/82 09/05/2018 10:30 AM BUSINESS TECHNOLOGY ARCHITECT Pulse 76 09/05/2018 10:30 AM BUSINESS TECHNOLOGY ARCHITECT Temperature 36.8 ??C (98.2 ??F) 09/05/2018 10:30 AM BUSINESS TECHNOLOGY ARCHITECT Respiratory Rate 16 09/05/2018 10:30 AM BUSINESS TECHNOLOGY ARCHITECT Oxygen Saturation 100% 09/05/2018 10:30 AM BUSINESS TECHNOLOGY ARCHITECT Inhaled Oxygen Concentration - - Weight 73.5 kg (162 lb) 09/05/2018 10:30 AM BUSINESS TECHNOLOGY ARCHITECT Height 180.3 cm (5' 11) 09/05/2018 10:30 AM BUSINESS TECHNOLOGY ARCHITECT Body Mass Index 22.59 09/05/2018 10:30 AM BUSINESS TECHNOLOGY ARCHITECT Body Mass Index Percentile 52.86 % 09/05/2018 10:[address] Growth Chart: [facility] (Boys, 2-20 Years) documented in this [...] Understanding Pain Patient take-homes: Brace Ice pack(s) NESS TECHNOLOGY ARCHITECT documented in this encounter Medications at Time [...] examined today. Nointerval changes. Kilo Gregg MD NESS TECHNOLOGY ARCHITECT documented in this encounter Procedure Notes Kilo [...] / Findings: See dictation Kilo Gregg MD NESS TECHNOLOGY ARCHITECT Kilo Gregg MD - 09/05/2018 12:00 PM CST NAME: HAYES HIGH MR#: [id number] CSN: [id number] AUTHENTICATING CLINICIAN: Kilo Gregg MD CONFIRM #: [id number] LOC: 725 OPERATIVE REPORT DATE OF OPERATION: [...] LOSS: 10 mL. SPECIMENS: None. ANESTHESIA: General. CUTTER WET MACHINE: GALINA Burns COMPLICATIONS: None. INDICATIONS: Mr. High [...] repeat clinical check. RTM:MEDQ C: R:09/05/18 15:03 CONFIRM#:[id number] NESS TECHNOLOGY ARCHITECT documented in this encounter Plan of [...] PM Knee pain, l eft REPAIR OSTEOCHONDRAL BUSINESS TECHNOLOGY ARCHITECT LESION documented in this encounter Visit Diagnoses Diagnosis Knee pain, left Pain in joint, lower leg documented in this encounter Administered Medications Inactive Administered Medications - up to 3 most recent administrations Medication Order MAR Action Action Date Dose Rate Site bupivacaine-epinephrine PF Given 09/05/2018 1:07 PM BUSINESS TECHNOLOGY ARCHITECT 9 mL Left Knee (SENSORCAINE) 0.5% -1:879993 injection ONCE PRN, Starting on Luanne 09/05/18 at 1307, Until Luanne 09/05/18 at 1912, Intra-op diphenhydrAMINE (BENADRYL) injection 25- 50 mg Given 09/05/2018 3:00 PM BUSINESS TECHNOLOGY ARCHITECT 25 mg 25-50 mg, Intravenous, Q6H PRN, Itching, Starting on Luanne 09/05/18 at 1524, Until Luanne 09/05/18 at 1912, PACU & Post-op EPINEPHrine 1 mg in sodium chloride 0.9 Given 09/05/2018 1:11 PM BUSINESS TECHNOLOGY ARCHITECT 1 mL Left Knee % 3,000 mL ONCE PRN, Starting on Luanne 09/05/18 at 1311, Intra-op fentaNYL (SUBLIMAZE) injection 25-100 mc g 25-100 mcg, Intravenous, [id number], Pain, Sedation, Pro cedure, Severe Pain (pain score 8-10), Starting on Luanne 09/05/18 at 1522, Until Luanne 09/05/18 at 1911, Notify Anesthesiologist if total cumulative dose in excess of 250 mcg., Pre-op fentaNYL (SUBLIMAZE) injection 25-50 mcg 25-50 mcg, Intravenous, [id number], Other, Moderate to Severe Pain (pain score [...] (DEMEROL) injection 12.5 mg 12.5 mg, Intravenous, [id number], Shiverin g, Starting on Luanne 09/05/18 at 1053, Until Luanne 09/05/18 at 1912, For 2 doses, Maxim um cumulative dose is 25 mg. Do not give to patients receiving MAO inhibitors (e.g. phenelzine (NA RDIL), tranylcypromine (PARNATE), selegiline (ELDEPRYL))., PACU/Recovery midazolam (VERSED) injection 1-2 mg 1-2 mg, Intravenous, [id number], Sedation, Anxiety, Proc edure, Starting on Luanne 09/05/18 at 1522, Until Luanne 09/05/18 at 1912, MAX Dose 2mg, Pre-op morphine injectable 1-2 mg 1-2 mg, Intravenous, [id number], Other, Moderate to Malissa re Pain (pain [...] ropivacaine (NAROPIN) injection Given 09/05/2018 2:15 PM BUSINESS TECHNOLOGY ARCHITECT 30 mL Left Knee ONCE PRN, Starting on Luanne 09/05/18 at 1415, Until Luanne 09/05/18 at 1912, Intra-op documented in this encounter Active and Recently Administered Medications Times are shown in BUSINESS TECHNOLOGY ARCHITECT. Scheduled Medication Order 09/03/2018 09/04/2018 09/05/2018 ceFAZolin [...] pain scores)., Post-op bupivacaine-epinephrine PF (SENSORCAINE) 0.5% -1:296589 injectio n 1307 (Given - Provider: Kilo [...] (SUBLIMAZE) injection 25-100 mcg 25-100 mcg, Intravenous, [id number], Pain, Sedation, Procedure, Severe Pain (pain score 8-10), Starting Luanne 09/05/18 at 1522, Notify Anesthesiologist if total cumulative dose in excess of 250 mcg., Pre-op fentaNYL (SUBLIMAZE) injection 25-50 mcg 25-50 mcg, Intravenous, [id number], Other, Moderate to Severe Pain (pain score [...] (DEMEROL) injection 12.5 mg 12.5 mg, Intravenous, [id number], Shiverin g, Starting Luanne 09/05/18 at 1053, For 2 doses, Maximum cumulative dose is 25 mg. Do not give to patients receiving MAO inhibitors (e.g. phenelzine (NARDIL), trany lcypromine (PARNATE), selegiline (ELDEPRYL))., PACU/Recovery midazolam (VERSED) injection 1-2 mg 1-2 mg, Intravenous, T2FVMZBI, Sedation, Anxiety, Procedure, Starting Luanne 09/05/18 at 1522, MAX Dose 2mg, Pre-op morphine injectable 1-2 mg 1-2 mg, Intravenous, [id number], Other, Mo derate to Severe Pain (pain [...] Intra-op documented in this encounter Care Teams Scale Clerk Relationship Specialty Start Date End Date Corinne Hazel MD PCP - General 12/19/10 1415 [facility] [place] [id number] documented as of this encounter
--- OUTSIDE RECORDS SUMMARY | 2022-07-04 09:21 | XMS_ITS | Encounter Summary ---
:1999 Author Organization [facility] Address [address] [address] Care Team Providers Name Role Phone Corinne Hazel MD Primary Care Provider Encounter Details Date Type Department Care Team Description 09/05/2018 Hospital Encounter [facility] Kilo Gregg MD [address] [facility] [address] [place] [address] [place], [place] [address] [place], [place] [phone] (Wo rk) Social History Tobacco Use Types [...] Comments Blood Pressure 130/63 09/05/2018 3:54 PM SPOT WORKER Pulse 86 09/05/2018 3:54 PM SPOT WORKER Temperature 36.3 ??C (97.4 ??F) 09/05/2018 3:50 PM SPOT WORKER Respiratory Rate 16 09/05/2018 3:50 PM SPOT WORKER Oxygen Saturation 100% 09/05/2018 3:50 PM SPOT WORKER Inhaled Oxygen Concentration - - Weight 73.5 kg (162 lb) 09/05/2018 10:30 AM SPOT WORKER Height 180.3 cm (5' 11) 09/05/2018 10:30 AM SPOT WORKER Body Mass Index 22.59 09/05/2018 10:30 AM SPOT WORKER Body Mass Index Percentile 52.86 % 09/05/2018 10:[address] Growth Chart: [facility][NOTE 3] (Boys, 2-20 Years) documented in this encounter [...] Understanding Pain Patient take-homes: Brace Ice pack(s) WORKER documented in this encounter Medications at Time [...] examined today. Nointerval changes. Kilo Gregg MD WORKER documented in this encounter Procedure Notes Kilo [...] / Findings: See dictation Kilo Gregg MD WORKER Kilo Gregg MD - 09/05/2018 12:00 PM CST NAME: HAYES HIGH MR#: [id number] CSN: [id number] AUTHENTICATING CLINICIAN: Kilo Gregg MD CONFIRM #: [id number] LOC: 725 OPERATIVE REPORT DATE OF OPERATION: [...] LOSS: 10 mL. SPECIMENS: None. ANESTHESIA: General. FARM MACHINERY MECHANIC: GALINA Burns COMPLICATIONS: None. INDICATIONS: Mr. High [...] repeat clinical check. RTM:MEDQ C: R:09/05/18 15:03 CONFIRM#:[id number] WORKER documented in this encounter Plan of Treatment Scheduled Orders Name Type Priority Associated Diagnoses Order S chedule POCT Glucose: Point of Care Routine Once today st arting now for 1 Occurrences s tarting 09/05/2018 unti l 09/05/2018 documented as of this encounter Procedures Procedure Name Priority Date/Time Associated Diagnosis Comme nts KNEE ARTHROSCOPY WITH 09/05/2018 12:47 PM Knee pain, l eft REPAIR OSTEOCHONDRAL SPOT WORKER LESION documented in this encounter Visit Diagnoses Not on filedocumented in this encounter Administered Medications Inactive Administered Medications - up to 3 most recent administrations Medication Order MAR Action Action Date Dose Rate Site bupivacaine-epinephrine PF Given 09/05/2018 1:07 PM SPOT WORKER 9 mL Left Knee (SENSORCAINE) 0.5% -1:068768 injection ONCE PRN, Starting on Luanne 09/05/18 at 1307, Until Luanne 09/05/18 at 1912, Intra-op diphenhydrAMINE (BENADRYL) injection 25- 50 mg Given 09/05/2018 3:00 PM SPOT WORKER 25 mg 25-50 mg, Intravenous, Q6H PRN, Itching, Starting on Luanne 09/05/18 at 1524, Until Luanne 09/05/18 at 1912, PACU & Post-op EPINEPHrine 1 mg in sodium chloride 0.9 Given 09/05/2018 1:11 PM SPOT WORKER 1 mL Left Knee % 3,000 mL ONCE PRN, Starting on Luanne 09/05/18 at 1311, Intra-op fentaNYL (SUBLIMAZE) injection 25-100 mc g 25-100 mcg, Intravenous, [id number], Pain, Sedation, Pro cedure, Severe Pain (pain score 8-10), Starting on Luanne 09/05/18 at 1522, Until Luanne 09/05/18 at 1911, Notify Anesthesiologist if total cumulative dose in excess of 250 mcg., Pre-op fentaNYL (SUBLIMAZE) injection 25-50 mcg 25-50 mcg, Intravenous, [id number], Other, Moderate to Severe Pain (pain score [...] (DEMEROL) injection 12.5 mg 12.5 mg, Intravenous, [id number], Shiverin g, Starting on Luanne 09/05/18 at 1053, Until Luanne 09/05/18 at 1911, For 2 doses, Maxim um cumulative dose is 25 mg. Do not give to patients receiving MAO inhibitors (e.g. phenelzine (NA RDIL), tranylcypromine (PARNATE), selegiline (ELDEPRYL))., PACU/Recovery midazolam (VERSED) injection 1-2 mg 1-2 mg, Intravenous, [id number], Sedation, Anxiety, Proc edure, Starting on Luanne 09/05/18 at 1522, Until Luanne 09/05/18 at 1911, MAX Dose 2mg, Pre-op morphine injectable 1-2 mg 1-2 mg, Intravenous, [id number], Other, Moderate to Malissa re Pain (pain [...] ropivacaine (NAROPIN) injection Given 09/05/2018 2:15 PM SPOT WORKER 30 mL Left Knee ONCE PRN, Starting on Luanne 09/05/18 at 1415, Until Luanne 09/05/18 at 1912, Intra-op documented in this encounter Active and Recently Administered Medications Times are shown in SPOT WORKER. Scheduled Medication Order 09/03/2018 09/04/2018 09/05/2018 ceFAZolin [...] pain scores)., Post-op bupivacaine-epinephrine PF (SENSORCAINE) 0.5% -1:535537 injectio n 1307 (Given - Provider: Kilo [...] (SUBLIMAZE) injection 25-100 mcg 25-100 mcg, Intravenous, [id number], Pain, Sedation, Procedure, Severe Pain (pain score 8-10), Starting Luanne 09/05/18 at 1522, Notify Anesthesiologist if total cumulative dose in excess of 250 mcg., Pre-op fentaNYL (SUBLIMAZE) injection 25-50 mcg 25-50 mcg, Intravenous, [id number], Other, Moderate to Severe Pain (pain score [...] (DEMEROL) injection 12.5 mg 12.5 mg, Intravenous, [id number], Shiverin g, Starting Luanne 09/05/18 at 1053, For 2 doses, Maximum cumulative dose is 25 mg. Do not give to patients receiving MAO inhibitors (e.g. phenelzine (NARDIL), trany lcypromine (PARNATE), selegiline (ELDEPRYL))., PACU/Recovery midazolam (VERSED) injection 1-2 mg 1-2 mg, Intravenous, [id number], Sedation, Anxiety, Procedure, Starting Luanne 09/05/18 at 1522, MAX Dose 2mg, Pre-op morphine injectable 1-2 mg 1-2 mg, Intravenous, [id number], Other, Mo derate to Severe Pain (pain [...] Intra-op documented in this encounter Care Teams Customer Relations Advisor Relationship Specialty Start Date End Date Corinne Hazel MD PCP - General 12/19/10 1415 [facility] [place] [address] documented as of this encounter
--- OUTSIDE RECORDS SUMMARY | 2022-07-04 09:21 | XMS_ITS | Encounter Summary ---
:[address] [facility] Address [address] [place] [address] Care Team Providers Name Role Phone Corinne Hazel MD Primary Care Provider Reason for Referral Therapies (Routine) - Closed Specialty Diagnoses / Procedures Referred By Contact Refer red To Contact Diagnoses Left [place], [place] [address] [place] [address] Referral ID Status Reason Start Date Expiration Date Visits Requ ested Visits Authorized [id number] Closed 09/05/2018 11/04/2018 1 1 Scheduling Instructions [...] ask your clinician's staff to assist you. INTERFACE DESIGNER Reason for Visit Reason Comments Knee Pain or Injury Encounter Details Date Type Department Care Team Description 09/05/2018 Notes/Orders [facility] Kilo Gregg MD Left knee pain, CENTER [address] [address] Garcia unspecified [address] [place], [place] chronicity (Primary [place], [place] [address] Dx) [phone] Social History Tobacco Use Types Packs/Day Years [...] Primary documented in this encounter Care Teams Meal Attendant Relationship Specialty Start Date End Date Corinne Hazel MD PCP - General 12/19/10 1415 [facility] [place] [id number] documented as of this encounter
--- OUTSIDE RECORDS SUMMARY | 2022-07-04 09:21 | XMS_ITS | Encounter Summary ---
:1999 Author Organization [facility] Address [address] [address] Care Team Providers Name Role Phone Corinne Hazel MD Primary Care Provider Reason for Visit Reason Comments Return Call Encounter Details Date Type Department Care Team Description 03/04/2018 Telephone Specialty Center [facility] JOHN Hinds nd, Brian Morales MD Return Call Orthopedics [address] [place] [address] [address] [place] [address] [place] [address] [phone] Social History Tobacco Use Types Packs/Day Years [...] company requires a prior auth. [employer] (ph.) [phone]. Ronda can be reached at [phone]. documented in this encounter Plan of Treatment Not on filedocumented as of this encounter Visit Diagnoses Not on filedocumented in this encounter Care Teams J2Ee Architect Relationship Specialty Start Date End Date Corinne Hazel MD PCP - General 12/19/10 [facility]15 [facility] [place] [id number] documented as of this encounter
--- OUTSIDE RECORDS SUMMARY | 2022-07-04 09:21 | XMS_ITS | Encounter Summary ---
:1999 Author Organization [facility] Address [address] [address] Care Team Providers Name Role Phone Corinne Hazel MD Primary Care Provider Reason for Visit Reason Comments ACNE Encounter Details Date Type Department Care Team Description 01/28/2016 Office Visit Batool Horta MD Acne vulgaris (Primary Dx); Dermatology [address] [place] [address] Nevus spis; [address] [facility] [place] [address] [place], [place] [phone] [address] Social History Tobacco Use Types Packs/Day Years [...] and he was instructed to purchase an wqkz-yud-qomusiu benzoyl peroxide wash for affected areas. He [...] direction. Entered on 01/28/2016 at 9:20 AM. CHING MACHINE OPERATOR Batool Urbina MD - 01/28/2016 12:46 PM [...] d documented in this encounter Care Teams Deputy Sheriff Generalist/Bailiff Relationship Specialty Start Date End Date Corinne Hazel MD PCP - General 12/19/10 1415 [facility] [address] documented as of this encounter
--- OUTSIDE RECORDS SUMMARY | 2022-07-04 09:21 | XMS_ITS | Encounter Summary ---
:1999 Author Organization [facility] Address [address], [place] [address] Care Team Providers Name Role Phone Corinne Hazel MD Primary Care Provider Reason for Visit Reason Comments Knee Pain or Injury L knee OCD lesion Encounter Details Date Type Department Care Team Description 05/02/2018 Office Visit [facility] Kilo Gregg, Osteocho ndritis CENTER dissecans of knee, left [address] [facility] [address] [place] [address] (Primary Dx) [place] [address] [phone] Social History Tobacco Use Types Packs/Day Years [...] 12:00 PM CDT NAME: MICAH HIGH MR#: [id number] CSN: [id number] AUTHENTICATING CLINICIAN: Kilo Gregg MD CONFIRM #: [id number] LOC: 711 CLINIC PROGRESS NOTE DATE OF [...] off to college as a freshman at [employer] in a couple weeks and would [...] MD DARIUS WETZEL RTM:MEDQ C: R:05/02/18 15:27 CONFIRM#:[id number] documented in this encounter Plan of Treatment Not on filedocumented as of this encounter Visit Diagnoses Diagnosis Osteochondritis dissecans of knee, left - Primary documented in this encounter Care Teams Felt Tipping Machine Tender Relationship Specialty Start Date End Date Corinne Hazel MD PCP - General 12/19/[address] [place] [address] [place] [address] documented as of this encounter
--- OUTSIDE RECORDS SUMMARY | 2022-07-04 09:21 | XMS_ITS | Encounter Summary ---
:1999 Author Organization [facility] Address [address], [place] [address] Care Team Providers Name Role Phone Corinne Hazel MD Primary Care Provider Reason for Visit Reason Onset Date Comments LETTER NEEDED 07/24/2016 Encounter Details Date Type Department Care Team Description 07/24/2016 Telephone Specialty Center [facility] Venkatesh Brennan MD LETTER NEEDED [facility] Orthopedics [address] [place] [address] [place] [address] [place] [address] [phone] Social History Tobacco Use Types Packs/Day Years [...] LPN - 07/24/2016 12:00 PM CST Faxed NG AND BORING MACHINE HELPER Renetta Winston RN - 07/24/2016 9:10 AM CST Jn needs a letter stating that he was in clinic on 07/20/16 for an appointment. Please fax to Joya at [phone]. NG AND BORING MACHINE HELPER documented in this encounter Plan of Treatment Not on filedocumented as of this encounter Visit Diagnoses Not on filedocumented in this encounter Care Teams Music Journalist Relationship Specialty Start Date End Date Corinne Hazel MD PCP - General 12/19/10 [facility] [place] [id number] documented as of this encounter
--- OUTSIDE RECORDS SUMMARY | 2022-07-04 09:21 | XMS_ITS | Encounter Summary ---
:1999 [facility] Address [address], [place] [address] Care Team Providers Name Role Phone Corinne Hazel MD Primary Care Provider Reason for Referral Procedure/Equipment (Routine) - Incomplete Specialty Diagnoses / Procedures Referred By Contact Refer red To Contact Diagnoses Osteochondritis gurpreetsicans Brian Brennan MD Procedures XR Knee Lt 4 Views [address] [place] [address] Referral ID Status Reason Start Date Expiration Date Visits V isits Requested Authorized [id number] Incomplete 07/20/2016 10/19/2017 1 1 Reason for Visit Reason Comments Knee Pain or Injury left Encounter Details Date Type Department Care Team Description 07/20/2016 Office Visit Specialty Center Brian Brennan, Oste ochondritis [address] (Primary Dx) Orthopedics [address] [place] [address] [phone] Social History Tobacco Use Types Packs/Day Years [...] 8:03 PM CST NAME: MICAH HIGH MR#: [id number] CSN: [id number] AUTHENTICATING CLINICIAN: Brian Brennan MD CONFIRM #: [id number] LOC: 211 CLINIC PROGRESS NOTE DATE OF [...] followup visits p.r.n. SPE:MEDQ C: CONFIRM #: [id number] ING CASE MANAGER documented in this encounter Plan of [...] dissecans documented in this encounter Care Teams Toolsmith Relationship Specialty Start Date End Date Corinne Hazel MD PCP - General 12/19/10 1415 [facility] [place] [phone] documented as of this encounter
--- OUTSIDE RECORDS SUMMARY | 2022-07-04 09:21 | XMS_ITS | Encounter Summary ---
:1999 Author Organization [facility] Address [address] [place] [address] Care Team Providers Name Role Phone Corinne Hazel MD Primary Care Provider Reason for Visit Reason Comments Knee Problem Encounter Details Date Type Department Care Team Description 09/13/2018 Office Visit [facility] Christiane Ku, Left kn ee pain, Center, Physical PT unspecified Therapy 8100 [facility] chronicity (Primary [address] [place], [place] Dx) W. [address] [place], [place] [address] [phone] Social History Tobacco Use Types Packs/Day Years [...] of infection Edema: Patellar tap test: pos [place] test: pos ROM (lzawezziq-vlb-xsaq): 0-0-30 Strength: Quad set: Poor - states he can feel the screws Supine SLR: Unable to lift leg unassisted Palpation: No tenderness Joint Mobility: Good patellar mobility Proprioception: Patient is non-weightbearing. TREATMENT TODAY: Physical Therapy Evaluation (CPT 04150): An evaluation was performed. The patient was determined to have low complexity based on history, examination, clinical presentation of the patient and the PT's clinical decision making. The patient was educated on the condition, planned therapy intervention and expectations from treatment. Goals were a collaborative effort of the therapist and patient. Therapeutic Exercise (CPT 11396) x 15 minutes: . gastroc stretch with [...] Christiane Ku PT 10:13 AM 09/13/2018 The manager mac is completed by the therapist and the referring clinician's electronic signature certifies medical necessity for the plan above. SCREEN FITTER documented in this encounter Plan of Treatment Not on filedocumented as of this encounter Visit Diagnoses Diagnosis Left knee pain, unspecified chronicity - Primary documented in this encounter Care Teams Gps Navigation Installer Relationship Specialty Start Date End Date Corinne Hazel MD PCP - General 12/19/10 1415 [facility] [place] [address] documented as of this encounter
--- OUTSIDE RECORDS SUMMARY | 2022-07-04 09:21 | XMS_ITS | Encounter Summary ---
:1999 Author Organization [facility] Address [address], [place] [address] Care Team Providers Name Role Phone Corinne Hazel MD Primary Care Provider Encounter Details Date Type Department Care Team Description 09/05/2018 Notes/Orders [facility] [address] Kilo Gregg MD [address] [place] [address] [place] [address] [phone] (Wo rk) Social History Tobacco Use Types [...] on filedocumented in this encounter Care Teams [employer] Dean Relationship Specialty Start Date End Date Corinne Hazel MD PCP - General 12/19/10 1415 [facility] [place] [id number] documented as of this encounter
--- OUTSIDE RECORDS SUMMARY | 2022-07-04 09:21 | XMS_ITS | Encounter Summary ---
:1999 Author Organization [facility] Address [address] [place] [address] Care Team Providers Name Role Phone Corinne Hazel MD Primary Care Provider Encounter Details Date Type Department Care Team Description 11/29/2015 [facility] 3931 Osteoc hondritis dessicans Radiology X-ray 3931 [place] [address] Social History Tobacco Use Types Packs/Day Years [...] dissecans documented in this encounter Care Teams Unload Associate Relationship Specialty Start Date End Date Corinne Hazel MD PCP - General 12/19/10 1415 [facility] [place] [address] documented as of this encounter
--- OUTSIDE RECORDS SUMMARY | 2022-07-04 09:21 | XMS_ITS | Encounter Summary ---
:1999 Author Organization [facility] Address [address], [place] [address] Care Team Providers Name Role Phone Corinne Hazel MD Primary Care Provider Reason for Visit Procedure/Equipment (Routine) - Incomplete Specialty Diagnoses / Procedures Referred By Contact Refer red To Contact Diagnoses Osteochondritis dissecans Brian Brennan MD Procedures XR Knee Lt 4 Views 200 [place] [address] Referral ID Status Reason Start Date Expiration Date Visits V isits Requested Authorized [id number] Incomplete 02/28/2018 05/30/2019 1 1 Encounter Details Date Type Department Care Team Description 02/28/2018 [facility] 3931 Brian Brennan, Osteochondritis dissecans Radiology X-ray 3931 [facility] 200 [place], [place] [address] [place] [id number] Social History Tobacco Use Types Packs/Day Years [...] dissecans documented in this encounter Care Teams Bolt Sorter Relationship Specialty Start Date End Date Corinne Hazel MD PCP - General 12/19/10 1415 [facility] [place] [id number] documented as of this encounter
--- OUTSIDE RECORDS SUMMARY | 2022-07-04 09:21 | XMS_ITS | Encounter Summary ---
:1999 Author Organization [facility] Address [address] [address] Care Team Providers Name Role Phone Corinne Hazel MD Primary Care Provider Reason for Referral Procedure/Equipment (Routine) - Incomplete Specialty Diagnoses / Procedures Referred By Contact Refer red To Contact Diagnoses Left knee pain, unspecified chronicity Kilo Gregg MD Procedures XR Knee Lt [address] [place] [address] Referral ID Status Reason Start Date Expiration Date Visits V isits Requested Authorized [id number] Incomplete 11/27/2018 02/26/2020 1 1 Reason for Visit Reason Comments Knee Pain or Injury post op Encounter Details Date Type Department Care Team Description 11/27/2018 Office Visit [facility] Kilo Gregg MD Left knee pain, unspecified chronicity ( Primary Dx); CENTER [address] Homero Garcia S/P left knee arthroscopy 8100 [place], [place] [address] [phone] Social History Tobacco Use Types Packs/Day Years [...] AM CDT Post-Operative knee progress note Name: Hayes High : 2000 Date of visit: 11/27/18 [...] answered. Scribed for Kilo Gregg MD by Nichole Aldana Acid Cutter. I, Kilo Gregg MD, have personally reviewed [...] chronicity documented in this encounter Care Teams Tour Coordinator Relationship Specialty Start Date End Date Corinne Hazel MD PCP - General 12/19/[address] [place] [address] documented as of this encounter
--- OUTSIDE RECORDS SUMMARY | 2022-07-04 09:21 | XMS_ITS | Encounter Summary ---
:1999 Author Organization [facility] Address [address], [place] [address] Care Team Providers Name Role Phone Corinne Hazel MD Primary Care Provider Encounter Details Date Type Department Care Team Description 10/31/2019 Notes/Orders [facility] Kilo Gregg MD [address] [place] [address] [place] [address] [phone] (Wo rk) Social History Tobacco Use Types [...] on filedocumented in this encounter Care Teams Manager Leadership Development Relationship Specialty Start Date End Date Corinne Hazel MD PCP - General 12/19/10 1415 [place] [address] documented as of this encounter
--- OUTSIDE RECORDS SUMMARY | 2022-07-04 09:21 | XMS_ITS | Encounter Summary ---
:1999 Author Organization [facility] Address [address] [place] [address] Care Team Providers Name Role Phone Corinne Hazel MD Primary Care Provider Reason for Visit Reason Comments Knee Problem Encounter Details Date Type Department Care Team Description 09/18/2018 Office Visit [facility] Sam Pritchett, Left kn pain, Center, Physical PT unspecified Therapy 8100 [facility] chronicity (Primary [address] [place], [place] Dx) [address]. [address] [place], [place] [address] [phone] Social History Tobacco Use Types Packs/Day Years [...] Pritchett, PT - 09/18/2018 9:45 AM CST [facility] Physical Therapy Daily Note Visit Number: [...] Gait: TTWB TREATMENT TODAY: Therapeutic Exercise (CPT 49256) x 25 minutes: ?? Supine quad set [...] Therapist: Sam Pritchett, PT 9:48 AM 09/18/2018 [facility] documented in this encounter Plan of Treatment Not on filedocumented as of this encounter Visit Diagnoses Diagnosis Left knee pain, unspecified chronicity - Primary documented in this encounter Care Teams Chief Controller Tower Relationship Specialty Start Date End Date Corinne Hazel MD PCP - General 12/19/10 1415 [place] [address] documented as of this encounter
--- OUTSIDE RECORDS SUMMARY | 2022-07-04 09:21 | XMS_ITS | Encounter Summary ---
:1999 Author Organization [facility] Address [address], [place] [address] Care Team Providers Name Role Phone Corinne Hazel MD Primary Care Provider Reason for Visit Reason Comments QUESTIONS, GENERAL Encounter Details Date Type Department Care Team Description 10/14/2018 Telephone [facility] Kilo Gregg MD QUESTIONS, GENERAL 8100 [facility] [address] [place], [place] [address] 1 [place] [address] [phone] (Wo rk) Social History Tobacco Use Types [...] 3-4 weeks to recheck and get Xrays IS DEVELOPER Terry Dorsey RN - 10/14/2018 4:40 PM CST Pt's mom calling wondering if provider could call patient at [phone]. Pt is at college up in [place] and is not going to be able to make his Sunday appointment. Per mom pt is out of his brace and walking. Mom does not know his ROM. Mom would like provider to discuss with patient his progress and make sure he is recovering ok. Pt is usually free in the afternoon. Thank you Mom's cell is [phone] Pt's DOS was 09/05/18 1. Left knee diagnostic arthroscopy with mobilization and debridement of the osteochondral lesion. 2. Microfracture of the base of the osteochondral lesion. 3. Open reduction internal fixation osteochondral lesion using 2 Arthrex bioabsorbable headless compression screws. ?? IS DEVELOPER documented in this encounter Plan of Treatment Not on filedocumented as of this encounter Visit Diagnoses Not on filedocumented in this encounter Care Teams Long Line Teamster Relationship Specialty Start Date End Date Corinne Hazel MD PCP - General 12/19/10 1415 [place] [address] documented as of this encounter
--- OUTSIDE RECORDS SUMMARY | 2022-07-04 09:21 | XMS_ITS | Encounter Summary ---
:1999 Author Organization [facility] Address [address] [place] [address] Care Team Providers Name Role Phone Corinne Hazel MD Primary Care Provider Reason for Visit Procedure/Equipment (Routine) - Incomplete Specialty Diagnoses / Procedures Referred By Contact Refer red To Contact Diagnoses Left knee pain, unspecified chronicity Kilo Gregg MD Procedures XR Knee Lt 2 Views [address] [place] [address] Referral ID Status Reason Start Date Expiration Date Visits V isits Requested Authorized [id number] Incomplete 11/27/2018 02/26/2020 1 1 Encounter Details Date Type Department Care Team Description 11/27/2018 Ancillary [facility] Kilo Gregg, Left knee pain, Procedure [address] [address] [place] [address] [phone] Social History Tobacco Use Types Packs/Day Years [...] Associated Diagnosis Comme nts XR KNEE LT 2 VIEWS Routine 11/27/2018 12:02 PM Left knee pain, Results for this CDT unspecified procedure are i n chronicity the results section. documented in this encounter Results XR Knee Lt 2 [...] Diagnoses Diagnosis Left knee pain, unspecified chronicity documented in this encounter Care Teams Employee Relations Director Relationship Specialty Start Date End Date Corinne Hazel MD PCP - General 12/19/10 1415 [facility] [place] [address] documented as of this encounter
--- OUTSIDE RECORDS SUMMARY | 2022-07-04 09:21 | XMS_ITS | Encounter Summary ---
:1999 [facility] Address [address], [place] [address] Care Team Providers Name Role Phone Corinne Hazel MD Primary Care Provider Reason for Referral Procedure/Equipment (Routine) - Incomplete Specialty Diagnoses / Procedures Referred By Contact Refer red To Contact Diagnoses Osteochondritis dissecans Brian Brennan MD Procedures MR Knee Lt WO IV Cont 200 [place] [address] Referral ID Status Reason Start Date Expiration Date Visits V isits Requested Authorized [id number] Incomplete 02/28/2018 05/30/2019 1 1 Reason for Visit Procedure/Equipment (Routine) - Incomplete Specialty Diagnoses / Procedures Referred By Contact Refer red To Contact Diagnoses Osteochondritis dissecans Brian Brennan MD Procedures MR Knee Lt WO IV Cont 200 [place] [address] Referral ID Status Reason Start Date Expiration Date Visits V isits Requested Authorized [id number] Incomplete 02/28/2018 05/30/2019 1 1 Encounter Details Date Type Department Care Team Description 03/11/2018 Hospital Restorationist Brian Brennan Osteochondr itis Encounter Radiology MD felix MICHAUD [address] [place] 200 [facility] [address] [phone] Social History Tobacco Use Types Packs/Day Years [...] dissecans documented in this encounter Care Teams Platform Material Handling Supervisor Relationship Specialty Start Date End Date Corinne Hazel MD PCP - General 12/19/[address] [place] [address] [place] [address] documented as of this encounter
--- OUTSIDE RECORDS SUMMARY | 2022-07-04 09:21 | XMS_ITS | Encounter Summary ---
:1999 Author Organization [facility] Address [address] [place] [address] Care Team Providers Name Role Phone Corinne Hazel MD Primary Care Provider Reason for Referral Procedure/Equipment (Routine) - Incomplete Specialty Diagnoses / Procedures Referred By Contact Refer red To Contact Procedures Kilo Gregg MD TYLER Arthroscopy Knee [address] [place] [address] Referral ID Status Reason Start Date Expiration Date Visits V isits Requested Authorized [id number] Incomplete 09/02/2018 12/02/2019 1 1 [facility] Encounter Details Date Type Department Care Team Description 09/02/2018 Notes/Orders [facility] Kilo Gregg MD [address] 1 [place] [address] [phone] (Wo rk) Social History Tobacco Use Types [...] TYLER Arthroscopy Knee Lt (09/05/2018 10:18 AM [facility]) Anatomical Region Laterality Modality Lower Extremity, Knee Endoscopy Specimen (Source) Anatomical Location Collection Method / Collectio n Time Received Time / Laterality Volume Kilo Gregg MD RAD NON-REPORTABLES documented in this encounter Visit Diagnoses Not on filedocumented in this encounter Care Teams Wash Helper Relationship Specialty Start Date End Date Corinne Hazel MD PCP - General 12/19/10 1415 [facility] [place] [id number] documented as of this encounter
--- OUTSIDE RECORDS SUMMARY | 2022-07-04 09:21 | XMS_ITS | Encounter Summary ---
:1999 Author Organization [facility] Address [address] [place] [address] Care Team Providers Name Role Phone Corinne Hazel MD Primary Care Provider Reason for Visit Reason Comments Post-Op Check Encounter Details Date Type Department Care Team Description 09/13/2018 Office Visit [facility] Cassidy Connors Postop check (Primary CENTER M, ATC Dx) 8100 [place], [place] [address] Social History Tobacco Use Types [...] Kilo Gregg MD Orthopaedic Surgeon, Board Certified Coiled Tubing Supervisor: Juliette Radford Please contact Juliette for all administrative questions Please contact [facility] Nurse Triage for all medical related questions at Medication Requests: Prescriptions are not filled on Weekends or on Weekdays after 3:00PM For all medication refills: Request a refill using [employer] or contact your Pharmacy TTWB for 6 wks ROM 0-45 degress in the brace CPM at 0-45 degrees and increase up to 60. First 2 wks 0-60. Wk 2-4 0-120 degrees. Wk 4-6 0-120. 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 Pt reports attending PT at [facility], his first visit today. Objective: General : [...] approximately 6weeks from surgery for clinical recheck. 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
--- OUTSIDE RECORDS SUMMARY | 2022-07-04 09:21 | XMS_ITS | Encounter Summary ---
:1999 Author Organization [facility] Address [address] [place] [address] Care Team Providers Name Role Phone Corinne Hazel MD Primary Care Provider Reason for Referral Procedure/Equipment (Routine) - Incomplete Specialty Diagnoses / Procedures Referred By Contact Refer red To Contact Diagnoses Osteochondritis dissecans Brian Brennan MD Procedures MR Knee Lt WO IV Cont 200 [place] [address] Referral ID Status Reason Start Date Expiration Date Visits V isits Requested Authorized [id number] Incomplete 02/28/2018 05/30/2019 1 1 Procedure/Equipment (Routine) - Incomplete Specialty Diagnoses / Procedures Referred By Contact Refer red To Contact Diagnoses Osteochondritis dissecans Brian Brennan MD Procedures XR Knee Lt 4 Views 200 [place] [address] Referral ID Status Reason Start Date Expiration Date Visits V isits Requested Authorized [id number] Incomplete 02/28/2018 05/30/2019 1 1 Reason for Visit Reason Comments INJURY, KNEE left Encounter Details Date Type Department Care Team Description 02/28/2018 Office Visit Specialty Center Brian Brennan, Oste ochondritis dissecans (Primary Dx); 3931 JOHN SANCHEZ Osteochondritis dissecans of knee, left; Orthopedics 200 [facility] Left knee pain, unspecified chronicity 3931 [facility] [place], [facility] [place], [address] [place] [address] [phone] Social History Tobacco Use Types Packs/Day Years [...] 6:37 PM CDT NAME: MICAH HIGH MR#: [id number] CSN: [id number] AUTHENTICATING CLINICIAN: Brian Brennan MD CONFIRM #: [id number] LOC: 211 CLINIC PROGRESS NOTE DATE OF [...] distant past. He is currently working in [email or web address], getting up and down, and has been [...] weightbearing. He is, this summer, working in [email or web address] and wants to make as much money [...] or surgical management. SPE:LUDA C: CONFIRM #: [id number] documented in this encounter Plan of Treatment [...] age. MARROW AND SOFT TISSUES: Questionable ed gm within the periphery of the medial femoral [...] dissecans documented in this encounter Care Teams Bilingual Speech Therapist Relationship Specialty Start Date End Date Corinne Hazel MD PCP - General 12/19/10 1415 [place] [address] documented as of this encounter
--- OUTSIDE RECORDS SUMMARY | 2022-07-04 09:21 | XMS_ITS | Encounter Summary ---
:1999 Author Organization [facility] Address [address] [place] [address] Care Team Providers Name Role Phone Corinne Hazel MD Primary Care Provider Reason for Visit Reason Comments QUESTIONS, GENERAL Encounter Details Date Type Department Care Team Description 10/18/2018 Telephone [facility] Kilo Sky MD QUESTIONS, GENERAL 8100 [facility] [address] [place], [place] [address] [place] [address] [phone] (Wo rk) Social History Tobacco Use Types [...] PT orders faxed to: [facility] [phone]. Faxed orders along with op note. Mother will call back to schedule Jn's follow up. ETING ANALYTICS ANALYST documented in this encounter Plan of Treatment Not on filedocumented as of this encounter Visit Diagnoses Not on filedocumented in this encounter Care Teams Tip Banding Machine Operator Relationship Specialty Start Date End Date Corinne Hazel MD PCP - General 12/19/10 3365 [facility] [place] [address] documented as of this encounter
--- OUTSIDE RECORDS SUMMARY | 2022-07-04 09:21 | XMS_ITS | Encounter Summary ---
:1999 Author Organization [facility] Address [address] [place] [address] Care Team Providers Name Role Phone Corinne Hazel MD Primary Care Provider Reason for Referral Procedure/Equipment (Routine) - Incomplete Specialty Diagnoses / Procedures Referred By Contact Refer red To Contact Diagnoses S/P left knee arthroscopy Kilo Gregg MD Procedures Continuous Passive Motion for knees only (E0935) [address] [place] [address] Referral ID Status Reason Start Date Expiration Date Visits V isits Requested Authorized [id number] Incomplete 09/05/2018 12/05/2019 1 1 OGRAPHIC EQUIPMENT MECHANIC Reason for Visit Reason Comments Knee Pain or Injury Encounter Details Date Type Department Care Team Description 09/05/2018 Notes/Orders [facility] Kilo Gregg MD S/P left knee CENTER [address] [place] arthroscopy (Primary 8100 [place], [place] Dx) [place], [place] [address] [phone] Social History Tobacco Use Types Packs/Day Years [...] status documented in this encounter Care Teams Director Human Services Relationship Specialty Start Date End Date Corinne Hazel MD PCP - General 12/19/10 1415 [place] [address] documented as of this encounter
--- OUTSIDE RECORDS SUMMARY | 2022-07-04 09:21 | XMS_ITS | Encounter Summary ---
:1999 Author Organization [facility] Address [address] [address] Care Team Providers Name Role Phone Corinne Hazel MD Primary Care Provider Reason for Visit Reason Comments Knee Pain or Injury Encounter Details Date Type Department Care Team Description 11/29/2015 Office Visit Specialty Center Brian Brennan, Oste ochondritis [address] (Primary Dx) Orthopedics [address] [place] [address], [address] [place] [address] [phone] Social History Tobacco Use Types Packs/Day Years [...] signed by Brian Brennan MD at 12/10/15 5562 Author: Brian Brennan MD Service: (none) Author Type: Physician Filed: 12/10/15 1504 Note Time: 12/10/151421 Status: Signed Piano Maker: Brian Brennan MD (Physician) NAME: MICAH HIGH MR#: [id number] CSN: [id number] AUTHENTICATING CLINICIAN: Brian Brennan MD CONFIRM #: [id number] LOC: 211 CLINIC PROGRESS NOTE DATE OF [...] March of 2016. SPE:LUDA C: CONFIRM #: [id number] documented in this encounter Plan of Treatment Not on filedocumented as of this encounter Visit Diagnoses Diagnosis Osteochondritis dessicans - Primary Osteochondritis dissecans documented in this encounter Care Teams Veneer Department Manager Relationship Specialty Start Date End Date Corinne Hazel MD PCP - General 12/19/10 1415 [place] [address] documented as of this encounter
--- OUTSIDE RECORDS SUMMARY | 2022-07-04 09:22 | XMS_ITS | Encounter Summary ---
:1999 Author Organization [facility] Address [address] [address] Care Team Providers Name Role Phone Corinne Hazel MD Primary Care Provider Reason for Visit Reason Comments RESULTS, TEST Encounter Details Date Type Department Care Team Description 07/09/2015 Telephone [facility] Chava Iverson MD RESULTS, TEST 1415 [facility] . 1415 [place] [address] [place] [address] [phone] (Wo rk) Social History Tobacco Use Types [...] - 07/09/2015 9:25 AM CDT pcd at [phone], knee XR normal, we will set up the MRI please arrange MRI at [facility] documented in this encounter Plan of Treatment Not on filedocumented as of this encounter Visit Diagnoses Diagnosis Knee instability, left - Primary Left knee pain Pain in joint, lower leg documented in this encounter Care Teams Fork Repairer Relationship Specialty Start Date End Date Corinne Hazel MD PCP - General 12/19/10 1415 [facility] [place] [address] documented as of this encounter
--- OUTSIDE RECORDS SUMMARY | 2022-07-04 09:22 | XMS_ITS | Encounter Summary ---
:1999 [facility] Address [address], [place] [address] Care Team Providers Name Role Phone Corinne Hazel MD Primary Care Provider Reason for Visit Reason Comments Information Encounter Details Date Type Department Care Team Description 07/15/2015 Telephone [facility] Chava Iverson MD Information 1415 [facility] . 1415 [place] [address] [place], [place] [address] (Wo rk) Social History Tobacco Use Types [...] Called mom with message. Mom's number is [phone]. Domi Gregory LPN - 07/15/2015 12:15 PM CDT LMTCB Please transfer to [phone] Chava Iverson MD - 07/15/2015 11:23 AM [...] to see ortho on Sunday for the longwall shearer operator plan, I'll put in the order for the ortho appt, mom can call our senior power scheduler to set up the appt. I have reviewed his MRI with Dr Brennan in ortho and he plans to see him on Sunday documented in this encounter Plan of Treatment Not on filedocumented as of this encounter Visit Diagnoses Diagnosis Closed fracture of left proximal tibia, unspecified fracture morphology, initial encounter - Primary Osteochondritis dessicans Osteochondritis dissecans documented in this encounter Care Teams Model And Pattern Supervisor Relationship Specialty Start Date End Date Corinne Hazel MD PCP - General 12/19/10 [address]15 [place] [address] documented as of this encounter
--- OUTSIDE RECORDS SUMMARY | 2022-07-04 09:22 | XMS_ITS | Encounter Summary ---
:1999 Author Organization [facility] Address [address], [place] [address] Care Team Providers Name Role Phone Corinne Hazel MD Primary Care Provider Reason for Visit Reason Comments INJURY, KNEE Encounter Details Date Type Department Care Team Description 07/26/2015 Office Visit Specialty Center Brian Brennan, Oste ochondritis [address] (Primary Dx) Orthopedics [address] [place] [address], [address] [place] [address] [phone] Social History Tobacco Use Types Packs/Day Years [...] signed by Brian Brennan MD at 08/17/15 8124 Author: Brian Brennan MD Service: (none) Author Type: Physician Filed: 08/17/15 8395 Note Time: 08/17/15 6931 Status: Signed Darkroom Worker: Brian Brennan MD (Physician) NAME: MICAH HIGH MR#: [id number] CSN: [id number] AUTHENTICATING CLINICIAN: Brian Brennan MD CONFIRM #: [id number] LOC: 211 CLINIC PROGRESS NOTE DATE OF [...] upon subsequent images. SPE:MEDQ C: CONFIRM #: [id number] DER SET UP OPERATOR SURFACE documented in this encounter Plan of Treatment Not on filedocumented as of this encounter Visit Diagnoses Diagnosis Osteochondritis dessicans - Primary Osteochondritis dissecans documented in this encounter Care Teams Sales Agent Casualty Insurance Relationship Specialty Start Date End Date Corinne Hazel MD PCP - General 12/19/10 1415 [place] [address] documented as of this encounter
--- OUTSIDE RECORDS SUMMARY | 2022-07-04 09:22 | XMS_ITS | Encounter Summary ---
:1999 Author Organization [facility] Address [address], [place] [address] Care Team Providers Name Role Phone Corinne Hazel MD Primary Care Provider Reason for Referral Specialty Diagnoses / Procedures Referred By Contact Refer red To Contact Chava Iverson MD [facility] [place] [address] Referral ID Status Reason Start Date Expiration Date Visits Requ ested Visits Authorized T IRONER SUPERVISOR Reason for Visit Reason Comments LEG PAIN Encounter Details Date Type Department Care Team Description 07/19/2015 Office Visit [facility] Brian Brennan Clos ed fracture of left proximal tibia, unspecified fracture morphology, initial encounter; [facility] JOHN SANCHEZ Osteochondritis dessicans Orthopedics [address] [place] [address], [address] [address] [phone] Social History Tobacco Use Types Packs/Day Years [...] signed by Brian Brennan MD at 08/09/15 864 Author: Brian Brennan MD Service: (none) Author Type: Physician Filed: 08/09/15 1227 Note Time: 08/09/151218 Status: Signed Topographic Computator: Brian Brennan MD (Physician) NAME: MICAH HIGH MR#: [id number] CSN: [id number] AUTHENTICATING CLINICIAN: Brian Brennan MD CONFIRM #: [id number] LOC: 211 CLINIC PROGRESS NOTE DATE OF [...] most recent injury. It allowed them to apple picking supervisor the OCD lesion in the weightbearing surface [...] at Deena Hanson. SPE:MEDQ C: CONFIRM #: [id number] T IRONER SUPERVISOR documented in this encounter Plan of Treatment [...] dissecans documented in this encounter Care Teams Nuclear Weapons Specialist Relationship Specialty Start Date End Date Corinne Hazel MD PCP - General 12/19/10 [address] [place] [address] documented as of this encounter
--- OUTSIDE RECORDS SUMMARY | 2022-07-04 09:22 | XMS_ITS | Encounter Summary ---
:1999 [facility] Address [address], [place] [address] Care Team Providers Name Role Phone Corinne Hazel MD Primary Care Provider Reason for Visit Reason Comments ACNE Encounter Details Date Type Department Care Team Description 07/24/2015 Office Visit [facility] Acne vulgaris (Primary Dx) [address] [place] [address] Social History Tobacco Use Types [...] PM CST This note has been dictated. Karlos Monroy OR PYTHON DEVELOPER Jennifer Juarez MD - 07/24/2015 12:33 PM CST Progress Notes signed by Jennifer Juarez MD at 08/02/152145 Author: Jennifer Juarez MD Service: (none) Author Type: Physician Filed: 08/02/152145 Note Time: 07/25/15 1016 Status: Addendum Napper Grinder: Jennifer Juarez MD (Physician) Related Notes: Original Note by Jennifer Juarez MD (Physician) filed at 07/25/151931 NAME: MICAH HIGH MR#: [id number] CSN: [id number] AUTHENTICATING CLINICIAN: Jennifer Juarez MD CONFIRM #: [id number] LOC: 427 CLINIC PROGRESS NOTE DATE OF [...] football, basketball, and baseball. MEDICATIONS: Reviewed in [employer]. ALLERGIES: Reviewed in [employer]. He has seasonal allergies. REVIEW OF SYSTEMS: [...] the morning, and that he purchase an [id number] benzoyl peroxide wash for affected areas. Given [...] Leatha Monroy MD CC: JENNIFER JUAREZ MD [address] [place] [address] KKL:MEDQ C: CONFIRM #: [id number] I personally evaluated and examined the patient with the dermatology resident. I was present for thekey portions of the history and examination. I was present for procedures performed. I discussed andagree with the resident's findings, assessment and plan, as documented in the resident's note. Jennifer Juarez MD OR PYTHON DEVELOPER documented in this encounter Plan of Treatment Not on filedocumented as of this encounter Visit Diagnoses Diagnosis Acne vulgaris - Primary Other acne documented in this encounter Care Teams Signal Processing Engineer Relationship Specialty Start Date End Date Corinne Hazel MD PCP - General 12/19/10 [address] [place] [id number] documented as of this encounter
--- OUTSIDE RECORDS SUMMARY | 2022-07-04 09:22 | XMS_ITS | Encounter Summary ---
:1999 Author Organization [facility] Address [address] [place] [address] Care Team Providers Name Role Phone Corinne Hazel MD Primary Care Provider Encounter Details Date Type Department Care Team Description 08/30/2015 Hospital [facility] Brian Brennan Osteochondr itis Encounter Radiology PMD dissecans [address] [facility] [address] [phone] Social History Tobacco Use Types Packs/Day Years [...] ARRT Intracapsular - 08/30/15 140 - - CH OFFICE ADMINISTRATOR documented in this encounter Plan of Treatment Not on filedocumented as of this encounter Procedures Procedure Name Priority Date/Time Associated Diagnosis Comme nts FL PRE MR Routine 08/30/2015 2:05 PM Osteochondritis Result s for this INJECTION KNEE LT BRANCH OFFICE ADMINISTRATOR dissecans procedure are in the results section. documented in this encounter Results FL Pre MR Injection Knee Lt (08/30/2015 2:05 PM BRANCH OFFICE ADMINISTRATOR) Anatomical Region Laterality Modality Lower Extremity, Knee Other Specimen (Source) Anatomical Location Collection Method / Collectio n Time Received Time / Laterality Volume Narrative 08/30/2015 3:24 PM BRANCH OFFICE ADMINISTRATOR FINDINGS: The procedure, goals, risks and benefits [...] for dilution) without complication. Brian Brennan MD [facility] documented in this encounter Visit Diagnoses Diagnosis Osteochondritis dissecans documented in this encounter Care Teams Elementary School Art Teacher Relationship Specialty Start Date End Date Corinne Hazel MD PCP - General 12/19/10 [facility] [place] [id number] documented as of this encounter
--- OUTSIDE RECORDS SUMMARY | 2022-07-04 09:22 | XMS_ITS | Encounter Summary ---
:1999 Author [facility] Address [address] [place] [address] Care Team Providers Name Role Phone Corinne Hazel MD Primary Care Provider Encounter Details Date Type Department Care Team Description 07/15/2015 Notes/Orders [facility] Chava Iverson, Closed fracture of [address] proximal end of left [place] [address] tibia with routine [phone] Ave healing, unspecified [place] [address] [phone] fracture morphology, subsequent enco unter [...] Primary documented in this encounter Care Teams Block Setter Gypsum Relationship Specialty Start Date End Date Corinne Hazel MD PCP - General 12/19/[address] [place] [address] documented as of this encounter
--- OUTSIDE RECORDS SUMMARY | 2022-07-04 09:22 | XMS_ITS | Encounter Summary ---
:1999 Author [facility] Address [address], [place] [address] Care Team Providers Name Role Phone Corinne Hazel MD Primary Care Provider Reason for Visit Reason Comments Knee Problem Encounter Details Date Type Department Care Team Description 08/30/2015 Office Visit [facility] Brian Brennan, Oste ochondritis [address] JOHN SANCHEZ dessicans (Primary Dx) Orthopedics [address] [place] [address], [address] [place] [address] [phone] Social History Tobacco Use Types Packs/Day Years [...] Filed: 09/01/15639 Note Time: 09/01/15147 Status: Signed Process Control Engineer: Brian Brennan MD (Physician) NAME: MICAH HIGH MR#: [id number] CSN: [id number] AUTHENTICATING CLINICIAN: Brian Brennan MD CONFIRM #: [id number] LOC: 211 CLINIC PROGRESS NOTE DATE OF [...] such short sequence. SPE:MEDQ C: CONFIRM #: [id number] [employer]DIST documented in this encounter Plan of Treatment Not on filedocumented as of this encounter Visit Diagnoses Diagnosis Osteochondritis dessicans - Primary Osteochondritis dissecans documented in this encounter Care Teams Vehicle Leasing And Rental Manager Relationship Specialty Start Date End Date Corinne Hazel MD PCP - General 12/19/10 1415 [facility] [place] [id number] documented as of this encounter
--- OUTSIDE RECORDS SUMMARY | 2022-07-04 09:22 | XMS_ITS | Encounter Summary ---
:1999 Author Organization [facility] Address [address] [address] Care Team Providers Name Role Phone Corinne Hazel MD Primary Care Provider Encounter Details Date Type Department Care Team Description 07/29/2015 Notes/Orders [facility] Brian Brennan, Oste ochondritis [address] [place] (Primary Dx) Orthopedics [address] [place] [address], [address] [place] [id number] [phone] Social History Tobacco Use Types Packs/Day Years [...] Primary documented in this encounter Care Teams Batch Freezer Relationship Specialty Start Date End Date Corinne Hazel MD PCP - General 12/19/10 [address] [place] [id number] documented as of this encounter
--- OUTSIDE RECORDS SUMMARY | 2022-07-04 09:22 | XMS_ITS | Encounter Summary ---
:1999 Author Organization [facility] Address [address] [place] [address] Care Team Providers Name Role Phone Corinne Hazel MD Primary Care Provider Encounter Details Date Type Department Care Team Description 08/30/2015 Hospital [facility] Brian Brennan Osteochondr itis Encounter Radiology MRI PMD dissecans [address] [facility] [address] [phone] Social History Tobacco Use Types Packs/Day Years [...] Res ults for this KNEE LT PM WASTEWATER PROJECT ENGINEER dissecans procedure are i n the results section. documented in this encounter Results MR Post Arthrogram Knee Lt (08/30/2015 2:46 PM WASTEWATER PROJECT ENGINEER) Anatomical Region Laterality Modality Lower Extremity, Knee, Skeletal, Thigh, Leg, Other Other Specimen (Source) Anatomical Location Collection Method / Collectio n Time Received Time / Laterality Volume Impressions 08/30/2015 3:22 PM WASTEWATER PROJECT ENGINEER IMPRESSION: ?? 1. 2.4 x 1.6 cm [...] bone marrow edema. Narrative 08/30/2015 3:22 PM WASTEWATER PROJECT ENGINEER TECHNIQUE: ??Routine MR arthrogram marcell col of [...] dissecans documented in this encounter Care Teams Manager Progressive Care Relationship Specialty Start Date End Date Corinne Hazel MD PCP - General 12/19/[address] [place], [place] [address] [address] documented as of this encounter
--- OUTSIDE RECORDS SUMMARY | 2022-07-04 09:22 | XMS_ITS | Encounter Summary ---
:1999 Author Organization [facility] Address [address] [place] [address] Care Team Providers Name Role Phone Corinne Hazel MD Primary Care Provider Reason for Visit Reason Comments Knee Pain or Injury Encounter Details Date Type Department Care Team Description 07/08/2015 Office Visit [facility] Chava Iverson, Knee instability, left (Prim nicole Dx); [address] [place] Nga Conway MD Need for HPV vaccination; [place] [address] Need for influenza vaccinati on [phone] [place] [address] Social History Tobacco Use Types Packs/Day [...] List Diagnosis ??? Allergic rhinitis- February/March ??? [place]-Schlatter's disease No past medical history on file. [...] History Narrative OBJECTIVE: Alert, comfortable. 149 lb (06088 g) (75.62 %, Source: [facility] 2-20 Years) Filed Vitals: 07/08/15 1548 Weight: 149 lb (66581 g) Vital Signs: Reviewed; See Flowsheet Charting [...] influenza documented in this encounter Care Teams Television And Radio Repairer Relationship Specialty Start Date End Date Corinne Hazel MD PCP - General 12/19/10 [facility] [place] [address] documented as of this encounter
--- OUTSIDE RECORDS SUMMARY | 2022-07-04 09:22 | XMS_ITS | Encounter Summary ---
:1999 Author Organization [facility] Address [address] [place] [address] Care Team Providers Name Role Phone Corinne Hazel MD Primary Care Provider Encounter Details Date Type Department Care Team Description 07/08/2015 Imaging [facility] Knee instability, left [address] [facility] [place], [place] [address] Social History Tobacco Use Types Packs/Day Years [...] left documented in this encounter Care Teams Wheel Roller Relationship Specialty Start Date End Date Corinne Hazel MD PCP - General 12/19/10 [address] [place] [address] documented as of this encounter
--- OUTSIDE RECORDS SUMMARY | 2022-07-04 09:22 | XMS_ITS | Encounter Summary ---
:1999 Author Organization [facility] Address [address], [place] [address] Care Team Providers Name Role Phone Corinne Hazel MD Primary Care Provider Reason for Visit Reason Comments Skin Check Encounter Details Date Type Department Care Team Description 04/01/2015 Initial Consult Sondra Jamison, Multiple pigmented nevi (Primary Dx); Dermatology BRIGID Nevus spilus of back [address] [facility] [address] [place] [address] [place] [address] [phone] Social History Tobacco Use Types Packs/Day Years [...] Active Problem List Diagnosis Date Noted ??? [place]-Schlatter's disease 03/29/2015 ??? Allergic rhinitis- 04/16/2012 Current [...] back documented in this encounter Care Teams Pit Recorder Relationship Specialty Start Date End Date Corinne Hazel MD PCP - General 12/19/10 1410 [facility] [place] [address] documented as of this encounter
--- OUTSIDE RECORDS SUMMARY | 2022-07-04 09:22 | XMS_ITS | Encounter Summary ---
:1999 Author Organization [facility] Address [address] [place] [address] Care Team Providers Name Role Phone Corinne Hazel MD Primary Care Provider Encounter Details Date Type Department Care Team Description 07/26/2015 Hospital [facility] Brian Brennan Osteochondr itis Encounter Radiology MRI PMD dessicans [address] [facility] [address] [phone] Social History Tobacco Use Types Packs/Day Years [...] Res ults for this KNEE LT PM RAG CUTTING MACHINE TENDER dessicans procedure are i n the results section. documented in this encounter Results MR Post Arthrogram Knee Lt (07/26/2015 3:21 PM RAG CUTTING MACHINE TENDER) Anatomical Region Laterality Modality Lower Extremity, Knee, Skeletal, Thigh, Leg, Other Other Specimen (Source) Anatomical Location Collection Method / Collectio n Time Received Time / Laterality Volume Impressions 07/26/2015 3:50 PM RAG CUTTING MACHINE TENDER IMPRESSION: ?? 1. 2.5 x 1.6 cm OCD lesion in the bottom painter ior weightbearing portion of the lateral femoral condyle is unchanged in position and appearance. Findings are suggestive of at least partial instability. No defi nite contrast extension between the OCD lesion and subchondral bone. Overlying articular ca rtilage is intact. 2. Healing nondisplaced subchondral frac ture in the anterior aspect of the lateral tibial plateau. Narrative 07/26/2015 3:50 PM RAG CUTTING MACHINE TENDER TECHNIQUE: ??Routine MR arthrogram marcell col of [...] x 1.6 cm OCD lesion in the bottom painter ior weightbearing portion of the lateral femoral [...] dissecans documented in this encounter Care Teams Nurse Wound Care Relationship Specialty Start Date End Date Corinne Hazel MD PCP - General 12/19/10 1415 [facility] [address] documented as of this encounter
--- OUTSIDE RECORDS SUMMARY | 2022-07-04 09:22 | XMS_ITS | Encounter Summary ---
:1999 Author Organization [facility] Address [address] [address] Care Team Providers Name Role Phone Corinne Hazel MD Primary Care Provider Encounter Details Date Type Department Care Team Description 07/14/2015 Imaging [place] [facility] MRI Left knee pain; [address] [facility] Knee instability, left [place], [place] [address] Social History Tobacco Use Types Packs/Day Years [...] x 1.6 cm OCD lesion of the technical lead ior weightbearing surface of the lateral femoral [...] x 1.6 cm OCD lesion of the technical lead ior weightbearing surface of the lateral femoral [...] left documented in this encounter Care Teams Weapons Officer Relationship Specialty Start Date End Date Corinne Hazel MD PCP - General 12/19/10 1415 [facility] [place] [address] documented as of this encounter
--- OUTSIDE RECORDS SUMMARY | 2022-07-04 09:22 | XMS_ITS | Encounter Summary ---
:1999 Author Organization [facility] Address [address] [place] [address] Care Team Providers Name Role Phone Corinne Hazel MD Primary Care Provider Encounter Details Date Type Department Care Team Description 07/26/2015 [facility] Brian Brennan Osteochondr itis Encounter Radiology PMD dessicans [address] [facility] [address] [phone] Social History Tobacco Use Types Packs/Day Years [...] Result s for this INJECTION KNEE LT GLOBAL LOGISTICS ANALYST dessicans procedure are in the results section. documented in this encounter Results FL Pre MR Injection Knee Lt (07/26/2015 2:31 PM GLOBAL LOGISTICS ANALYST) Anatomical Region Laterality Modality Lower Extremity, Knee Other Specimen (Source) Anatomical Location Collection Method / Collectio n Time Received Time / Laterality Volume Narrative 07/26/2015 2:58 PM GLOBAL LOGISTICS ANALYST The risks and benefits of the procedure [...] dissecans documented in this encounter Care Teams Spar Machine Operator Helper Relationship Specialty Start Date End Date Corinne Hazel MD PCP - General 12/19/[address] [place] [address] documented as of this encounter
--- OUTSIDE RECORDS SUMMARY | 2022-07-04 09:22 | XMS_ITS | Encounter Summary ---
:1999 Author Organization [facility] Address [address] [address] Care Team Providers Name Role Phone Corinne Hazel MD Primary Care Provider Reason for Visit Reason Comments Symptoms Encounter Details Date Type Department Care Team Description 09/21/2015 Telephone [facility] [address] Jennifer Kelly MD Symptoms Dermatology [address] [place] [address] [place], [place] [id number] [phone] Social History Tobacco Use Types Packs/Day Years [...] in if not improved after 1 month. ING CONSULTANT Jennifer Kelly MD - 09/21/2015 9:50 AM [...] his acne while farhan topicals kick in. ING CONSULTANT Samantha Elizabeth RN - 09/21/2015 9:23 AM [...] come to clinic as he lives in [place] and has basketball until the mid-end of Oct. He had been seen at a Sunday clinic. Please advise Mother. PHARMACY UPDATED IN MEDS AND ORDERS: yes CALL PATIENT BACK: yes CALL BACK PHONE NUMBER: [phone]--Joya MESSAGE [place]: no ING CONSULTANT documented in this encounter Plan of Treatment Not on filedocumented as of this encounter Visit Diagnoses Not on filedocumented in this encounter Care Teams Senior Electrical Design Engineer Relationship Specialty Start Date End Date Corinne Hazel MD PCP - General 12/19/10 [address] [place] [address] documented as of this encounter
--- OUTSIDE RECORDS SUMMARY | 2022-07-04 09:22 | XMS_ITS | Encounter Summary ---
:1999 [facility] Address [address] [address] Care Team Providers Name Role Phone Corinne Hazel MD Primary Care Provider Encounter Details Date Type Department Care Team Description 07/16/2015 Notes/Orders [facility] Chava Iverson MD 14[address] [facility] . [address] [place] [address] [place] [address] [phone] (Wo rk) Social History Tobacco Use Types [...] on filedocumented in this encounter Care Teams Supervisor Hanging And Trimming Relationship Specialty Start Date End Date Corinne Hazel MD PCP - General 12/19/10 1415 [facility] [place] [address] documented as of this encounter
--- OUTSIDE RECORDS SUMMARY | 2022-07-04 09:22 | XMS_ITS | Encounter Summary ---
:1999 Author Organization [facility] Address [address] [place] [address] Care Team Providers Name Role Phone Corinne Hazel MD Primary Care Provider Encounter Details Date Type Department Care Team Description 07/15/2015 Notes/Orders Chava Roger, Closed fracture of left prox imal tibia, unspecified fracture morphology, initial encounter (Primary Dx); [address] S[place] Osteochondritis dessicans Nga. [address] [place] [address] Nga [phone] [place] [address] Social History Tobacco Use Types Packs/Day Years [...] dissecans documented in this encounter Care Teams Customs Entry Writer Relationship Specialty Start Date End Date Corinne Hazel MD PCP - General 12/19/10 [address] [place] [address] documented as of this encounter
--- OUTSIDE RECORDS SUMMARY | 2022-07-04 09:23 | XMS_ITS | Encounter Summary ---
:1999 Author [facility] Address [address], [place] [address] Care Team Providers Name Role Phone Corinne Hazel MD Primary Care Provider Reason for Visit Reason Comments LAB RESULTS Encounter Details Date Type Department Care Team Description 04/18/2012 Telephone [facility] Nichole Caputo MD LAB RESULTS 1415 [facility] . 1415 [place] [address] [place] [address] [phone] (Wo rk) Social History Tobacco Use Types [...] on filedocumented in this encounter Care Teams Speeder Worker Relationship Specialty Start Date End Date Corinne Hazel MD PCP - General 12/19/10 1415 [place] [address] documented as of this encounter
--- OUTSIDE RECORDS SUMMARY | 2022-07-04 09:23 | XMS_ITS | Encounter Summary ---
:2000 Author Organization [facility] Address [address] [address] Care Team Providers Name Role Phone Corinne Hazel MD Primary Care Provider Reason for Visit Reason Comments Other Encounter Details Date Type Department Care Team Description 02/19/2009 Telephone [facility] Lisa Ortiz MD Other [address] [facility] . [address] [facility] [place] [address] [place] [address] [phone] (Wo rk) Social History Tobacco Use Types [...] 9:42 AM CDT Phone Note filed by [employer] at 01/06/11 1849 Author: [employer] Service: (none) Author Type: (none) Filed: 01/06/11 0414 Note Time: 02/19/09941 Status: Signed Pit Slagman: [employer] (Resource) Medication Issue/Refill Caller Name/Relationship:Hetal/mom Primary Design Leader:none Patient has contacted Pharmacy (yes/no):y Comments:Mom states she received letter from insurance that angelito is not covered, mom would like alternate rx. Mom states she did not have rx filled for angelito that pt received in fall. Pt [facility], mom states rx is for 1 tsp which does not work at all so mom has been giving pt 2 tsp. Pharmacy Name & Phone #:[facility] Street or City:[facility] Drug Name:alternate to angelito Strength:unk Dose/Route/Freq:higher dose requested Poultry Service Technician:Hetal Best call back number:[phone] Is it OK to leave a confidential message on this voicemail?y Created on 19Feb2009 9:42am by KASEY MAYA On 19Feb2009 10:22am RAJ LANIER wrote: Mom states her insurance ([employer]) will no longer cover Angelito. Would like something similiar. States this worked well. Patient weighs 68.5#. Needs today. [facility]: [phone] gladys/hetal On 19Feb2009 11:22am ABILIO DOMINGUEZ wrote: Mom calling back to say would [facility] [place] - call [phone]. On 19Feb2009 4:15pm MINAL CONTRERAS wrote: Mom calling back phone [phone] On 19Feb2009 4:20pm RAJ LANIER wrote: Mom calling back. Needs rx today. [id number]. Mom: Hetal [phone] On 19Feb2009 5:26pm LISA ORTIZ III wrote: Called mom and told her to try zyrtec 10mg po qd. Mom will try that. Acknowledged by LISA ORTIZ III on 5:26pm Acknowledged by PROSPER RUEDA on 5:33pm ESSING REP documented in this encounter Plan of Treatment Not on filedocumented as of this encounter Visit Diagnoses Not on filedocumented in this encounter Care Teams Historical Society Director Relationship Specialty Start Date End Date Corinne Hazel MD PCP - General 12/19/10 [address] [id number] documented as of this encounter
--- OUTSIDE RECORDS SUMMARY | 2022-07-04 09:23 | XMS_ITS | Clinical Summary ---
:2000 Author Organization [employer] Address [address] [address] Phone Care Team Providers Name Role Phone [...] Advance Directives For more information, please contact: [phone] Latest Code Status on File Code Status Date Activated Date Inactivated Comments Full Code 04/10/2020 7:35 PM 04/11/2020 1:18 AM
--- OUTSIDE RECORDS SUMMARY | 2022-07-04 09:23 | XMS_ITS | Encounter Summary ---
:2000 Author Organization [employer] Address [address] [place] [address] Phone Care Team Providers Name Role Phone Unavailable Primary Care Provider Unavailable Encounter Details Date Type Department Care Team Description 09/02/2020 Lab Requisition INDEPENDENT Pradip Montelongo, Contact wi and LAB-VICTOR MANUEL SANCHEZ (suspected) exposure [address] [place] [address] [place] communicable diseases [phone] [place], [place] [phone] Social History Tobacco Use Types Packs/Day Years Used Date Never Assessed Sex Assigned at Date Recorded Not on file documented as of this encounter Plan of Treatment Not on filedocumented as of this encounter Procedures Procedure Name Priority Date/Time Associated Diagnosis Comme nts SARS-COV-2 RNA Routine 09/03/2020 1:56 PM Contact with and Res ults for this (COVID-19), DISTRIBUTION CENTER SUPERVISOR (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 documented in this encounter Results (ABNORMAL) SARS-COV-2 RNA (COVID-19), MOLECULAR DETECTION (COVOO) (09/03/2020 1:56 PM DISTRIBUTION CENTER SUPERVISOR) [facility] Method Time Signature SARS-CoV-2 Detected (A) Undetected 09/04/2020 [facility] RNA 8:56 PM DISTRIBUTION CENTER SUPERVISOR LABORATORIES (COVID-19) Comment: SARS-CoV-2 RNA present. SARS-CoV-2 RNA Method SEE COMMENTS 09/04/2020 8:56 PM [facility] Summary DISTRIBUTION CENTER SUPERVISOR LABORATORIES Comment: PKELM- This test uses the PerkinElmer Ne w Coronavirus Nucleic Acid Detection Kit (Repeatit, Inc.), and is performed on the Paice instrument and Applied Biosystems 7500 Fast Real-Time PCR Syste m. It has received Emergency Use Authorization (EUA) by the U.S. Food and Drug Administration, and is modified from the office mover's instructions with a bridging study. Perf ormance characteristics were verified by [facility] in in a manner consistent with CLIA requirements. Fact sheets for this Emergency Use Autho rization (EUA) can be found at the following links: https://www.fda.gov/media/454821/downloa d for Healthcare Providers https://www.fda.gov/media/821045/downloa d for Patients Test Performed by: [facility] [address] [place], [place] [address] Layout Artist: Presley Colin M.D. Ph. D.; CLIA# [id number] Source Nares 09/04/2020 8:56 PM DISTRIBUTION CENTER SUPERVISOR [facility] Patient Race Refused 09/04/2020 8:56 PM DISTRIBUTION CENTER SUPERVISOR [facility] Patient Ethnicity Refused 09/04/2020 8:56 PM DISTRIBUTION CENTER SUPERVISOR [facility] Specimen Anatomical Collection Method Collection Time Receive d Time (Source) Location / / Volume Laterality Swab ENTIRE ANTERIOR 09/03/2020 1:56 PM 2019 6:20 NARIS / Unknown DISTRIBUTION CENTER SUPERVISOR PM DISTRIBUTION CENTER SUPERVISOR Pradip Montelongo MD EC PATHOLOGY ORDERABLES Performing Organization Address City/State/ZIP Code Phon e Number [place] [phone] documented in this encounter Visit Diagnoses Diagnosis Contact with and (suspected) exposure to other viral communicable diseases documented in this encounter Additional Health Concerns Infection Onset Date Last Indicated Resolved Time COVID-19 Confirmed 09/03/2020 09/03/2020 10/03/2020 11 :06 PM DISTRIBUTION CENTER SUPERVISOR documented as of this encounter
--- OUTSIDE RECORDS SUMMARY | 2022-07-04 09:23 | XMS_ITS | Encounter Summary ---
:2000 Author Organization [facility] Address [address] [address] Care Team Providers Name Role Phone Corinne Hazel MD Primary Care Provider Encounter Details Date Type Department Care Team Description 11/27/[address] [facility] Bernardo Amaro, PA-C [address] [place] [address] [place] [address] [place] [address] [phone] (Wo rk) Social History Tobacco Use Types [...] on filedocumented in this encounter Care Teams Attendant Self Service Store Relationship Specialty Start Date End Date Corinne Hazel MD PCP - General 12/19/10 [facility] [facility] [place] [address] documented as of this encounter
--- OUTSIDE RECORDS SUMMARY | 2022-07-04 09:23 | XMS_ITS | Encounter Summary ---
:2000 Author Organization [employer] [facility] Address [address] [place] [address] Phone Care Team Providers Name Role Phone Unavailable Primary Care Provider Unavailable Encounter Details Date Type Department Care Team Description 12/30/2020 Lab Requisition INDEPENDENT Pradip Montelongo, Contact wi and LAB-VICTOR MANUEL SANCHEZ (suspected) exposure [address] [place] [address] [place] communicable diseases [phone] [place], [place] [id number] Social History Tobacco Use Types Packs/Day Years [...] MOLECULAR DETECTION (COVOO) (12/29/2020 2:50 PM CDT) [facility] Method Time Signature SARS-CoV-2 Undetected Undetected 12/31/2020 [facility] RNA 5:39 PM CDT LABORATORIES (COVID-19) Comment: SARS-CoV-2 RNA absent. This result does not rule out COVID-19 in the patient, as the sensitiv ity of the test depends on the timing of the specimen co llection and the quality of the specimen. Result should b e correlated with patient's history and clinical presentat ion. SARS-CoV-2 RNA Method SEE COMMENTS 12/31/2020 5:39 PM [facility] Summary CDT LABORATORIES Comment: THFSH- This PCR test uses the TaqPath CO VID-19 Combo Kit ([employer] Isidra.) and is perform ed on the MedGRC magnetic particle proces sor and Applied Elixir Bio-Tech Fast Dx Real-Time PCR Sy stem. It has received Emergency Use Authorization (EU A) by the U.S. Food and Drug Administration. Performance jeanne racteristics were verified by [facility] in a manner cons istent with CLIA requirements. Fact sheets for this Emergency Use Autho rization (EUA) can be found at the following links: https://www.fda.gov/media/946290/downloa d for Healthcare Providers https://www.fda.gov/media/032641/downloa d for Patients Test Performed by: [facility] [address] [place] [address] 166 Manager Universal: Prelsey Colin M.D. Ph. D.; CLIA# [id number] Source Nares 12/31/2020 5:39 PM CDT [facility] LABORATORIES Patient Race Not Provided 12/31/2020 5:39 PM CDT [facility]ATOR[facility] Patient Ethnicity Not Provided 12/31/2020 5:39 PM CDT [facility] LABORATORIES Specimen Anatomical Collection Method Collection Time Receive d Time (Source) Location / / Volume Laterality Swab BOTH ANTERIOR Non-blood 12/29/2020 2:50 PM 12/31/19 21 5:46 NARES / Unknown collection / CDT PM CDT Unknown Pradip Montelongo MD EC PATHOLOGY ORDERABLES Performing Organization Address City/State/ZIP Code Phon e Number [place] [phone] documented in this encounter Visit Diagnoses Diagnosis Contact with and (suspected) exposure to other viral communicable diseases documented in this encounter
--- OUTSIDE RECORDS SUMMARY | 2022-07-04 09:23 | XMS_ITS | Encounter Summary ---
:2000 Author Organization [facility] Address [address] [place] [address] Care Team Providers Name Role Phone Corinne Hazel MD Primary Care Provider Encounter Details Date Type Department Care Team Description 08/18/2003 PN Conversion Only [place] [facility] Nurse, [facility] [address] [place] [place] [address] Social History Tobacco Use Types Packs/Day Years [...] filed by Clinician Phone Note at 01/03/11 7436 Author: Clinician Phone Note Service: (none) Author Type: Resource Filed: 01/03/11 1223 Note Time: 07/07/03 0001 Status: Signed Human Services Program Specialist: Clinician Phone Note (Resource) - REFERRED PATIENT TO URGENT CARE AT [facility] * HOME PHONE:[phone] * SUBJECTIVE: PATIENT COMPLAINS OF... Pain with [...] CALL BY ANAIS POLK SEMI 07/07/2003 04:28PM [phone] ADDENDUM: Selena Vasques - 05/07/2003 12:01 AM CDT Progress Notes signed by Selena High MD at 05/12/03 0803 Author: Selena High MD Service: (none) Author Type: Physician Filed: 01/05/11 1626 Note Time: 05/07/03 0001 Status: Signed Human Services Program Specialist: Selena High MD (Physician) NAME: MICAH PRIEST MR: [id number] ACCT: [id number] VISIT: [id number] DICTATING CLINICIAN: SELENA HIGH MD JOB: [id number] CLINIC PROGRESS NOTE DATE OF VISIT: 05/07/2003 SUBJECTIVE: : 2000. Please [address] [facility] shingle in chart. Micah is a 3-1/2-year-old [...] SKIN: No rashes. Please refer to [facility] shingle in chart for rest of physical [...] or concerns regarding his health. TT: CT: NAVI:[id number] C: 05/07/03 22:30 DOCUMENT: [id number] CH PATHOLOGY SUPERVISOR Robert Romero MD - 02/25/2003 12:01 AM CDT Progress Notes signed by MATEO Sibley at 02/26/03 1039 Author: MATEO Sibley Service: (none) Author Type: Physician Filed: 01/05/11 1519 Note Time: 02/25/03 0001 Status: Signed Human Services Program Specialist: MATEO Sibley (Physician) NAME: MICAH PRIEST MR: [id number] ACCT: [id number] VISIT: [id number] DICTATING CLINICIAN: ROBERT ROMERO MD JOB: [id number] CLINIC PROGRESS NOTE DATE OF VISIT: 02/25/2003 SUBJECTIVE: Micah is here for fever. See shingle in the chart. OBJECTIVE: ASSESSMENT: Acute pharyngitis. Rapid strep negative. PLAN: Symptomatic cares. Return if the fever persist or if he gets worse. TT: CT: ADE:[id number] C: 02/26/03 10:31 DOCUMENT: [id number] Robert Romero MD - 12/24/2002 12:01 AM CDT Progress Notes signed by MATEO Sibley at 12/26/02 0858 Author: MATEO Sibley Service: (none) Author Type: Physician Filed: 01/05/11 1418 Note Time: 12/24/02 0001 Status: Signed Human Services Program Specialist: MATEO Sibley (Physician) NAME: MICAH PRIEST MR: [id number] ACCT: [id number] VISIT: [id number] DICTATING CLINICIAN: ROBERT ROMERO MD JOB: [id number] CLINIC PROGRESS NOTE DATE OF VISIT: 12/24/2002 SUBJECTIVE: : 2000. CHART NUMBER: [id number]. Micah is here for persistent cold and cough symptoms. See shingle in the chart. OBJECTIVE: ASSESSMENT: Acute sinusitis. PLAN: Amoxicillin, 500 mg b.i.d. times two weeks. Follow up on a p.r.n. basis. TT: CT: [id number] C: 12/26/02 08:41 DOCUMENT: [id number] Corinne Hazel MD - 10/22/2001 12:01 AM CST Progress Notes signed by Corinne Hazel MD at 11/07/01 1334 Author: Corinne Hazel MD Service: (none) Author Type: Physician Filed: 01/05/11 0438 Note Time: 10/22/01 0001 Status: Signed Human Services Program Specialist: Corinne Hazel MD (Physician) IMPRESSION: Prominence of the left clavicle, probably normal with no SUBJECTIVE: Goran is a 72-nyert[age]fur brought in by his parents for evaluation [...] Follow up at well-child exam. TT: CT: [facility]:[id number] C: DOCUMENT: [id number] CH PATHOLOGY SUPERVISOR Corinne Hazel MD - 01/17/2001 12:01 AM CDT Progress Notes signed by Corinne Hazel MD at 02/27/01 1814 Author: Corinne Hazel MD Service: (none) Author Type: Physician Filed: 01/04/11 7706 Note Time: 01/17/01 0001 Status: Signed Human Services Program Specialist: Corinne Hazel MD (Physician) IMPRESSION: Suture removal. SUBJECTIVE: Goran is a 62-erugt-lal here for suture removal. One suture was removed from his right cheek. He tolerated this well. He is on no medication. NO DRUG ALLERGIES. OBJECTIVE: SKIN: There is good wound closure maintained. ASSESSMENT: Suture removal. PLAN: Wound care reviewed. Follow up p.r.n. [facility]:[id number] C: DOCUMENT: [id number] Corinne Hazel MD - 01/14/2001 12:01 AM CDT Progress Notes signed by Corinne Hazel MD at 02/13/01 1033 Author: Corinne Hazel MD Service: (none) Author Type: Physician Filed: 01/04/11 5188 Note Time: 01/14/01 0001 Status: Signed Human Services Program Specialist: Corinne Hazel MD (Physician) IMPRESSION: Suture removal [...] well child exam for further developmental issues. [facility]:[id number] C: DOCUMENT: [id number] Corinne Hazel MD - 11/19/2000 12:01 AM CST Progress Notes signed by Corinne Hazel MD at 01/03/01 1708 Author: Corinne Hazel MD Service: (none) Author Type: Physician Filed: 01/04/112149 Note Time: 11/19/00 0001 Status: Signed Human Services Program Specialist: Corinne Hazel MD (Physician) IMPRESSION: NO DICTATION REQUIRED FOR THIS NOTE Lindsey Jordan MD - 11/07/2000 12:01 AM CST Progress Notes signed by Lindsey Jordan MD at 02/12/01 0905 Author: Lindsey Jordan MD Service: (none) Author Type: Physician Filed: 01/04/112138 Note Time: 11/07/00 0001 Status: Signed Human Services Program Specialist: Lindsey Jordan MD (Physician) IMPRESSION: Probable viral [...] into his illness he was seen in [place] at urgent care and mom was told [...] tympanic. Wt: 23 pounds 2-1/2 ounces. GENERAL: [place] and healthy appearing boy. HEENT: TMs clear. [...] As above, rectal strep culture is pending. EAS:[id number] C: DOCUMENT: [id number] Grace Garsia MD - 07/28/2000 12:01 AM CST Progress Notes signed by Grace Garsia MD at 09/05/00 3064 Author: Grace Garsia MD Service: (none) Author Type: Physician Filed: 01/04/111953 Note Time: 07/28/00 0001 Status: Signed Human Services Program Specialist: Grace Garsia MD (Physician) IMPRESSION: Right serous [...] Ear recheck in two to three weeks. JKM:[id number] C: DOCUMENT: [id number] CH PATHOLOGY SUPERVISOR Robert Romero MD - 2000 12:01 AM CDT Progress Notes signed by MATEO Sibley at 99 1431 Author: MATEO Sibley Service: (none) Author Type: Physician Filed: 01/04/11 1621 Note Time: 99 0001 Status: Signed Human Services Program Specialist: MATEO Sibley (Physician) IMPRESSION: Sjr-sgrt-ucr male with a history of projectile vomiting off andon. SUBJECTIVE: Micah is a epo-dfkn-kec who is brought in because of concerns [...] On exam he was an awake, alert, zxr-hxgj-ijz in no acute distress. Wt: 10 pounds 15.25 ounces. weight was 7 pounds 10 ounces. When he was here for his ejb-fisa-qoyzhzv, he was 8 pounds 1 ounces. His [...] of Similac and kept that down. ASSESSMENT: Vfp-ndmx-wru male with a history of projectile vomiting off and on. PLAN: Observation. Discussed pyloric stenosis. If he was to have projectile vomiting with every feeding, told mom to bring him in so that we could do a barium swallow and an upper GI. DA:[id number] C: DOCUMENT: [id number] Carol Barton MD - 2000 12:01 AM CST Progress Notes signed by Carol Barton MD at 12/19/992017 Author: Carol Barton MD Service: (none) Author Type: Physician Filed: 01/04/11 1552 Note Time: 99 0001 Status: Signed Human Services Program Specialist: Carol Barton MD (Physician) IMPRESSION: Well-child check. Igl-kflp-ltt. SUBJECTIVE: Micah is a bby-lhpr-jvq infant brought in today for a well- [...] of 7 pounds 10 ounces. HEENT EXAM: [place] was soft. Conjunctiva were clear. Normal ocular alignment. Red reflex was easily visualized. TMS were normal. OROPHARYNX: Unremarkable, no adenopathy, no thyromegaly. CARDIOVASCULAR, RESPIRATORY, ABDOMINAL, NEUROLOGICAL EXAM: Within normal limits. EXAM: Testes are down. No evidence of inguinal hernia. He was circumcised in the hospital prior to discharge and this was healing well, but no evidence of secondary infection. ASSESSMENT: Well-child check. Yjb-bpmd-avw. PLAN: Followup at two months. Sooner with concerns. WMB:[id number] C: DOCUMENT: [id number] documented in this encounter Plan of Treatment Not on filedocumented as of this encounter Procedures Procedure Name Priority Date/Time Associated Diagnosis Comme nts XR CLAVICLE Routine 10/22/2001 3:59 PM Results f or this SPEECH PATHOLOGY SUPERVISOR procedure are i n the results section. GIARDIA ANTIGEN Routine 06/23/2001 8:30 AM Result s for this SCREEN CDT procedure are i n the results section. OVA AND PARASITE Routine 06/22/2001 12:00 PM Resu lts for this CDT procedure are i n the results section. GROUP B STREP Routine 11/07/2000 4:00 PM Results for this SCREEN (OB PTS) SPEECH PATHOLOGY SUPERVISOR procedure ar e in the results section. HEMOGLOBIN, BLOOD Routine 09/12/2000 4:34 PM Resu lts for this SPEECH PATHOLOGY SUPERVISOR procedure are i n the results section. documented in this encounter Results XR Clavicle (10/22/2001 3:59 PM SPEECH PATHOLOGY SUPERVISOR) Anatomical Region Laterality Modality Other Specimen (Source) Anatomical Location Collection Method / Collectio n Time Received Time / Laterality Volume Impressions 10/22/2001 3:59 PM SPEECH PATHOLOGY SUPERVISOR : ?NORMAL CLAVICLES. FINDINGS: ?BOTH CLAVICLES ARE INTACT. THERE I S NO FRACTURE OR ?DISLOCATION NOTED. THE AC JOINTS A PPEAR NORMAL BILATERALLY. ?THE CLAVICULAR MANUBRIAL JOINTS AL SO APPEAR NORMAL. ?[facility] TECH-ID : ? RE TRANS-ID: ? EDR Narrative 10/22/2001 3:59 PM SPEECH PATHOLOGY SUPERVISOR CLINICAL DATA: ?PAIN Procedure Note Jorge A White MD - 11/23/2016Format ting of this note might be different from the original. CLINICAL DATA: PAIN IMPRESSION : NORMAL CLAVICLES. FINDINGS: BOTH CLAVICLES ARE INTACT. THERE IS NO FRACTURE OR DISLOCATION NOTED. THE AC JOINTS APPEAR NORMAL BILATERALLY. THE CLAVICULAR MANUBRIAL JOINTS ALSO AP PEAR NORMAL. [facility] TECH-ID : RE TRANS-ID: EDR Corinne Hazel MD RAD GD Giardia Antigen Screen (06/23/2001 8:30 AM CDT) athologist Signature Giardia Ab SEE TEXT HP CONVERSION Comment: Patient: MICAH PRIEST Giardia Screen @ ?Collected: ??[id number] ??[id number] Source: Stool ? Processed: ??[id number] ??0904 ? 12 Final Report ------ ?[id number] ??1442 Positive for Giardia antigen Department notified on 06/24/01 1445; SURESH NTED TO LEANA IQBAL, FOR DR. GRACE GARSIA BY [facility] This reportable disease has been reporte d to the [place] [facility]. @ = Giardia Screen Performed at ??[address] [facility] ?[address] Specimen (Source) Anatomical Collection Method Collection Time Re ceived Time Location / / Volume Laterality 06/23/2001 8:30 AM CDT Grace Garsia MD LAB_1 Performing Organization Address City/State/ZIP Code Phon e Number HP CONVERSION (ABNORMAL) Ova and Parasite (06/22/2001 12:00 PM CDT) [facility] gist Method Time Signature Ova & Parasite SEE TEXT HP CONVERSION Concentrate (A) Comment: Patient: MICAH PRIEST Ova + Parasite Exam @ ? Collected: ??[id number] ??1200 Source: Stool ? Processed: ??[id number] ??0904 ? 12 Final Report ------ ?[id number] ??1324 Giardia lamblia Cysts seen This reportable disease has been reporte d to the [place] [facility]. Printed to: FARIDA SCHUMACHER (LP54) BY MARY. Specimen (Source) Anatomical Collection Method Collection Time Re ceived Time Location / / Volume Laterality 06/22/2001 12:00 PM CDT Grace Garsia MD LAB_1 Performing Organization Address City/State/ZIP Code Phon e Number HP CONVERSION Group B Strep Screen (OB Pts) (11/07/2000 4:00 PM SPEECH PATHOLOGY SUPERVISOR) Analysis Performed At Patho logist Time Signature Culture Strep SEE TEXT HP CONVERSION Screen Other Source Comment: Patient: MICAH PRIEST Culture Strep Scr Other Source @ ?Collected: ??[id number] ??1600 Source: RECTAL ?Processed: ??[id number] ??1600 ? 12 Final Report ------ ?[id number] ??1349 No group A or B Streptococcus isolated @ = Strep Screen Performed at ??[address] [place], [place] ?[address] Specimen (Source) Anatomical Collection Method Collection Time Re ceived Time Location / / Volume Laterality 11/07/2000 4:00 PM SPEECH PATHOLOGY SUPERVISOR Lindsey Jordan MD LAB_1 Performing Organization Address City/[facility] Phon e Number HP CONVERSION Hemoglobin, Blood (09/12/2000 4:34 PM SPEECH PATHOLOGY SUPERVISOR) athologist Signature Hemoglobin 12.8 10.5 - 13.5 HP CONVERSION gm/dL Specimen (Source) Anatomical Collection Method Collection Time Re ceived Time Location / / Volume Laterality 09/12/2000 4:34 PM SPEECH PATHOLOGY SUPERVISOR Corinne Hazel MD LAB_1 Performing Organization Address City/[facility] Phon e Number HP CONVERSION documented in this encounter Visit Diagnoses Not on filedocumented in this encounter Care Teams Tap Dancer Relationship Specialty Start Date End Date Corinne Hazel MD PCP - General 12/19/10 1415 [place] [place] [phone] documented as of this encounter
--- OUTSIDE RECORDS SUMMARY | 2022-07-04 09:23 | XMS_ITS | Encounter Summary ---
:1999 Author Organization [facility] Address [address] [place] [address] Care Team Providers Name Role Phone Corinne Hazel MD Primary Care Provider Reason for Visit Reason Comments WELL CHILD EXAM Encounter Details Date Type Department Care Team Description 04/16/2012 Office Visit [facility], Routine child health exam (P rimary Dx); [address] MD Nichole Need for meningococcus vaccine; [place] [address] [address] [facility] Need for Tdap vaccination; [phone] Ave Examination of eyes and vision; CESARIO [...] 04/16/2012 3:23 PM CD T Growth Chart: [facility] (Boys, 2-20 Years) documented in this encounter [...] Need for prophylactic vaccination with c ombined ebmzksnyzl-icnsgzt-otvquoyxt (DTP) vaccine Examination of eyes and vision Other examination of ears and hearing documented in this encounter Care Teams Fugitive Investigator Relationship Specialty Start Date End Date Corinne Hazel MD PCP - General 12/19/10 6875 [facility] [place] [address] documented as of this encounter
--- OUTSIDE RECORDS SUMMARY | 2022-07-04 09:23 | XMS_ITS | Encounter Summary ---
:1999 Author Organization [facility] Address [address] [place] [address] Care Team Providers Name Role Phone Corinne Hazel MD Primary Care Provider Reason for Visit Reason Comments WELL CHILD EXAM Encounter Details Date Type Department Care Team Description 03/26/2015 Office Visit [facility] Chava Iverson, Routine child health exam (P rimary Dx); [address] 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 Allergic rhinitis- February/March ??? Mead-Schlatter's disease No past medical history on file. No past surgical history on file. No family history on file. Pediatric History Patient Guardian Status ??? Mother: Joya High ??? Father: Dylon High Other Topics Concern [...] (174 cm) Weight: 141 lb 3.2 oz (59938 g) Wt Readings from Last 3 Encounters: 03/26/15 141 lb 3.2 oz (36401 g) (69.93 %*) 04/16/12 91 lb (96419 g) (43.21 %*) 07/18/10 86 lb 15.9 oz (30914 g) (74.38 %*) * Growth percentiles are based on [facility] 2-20 Years data. 5' 8.5 (174 cm) (62.42 %, Source: [facility] 2-20 Years) General- interactive, comfortable, MMM, color [...] 1. Routine child health exam V20.2 Z00.129 TX DEVELOPMENTAL TEST, MORSE IMMUNIZATION COUNSELING PERFORMED BY CLINICIAN HPV (Gardasil) MCV4 (Menveo) TX VISUAL SCREENING TEST, BILAT TX PURE TONE HEARING TEST, AIR 2. Need for HPV vaccination V04.89 Z23 IMMUNIZATION COUNSELING PERFORMED BY CLINICIAN HPV (Gardasil) 3. Need for meningococcus vaccine V03.89 Z23 IMMUNIZATION COUNSELING PERFORMED BY CLINICIAN MCV4 (Menveo) 4. 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 Examination of eyes and vision V72.0 Z01.00 TX VISUAL SCREENING TEST, BILAT 6. Other examination of ears and hearing V72.19 Z01.10 TX PURE TONE HEARING TEST, AIR 7. 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 Need for HPV vaccination Need for prophylactic vaccination and in oculation against other viral diseases Need for meningococcus vaccine Need for other specified prophylactic va ccination against single bacterial disease Examination of eyes and vision Other examination of ears and hearing Mal-Schlatter's disease, unspecified laterality documented in this encounter Care Teams Tyre Finisher And Examiner Relationship Specialty Start Date End Date Corinne Hazel MD PCP - General 12/19/10 [facility] [place] [address] documented as of this encounter
--- OUTSIDE RECORDS SUMMARY | 2022-07-04 09:23 | XMS_ITS | Encounter Summary ---
:1999 Author Organization [facility] Address [address], [place] [address] Care Team Providers Name Role Phone Corinne Hazel MD Primary Care Provider Encounter Details Date Type Department Care Team Description 07/18/2010 Office Visit Corinne Armenta MD [address] [place], [place] [address] (Wo rk) Social History [...] list. OBJECTIVE Vital Signs : [facility]. Weight 87 pounds Extremities: Bilateral [...] filedocumented in this encounter Care Teams Director Compensation Relationship Specialty Start Date End Date oCrinne Hazel MD PCP - General 12/19/10 [address] [place], [place] [address] documented as of this encounter
--- OUTSIDE RECORDS SUMMARY | 2022-07-04 09:23 | XMS_ITS | Encounter Summary ---
:1999 Author Organization [facility] Address [address] [place] [address] Phone Care Team Providers Name Role Phone Unavailable Primary Care Provider Unavailable Encounter Details Date Type Department Care Team Description 10/20/2020 Lab Requisition INDEPENDENT Pradip Montelongo, Contact [facility] and LAB-[place] (suspected) exposure [address] [facility], [place] [place] [address] [place] communicable diseases [phone] [place] [address] Social History Tobacco Use Types Packs/Day Years Used Date Never Assessed Sex Assigned at Date Recorded Not on file documented as of this encounter Plan of Treatment Not on filedocumented as of this encounter Visit Diagnoses Diagnosis Contact with and (suspected) exposure to other viral communicable diseases documented in this encounter
--- OUTSIDE RECORDS SUMMARY | 2022-07-04 09:23 | XMS_ITS | Encounter Summary ---
:1999 Author Organization [facility] Address [address] [place] [address] Care Team Providers Name Role Phone Corinne Hazel MD Primary Care Provider Encounter Details Date Type Department Care Team Description 03/09/2011 Office Visit [facility] Sondra Weir PA-C [address] [place] [address] [place] [address] [phone] (Wo rk) Social History Tobacco Use Types [...] on filedocumented in this encounter Care Teams Poultry Farmer Relationship Specialty Start Date End Date Corinne Hazel MD PCP - General 12/19/10 1415 [facility] [place] [id number] documented as of this encounter
--- OUTSIDE RECORDS SUMMARY | 2022-07-04 09:23 | XMS_ITS | Encounter Summary ---
:1999 Author Organization [facility] Address [address], [place] [address] Care Team Providers Name Role Phone Corinne Hazel MD Primary Care Provider Encounter Details Date Type Department Care Team Description 04/16/2012 Lab Visit [facility] Laboratory Routine child health exam 1415 [facility] . [place] [address] Social History Tobacco Use Types Packs/Day Years [...] Direct LDL(If Needed) (04/16/2012 4:27 PM CDT) [facility] Method Time Signature Cholesterol 147 0 [...] - 04/16/2012 8:38 PM CDT Performed at [facility], [address] [place] [address] Nichole Caputo MD LAB_1 Performing Organization Address City/State/ZIP Code Phon e Number HP CONVERSION documented in this encounter Visit Diagnoses Diagnosis Routine child health exam Routine infant or child health check documented in this encounter Care Teams Electronic Resources Librarian Relationship Specialty Start Date End Date Corinne Hazel MD PCP - General 12/19/10 1415 [place] [address] documented as of this encounter
--- OUTSIDE RECORDS SUMMARY | 2022-07-04 09:23 | XMS_ITS | Encounter Summary ---
:1999 Author Organization [facility] Address [address] [place] [address] Phone Care Team Providers Name Role Phone Unavailable Primary Care Provider Unavailable Encounter Details Date Type Department Care Team Description 10/27/2020 Lab Requisition INDEPENDENT Pradip Montelongo, Contact [facility] and [facility]ANC[place] (suspected) exposure [address] [facility] [address] [place] [address] [place] communicable diseases [phone] [place] [address] Social History Tobacco Use Types Packs/Day Years Used Date Never Assessed Sex Assigned at Date Recorded Not on file documented as of this encounter Plan of Treatment Not on filedocumented as of this encounter Visit Diagnoses Diagnosis Contact with and (suspected) exposure to other viral communicable diseases documented in this encounter
--- OUTSIDE RECORDS SUMMARY | 2022-07-04 09:23 | XMS_ITS | Encounter Summary ---
:1999 Author Organization [facility] Address [address] [place] [address] Care Team Providers Name Role Phone Corinne Hazel MD Primary Care Provider Encounter Details Date Type Department Care Team Description 05/10/2004 [facility] Cinthia Covarrubias APRN, [address] BUSINESS [place] [address] [phone] [place], [place] [address] Social History Tobacco Use [...] Progress Notes signed by Cinthia Zafar APRN, BUSINESS REPRESENTATIVE at 05/09/05 1033 Author: ISA Chavez Service: (none) Author Type: Nurse Practitioner Filed: 01/06/11 0054 Note Time: 05/10/04 0001 Status: Signed Treatment Plant Mechanic: ISA Chavez (Nurse Practitioner) Acute Clinic Visit [...] on filedocumented in this encounter Care Teams Stepdown Nurse Relationship Specialty Start Date End Date Corinne Hazel MD PCP - General 12/19/10 [facility] [place] [id number] documented as of this encounter
--- OUTSIDE RECORDS SUMMARY | 2022-07-04 09:23 | XMS_ITS | Encounter Summary ---
:1999 Author Organization [facility] Address [address] [address] Care Team Providers Name Role Phone Corinne Hazel MD Primary Care Provider Encounter Details Date Type Department Care Team Description 05/06/2008 PN Conversion Only [facility] Yue Mcleod, [address] [place] [address] [facility] [place], [place] [address] (Wo rk) Social History Tobacco Use Types [...] on filedocumented in this encounter Care Teams Rhit Relationship Specialty Start Date End Date Corinne Hazel MD PCP - General 12/19/10 1415 [facility] [place] [phone] documented as of this encounter
--- OUTSIDE RECORDS SUMMARY | 2022-07-04 09:23 | XMS_ITS | Encounter Summary ---
:1999 Author Organization [facility] Address [address] [address] Phone Care Team Providers Name Role Phone Unavailable Primary Care Provider Unavailable Encounter Details Date Type Department Care Team Description 12/30/2020 Lab Requisition INDEPENDENT [facility] [address] [place], [place] [address] Social History Tobacco Use Types Packs/Day Years Used Date Never Assessed Sex Assigned at Date Recorded Not on file documented as of this encounter Plan of Treatment Not on filedocumented as of this encounter Visit Diagnoses Not on filedocumented in this encounter
--- OUTSIDE RECORDS SUMMARY | 2022-07-04 09:23 | XMS_ITS | Encounter Summary ---
:1999 Author Organization [facility] Address [address] [place] [address] Care Team Providers Name Role Phone Corinne Hazel MD Primary Care Provider Encounter Details Date Type Department Care Team Description 05/09/2005 [facility] 1415 [facility] . [address] [place] [address] [place], [place] [address] (Wo rk) Social History Tobacco Use Types [...] 05/09/2005 4:06 PM CDT C: 111.8 cm Lecmqc-kwh-Rgpact Percentile 45.85 % 05/09/2005 4:06 PM CDT Growth Chart: CDC (Boys, 2-20 Years) Body Mass Index 15.25 05/09/2005 4:06 PM CDT Body Mass Index Percentile 45.62 % 05/09/2005 4:06 PM CD T Growth Chart: [facility] (Boys, 2-20 Years) documented in this encounter Progress Notes Rolando Stevens MD - 05/09/2005 12:01 AM CDT Progress Notes signed by Rolando Stevens MD at 05/10/05 1456 Author: Rolando Stevens MD Service: (none) Author Type: Physician Filed: 01/06/11 0741 Note Time: 05/09/05 0001 Status: Signed Director Counseling Bureau: Rolando Stevens MD (Physician) NAME: MICAH HIGH MR: [id number] ACCT: [id number] VISIT: [id number] DICTATING CLINICIAN: ROLANDO STEVENS MD JOB: [id number] CLINIC PROGRESS NOTE DATE OF VISIT: 05/09/2005 [...] alert and awake, in no acute distress. Ozs-spw-xcgjflxdw. HEENT: NC/AT. JAVIER, EOMI. Conjunctivas clear. Funduscopic [...] exam may require sedation. PLAN: See assessment. RIC:[id number] C: 05/10/05 14:19 DOCUMENT: [id number] documented in this encounter Plan of Treatment Not on filedocumented as of this encounter Visit Diagnoses Not on filedocumented in this encounter Care Teams Reversal Print Inspector Relationship Specialty Start Date End Date Corinne Hazel MD PCP - General 12/19/10 1415 [facility] [place] [id number] documented as of this encounter
--- OUTSIDE RECORDS SUMMARY | 2022-07-04 09:23 | XMS_ITS | Encounter Summary ---
:1999 Author Organization [facility] Address [address] [place] [address] Care Team Providers Name Role Phone Corinne Hazel MD Primary Care Provider Encounter Details Date Type Department Care Team Description 03/05/2007 Office Visit [facility] Alejo Pearce MD 1415 [facility] . [address] [place] [address] [place], [place] [address] (Wo rk) Social History Tobacco Use Types [...] signed by Alejo Pearce MD at 04/04/07 3125 Author: Alejo Pearce MD Service: (none) Author Type: Physician Filed: 01/06/11 Note Time: 03/05/072017 Status: Signed Special Day Class Teacher: Alejo Pearce MD (Physician) NAME: MICAH HIGH MR#: [id number] ACCT: [id number] VISIT: [id number] DICTATING CLINICIAN: ALEJO PEARCE MD JOB: [id number] LOC: 1202 CLINIC PROGRESS NOTE DATE OF VISIT: 03/05/2007 SUBJECTIVE: : 2000. Here for concerns of allergies, accompanied by mother. Reports they have been more pronounced this spring and fall than previously. Have tried Claritin qefz-eur-lqgsyjv with improvement in coryza, however, ongoing rhinorrhea [...] Could also try Zyrtec before consultation requested. [facility]:[id number] C: 03/06/07 14:43 DOCUMENT: [id number] documented in this encounter Plan of Treatment Not on filedocumented as of this encounter Visit Diagnoses Not on filedocumented in this encounter Care Teams Hair Specialist Relationship Specialty Start Date End Date Corinne Hazel MD PCP - General 12/19/10 1415 [facility] [place] [id number] documented as of this encounter
--- OUTSIDE RECORDS SUMMARY | 2022-07-04 09:23 | XMS_ITS | Encounter Summary ---
:1999 Author Organization [facility] Address [address] [place] [address] Care Team Providers Name Role Phone Corinne Hazel MD Primary Care Provider Encounter Details Date Type Department Care Team Description 01/25/2009 PN Conversion Only [facility] CONVERSION Corinne Hazel, 1415 [facility] [place] [address] 1416 [facility] evert [place] [address] (Wo rk) Social History Tobacco [...] (01/25/2009 11:20 AM CDT) Analysis Performed At [facility] Time Signature Strep Group A Positive Negative HP CONVERSION Antigen Test Specimen (Source) Anatomical Collection Method Collection Time Re ceived Time Location / / Volume Laterality 01/25/2009 11:20 AM CDT Corinne Hazel MD LAB_1 Performing Organization Address City/State/ZIP Code Phon e Number HP CONVERSION documented in this encounter Visit Diagnoses Not on filedocumented in this encounter Care Teams Diesel Maintenance Technician Relationship Specialty Start Date End Date Corinne Hazel MD PCP - General 12/19/10 [address] [place] [address] documented as of this encounter
--- OUTSIDE RECORDS SUMMARY | 2022-07-04 09:23 | XMS_ITS | Encounter Summary ---
:1999 Author Organization [facility] Address [address] [facility] [place] [address] Care Team Providers Name Role Phone Corinne Hazel MD Primary Care Provider Encounter Details Date Type Department Care Team Description 05/06/2008 Office Visit [facility] Yue Mcleod MD [address] [place]. 18[address] [facility] [place] [address] [place] [address] [phone] Social History Tobacco Use Types Packs/Day Years [...] 0746 Note Time: 05/06/08 0001 Status: Signed Generating Station Mechanic: Yue Mcleod MD (Physician) Well Child/Adolescent Visit [...] Social / Family History: Family: Father's occupation: Escrow Manager Mother's occupation: Broadcast Grade [employer] Number of siblings: Catherine-5 yo healthy Environment: [...] Impressions 05/06/2008 5:19 PM CDT : ??Normal. [id number] Dictating JOSUÉ PRESSLEY RADIOLOGIST Narrative 05/06/2008 5:19 [...] EKG and/or cardiac ultrasound. IMPRESSION : Normal. [id number]/s Dictating JOSUÉ PRESSLEY RADIOLOGIST Yue Mcleod MD RAD GD documented in this encounter Visit Diagnoses Not on filedocumented in this encounter Care Teams Alliance Consultant Relationship Specialty Start Date End Date Corinne Hazel MD PCP - General 12/19/10 [address]15 [place] [address] documented as of this encounter
--- OUTSIDE RECORDS SUMMARY | 2022-07-04 09:23 | XMS_ITS | Encounter Summary ---
:1999 Author Organization [facility] Address [address], [place] [address] Care Team Providers Name Role Phone Corinne Hazel MD Primary Care Provider Encounter Details Date Type Department Care Team Description 01/25/2009 Office Visit [facility] Corinne Hazel MD 1415 [facility] . 1415 [place] [address] [place], [place] [address] (Wo rk) Social History Tobacco Use Types [...] 1432 Note Time: 01/25/09 0001 Status: Signed Used Car Make Ready Mechanic: Corinne Hazel MD (Physician) Acute Clinic Visit [...] updated today on the Health Profile of [facility]. Past History of: Allergic rhinitis. OBJECTIVE: Weight: [...] OP Med list on Health Profile in [facility]. Patient was given discharge instructions and was discharged in stable condition. *SH~PC~AURELIANO ~ Shorthand Note completed on: 01/25/2009 10:55 AM documented in this encounter Plan of Treatment Not on filedocumented as of this encounter Visit Diagnoses Not on filedocumented in this encounter Care Teams Cook Larder Relationship Specialty Start Date End Date Corinne Hazel MD PCP - General 12/19/10 1415 [facility] [address] documented as of this encounter
--- OUTSIDE RECORDS SUMMARY | 2022-07-04 09:23 | XMS_ITS | Encounter Summary ---
:1999 [facility] Address [address], [place] [address] Care Team Providers Name Role Phone Corinne Hazel MD Primary Care Provider Encounter Details Date Type Department Care Team Description 03/09/2011 PN Conversion Only [facility]ATT[facility] DEHORNER [address], Sondra W, [address] [place] [address] [address] [place], [place] [address] (Wo rk) Social History [...] Component Value Ref Test Analysis Performed At [facility] gist Range Method Time Signature Path: ? Final DERMATOPATHOLOGY REPO RT HP CONVERSION Pathology #: [id number] ? Date Obtained: 03/09/2011 ?Date Received: 03/10/2011 DIAGNOSIS: ? Skin, right upper back, shave biopsy: ?- Irritated benign compound melanocytic nevus. ? MAXX SCHMIDT ? (electronic signatur e) ? 03/13/2011 [...] on filedocumented in this encounter Care Teams Letter Of Credit Clerk Relationship Specialty Start Date End Date Corinne Hazel MD PCP - General 12/19/[address] [address] documented as of this encounter
--- OUTSIDE RECORDS SUMMARY | 2022-07-04 09:23 | XMS_ITS | Encounter Summary ---
:1999 Author Organization [facility] Address [address] [place] [address] Care Team Providers Name Role Phone Corinne Hazel MD Primary Care Provider Encounter Details Date Type Department Care Team Description 05/10/2004 Chopped Strand Operator Only [facility] Cinthia Zafar, [facility] LEO, CM [address]. [address] [place] [address] [place] [address] [phone] Social History Tobacco Use Types Packs/Day Years [...] CDT H&P signed by Cinthia Zafar APRN, LATHE SANDER at 05/10/04 1230 Author: ISA Chavez Service: (none) Author Type: Nurse Practitioner Filed: 01/06/11 0053 Note Time: 05/10/04 0001 Status: Signed Maintenance Mechanic Technician: ISA Chavez (Nurse Practitioner) No History [...] on filedocumented in this encounter Care Teams Caser In Relationship Specialty Start Date End Date Corinne Hazel MD PCP - General 12/19/[address] [place] [address] [place] [phone] documented as of this encounter
--- OUTSIDE RECORDS SUMMARY | 2022-07-04 09:23 | XMS_ITS | Encounter Summary ---
:1999 Author Organization [facility] Address [address] [facility] [place] [address] Care Team Providers Name Role Phone Corinne Hazel MD Primary Care Provider Encounter Details Date Type Department Care Team Description 02/21/2008 Office Visit [facility] Mini Samuel 1415 [facility] . [place] [address] Social History Tobacco Use Types Packs/Day Years [...] 0600 Note Time: 02/21/08 0001 Status: Signed Activities Therapist: Mini Samuel DO (Physician) Acute Clinic Visit [...] on filedocumented in this encounter Care Teams Secondary School Registrar Relationship Specialty Start Date End Date Corinne Hazel MD PCP - General 12/19/10 2522 [facility] [place] [phone] documented as of this encounter
--- OUTSIDE RECORDS SUMMARY | 2022-07-04 09:23 | XMS_ITS | Encounter Summary ---
:1999 Author Organization [facility] Address [address] [address] Care Team Providers Name Role Phone Corinne Hazel MD Primary Care Provider Encounter Details Date Type Department Care Team Description 01/16/2011 PN Conversion Only [place] [facility] Cinthia Zafar, Medicine CASING MIXER, RADIATION CONTROL TECHNICIAN [address]. [address] [place] [address] [place] [address] [phone] Social History Tobacco Use Types Packs/Day Years [...] filedocumented in this encounter Care Teams Senior Database Programmer Relationship Specialty Start Date End Date Corinne Hazel MD PCP - General 12/19/10 1415 [facility] [place] [phone] documented as of this encounter
--- OUTSIDE RECORDS SUMMARY | 2022-07-04 09:23 | XMS_ITS | Encounter Summary ---
:1999 [facility] Organization [facility] Address [address] [place] [address] Care Team Providers Name Role Phone Corinne Hazel MD Primary Care Provider Encounter Details Date Type Department Care Team Description 05/06/2008 PN Conversion Only [place] [facility] Liang Galan MD [address] [facility] [address] [place] [address] [phone] Social History Tobacco Use Types Packs/Day Years [...] 05/06/2008 3:45 PM CD T Growth Chart: [facility] (Boys, 2-20 Years) documented in this [...] on filedocumented in this encounter Care Teams Hinging Machine Operator Relationship Specialty Start Date End Date Corinne Hazel MD PCP - General 12/19/[address] [place] [address] [place] [id number] documented as of this encounter
--- OUTSIDE RECORDS SUMMARY | 2022-07-04 09:23 | XMS_ITS | Encounter Summary ---
:1999 Author Organization [facility] Address [address], [place] [address] Care Team Providers Name Role Phone Corinne Hazel MD Primary Care Provider Encounter Details Date Type Department Care Team Description 02/25/2003 PN Conversion Only [place] CONVERSION Robert Rogers M, [address] [facility] [place] [address] [place] [address] (Wo rk) Social History Tobacco [...] (02/25/2003 4:47 PM CDT) [facility] Strep Group A Negative Negative HP CONVERSION Antigen Test Comment: Culture to follow. Specimen (Source) Anatomical Collection Method Collection Time Re ceived Time Location / / Volume Laterality 02/25/2003 4:47 PM CDT Robert Rogers MD LAB_1 Performing Organization Address City/[facility] Code Phon e Number HP CONVERSION Beta Strep Followup (02/25/2003 4:47 PM CDT) P athologist Signature Strep Screen SEE TEXT HP CONVERSION Comment: Patient: MICAH HIGH Rapid Strep Follow up Culture @ ? Collected: ??[id number] Source: Throat ?Processed: ??[id number] ??[id number] ? S Final Report ------ ?[id number] ??[id number] No beta hemolytic Strep group A isolated . @ = Rapid F/U Cult Performed at ??[address] [place], [place] ?[address] Specimen (Source) Anatomical Collection Method Collection Time Re ceived Time Location / / Volume Laterality 02/25/2003 4:47 PM CDT Robert Rogers MD LAB_1 Performing Organization Address City/[facility] Phon e Number HP CONVERSION documented in this encounter Visit Diagnoses Not on filedocumented in this encounter Care Teams Exterior Door Installer Relationship Specialty Start Date End Date Corinne Hazel MD PCP - General 12/19/10 [address] [place] [address] documented as of this encounter
--- OUTSIDE RECORDS SUMMARY | 2022-07-04 09:23 | XMS_ITS | Encounter Summary ---
:1999 Author Organization [facility] Address [address] [address] Care Team Providers Name Role Phone Corinne Hazel MD Primary Care Provider Reason for Visit Reason Comments Other Encounter Details Date Type Department Care Team Description 03/16/2011 Telephone [facility] Eleonora Weir PA-C Other [address] [place] [address] [place] [address] [phone] (Wo rk) Social History Tobacco Use Types [...] on filedocumented in this encounter Care Teams Customer Account Manager Relationship Specialty Start Date End Date Corinne Hazel MD PCP - General 12/19/10 14[address] [facility] [place] [phone] documented as of this encounter
--- OUTSIDE RECORDS SUMMARY | 2022-07-04 09:23 | XMS_ITS | Encounter Summary ---
:1999 Author [facility] Address [address] [address] Care Team Providers Name Role Phone Corinne Hazel MD Primary Care Provider Encounter Details Date Type Department Care Team Description 03/05/2007 PN Conversion Only [place] CONVERSION [address] [place] [address] Social History Tobacco Use Types Packs/Day Years [...] on filedocumented in this encounter Care Teams Commissary Officer Relationship Specialty Start Date End Date Corinne Hazel MD PCP - General 12/19/10 [address] [place] [address] documented as of this encounter
--- OUTSIDE RECORDS SUMMARY | 2022-07-04 09:23 | XMS_ITS | Encounter Summary ---
:1999 Author Organization [facility] Address [address] [address] Care Team Providers Name Role Phone Corinne Hazel MD Primary Care Provider Encounter Details Date Type Department Care Team Description 03/09/2011 PN Conversion Only [facility] [address], Dermatology [address] [place], [place] [address] [address] [place], [place] [phone] [address] (Wo rk) Social History Tobacco Use Types [...] filedocumented in this encounter Care Teams Engineering Research Manager Relationship Specialty Start Date End Date Corinne Hazel MD PCP - General 12/19/10 [address] [place] [id number] documented as of this encounter
--- OUTSIDE RECORDS SUMMARY | 2022-07-04 09:23 | XMS_ITS | Encounter Summary ---
:1999 Author [facility] Address [address], [place] [address] Care Team Providers Name Role Phone Corinne Hazel MD Primary Care Provider Reason for Visit Reason Comments POISON PATITO Encounter Details Date Type Department Care Team Description 03/11/2012 Nurse Triage [facility] Corinne Hazel MD POISON PATITO [address] [facility] . [address] [facility] [place] [address] [place] [address] [phone] (Wo rk) Social History Tobacco Use Types [...] CDT Protocol: POISON PATITO - [place] - [id number] Affirmative: Face, eyes, lips or genitals are [...] on filedocumented in this encounter Care Teams Business Solutions Architect Relationship Specialty Start Date End Date Corinne Hazel MD PCP - General 12/19/10 1415 [facility] [place] [phone] documented as of this encounter
--- OUTSIDE RECORDS SUMMARY | 2022-07-04 09:23 | XMS_ITS | Encounter Summary ---
:1999 Author Organization [facility] [facility] Address [address] [place] [address] Phone Care Team Providers Name Role Phone Unavailable Primary Care Provider Unavailable Encounter Details Date Type Department Care Team Description 09/06/2020 Lab Requisition INDEPENDENT Pradip Montelongo, Contact wi and LAB-[place] SANCHEZ (suspected) exposure [address] [place] [address] [place] communicable diseases [phone] [place] [id number] Social History Tobacco Use Types Packs/Day Years [...] Confirmed 09/03/2020 09/03/2020 10/03/2020 11 :06 PM FELT PULLER documented as of this encounter
--- OUTSIDE RECORDS SUMMARY | 2022-07-04 09:24 | XMS_ITS | Encounter Summary ---
:1999 Author Organization [facility] [employer] [facility] Address [address] [place] [address] Phone Care Team Providers Name Role Phone Unavailable Primary Care Provider Unavailable Encounter Details Date Type Department Care Team Description 08/19/2020 Lab Requisition INDEPENDENT Pradip Montelongo, Contact wi and LAB-[place] SANC[place]Z (suspected) exposure [address] [place] [address] [place] communicable diseases [phone] [place] [address] Social History Tobacco Use Types Packs/Day Years [...] Confirmed 09/03/2020 09/03/2020 10/03/2020 11 :06 PM MATHEMATICAL TECHNICIAN documented as of this encounter
--- OUTSIDE RECORDS SUMMARY | 2022-07-04 09:24 | XMS_ITS | Encounter Summary ---
:1999 Author Organization [facility] [facility] Address [address] [place] [address] Phone Care Team Providers Name Role Phone Unavailable Primary Care Provider Unavailable Encounter Details Date Type Department Care Team Description 08/04/2020 Lab Requisition INDEPENDENT Pradip Montelongo, Contact wi and LAB-[place] SANCHEZ (suspected) exposure [address] [place] [address] [place] communicable diseases [phone] [place] [address] Social History Tobacco Use Types Packs/Day Years [...] Confirmed 09/03/2020 09/03/2020 10/03/2020 11 :06 PM KITCHEN AIDE documented as of this encounter
--- OUTSIDE RECORDS SUMMARY | 2022-07-04 09:24 | XMS_ITS | Encounter Summary ---
:1999 Author Organization [facility] Address [address] [place] [address] Phone Care Team Providers Name Role Phone Unavailable Primary Care Provider Unavailable Encounter Details Date Type Department Care Team Description 08/25/2020 Lab Requisition INDEPENDENT Pradip Montelongo, Contact wi and LAB-[place] SANCHEZ (suspected) exposure [address] [place] [address] [place] communicable diseases [phone] [place] [address] Social History Tobacco Use Types Packs/Day Years [...] Confirmed 09/03/2020 09/03/2020 10/03/2020 11 :06 PM 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
--- OUTSIDE RECORDS SUMMARY | 2022-07-04 09:24 | XMS_ITS | Encounter Summary ---
:1999 Author Organization [facility] [facility] Address [address] [place] [address] Phone Care Team Providers Name Role Phone Unavailable Primary Care Provider Unavailable Encounter Details Date Type Department Care Team Description 08/10/2020 Lab Requisition INDEPENDENT Kiana Carreon and LAB-VICTOR MANUEL Mcconnell APRN, (suspected) exposure [address] [facility] [facility] [place] [address] [address] [place] communicable diseases [phone] [place] [address] Social History Tobacco Use Types [...] Confirmed 09/03/2020 09/03/2020 10/03/2020 11 :06 PM DIP FILLER documented as of this encounter
--- OUTSIDE RECORDS SUMMARY | 2022-07-04 09:24 | XMS_ITS | Encounter Summary ---
:1999 Author Organization [facility] Address [address] [place] [address] Phone Care Team Providers Name Role Phone Unavailable Primary Care Provider Unavailable Encounter Details Date Type Department Care Team Description 07/29/2020 Lab Requisition INDEPENDENT Pradip Montelongo, Contact wi and LAB-[place] SANCHEZ (suspected) exposure [address] [place] [address] [place] communicable diseases [phone] [place] [id number] Social History Tobacco Use Types Packs/Day Years [...] Confirmed 09/03/2020 09/03/2020 10/03/2020 11 :06 PM CITRIX CONSULTANT documented as of this encounter
--- OUTSIDE RECORDS SUMMARY | 2022-07-04 09:24 | XMS_ITS | Encounter Summary ---
:1999 Author Organization [facility] Address [address] [place] [address] Phone Care Team Providers Name Role Phone Unavailable Primary Care Provider Unavailable Encounter Details Date Type Department Care Team Description 07/23/2020 Lab Requisition INDEPENDENT Pradip Montelongo, Contact wi and LAB-VICTOR MANUEL SANCHEZ (suspected) exposure [address] [facility] [address] [place] [address] [place] communicable diseases [phone] [place], [place] [address] Social History Tobacco Use Types Packs/Day Years [...] Results SARS-COV-2 RNA (COVID-19) - (COVID) (07/23/2020) [facility] Method Time Signature SARS-CoV-2 Undetected Undetected 07/29/2020 [facility] RNA 6:31 AM [facility] SUPER[facility] (COVID-19) Comment: SARS-CoV-2 RNA absent. This result does not rule out COVID-19 in the patient, as the sensitiv ity of the test depends on the timing of the specimen co llection and the quality of the specimen. Result should b e correlated with patient's history and clinical presentat ion. SARS-CoV-2 RNA Method SEE COMMENTS 07/29/2020 6:31 AM [facility] Summary [facility] Comment: THFSH- This test uses the TaqPath COVID- 19 Combo Kit ([employer] Isidra.) and is performed on the netFactor magnetic particle processor and Applied Medopad Fast Dx Real-Time PCR System. It has rec eived Emergency Use Authorization (EUA) by the U.S. Food and Drug Administration. Performance characterist ics were verified by [facility] in a manner consistent wi CLIA requirements. Fact sheets for this Emergency Use Autho rization (EUA) can be found at the following links: https://www.fda.gov/media/484724/downloa d for Healthcare Providers https://www.fda.gov/media/151870/downloa d for Patients Test Performed by: [facility] [address] [address] 37 Superintendent Operating: Presley Colin M.D. Ph. D.; CLIA# [id number] Source Nares 07/29/2020 6:31 AM [facility] IN LABORATORIES Patient Race Refused 07/29/2020 6:31 AM PAVING SUPERVISOR [facility] Patient Ethnicity Refused 07/29/2020 6:31 AM [facility] Specimen (Source) Anatomical Collection Method Collection Time Re ceived Time Location / / Volume Laterality Swab ENTIRE ANTERIOR 07/23/2020 07/26/2020 6 :03 NARIS / Unknown PM PAVING SUPERVISOR Pradip Montelongo MD EC PATHOLOGY ORDERABLES Performing Organization Address City/State/ZIP Code Phon e Number [place] [phone] documented in this encounter Visit Diagnoses Diagnosis Contact with and (suspected) exposure to other viral communicable diseases documented in this encounter Additional Health Concerns Infection Onset Date Last Indicated Resolved Time COVID-19 Confirmed 09/03/2020 09/03/2020 10/03/2020 11 :06 PM PAVING SUPERVISOR documented as of this encounter
--- OUTSIDE RECORDS SUMMARY | 2022-07-04 09:25 | XMS_ITS | Encounter Summary ---
:1999 Author Organization [employer] [facility] Address [address] [address] Phone Care Team Providers Name Role Phone [...]
--- OUTSIDE RECORDS SUMMARY | 2022-07-04 09:25 | XMS_ITS | Encounter Summary ---
:1999 Author Organization [facility] Address [address] [place] [address] Phone Care Team Providers Name Role Phone Unavailable Primary Care Provider Unavailable Encounter Details Date Type Department Care Team Description 07/16/2020 Lab Requisition INDEPENDENT Pradip Montelongo, Contact wi and LAB-VICTOR MANUEL SANCHEZ (suspected) exposure [address] [place] [address] [place] communicable diseases [phone] [place], [place] [phone] Social History Tobacco Use Types Packs/Day Years Used Date Never Assessed Sex Assigned at Date Recorded Not on file documented as of this encounter Plan of Treatment Not on filedocumented as of this encounter Procedures Procedure Name Priority Date/Time Associated Diagnosis Comme nts SARS-COV-2 RNA Routine 07/19/2020 2:45 PM Contact with and Res ults for this (COVID-19), MUSIC MINISTER (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 documented in this encounter Results SARS-COV-2 RNA (COVID-19) - (COVID) (07/19/2020 2:45 PM MUSIC MINISTER) [facility] Method Time Signature SARS-CoV-2 Undetected Undetected 07/21/2020 [facility] RNA 8:36 PM [facility] (COVID-19) Comment: SARS-CoV-2 RNA absent. This result does not rule out COVID-19 in the patient, as the sensitiv ity of the test depends on the timing of the specimen co llection and the quality of the specimen. Result should b e correlated with patient's history and clinical presentat ion. SARS-CoV-2 RNA Method SEE COMMENTS 07/21/2020 8:36 PM [facility] Summary [facility] Comment: THFSH- This test uses the TaqPath COVID- 19 Combo Kit ([employer] Isidra.) and is performed on the [employer] magnetic particle processor and Applied Accelera Mobile Broadband 7500 Fast Dx Real-Time PCR System. It has rec eived Emergency Use Authorization (EUA) by the U.S. Food and Drug Administration. Performance characterist ics were verified by [facility] in a manner consistent wi CLIA requirements. Fact sheets for this Emergency Use Autho rization (EUA) can be found at the following links: https://www.fda.gov/media/208755/downloa d for Healthcare Providers https://www.fda.gov/media/845041/downloa d for Patients Test Performed by: [place] [id number] Residential Substance Abuse Counselor: Presley Colin M.D. Ph. D.; CLIA# [id number] Source Nares 07/21/2020 8:36 PM MUSIC MINISTER [facility] IN[facility]ATOR[facility] Patient Race Refused 07/21/2020 8:36 PM MUSIC MINISTER [facility] Patient Ethnicity Refused 07/21/2020 8:36 PM MUSIC MINISTER [facility] Specimen Anatomical Collection Method Collection Time Receive d Time (Source) Location / / Volume Laterality Swab ENTIRE ANTERIOR 07/19/2020 2:45 PM 2019 6:21 NARIS / Unknown MUSIC MINISTER PM MUSIC MINISTER Pradip Montelongo MD EC PATHOLOGY ORDERABLES Performing Organization Address City/State/ZIP Code Phon e Number [place] [phone] documented in this encounter Visit Diagnoses Diagnosis Contact with and (suspected) exposure to other viral communicable diseases documented in this encounter Additional Health Concerns Infection Onset Date Last Indicated Resolved Time COVID-19 Confirmed 09/03/2020 09/03/2020 10/03/2020 11 :06 PM MUSIC MINISTER documented as of this encounter
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
[2022-07-10 09:32] LABS: Hours Collected 24 hr; Normetanephrine Urine CRT 99 ug/g CRT (0-400); Total Volume 1100 mL
[2022-07-11 22:42] LABS: DopamUrRatioCRT 143 ug/g CRT (0-250); Hours Collected 24 hr; NorepinephrineUr - per 24h 53 ug/d (14-120); NorepinephrineUr - per vol 48 ug/L; NorepinephrineUr - ratioToCRT 25 ug/g CRT (0-45); Total Volume 1100 mL
== END 2022-07-04 09:19 | disposition home or self-care (01) ==
LOC: NFLDREF 09:19
PROVIDERS: PCP Family Medicine; Visit Provider Internal Medicine Cardiovascular Disease
DX: I10 Essential (primary) hypertension (principal)
CPT/HCPCS: 82384; 83835

== ENCOUNTER 2022-07-17 13:55 | Outpatient (CLI) | payer BC, SELFPAY ==
--- OUTSIDE RECORDS SUMMARY | 2022-07-17 13:58 | XMS_ITS | Encounter Summary ---
:2000 Author [facility] Address [address] [address] Care Team Providers Name Role Phone Corinne Hazel MD Primary Care Provider Reason for Referral Procedure/Equipment (Routine) - Incomplete Specialty Diagnoses / Procedures Referred By Contact Refer red To Contact Diagnoses Osteochondritis dissecans Brian Brennan MD Procedures MR Knee Lt WO IV Cont [address] [place] [address] Referral ID Status Reason Start Date Expiration Date Visits V isits Requested Authorized [id number] Incomplete 02/28/2018 05/30/2019 1 1 Reason for Visit Procedure/Equipment (Routine) - Incomplete Specialty Diagnoses / Procedures Referred By Contact Refer red To Contact Diagnoses Osteochondritis dissecans Brian Brennan MD Procedures MR Knee Lt WO IV Cont [address] [place] [address] Referral ID Status Reason Start Date Expiration Date Visits V isits Requested Authorized [id number] Incomplete 02/28/2018 05/30/2019 1 1 Encounter Details Date Type Department Care Team Description 03/11/2018 [facility] Brian Brennan Osteochondr itis Encounter Radiology MD felix MICHAUD [address] [facility] [address] [phone] Social History Tobacco Use Types Packs/Day Years [...] documented in this encounter Care Teams Sales Representative Supervisor Relationship Specialty Start Date End Date Corinne Hazel MD PCP - General 12/19/[address] [place] [address] CESARIO Childress [phone] documented as of this encounter
--- OUTSIDE RECORDS SUMMARY | 2022-07-17 13:58 | XMS_ITS | Encounter Summary ---
:1999 Author Organization [facility] Address [address] [place] [address] Care Team Providers Name Role Phone Corinne Hazel MD Primary Care Provider Reason for Visit Reason Comments Knee Problem Encounter Details Date Type Department Care Team Description 09/13/2018 Office Visit [facility] and Ed Christiane Ku, Left kn ee pain, Center, Physical PT unspecified Therapy [address] [facility] chronicity (Primary [address] [place], [place] Dx) [address] [address] [place], [place] [address] [phone] Social History Tobacco Use Types Packs/Day Years [...] of infection Edema: Patellar tap test: pos [place] test: pos ROM ([id number]): 0-0-30 Strength: Quad set: Poor - states he can feel the screws Supine SLR: Unable to lift leg unassisted Palpation: No tenderness Joint Mobility: Good patellar mobility Proprioception: Patient is non-weightbearing. TREATMENT TODAY: Physical Therapy Evaluation (CPT 99258): An evaluation was performed. The patient was determined to have low complexity based on history, examination, clinical presentation of the patient and the PT's clinical decision making. The patient was educated on the condition, planned therapy intervention and expectations from treatment. Goals were a collaborative effort of the therapist and patient. Therapeutic Exercise (CPT 20545) x 15 minutes: . gastroc stretch with [...] Christiane Ku PT 10:13 AM 09/13/2018 The admissions specialist is completed by the therapist and the referring clinician's electronic signature certifies medical necessity for the plan above. DRY OPERATOR documented in this encounter Plan of Treatment Not on filedocumented as of this encounter Visit Diagnoses Diagnosis Left knee pain, unspecified chronicity - Primary documented in this encounter Care Teams Chute Man Relationship Specialty Start Date End Date Corinne Hazel MD PCP - General 12/19/10 [address] [place] [address] documented as of this encounter
--- OUTSIDE RECORDS SUMMARY | 2022-07-17 13:58 | XMS_ITS | Encounter Summary ---
:1999 Author Organization [facility] Address [address] [place] [address] Care Team Providers Name Role Phone Corinne Hazel MD Primary Care Provider Encounter Details Date Type Department Care Team Description 09/05/2018 Surgery [facility] Kilo Gregg MD LEFT knee diagnostic [address] [facility] [place] [place] [address] arthroscopy and open [place], [place] [address] [place], [place] reduction internal [phone] fixation of [phone] (Wo rk) osteochondral lesion Social History Tobacco [...] Comments Blood Pressure 152/82 09/05/2018 10:30 AM INSTRUCTOR BUS [employer]LEY [employer]AXI Pulse 76 09/05/2018 10:30 AM INSTRUCTOR [employer] Temperature 36.8 ??C (98.2 ??F) 09/05/2018 10:30 AM INSTRUCTOR [employer]AXI Respiratory Rate 16 09/05/2018 10:30 AM INSTRUCTOR BUS [employer]AXI Oxygen Saturation 100% 09/05/2018 10:30 AM INSTRUCTOR [employer]AXI Inhaled Oxygen Concentration - - Weight 73.5 kg (162 lb) 09/05/2018 10:30 AM INSTRUCTOR [employer]AXI Height 180.3 cm (5' 11) 09/05/2018 10:30 AM INSTRUCTOR [employer]AXI Body Mass Index 22.59 09/05/2018 10:30 AM INSTRUCTOR [employer]LEY [employer]AXI Body Mass Index Percentile 52.86 % 09/05/2018 10:[address] Growth Chart: [facility] [place] (Boys, 2-20 Years) documented in this encounter [...] Understanding Pain Patient take-homes: Brace Ice pack(s) [employer] [employer] documented in this encounter Medications at Time [...] examined today. Nointerval changes. Kilo Gregg MD [employer] documented in this encounter Procedure Notes Kilo [...] / Findings: See dictation Kilo Gregg MD [facility] [employer] Kilo Gregg MD - 09/05/2018 12:00 PM CST NAME: HAYSE HIGH MR#: [id number] CSN: [id number] AUTHENTICATING CLINICIAN: Kilo Gregg MD CONFIRM #: [id number] LOC: 725 OPERATIVE REPORT DATE OF OPERATION: [...] LOSS: 10 mL. SPECIMENS: None. ANESTHESIA: General. INSTRUCTIONAL DEVELOPER: GALINA Burns COMPLICATIONS: None. INDICATIONS: Mr. High [...] repeat clinical check. 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 documented in this encounter Visit Diagnoses Diagnosis Knee pain, left Pain in joint, lower leg documented in this encounter Administered Medications Inactive Administered Medications - up to 3 most recent administrations Medication Order MAR Action Action Date Dose Rate Site bupivacaine-epinephrine PF Given 09/05/2018 1:07 PM INSTRUCTOR [employer] 9 mL Left Knee (SENSORCAINE) 0.5% -1:134823 injection ONCE PRN, Starting on Luanne 09/05/18 at 1307, Until Luanne 09/05/18 at 1912, Intra-op diphenhydrAMINE (BENADRYL) injection 25- 50 mg Given 09/05/2018 3:00 PM INSTRUCTOR [employer] 25 mg 25-50 mg, Intravenous, Q6H PRN, Itching, Starting on Luanne 09/05/18 at 1524, Until Luanne 09/05/18 at 1912, PACU & Post-op EPINEPHrine 1 mg in sodium chloride 0.9 Given 09/05/2018 1:11 PM INSTRUCTOR [employer] 1 mL Left Knee % 3,000 mL ONCE PRN, Starting on Luanne 09/05/18 at 1311, Intra-op fentaNYL (SUBLIMAZE) injection 25-100 mc g 25-100 mcg, Intravenous, [id number], Pain, Sedation, Pro cedure, Severe Pain (pain score 8-10), Starting on Luanne 09/05/18 at 1522, Until Luanne 09/05/18 at 1911, Notify Anesthesiologist if total cumulative dose in excess of 250 mcg., Pre-op fentaNYL (SUBLIMAZE) injection 25-50 mcg 25-50 mcg, Intravenous, [id number], Other, Moderate to Severe Pain (pain score [...] (DEMEROL) injection 12.5 mg 12.5 mg, Intravenous, [id number], Shiverin g, Starting on Luanne 09/05/18 at 1053, Until Luanne 09/05/18 at 1912, For 2 doses, Maxim um cumulative dose is 25 mg. Do not give to patients receiving MAO inhibitors (e.g. phenelzine (NA RDIL), tranylcypromine (PARNATE), selegiline (ELDEPRYL))., PACU/Recovery midazolam (VERSED) injection 1-2 mg 1-2 mg, Intravenous, [id number], Sedation, Anxiety, Proc edure, Starting on Luanne 09/05/18 at 1522, Until Luanne 09/05/18 at 1912, MAX Dose 2mg, Pre-op morphine injectable 1-2 mg 1-2 mg, Intravenous, [id number], Other, Moderate to Malissa re Pain (pain [...] ropivacaine (NAROPIN) injection Given 09/05/2018 2:15 PM INSTRUCTOR [employer] 30 mL Left Knee ONCE PRN, Starting on Luanne 09/05/18 at 1415, Until Luanne 09/05/18 at 1912, Intra-op documented in this encounter Active and Recently Administered Medications Times are shown in INSTRUCTOR [employer]. Scheduled Medication Order 09/03/2018 09/04/2018 09/05/2018 ceFAZolin [...] pain scores)., Post-op bupivacaine-epinephrine PF (SENSORCAINE) 0.5% -1:[id number] injectio n 1307 (Given - Provider: Kilo [...] (SUBLIMAZE) injection 25-100 mcg 25-100 mcg, Intravenous, [id number], Pain, Sedation, Procedure, Severe Pain (pain score 8-10), Starting Luanne 09/05/18 at 1522, Notify Anesthesiologist if total cumulative dose in excess of 250 mcg., Pre-op fentaNYL (SUBLIMAZE) injection 25-50 mcg 25-50 mcg, Intravenous, [id number], Other, Moderate to Severe Pain (pain score [...] (DEMEROL) injection 12.5 mg 12.5 mg, Intravenous, [id number], Shiverin g, Starting Luanne 09/05/18 at 1053, For 2 doses, Maximum cumulative dose is 25 mg. Do not give to patients receiving MAO inhibitors (e.g. phenelzine (NARDIL), trany lcypromine (PARNATE), selegiline (ELDEPRYL))., PACU/Recovery midazolam (VERSED) injection 1-2 mg 1-2 mg, Intravenous, [id number], Sedation, Anxiety, Procedure, Starting Luanne 09/05/18 at 1522, MAX Dose 2mg, Pre-op morphine injectable 1-2 mg 1-2 mg, Intravenous, [id number], Other, Mo derate to Severe Pain (pain [...] Intra-op documented in this encounter Care Teams Intellectual Property Counsel Relationship Specialty Start Date End Date Corinne Hazel MD PCP - General 12/19/10 1415 [facility] [place] [id number] documented as of this encounter
--- OUTSIDE RECORDS SUMMARY | 2022-07-17 13:58 | XMS_ITS | Encounter Summary ---
:1999 Author Organization [facility] Address [address] [place] [address] Care Team Providers Name Role Phone Corinne Hazel MD Primary Care Provider Reason for Referral Procedure/Equipment (Routine) - Incomplete Specialty Diagnoses / Procedures Referred By Contact Refer red To Contact Diagnoses Osteochondritis dissecans Brian Brennan MD Procedures MR Knee Lt WO IV Cont 200 [place] [address] Referral ID Status Reason Start Date Expiration Date Visits V isits Requested Authorized [id number] Incomplete 02/28/2018 05/30/2019 1 1 Procedure/Equipment (Routine) - Incomplete Specialty Diagnoses / Procedures Referred By Contact Refer red To Contact Diagnoses Osteochondritis dissecans Brian Brennan MD Procedures XR Knee Lt 4 Views [address] [place] [address] Referral ID Status Reason Start Date Expiration Date Visits V isits Requested Authorized [id number] Incomplete 02/28/2018 05/30/2019 1 1 Reason for Visit Reason Comments INJURY, KNEE left Encounter Details Date Type Department Care Team Description 02/28/2018 Office Visit Specialty Center Brian Brennan, Oste ochondritis dissecans (Primary Dx); [address] [facility] Osteochondritis dissecans of knee, left; Orthopedics 200 [facility] Left knee pain, unspecified chronicity 3931 [facility]. [facility]. [place], [facility], [address] [place] [address] [phone] Social History Tobacco Use Types Packs/Day Years [...] 6:37 PM CDT NAME: MICAH HIGH MR#: [id number] CSN: [id number] AUTHENTICATING CLINICIAN: Brian Brennan MD CONFIRM #: [id number] LOC: 211 CLINIC PROGRESS NOTE DATE OF [...] distant past. He is currently working in [employer], getting up and down, and has been [...] weightbearing. He is, this summer, working in [employer] and wants to make as much money [...] or surgical management. SPE:LUDA C: CONFIRM #: [id number] documented in this encounter Plan of Treatment [...] dissecans documented in this encounter Care Teams Pattern Developer Relationship Specialty Start Date End Date Corinne Hazel MD PCP - General 12/19/10 1415 [place] [address] documented as of this encounter
--- OUTSIDE RECORDS SUMMARY | 2022-07-17 13:58 | XMS_ITS | Encounter Summary ---
:1999 Author Organization [facility] Address [address], [place] [address] Care Team Providers Name Role Phone Corinne Hazel MD Primary Care Provider Reason for Visit Reason Comments QUESTIONS, GENERAL Encounter Details Date Type Department Care Team Description 10/14/2018 Telephone [facility] Kilo Gregg MD QUESTIONS, GENERAL [address] [facility] [address] [address] [place], [place] [address] [place] [address] [phone] (Wo rk) Social History Tobacco Use Types [...] 3-4 weeks to recheck and get Xrays TIVE PHYSICAL EDUCATION TEACHER Terry Dorsey RN - 10/14/2018 4:40 PM CST Pt's mom calling wondering if provider could call patient at [phone]. Pt is at college up in [place] and is not going to be able to make his Sunday appointment. Per mom pt is out of his brace and walking. Mom does not know his ROM. Mom would like provider to discuss with patient his progress and make sure he is recovering ok. Pt is usually free in the afternoon. Thank you Mom's cell is [phone] Pt's DOS was 09/05/18 1. Left knee diagnostic arthroscopy with mobilization and debridement of the osteochondral lesion. 2. Microfracture of the base of the osteochondral lesion. 3. Open reduction internal fixation osteochondral lesion using 2 Arthrex bioabsorbable headless compression screws. ?? TIVE PHYSICAL EDUCATION TEACHER documented in this encounter Plan of Treatment Not on filedocumented as of this encounter Visit Diagnoses Not on filedocumented in this encounter Care Teams Finishing Inspector Relationship Specialty Start Date End Date Corinne Hazel MD PCP - General 12/19/10 1415 [place] [address] documented as of this encounter
--- OUTSIDE RECORDS SUMMARY | 2022-07-17 13:58 | XMS_ITS | Encounter Summary ---
:1999 Author Organization [facility] Address [address], [place] [address] Care Team Providers Name Role Phone Corinne Hazel MD Primary Care Provider Reason for Visit Procedure/Equipment (Routine) - Incomplete Specialty Diagnoses / Procedures Referred By Contact Refer red To Contact Diagnoses Osteochondritis dessicans Brian Brennan MD Procedures XR Knee Lt 4 Views 200 [place] [address] Referral ID Status Reason Start Date Expiration Date Visits V isits Requested Authorized [id number] Incomplete 07/20/2016 10/19/2017 1 1 Encounter Details Date Type Department Care Team Description 07/20/2016 Imaging [facility] 3931 Brian Brennan, Osteochondritis dessicans Radiology X-ray 3931 [facility] [address] [place], [place] [address] [place] [address] [id number] Social History Tobacco Use Types Packs/Day Years [...] dissecans documented in this encounter Care Teams Ux Developer Designer Relationship Specialty Start Date End Date Corinne Hazel MD PCP - General 12/19/10 1415 [facility] [place] [id number] documented as of this encounter
--- OUTSIDE RECORDS SUMMARY | 2022-07-17 13:58 | XMS_ITS | Encounter Summary ---
:1999 Author Organization [facility] Address [address] [place] [address] Care Team Providers Name Role Phone Corinne Hazel MD Primary Care Provider Reason for Referral Procedure/Equipment (Routine) - Incomplete Specialty Diagnoses / Procedures Referred By Contact Refer red To Contact Procedures Kilo Gregg MD TYLER Arthroscopy Knee [address] [place] [address] Referral ID Status Reason Start Date Expiration Date Visits V isits Requested Authorized [id number] Incomplete 09/02/2018 12/02/2019 1 1 ICAL ADMINISTRATIVE ASSISTANT Encounter Details Date Type Department Care Team Description 09/02/2018 Notes/Orders [facility] Kilo Gregg MD [address] [address] [address] [place] [address] [phone] (Wo rk) Social History Tobacco Use Types [...] TYLER Arthroscopy Knee Lt (09/05/2018 10:18 AM CLERICAL ADMINISTRATIVE ASSISTANT) Anatomical Region Laterality Modality Lower Extremity, Knee Endoscopy Specimen (Source) Anatomical Location Collection Method / Collectio n Time Received Time / Laterality Volume Kilo Gregg MD RAD NON-REPORTABLES documented in this encounter Visit Diagnoses Not on filedocumented in this encounter Care Teams In Flight Refueling Craftsman Relationship Specialty Start Date End Date Corinne Hazel MD PCP - General 12/19/10 1415 [facility] [place] [id number] documented as of this encounter
--- OUTSIDE RECORDS SUMMARY | 2022-07-17 13:58 | XMS_ITS | Clinical Summary ---
:1999 Author Organization [facility] [place] [address] Care Team Providers Name Role Phone Lenora Jacobson NP Primary Care Provider [phone] Allergies Not on File Medications Not on file Active Problems Problem Noted Date Hypertension 06/30/2022 Encounters Date Type Specialty Care Team Description 06/30/2022 Office Visit Giovanny Horne MD from Last 3 Months Social History Tobacco Use Types Packs/Day Years Used Date Never Assessed Sex Assigned at Date Recorded Not on file Plan of Treatment Upcoming Encounters Date Type Specialty Care Team Description 07/17/2022 Orders Only Health Maintenance Due Date Last Done Comments HPV series for age 9-26 (1 - Male 2-dose 2010 series) Tdap 2010 Depression screening for age 12+ 2011 BMI (ht and wt on same day) for age 18+ 2017 Hepatitis C screening for age 18-79 2017 Tetanus booster 2019 COVID-19 vaccine series (3 - Booster for 12/23/202010/28/ 021, 09/30/2020 Moderna series) Influenza for age 9-49 05/18/2022 Results Not on filefrom Last 3 Months Insurance Payer Benefit Plan / Subscriber ID Effective Dates Phone Addre ss Type Group BLUE CROSS BLUE CROSS OF [id number] 2020-Present [address] [address] [place] [address] Care Teams Band Tier Relationship Specialty Start Date End Date Lenora Jacobson, WHITEPRINTING MACHINE OPERATOR PCP - General Nurse Practitioner 06/30/22 [address] [address] [place], [place] [id number]
--- OUTSIDE RECORDS SUMMARY | 2022-07-17 13:58 | XMS_ITS | Encounter Summary ---
:1999 Author Organization [facility] Address [address], [place] [address] Care Team Providers Name Role Phone Corinne Hazel MD Primary Care Provider Reason for Referral Procedure/Equipment (Routine) - Incomplete Specialty Diagnoses / Procedures Referred By Contact Refer red To Contact Diagnoses Left knee pain, unspecified chronicity Kilo Gregg MD Procedures XR Knee Lt [address] [place] [address] Referral ID Status Reason Start Date Expiration Date Visits V isits Requested Authorized [id number] Incomplete 11/27/2018 02/26/2020 1 1 Reason for Visit Reason Comments Knee Pain or Injury post op Encounter Details Date Type Department Care Team Description 11/27/2018 Office Visit [facility] Kilo Gregg MD Left knee pain, unspecified chronicity ( Primary Dx); CENTER [address] Garcia S/P left knee arthroscopy 8100 [place], [place] [address] [phone] Social History Tobacco Use Types Packs/Day Years [...] for Kilo Gregg MD by Nichole Aldana Physician Assistant Primary Care. I, Kilo Gregg MD, have personally reviewed [...] chronicity documented in this encounter Care Teams Photograph Developer Relationship Specialty Start Date End Date Corinne Hazel MD PCP - General 12/19/[address] [place] [address] documented as of this encounter
--- OUTSIDE RECORDS SUMMARY | 2022-07-17 13:58 | XMS_ITS | Encounter Summary ---
:1999 Author Organization [facility] Address [address], [place] [address] Care Team Providers Name Role Phone Corinne Hazel MD Primary Care Provider Encounter Details Date Type Department Care Team Description 10/31/2019 Notes/Orders [facility] Kilo Gregg MD [address] [place] [address] [place] [address] [phone] (Wo rk) Social History Tobacco Use Types [...] on filedocumented in this encounter Care Teams Falafel Cart Cook Relationship Specialty Start Date End Date Corinne Hazel MD PCP - General 12/19/10 1415 [place] [address] documented as of this encounter
--- OUTSIDE RECORDS SUMMARY | 2022-07-17 13:58 | XMS_ITS | Encounter Summary ---
:1999 Author Organization [facility] Address [address], [place] [address] Care Team Providers Name Role Phone Corinne Hazel MD Primary Care Provider Encounter Details Date Type Department Care Team Description 09/05/2018 Notes/Orders [facility] Kilo Gregg MD [address] [place] [address] [address] [place] [address] [phone] (Wo rk) Social History Tobacco Use Types [...] on filedocumented in this encounter Care Teams Procurement Analyst Relationship Specialty Start Date End Date Corinne Hazel MD PCP - General 12/19/10 1415 [facility] [place] [id number] documented as of this encounter
--- OUTSIDE RECORDS SUMMARY | 2022-07-17 13:58 | XMS_ITS | Encounter Summary ---
:1999 Author Organization [facility] Address [address] [place] [address] Care Team Providers Name Role Phone Corinne Hazel MD Primary Care Provider Reason for Visit Reason Comments Knee Problem Encounter Details Date Type Department Care Team Description 09/18/2018 Office Visit [facility] PT and Ed Sam Pritchett, Left kn pain, Center, Physical PT unspecified Therapy 8100 [facility] chronicity (Primary [address] [place], [place] Dx) [address]. [address] [place], [place] [address] [phone] Social History Tobacco Use Types Packs/Day Years [...] Pritchett, PT - 09/18/2018 9:45 AM CST [facility] Physical Therapy Daily Note Visit Number: 2 [...] Gait: TTWB TREATMENT TODAY: Therapeutic Exercise (CPT 89488) x 25 minutes: ?? Supine quad set [...] Therapist: Sam Pritchett, PT 9:48 AM 09/18/2018 OUT OPERATOR documented in this encounter Plan of Treatment Not on filedocumented as of this encounter Visit Diagnoses Diagnosis Left knee pain, unspecified chronicity - Primary documented in this encounter Care Teams Regional Maintenance Manager Relationship Specialty Start Date End Date Corinne Hazel MD PCP - General 12/19/10 1415 [place] [address] documented as of this encounter
--- OUTSIDE RECORDS SUMMARY | 2022-07-17 13:58 | XMS_ITS | Encounter Summary ---
:1999 Author Organization [facility] Address [address] [place] [address] Care Team Providers Name Role Phone Corinne Hazel MD Primary Care Provider Reason for Visit Reason Comments Post-Op Check Encounter Details Date Type Department Care Team Description 09/13/2018 Office Visit [facility] Cassidy Connors Postop check (Primary CENTER M, ATC Dx) [address] [place], [place] [address] Social History Tobacco Use Types [...] Kilo Gregg MD Orthopaedic Surgeon, Board Certified Practice Advisor: Juliette Radford Please contact Juliette for all administrative questions Please contact [facility] Nurse Triage for all medical related questions at Medication Requests: Prescriptions are not filled on Weekends or on Weekdays after 3:00PM For all medication refills: Request a refill using [facility] or contact your Pharmacy TTWB for 6 wks ROM 0-45 degress in the brace CPM at 0-45 degrees and increase up to 60. First 2 wks 0-60. Wk 2-4 0-120 degrees. Wk 4-6 0-120. Continue PT Please provide disability parking accomodation PTION INTERVIEWER documented in this encounter Progress Notes Cassidy Connors ATC - 09/13/2018 11:00 AM CST [facility] Orthopaedic Center Surgeon: Kilo Gregg MD [...] reported: none. Pt reports attending PT at [facility], his first visit today. Objective: General [...] approximately 6weeks from surgery for clinical recheck. PTION INTERVIEWER documented in this encounter Plan of Treatment Not on filedocumented as of this encounter Visit Diagnoses Diagnosis Postop check - Primary Follow-up examination, following unspeci fied surgery documented in this encounter Care Teams Manager Enrollment Relationship Specialty Start Date End Date Corinne Hazel MD PCP - General 12/19/[address] [place], [place] [address] [address] documented as of this encounter
--- OUTSIDE RECORDS SUMMARY | 2022-07-17 13:58 | XMS_ITS | Encounter Summary ---
:1999 Author Organization [facility] Address [address] [place] [address] Care Team Providers Name Role Phone Corinne Hazel MD Primary Care Provider Encounter Details Date Type Department Care Team Description 04/06/2016 [facility] 3931 Osteoc hondritis dessicans Radiology X-ray 3931 [place] [address] Social History Tobacco Use Types Packs/Day Years [...] dissecans documented in this encounter Care Teams City Superintendent Of Schools Relationship Specialty Start Date End Date Corinne Hazel MD PCP - General 12/19/10 1415 [facility] [place] [id number] documented as of this encounter
--- OUTSIDE RECORDS SUMMARY | 2022-07-17 13:58 | XMS_ITS | Clinical Summary ---
:1999 Author [facility] Address [address], [place] [address] Care Team Providers Name Role Phone Corinne [...] for each transition of care or referral. [employer] Allergies No known active allergies Medications Medication [...] left proximal tibia 07/15/2015 Osteochondritis dissecans 07/15/2015 [place]-Schlatter's disease 03/29/2015 Allergic rhinitis 04/16/2012 Overview: Allergic [...] 03/14/2000, 01/11/2000 Influenza IIV4 (Quadrivalent) 0.5mL 07/08/2015 (77379) Influenza, Unspecified Formulation 07/14/2003, 09/23/2001, 1 10/15/2000 [...] Comments Blood Pressure 130/63 09/05/2018 3:54 PM TECHNICAL TESTING ENGINEER Pulse 86 09/05/2018 3:54 PM TECHNICAL TESTING ENGINEER Temperature 36.3 ??C (97.4 ??F) 09/05/2018 3:50 PM TECHNICAL TESTING ENGINEER Respiratory Rate 16 09/05/2018 3:50 PM TECHNICAL TESTING ENGINEER Oxygen Saturation 100% 09/05/2018 3:50 PM TECHNICAL TESTING ENGINEER Inhaled Oxygen Concentration - - Weight 73.5 kg (162 lb) 09/05/2018 10:30 AM TECHNICAL TESTING ENGINEER Height 180.3 cm (5' 11) 09/05/2018 10:30 AM TECHNICAL TESTING ENGINEER Body Mass Index 22.59 09/05/2018 10:30 AM TECHNICAL TESTING ENGINEER Plan of Treatment Health Maintenance Due Date [...] 07/08/2015, 03/26/2015 Medical Devices Implanted Type Area Hazardous Waste Material Technician Device Shelf Model / Identifier Expiration Date Ser ial / Lot Bio-Compression Screw DEVICE Left: 04/16/20 19 [id number] / Implanted: Qty: 1 on 09/05/2018 by Kilo Gregg MD at [facility] 00 / [id number] Insurance Payer Benefit Subscriber ID Effective Phone Address Type Plan / Dates Group [facility] [id number] 2019-Pre [phone] [phone] [place] [address] Advance Directives Latest Code Status on File Code Status Date Activated Date Inactivated Comments Full Code 09/05/2018 12:08 PM 09/05/2018 7:17 PM Full code in effect for 30 days Care Teams Graphic Technician Relationship Specialty Start Date End Date Corinne Hazel MD PCP - General 12/19/10 [address] [place] [address]
--- OUTSIDE RECORDS SUMMARY | 2022-07-17 13:58 | XMS_ITS | Encounter Summary ---
:1999 Author Organization [facility] Address [address] [address] Care Team Providers Name Role Phone Corinne Hazel MD Primary Care Provider Reason for Visit Reason Comments QUESTIONS, GENERAL Encounter Details Date Type Department Care Team Description 10/18/2018 Telephone [facility] Kilo Sky MD QUESTIONS, GENERAL 8[address] [facility] [address] [place], [place] [address] [place] [address] [phone] (Wo rk) Social History Tobacco Use Types [...] PT orders faxed to: Todd Vogel PT [phone]. Faxed orders along with op note. Mother will call back to schedule Jn's follow up. MAN documented in this encounter Plan of Treatment Not on filedocumented as of this encounter Visit Diagnoses Not on filedocumented in this encounter Care Teams Giant Tire Repairer Relationship Specialty Start Date End Date Corinne Hazel MD PCP - General 12/19/10 4475 [facility] [place] [id number] documented as of this encounter
--- OUTSIDE RECORDS SUMMARY | 2022-07-17 13:58 | XMS_ITS | Encounter Summary ---
:1999 Author Organization [facility] Address [address], [place] [address] Care Team Providers Name Role Phone Corinne Hazel MD Primary Care Provider Reason for Visit Reason Onset Date Comments LETTER NEEDED 07/24/2016 Encounter Details Date Type Department Care Team Description 07/24/2016 Telephone Specialty Center [facility] Venkatesh Brennan MD LETTER NEEDED [facility] Orthopedics [address] [place] [address] [place] [address] [place] [address] [phone] Social History Tobacco Use Types Packs/Day Years [...] LPN - 07/24/2016 12:00 PM CST Faxed [place] DEPARTMENT MANAGER Renetta Winston RN - 07/24/2016 9:10 AM CST Jn needs a letter stating that he was in clinic on 07/20/16 for an appointment. Please fax to Joya at [phone]. [place] DEPARTMENT MANAGER documented in this encounter Plan of Treatment Not on filedocumented as of this encounter Visit Diagnoses Not on filedocumented in this encounter Care Teams Assistant Administrator Relationship Specialty Start Date End Date Corinne Hazel MD PCP - General 12/19/10 [facility] [place] [address] documented as of this encounter
--- OUTSIDE RECORDS SUMMARY | 2022-07-17 13:58 | XMS_ITS | Encounter Summary ---
:1999 Author Organization [facility] Address [address], [place] [address] Care Team Providers Name Role Phone Corinne Hazel MD Primary Care Provider Reason for Referral Procedure/Equipment (Routine) - Incomplete Specialty Diagnoses / Procedures Referred By Contact Refer red To Contact Diagnoses Osteochondritis gurpreetsicans Brian Brennan MD Procedures XR Knee Lt 4 Views [address] [place] [address] Referral ID Status Reason Start Date Expiration Date Visits V isits Requested Authorized [id number] Incomplete 07/20/2016 10/19/2017 1 1 Reason for Visit Reason Comments Knee Pain or Injury left Encounter Details Date Type Department Care Team Description 07/20/2016 Office Visit Specialty Center Brian Brennan, Oste ochondritis [address] (Primary Dx) Orthopedics [address] [place] [address] [phone] Social History Tobacco Use Types Packs/Day Years [...] 8:03 PM CST NAME: MICAH HIGH MR#: [id number] CSN: [id number] AUTHENTICATING CLINICIAN: Brian Brennan MD CONFIRM #: [id number] LOC: 211 CLINIC PROGRESS NOTE DATE OF [...] followup visits p.r.n. SPE:MEDQ C: CONFIRM #: [id number] TH MANAGEMENT DIRECTOR documented in this encounter Plan of Treatment [...] dissecans documented in this encounter Care Teams Front End Web Designer Relationship Specialty Start Date End Date Corinne Hazel MD PCP - General 12/19/10 1415 [facility] [place] [phone] documented as of this encounter
--- OUTSIDE RECORDS SUMMARY | 2022-07-17 13:58 | XMS_ITS | Encounter Summary ---
:[address] [facility] Address [address], [place] [address] Care Team Providers Name Role Phone Corinne Hazel MD Primary Care Provider Encounter Details Date Type Department Care Team Description 09/05/2018 Hospital Encounter [facility] Kilo Gregg MD [address] [facility] [address] [address] [address] [place], [place] [address] [place], [place] [phone] (Wo rk) Social History Tobacco Use Types [...] Comments Blood Pressure 130/63 09/05/2018 3:54 PM MIXED CROP FARMER Pulse 86 09/05/2018 3:54 PM MIXED CROP FARMER Temperature 36.3 ??C (97.4 ??F) 09/05/2018 3:50 PM MIXED CROP FARMER Respiratory Rate 16 09/05/2018 3:50 PM MIXED CROP FARMER Oxygen Saturation 100% 09/05/2018 3:50 PM MIXED CROP FARMER Inhaled Oxygen Concentration - - Weight 73.5 kg (162 lb) 09/05/2018 10:30 AM MIXED CROP FARMER Height 180.3 cm (5' 11) 09/05/2018 10:30 AM MIXED CROP FARMER Body Mass Index 22.59 09/05/2018 10:30 AM MIXED CROP FARMER Body Mass Index Percentile 52.86 % 09/05/2018 10:[address] Growth Chart: [facility] (Boys, 2-20 [...] Understanding Pain Patient take-homes: Brace Ice pack(s) D CROP FARMER documented in this encounter Medications at Time [...] examined today. Nointerval changes. Kilo Gregg MD D CROP FARMER documented in this encounter Procedure Notes Kilo [...] / Findings: See dictation Kilo Gregg MD D CROP FARMER Kilo Gregg MD - 09/05/2018 12:00 PM CST NAME: HAYES HIGH MR#: [id number] CSN: [id number] AUTHENTICATING CLINICIAN: Kilo Gregg MD CONFIRM #: [id number] LOC: 725 OPERATIVE REPORT DATE OF OPERATION: [...] LOSS: 10 mL. SPECIMENS: None. ANESTHESIA: General. EVENT TECHNICIAN: GALINA Burns COMPLICATIONS: None. INDICATIONS: Mr. High [...] repeat clinical check. RTM:MEDQ C: R:09/05/18 15:03 CONFIRM#:[id number] D CROP FARMER documented in this encounter Plan of Treatment Scheduled Orders Name Type Priority Associated Diagnoses Order S chedule POCT Glucose: Point of Care Routine Once today st arting now for 1 Occurrences s tarting 09/05/2018 unti l 09/05/2018 documented as of this encounter Procedures Procedure Name Priority Date/Time Associated Diagnosis Comme nts KNEE ARTHROSCOPY WITH 09/05/2018 12:47 PM Knee pain, l eft REPAIR OSTEOCHONDRAL MIXED CROP FARMER LESION documented in this encounter Visit Diagnoses Not on filedocumented in this encounter Administered Medications Inactive Administered Medications - up to 3 most recent administrations Medication Order MAR Action Action Date Dose Rate Site bupivacaine-epinephrine PF Given 09/05/2018 1:07 PM MIXED CROP FARMER 9 mL Left Knee (SENSORCAINE) 0.5% -1:692233 injection ONCE PRN, Starting on Luanne 09/05/18 at 1307, Until Luanne 09/05/18 at 1912, Intra-op diphenhydrAMINE (BENADRYL) injection 25- 50 mg Given 09/05/2018 3:00 PM MIXED CROP FARMER 25 mg 25-50 mg, Intravenous, Q6H PRN, Itching, Starting on Luanne 09/05/18 at 1524, Until Luanne 09/05/18 at 1912, PACU & Post-op EPINEPHrine 1 mg in sodium chloride 0.9 Given 09/05/2018 1:11 PM MIXED CROP FARMER 1 mL Left Knee % 3,000 mL ONCE PRN, Starting on Luanne 09/05/18 at 1311, Intra-op fentaNYL (SUBLIMAZE) injection 25-100 mc g 25-100 mcg, Intravenous, [id number], Pain, Sedation, Pro cedure, Severe Pain (pain score 8-10), Starting on Luanne 09/05/18 at 1522, Until Luanne 09/05/18 at 1911, Notify Anesthesiologist if total cumulative dose in excess of 250 mcg., Pre-op fentaNYL (SUBLIMAZE) injection 25-50 mcg 25-50 mcg, Intravenous, [id number], Other, Moderate to Severe Pain (pain score [...] (DEMEROL) injection 12.5 mg 12.5 mg, Intravenous, [id number], Shiverin g, Starting on Luanne 09/05/18 at 1053, Until Luanne 09/05/18 at 1911, For 2 doses, Maxim um cumulative dose is 25 mg. Do not give to patients receiving MAO inhibitors (e.g. phenelzine (NA RDIL), tranylcypromine (PARNATE), selegiline (ELDEPRYL))., PACU/Recovery midazolam (VERSED) injection 1-2 mg 1-2 mg, Intravenous, [id number], Sedation, Anxiety, Proc edure, Starting on Luanne 09/05/18 at 1522, Until Luanne 09/05/18 at 1911, MAX Dose 2mg, Pre-op morphine injectable 1-2 mg 1-2 mg, Intravenous, [id number], Other, Moderate to Malissa re Pain (pain [...] ropivacaine (NAROPIN) injection Given 09/05/2018 2:15 PM MIXED CROP FARMER 30 mL Left Knee ONCE PRN, Starting on Luanne 09/05/18 at 1415, Until Luanne 09/05/18 at 1912, Intra-op documented in this encounter Active and Recently Administered Medications Times are shown in MIXED CROP FARMER. Scheduled Medication Order 09/03/2018 09/04/2018 09/05/2018 ceFAZolin [...] pain scores)., Post-op bupivacaine-epinephrine PF (SENSORCAINE) 0.5% -1:764469 injectio n 1307 (Given - Provider: Kilo [...] (SUBLIMAZE) injection 25-100 mcg 25-100 mcg, Intravenous, [id number], Pain, Sedation, Procedure, Severe Pain (pain score 8-10), Starting Luanne 09/05/18 at 1522, Notify Anesthesiologist if total cumulative dose in excess of 250 mcg., Pre-op fentaNYL (SUBLIMAZE) injection 25-50 mcg 25-50 mcg, Intravenous, [id number], Other, Moderate to Severe Pain (pain score [...] (DEMEROL) injection 12.5 mg 12.5 mg, Intravenous, [id number], Shiverin g, Starting Luanne 09/05/18 at 1053, For 2 doses, Maximum cumulative dose is 25 mg. Do not give to patients receiving MAO inhibitors (e.g. phenelzine (NARDIL), trany lcypromine (PARNATE), selegiline (ELDEPRYL))., PACU/Recovery midazolam (VERSED) injection 1-2 mg 1-2 mg, Intravenous, T9NBRNES, Sedation, Anxiety, Procedure, Starting Luanne 09/05/18 at 1522, MAX Dose 2mg, Pre-op morphine injectable 1-2 mg 1-2 mg, Intravenous, [id number], Other, Mo derate to Severe Pain (pain [...] Intra-op documented in this encounter Care Teams Drapery And Upholstery Estimator Relationship Specialty Start Date End Date Corinne Hazel MD PCP - General 12/19/10 1415 [facility] [place] [address] documented as of this encounter
--- OUTSIDE RECORDS SUMMARY | 2022-07-17 13:58 | XMS_ITS | Encounter Summary ---
:1999 Author Organization [facility] Address [address] [place] [address] Care Team Providers Name Role Phone Corinne Hazel MD Primary Care Provider Reason for Visit Procedure/Equipment (Routine) - Incomplete Specialty Diagnoses / Procedures Referred By Contact Refer red To Contact Diagnoses Left knee pain, unspecified chronicity Kilo Gregg MD Procedures XR Knee Lt 2 Views [address] [place] [address] Referral ID Status Reason Start Date Expiration Date Visits V isits Requested Authorized [id number] Incomplete 11/27/2018 02/26/2020 1 1 Encounter Details Date Type Department Care Team Description 11/27/2018 Ancillary [facility] Kilo Gregg, Left knee pain, Procedure [address] [address] [place] [address] [phone] Social History Tobacco Use Types Packs/Day Years [...] chronicity documented in this encounter Care Teams [employer] Rep Relationship Specialty Start Date End Date Corinne Hazel MD PCP - General 12/19/10 1415 [facility] [place] [id number] documented as of this encounter
--- OUTSIDE RECORDS SUMMARY | 2022-07-17 13:58 | XMS_ITS | Encounter Summary ---
:1999 [facility] Address [address] [place] [address] Care Team Providers Name Role Phone Corinne Hazel MD Primary Care Provider Reason for Referral Therapies (Routine) - Closed Specialty Diagnoses / Procedures Referred By Contact Refer red To Contact Diagnoses Left [place], [place] [address] [place] [address] Referral ID Status Reason Start Date Expiration Date Visits Requ ested Visits Authorized [id number] Closed 09/05/2018 11/04/2018 1 1 Scheduling Instructions [...] ask your clinician's staff to assist you. R EXTREMITY SURGEON Reason for Visit Reason Comments Knee Pain or Injury Encounter Details Date Type Department Care Team Description 09/05/2018 Notes/Orders [facility] Kilo Gregg MD Left knee pain, CENTER [address] unspecified [address] [place], [place] chronicity (Primary [place], [place] [address] Dx) [phone] Social History Tobacco Use Types Packs/Day Years [...] Primary documented in this encounter Care Teams Awning Craftsman Relationship Specialty Start Date End Date Corinne Hazel MD PCP - General 12/19/10 1415 [facility] [place] [id number] documented as of this encounter
--- OUTSIDE RECORDS SUMMARY | 2022-07-17 13:58 | XMS_ITS | Encounter Summary ---
:1999 Author Organization [facility] Address [address], [place] [address] Care Team Providers Name Role Phone Corinne Hazel MD Primary Care Provider Reason for Visit Reason Comments Knee Pain or Injury left Encounter Details Date Type Department Care Team Description 03/11/2018 Office Visit Specialty Center Brian Brennan, Oste ochondritis [address] dissecans of knee, left Orthopedics [address] [place] [address] (Primary Dx) [address] [place], [address] [place] [address] [phone] Social History Tobacco Use Types Packs/Day Years [...] 5:32 PM CDT NAME: MICAH HIGH MR#: [id number] CSN: [id number] AUTHENTICATING CLINICIAN: Brian Brennan MD CONFIRM #: [id number] LOC: 211 CLINIC PROGRESS NOTE DATE OF [...] school senior, going off to college to [employer] in the fall of 2018. He was [...] sports for his local high school in [place], [place] in [facility]. He is doing well.He has developed [...] typically in my practice Jeff wynn at [facility], would do. The images themselves, however, were [...] in a deep crouch, and he worksin [employer] this summer. He is now walking back [...] a p.r.n. basis. SPE:MEDQ C: CONFIRM #: [id number] documented in this encounter Plan of Treatment Not on filedocumented as of this encounter Visit Diagnoses Diagnosis Osteochondritis dissecans of knee, left - Primary documented in this encounter Care Teams School Bus Dispatcher Relationship Specialty Start Date End Date Corinne Hazel MD PCP - General 12/19/10 1415 [facility] [place] [id number] documented as of this encounter
--- OUTSIDE RECORDS SUMMARY | 2022-07-17 13:58 | XMS_ITS | Encounter Summary ---
:1999 Author Organization [facility] Address [address], [place] [address] Care Team Providers Name Role Phone Corinne Hazel MD Primary Care Provider Reason for Visit Procedure/Equipment (Routine) - Incomplete Specialty Diagnoses / Procedures Referred By Contact Refer red To Contact Diagnoses Osteochondritis dissecans Brian Brennan MD Procedures XR Knee Lt 4 Views [address] [place] [address] Referral ID Status Reason Start Date Expiration Date Visits V isits Requested Authorized [id number] Incomplete 02/28/2018 05/30/2019 1 1 Encounter Details Date Type Department Care Team Description 02/28/2018 Imaging [facility]ty [facility] 3931 Brian Brennan, Osteochondritis dissecans Radiology X-ray 3931 [facility] [address] [place], [place] [address] [place] [address] [phone] Social History Tobacco Use Types Packs/Day Years [...] documented in this encounter Care Teams Industrial Maintenance Technician Relationship Specialty Start Date End Date Corinne Hazel MD PCP - General 12/19/10 1415 [facility] [place] [phone] documented as of this encounter
--- OUTSIDE RECORDS SUMMARY | 2022-07-17 13:58 | XMS_ITS | Encounter Summary ---
:1999 Author Organization [facility] Address [address] [address] Care Team Providers Name Role Phone Corinne Hazel MD Primary Care Provider Reason for Referral Procedure/Equipment (Routine) - Incomplete Specialty Diagnoses / Procedures Referred By Contact Refer red To Contact Diagnoses S/P left knee arthroscopy Kilo Gregg MD Procedures Continuous Passive Motion for knees only (E0935) [address] [place] [address] Referral ID Status Reason Start Date Expiration Date Visits V isits Requested Authorized [id number] Incomplete 09/05/2018 12/05/2019 1 1 AIR CONDITIONING APPRENTICE Reason for Visit Reason Comments Knee Pain or Injury Encounter Details Date Type Department Care Team Description 09/05/2018 Notes/Orders [facility] Kilo Gregg MD S/P left knee CENTER [address] [place] arthroscopy (Primary [address] [place], [place] Dx) [place], [place] [address] [phone] Social History Tobacco Use Types Packs/Day Years [...] status documented in this encounter Care Teams Biochemistry Specialist Relationship Specialty Start Date End Date Corinne Hazel MD PCP - General 12/19/10 [address]15 [place] [id number] documented as of this encounter
--- OUTSIDE RECORDS SUMMARY | 2022-07-17 13:58 | XMS_ITS | Encounter Summary ---
:1999 Author Organization [facility] Address [address], [place] [address] Care Team Providers Name Role Phone Corinne Hazel MD Primary Care Provider Reason for Visit Reason Comments Knee Pain or Injury L knee OCD lesion Encounter Details Date Type Department Care Team Description 05/02/2018 Office Visit [facility] Kilo Gregg, Osteocho ndritis CENTER dissecans of knee, left 8[address] [facility] [address] [place] [address] (Primary Dx) [place] [address] [phone] Social History Tobacco Use Types Packs/Day Years [...] 12:00 PM CDT NAME: MICAH HIGH MR#: [id number] CSN: [id number] AUTHENTICATING CLINICIAN: Kilo Gregg MD CONFIRM #: [id number] LOC: 711 CLINIC PROGRESS NOTE DATE OF [...] off to college as a freshman at [employer] in a couple weeks and would like [...] MD DARIUS WETZEL RTM:MEDQ C: R:05/02/18 15:27 CONFIRM#:[id number] documented in this encounter Plan of Treatment Not on filedocumented as of this encounter Visit Diagnoses Diagnosis Osteochondritis dissecans of knee, left - Primary documented in this encounter Care Teams Miner Placer Relationship Specialty Start Date End Date Corinne Hazel MD PCP - General 12/19/[address] [place] [address] [place] [id number] documented as of this encounter
--- OUTSIDE RECORDS SUMMARY | 2022-07-17 13:58 | XMS_ITS | Encounter Summary ---
:1999 Author [facility] Address [address] [place] [address] Care Team Providers Name Role Phone Corinne Hazel MD Primary Care Provider Encounter Details Date Type Department Care Team Description 09/05/2018 Anesthesia Event [facility] Jorge A Rdz MD [address] [place], [place] [address] 8100 [facility] Avinash Neff MD [address] [place], [place] [address] [place], [place] [address] Anesthesia Record Procedure Summary Procedure Name Responsible Anesthesia Start Anesthesia Stop Anesthesiologist Time Time LEFT knee diagnostic Jorge A Rdz MD 09/05/18 1243 1449 arthroscopy and open reduction internal fixation of osteochondral lesion (Left: Knee) Events Date Time Event Comment 09/05/2018 1128 IV plmt Kaleb Beach am, APRN, CENTRAL STERILE SUPPLY TECHNICIAN 1133 IV Plmt Comp IV was placed in Preop area by Kaleb Jacobson APRN, CENTRAL STERILE SUPPLY TECHNICIAN for a dministration of IV fluids, IV antibiotics, and IV pre-op sedation. Patient was continuously mon itored by Kaleb Jacobson APRN, CENTRAL STERILE SUPPLY TECHNICIAN during the placement. 1243 1243 An Start [...] Kaleb Jacobson, Toshia Wellington RN Pre-existing: No; CANOE MAKER, LARY Inserted by?: CENTRAL STERILE SUPPLY TECHNICIAN; Size (Gauge): 20 G; Orientation: Left; Site [...] Kaleb Jacobson APRN, CRNA Intraprocedure Staff edited PACKAGER documented in this encounter Miscellaneous Notes Anesthesia [...] Jorge A Rdz MD 09/05/2018 4:17 PM PACKAGER Anesthesia Preprocedure Evaluation - Jorge A Rdz [...] Jorge A Rdz MD 09/05/2018 11:51 AM PACKAGER documented in this encounter Plan of Treatment Not on filedocumented as of this encounter Visit Diagnoses Not on filedocumented in this encounter Administered Medications Inactive Administered Medications - up to 3 most recent administrations Medication Order MAR Action Action Date Dose Rate Site dexamethasone (aka DECADRON) Given 09/05/2018 1:12 PM MEAT PACKAGER 4 mg injection Intravenous, Starting on Luanne 18 at 1312 fentaNYL (SUBLIMAZE) injection Given 09/05/2018 1:04 PM MEAT PACKAGER 50 mcg Intravenous, Starting on Luanne 09/05/18 at 1243 Given 09/05/2018 12:43 PM MEAT PACKAGER 50 mcg glycopyrrolate (aka ROBINUL) injection Given 09/05/2018 12:54 PM MEAT PACKAGER 0.2 mg Intravenous, Starting on Luanne 09/05/18 at 1254 HYDROmorphone (DILAUDID) injection Given 09/05/2018 2:12 PM MEAT PACKAGER 0.5 mg Starting on Luanne 09/05/18 at 1354, Until Luanne 09/05/18 at 1449 Given 09/05/2018 1:59 PM MEAT PACKAGER 0.5 mg Given 09/05/2018 1:54 PM MEAT PACKAGER 0.5 mg ketorolac (TORADOL) injection Given 09/05/2018 12:58 PM MEAT PACKAGER 30 mg Intravenous, Starting on Luanne 09/05/18 at 1258, Until Luanne 09/05/18 at 1449 lactated ringers infusion Started 09/05/2018 2:02 PM MEAT PACKAGER Starting on Luanne 09/05/18 at 1133 Started 09/05/2018 11:33 AM MEAT PACKAGER lidocaine 2% PF (XYLOCAINE) injection Given 09/05/2018 12:50 PM MEAT PACKAGER 60 mg Intravenous, Starting on Luanne 09/05/18 at 1250, Until Luanne 09/05/18 at 1449 midazolam (aka VERSED) injection Given 09/05/2018 12:43 PM MEAT PACKAGER 2 mg Intravenous, Starting on Luanne 09/05/18 at 1243 ondansetron (ZOFRAN) injection Given 09/05/2018 2:24 PM MEAT PACKAGER 4 mg Intravenous, Starting on Luanne 09/05/18 at 1424, Until Luanne 09/05/18 at 1449 propofol (aka diPRIvan) injection Given 09/05/2018 12:50 PM MEAT PACKAGER 280 mg Intravenous, Starting on Luanne 09/05/18 at 1250 propofol (aka diPRIvan) Rate/Dose 09/05/2018 2:25 40 mcg/kg/min 17.6 4 injection Change PM MEAT PACKAGER mL/hr Intravenous, Starting on Luanne 09/05/18 at 1250 Rate/Dose Change 09/05/2018 2:15 PM MEAT PACKAGER 80 mcg/kg/min 35.28 mL/hr Rate/Dose Change 09/05/2018 1:15 PM MEAT PACKAGER 120 mcg/kg/min 52.92 mL/hr documented in this encounter Care Teams Esters And Emulsifiers Supervisor Relationship Specialty Start Date End Date Corinne Hazel MD PCP - General 12/19/10 1415 [facility] [place] [id number] documented as of this encounter
--- OUTSIDE RECORDS SUMMARY | 2022-07-17 13:58 | XMS_ITS | Encounter Summary ---
:1999 Author Organization [facility] Address [address], [place] [address] Care Team Providers Name Role Phone Corinne Hazel MD Primary Care Provider Reason for Visit Reason Comments Return Call Encounter Details Date Type Department Care Team Description 03/04/2018 Telephone Specialty Center [facility] JOHN Hinds nd, Brian Morales MD Return Call Orthopedics [address] [place] [address] 39[address] [place] [address] [place] [address] [phone] Social History Tobacco Use Types Packs/Day Years [...] company requires a prior auth. [employer] (ph.) [phone]. Ronda can be reached at [phone]. documented in this encounter Plan of Treatment Not on filedocumented as of this encounter Visit Diagnoses Not on filedocumented in this encounter Care Teams Practical Nursing Teacher Relationship Specialty Start Date End Date Corinne Hazel MD PCP - General 12/19/10 [facility]15 [facility] [id number] documented as of this encounter
--- OUTSIDE RECORDS SUMMARY | 2022-07-17 13:58 | XMS_ITS | Encounter Summary ---
:1999 Author [facility] Address [address] [address] Care Team Providers Name Role Phone Corinne Hazel MD Primary Care Provider Encounter Details Date Type Department Care Team Description 10/31/2020 Notes/Orders [facility] Kilo Sky MD 8100 [facility] [address] [place] [address] [place] [address] [phone] (Wo rk) Social History Tobacco Use Types [...] on filedocumented in this encounter Care Teams Naturalization Examiner Relationship Specialty Start Date End Date Corinne Hazel MD PCP - General 12/19/10 1415 [facility] [place] [id number] documented as of this encounter
--- OUTSIDE RECORDS SUMMARY | 2022-07-17 13:59 | XMS_ITS | Encounter Summary ---
:1999 Author Organization [facility] Address [address], [place] [address] Care Team Providers Name Role Phone Corinne Hazel MD Primary Care Provider Encounter Details Date Type Department Care Team Description 07/29/2015 Notes/Orders [facility] Brian Brennan, Oste ochondritis [address] [place] (Primary Dx) Orthopedics [address] [place] [address], [address] [place] [id number] [phone] Social History Tobacco Use Types Packs/Day Years [...] Primary documented in this encounter Care Teams Pebble Mill Operator Relationship Specialty Start Date End Date Corinne Hazel MD PCP - General 12/19/[address] [place] [id number] documented as of this encounter
--- OUTSIDE RECORDS SUMMARY | 2022-07-17 13:59 | XMS_ITS | Encounter Summary ---
:1999 Author Organization [facility] Address [address] [place] [address] Care Team Providers Name Role Phone Corinne Hazel MD Primary Care Provider Encounter Details Date Type Department Care Team Description 08/30/2015 Hospital [facility] Brian Brennan Osteochondr itis Encounter Radiology MRI PMD dissecans [address] [facility] [address] [phone] Social History Tobacco Use Types Packs/Day Years [...] Res ults for this KNEE LT PM DAM OPERATOR dissecans procedure are i n the results section. documented in this encounter Results MR Post Arthrogram Knee Lt (08/30/2015 2:46 PM DAM OPERATOR) Anatomical Region Laterality Modality Lower Extremity, Knee, Skeletal, Thigh, Leg, Other Other Specimen (Source) Anatomical Location Collection Method / Collectio n Time Received Time / Laterality Volume Impressions 08/30/2015 3:22 PM DAM OPERATOR IMPRESSION: ?? 1. 2.4 x 1.6 cm [...] bone marrow edema. Narrative 08/30/2015 3:22 PM DAM OPERATOR TECHNIQUE: ??Routine MR arthrogram marcell col of [...] dissecans documented in this encounter Care Teams Education Faculty Member Relationship Specialty Start Date End Date Corinne Hazel MD PCP - General 12/19/[address] [place], [place] [address] [address] documented as of this encounter
--- OUTSIDE RECORDS SUMMARY | 2022-07-17 13:59 | XMS_ITS | Encounter Summary ---
:1999 Author Organization [facility] Address [address], [place] [address] Care Team Providers Name Role Phone Corinne Hazel MD Primary Care Provider Reason for Visit Reason Comments Skin Check Encounter Details Date Type Department Care Team Description 04/01/2015 Initial Consult Sondra Jamison, Multiple pigmented nevi (Primary Dx); Dermatology BRIGID Nevus spilus of back [address] [facility] [address] [place] [address] [place] [address] [phone] Social History Tobacco Use Types Packs/Day Years [...] Active Problem List Diagnosis Date Noted ??? Trinidad-Schlatter's disease 03/29/2015 ??? Allergic rhinitis- 04/16/2012 Current [...] back documented in this encounter Care Teams Medical Cost Consultant Relationship Specialty Start Date End Date Corinne Hazel MD PCP - General 12/19/10 1412 [facility] Oswaldo [place] [id number] documented as of this encounter
--- OUTSIDE RECORDS SUMMARY | 2022-07-17 13:59 | XMS_ITS | Encounter Summary ---
:1999 Author Organization [facility] Address [address] [address] Care Team Providers Name Role Phone Corinne Hazel MD Primary Care Provider Reason for Visit Reason Comments ACNE Encounter Details Date Type Department Care Team Description 01/28/2016 Office Visit Batool Horta MD Acne vulgaris (Primary Dx); Dermatology [address] [place] [address] Nevus spis; [address] [facility] [place] [address] [place], [place] [phone] [address] Social History Tobacco Use Types Packs/Day Years [...] and he was instructed to purchase an qtgn-igy-jueqtos benzoyl peroxide wash for affected areas. He [...] direction. Entered on 01/28/2016 at 9:20 AM. AULIC BLOCKER Batool Urbina MD - 01/28/2016 12:46 PM [...] d documented in this encounter Care Teams Airplane Cleaner Relationship Specialty Start Date End Date Corinne Hazel MD PCP - General 12/19/10 1415 [facility] [place] [address] documented as of this encounter
--- OUTSIDE RECORDS SUMMARY | 2022-07-17 13:59 | XMS_ITS | Encounter Summary ---
:1999 Author Organization [facility] Address [address] [address] Care Team Providers Name Role Phone Corinne Hazel MD Primary Care Provider Reason for Referral Specialty Diagnoses / Procedures Referred By Contact Refer red To Contact Chava Iverson MD [facility] [place] [address] Referral ID Status Reason Start Date Expiration Date Visits Requ ested Visits Authorized PLACEMENT SPECIALIST Reason for Visit Reason Comments LEG PAIN Encounter Details Date Type Department Care Team Description 07/19/2015 Office Visit Specialty Center Brian Brennan Clos ed fracture of left proximal tibia, unspecified fracture morphology, initial encounter; [facility] JOHN SANCHEZ Osteochondritis dessicans Orthopedics [address] [place] [address], [address] 632[address] [phone] Social History Tobacco Use Types Packs/Day Years [...] signed by Brian Brennan MD at 08/09/15 876 Author: Brian Brennan MD Service: (none) Author Type: Physician Filed: 08/09/15 1227 Note Time: 08/09/151218 Status: Signed Manager Food Beverage: Brian Brennan MD (Physician) NAME: MICAH HIGH MR#: [id number] CSN: [id number] AUTHENTICATING CLINICIAN: Brian Brennan MD CONFIRM #: [id number] LOC: 211 CLINIC PROGRESS NOTE DATE OF [...] most recent injury. It allowed them to warehouse picker the OCD lesion in the weightbearing surface [...] at Deena Hanson. SPE:MEDQ C: CONFIRM #: [id number] PLACEMENT SPECIALIST documented in this encounter Plan of Treatment [...] dissecans documented in this encounter Care Teams Cancer Genetics Assistant Relationship Specialty Start Date End Date Corinne Hazel MD PCP - General 12/19/10 1415 [place] [address] documented as of this encounter
--- OUTSIDE RECORDS SUMMARY | 2022-07-17 13:59 | XMS_ITS | Encounter Summary ---
:1999 Author Organization [facility] Address [address] [place] [address] Care Team Providers Name Role Phone Corinne Hazel MD Primary Care Provider Encounter Details Date Type Department Care Team Description 07/15/2015 Notes/Orders Chava Roger, Closed fracture of left prox imal tibia, unspecified fracture morphology, initial encounter (Primary Dx); [address] SANC[place]Z Osteochondritis dessicans Nga. [address] [place] [address] [place] [phone] [place] [address] Social History Tobacco Use Types Packs/Day Years [...] documented in this encounter Care Teams Home Health Speech Therapist Relationship Specialty Start Date End Date Corinne Hazel MD PCP - General 12/19/10 1415 [place] [address] documented as of this encounter
--- OUTSIDE RECORDS SUMMARY | 2022-07-17 13:59 | XMS_ITS | Encounter Summary ---
:1999 Author Organization [facility] Address [address] [place] [address] Care Team Providers Name Role Phone Corinne Hazel MD Primary Care Provider Encounter Details Date Type Department Care Team Description 11/29/2015 Hospital [facility] Brian Brennan Osteochondr itis Encounter Radiology PMD dessicans [address] [facility] [address] [phone] Social History Tobacco Use Types Packs/Day Years [...] for dilution) without complication. Brian Brennan MD [facility] documented in this encounter Visit Diagnoses Diagnosis Osteochondritis dessicans Osteochondritis dissecans documented in this encounter Care Teams Sand Filler Relationship Specialty Start Date End Date Corinne Hazel MD PCP - General 12/19/[address] [place], [place] [address] [id number] documented as of this encounter
--- OUTSIDE RECORDS SUMMARY | 2022-07-17 13:59 | XMS_ITS | Encounter Summary ---
:1999 Author Organization [facility] Address [address] [place] [address] Care Team Providers Name Role Phone Corinne Hazel MD Primary Care Provider Encounter Details Date Type Department Care Team Description 07/26/2015 Hospital [facility] Brian Brennan Osteochondr itis Encounter Radiology PMD dessicans [address] [facility] [address] [phone] Social History Tobacco Use Types Packs/Day Years [...] Result s for this INJECTION KNEE LT PLASTICS FABRICATOR AND ASSEMBLER dessicans procedure are in the results section. documented in this encounter Results FL Pre MR Injection Knee Lt (07/26/2015 2:31 PM PLASTICS FABRICATOR AND ASSEMBLER) Anatomical Region Laterality Modality Lower Extremity, Knee Other Specimen (Source) Anatomical Location Collection Method / Collectio n Time Received Time / Laterality Volume Narrative 07/26/2015 2:58 PM PLASTICS FABRICATOR AND ASSEMBLER The risks and benefits of the procedure [...] dissecans documented in this encounter Care Teams Pig Handler Relationship Specialty Start Date End Date Corinne Hazel MD PCP - General 12/19/[address] [place] [address] documented as of this encounter
--- OUTSIDE RECORDS SUMMARY | 2022-07-17 13:59 | XMS_ITS | Encounter Summary ---
:1999 Author Organization [facility] Address [address] [place] [address] Care Team Providers Name Role Phone Corinne Hazel MD Primary Care Provider Encounter Details Date Type Department Care Team Description 11/29/2015 [facility] 3931 Osteoc hondritis dessicans Radiology X-ray 3931 [place] [address] Social History Tobacco Use Types Packs/Day Years [...] dissecans documented in this encounter Care Teams Spinning Frame Changer Relationship Specialty Start Date End Date Corinne Hazel MD PCP - General 12/19/10 1415 [facility] [place] [address] documented as of this encounter
--- OUTSIDE RECORDS SUMMARY | 2022-07-17 13:59 | XMS_ITS | Encounter Summary ---
:1999 Author Organization [facility] Address [address] [place] [address] Care Team Providers Name Role Phone Corinne Hazel MD Primary Care Provider Encounter Details Date Type Department Care Team Description 07/08/2015 Imaging [place] Radiology Knee instability, left [facility] [place] [place] [address] Social History Tobacco Use Types Packs/Day Years [...] left documented in this encounter Care Teams Coding File Clerk Relationship Specialty Start Date End Date Corinne Hazel MD PCP - General 12/19/10 1415 [place] [address] documented as of this encounter
--- OUTSIDE RECORDS SUMMARY | 2022-07-17 13:59 | XMS_ITS | Encounter Summary ---
:1999 Author Organization [facility] Address [address], [place] [address] Care Team Providers Name Role Phone Corinne Hazel MD Primary Care Provider Encounter Details Date Type Department Care Team Description 07/14/2015 Imaging [place] Radiology MRI Left knee pain; [address] [facility] Knee instability, left [place], [place] 5623[address] Social History Tobacco Use Types Packs/Day Years [...] x 1.6 cm OCD lesion of the methods specialist ior weightbearing surface of the lateral femoral [...] x 1.6 cm OCD lesion of the methods specialist ior weightbearing surface of the lateral femoral [...] left documented in this encounter Care Teams Supervisor Pig Machine Relationship Specialty Start Date End Date Corinne Hazel MD PCP - General 12/19/10 1415 [facility] [place] [id number] documented as of this encounter
--- OUTSIDE RECORDS SUMMARY | 2022-07-17 13:59 | XMS_ITS | Encounter Summary ---
:1999 Author Organization [facility] Address [address], [place] [address] Care Team Providers Name Role Phone Corinne Hazel MD Primary Care Provider Reason for Visit Reason Comments Symptoms Encounter Details Date Type Department Care Team Description 09/21/2015 Telephone [facility] 3800 Jennifer Kelly MD Symptoms Dermatology [address] [place] [address] [place], [place] [address] [phone] Social History Tobacco Use Types Packs/Day Years [...] in if not improved after [address] [facility] Jennifer Kelly MD - 09/21/2015 9:50 AM [...] his acne while farhan topicals kick in. [facility] Samantha Elizabeth RN - 09/21/2015 9:23 AM [...] come to clinic as he lives in [place] and has basketball until the mid-end of Oct. He had been seen at a Sunday clinic. Please advise Mother. PHARMACY UPDATED IN MEDS AND ORDERS: yes CALL PATIENT BACK: yes CALL BACK PHONE NUMBER: [phone]--Joya MESSAGE [place]: no [facility] documented in this encounter Plan of Treatment Not on filedocumented as of this encounter Visit Diagnoses Not on filedocumented in this encounter Care Teams Door Worker Relationship Specialty Start Date End Date Corinne Hazel MD PCP - General 12/19/10 1415 [place] [id number] documented as of this encounter
--- OUTSIDE RECORDS SUMMARY | 2022-07-17 13:59 | XMS_ITS | Encounter Summary ---
:1999 Author Organization [facility] Address [address] [place] [address] Care Team Providers Name Role Phone Corinne Hazel MD Primary Care Provider Encounter Details Date Type Department Care Team Description 07/26/2015 Hospital Gnostic[facility] Brian Brennan Osteochondr itis Encounter Radiology MRI PMD dessicans [address] [facility] [address] [phone] Social History Tobacco Use Types Packs/Day Years [...] Res ults for this KNEE LT PM COMMERCIAL SERVICE TECHNICIAN dessicans procedure are i n the results section. documented in this encounter Results MR Post Arthrogram Knee Lt (07/26/2015 3:21 PM COMMERCIAL SERVICE TECHNICIAN) Anatomical Region Laterality Modality Lower Extremity, Knee, Skeletal, Thigh, Leg, Other Other Specimen (Source) Anatomical Location Collection Method / Collectio n Time Received Time / Laterality Volume Impressions 07/26/2015 3:50 PM COMMERCIAL SERVICE TECHNICIAN IMPRESSION: ?? 1. 2.5 x 1.6 cm OCD lesion in the fermentologist ior weightbearing portion of the lateral femoral condyle is unchanged in position and appearance. Findings are suggestive of at least partial instability. No defi nite contrast extension between the OCD lesion and subchondral bone. Overlying articular ca rtilage is intact. 2. Healing nondisplaced subchondral frac ture in the anterior aspect of the lateral tibial plateau. Narrative 07/26/2015 3:50 PM COMMERCIAL SERVICE TECHNICIAN TECHNIQUE: ??Routine MR arthrogram marcell col of [...] x 1.6 cm OCD lesion in the fermentologist ior weightbearing portion of the lateral femoral [...] dissecans documented in this encounter Care Teams Contracts Administrator Relationship Specialty Start Date End Date Corinne Hazel MD PCP - General 12/19/10 [facility]15 [facility] [place] [address] documented as of this encounter
--- OUTSIDE RECORDS SUMMARY | 2022-07-17 13:59 | XMS_ITS | Encounter Summary ---
:1999 Author Organization [facility] Address [address] [address] Care Team Providers Name Role Phone Corinne Hazel MD Primary Care Provider Reason for Visit Reason Comments INJURY, KNEE Encounter Details Date Type Department Care Team Description 07/26/2015 Office Visit Specialty Center Brian Brennan, Oste ochondritis 393 JOHN vázquezsicans (Primary Dx) Orthopedics [address] [place] [address], [address] [place] 484[address] [phone] Social History Tobacco Use Types Packs/Day Years [...] signed by Brian Brennan MD at 08/17/15 7413 Author: Brian Brennan MD Service: (none) Author Type: Physician Filed: 08/17/15 2860 Note Time: 08/17/15 3458 Status: Signed Packing Machine Can Feeder: Brian Brennan MD (Physician) NAME: MICAH HIGH MR#: [id number] CSN: [id number] AUTHENTICATING CLINICIAN: Brian Brennan MD CONFIRM #: [id number] LOC: 211 CLINIC PROGRESS NOTE DATE OF [...] upon subsequent images. SPE:MEDQ C: CONFIRM #: [id number] RATOR WORKER documented in this encounter Plan of Treatment Not on filedocumented as of this encounter Visit Diagnoses Diagnosis Osteochondritis dessicans - Primary Osteochondritis dissecans documented in this encounter Care Teams Manuscripts Archivist Relationship Specialty Start Date End Date Corinne Hazel MD PCP - General 12/19/10 1415 [place] [address] documented as of this encounter
--- OUTSIDE RECORDS SUMMARY | 2022-07-17 13:59 | XMS_ITS | Encounter Summary ---
:1999 Author Organization [facility] Address [address] [place] [address] Care Team Providers Name Role Phone Corinne Hazel MD Primary Care Provider Encounter Details Date Type Department Care Team Description 08/30/2015 Hospital [facility] Brian Brennan Osteochondr itis Encounter Radiology PMD dissecans [address] [facility] [address] [phone] Social History Tobacco Use Types Packs/Day Years [...] ARRT Intracapsular - 08/30/15 140 - - BARN LABORER documented in this encounter Plan of Treatment Not on filedocumented as of this encounter Procedures Procedure Name Priority Date/Time Associated Diagnosis Comme nts FL PRE MR Routine 08/30/2015 2:05 PM Osteochondritis Result s for this INJECTION KNEE LT CAR BARN LABORER dissecans procedure are in the results section. documented in this encounter Results FL Pre MR Injection Knee Lt (08/30/2015 2:05 PM CAR BARN LABORER) Anatomical Region Laterality Modality Lower Extremity, Knee Other Specimen (Source) Anatomical Location Collection Method / Collectio n Time Received Time / Laterality Volume Narrative 08/30/2015 3:24 PM CAR BARN LABORER FINDINGS: The procedure, goals, risks and benefits [...] for dilution) without complication. Brian Brennan MD [facility] documented in this encounter Visit Diagnoses Diagnosis Osteochondritis dissecans documented in this encounter Care Teams Laser Operator Relationship Specialty Start Date End Date Corinne Hazel MD PCP - General 12/19/10 [facility]5 [facility] [place] [address] documented as of this encounter
--- OUTSIDE RECORDS SUMMARY | 2022-07-17 13:59 | XMS_ITS | Encounter Summary ---
:1999 Author Organization [facility] Address [address] [address] Care Team Providers Name Role Phone Corinne Hazel MD Primary Care Provider Encounter Details Date Type Department Care Team Description 07/16/2015 Notes/Orders [facility] Chava Iverson MD 1415 [facility] . 1415 [place] [address] [place] [address] [phone] (Wo rk) Social History Tobacco Use Types [...] on filedocumented in this encounter Care Teams Compensation Advisor Relationship Specialty Start Date End Date Corinne Hazel MD PCP - General 12/19/10 1415 [facility] [place] [address] documented as of this encounter
--- OUTSIDE RECORDS SUMMARY | 2022-07-17 13:59 | XMS_ITS | Encounter Summary ---
:1999 Author Organization [facility] Address [address] [place] [address] Care Team Providers Name Role Phone Corinne Hazel MD Primary Care Provider Reason for Visit Reason Comments Knee Pain or Injury Encounter Details Date Type Department Care Team Description 07/08/2015 Office Visit [facility] Chava Iverson, Knee instability, left (Prim nicole Dx); [address] [place] N[place] Conway MD Need for HPV vaccination; [place] [address] Need for influenza vaccinati on [phone] [place] [address] Social History Tobacco Use Types Packs/Day [...] List Diagnosis ??? Allergic rhinitis- February/March ??? Freeland-Schlatter's disease No past medical history on file. [...] History Narrative OBJECTIVE: Alert, comfortable. 149 lb (76409 g) (75.62 %, Source: [facility] 2-20 Years) Filed Vitals: 07/08/15 1548 Weight: 149 lb (45175 g) Vital Signs: Reviewed; See Flowsheet Charting [...] influenza documented in this encounter Care Teams Resident Care Spec Relationship Specialty Start Date End Date Corinne Hazel MD PCP - General 12/19/10 [facility] [place] [address] documented as of this encounter
--- OUTSIDE RECORDS SUMMARY | 2022-07-17 13:59 | XMS_ITS | Encounter Summary ---
:1999 Author Organization [facility] Address [address] [place] [address] Care Team Providers Name Role Phone Corinne Hazel MD Primary Care Provider Encounter Details Date Type Department Care Team Description 11/29/2015 Hospital [facility] Brian Brennan Osteochondr itis Encounter Radiology MRI PMD dessicans [address] [facility] [address] [phone] Social History Tobacco Use Types Packs/Day Years [...] dissecans documented in this encounter Care Teams Bunch Breaker Machine Operator Relationship Specialty Start Date End Date Corinne Hazel MD PCP - General 12/19/[address] [place] [address] documented as of this encounter
--- OUTSIDE RECORDS SUMMARY | 2022-07-17 13:59 | XMS_ITS | Encounter Summary ---
:1999 Author Organization [facility] Address [address], [place] [address] Care Team Providers Name Role Phone Corinne Hazel MD Primary Care Provider Reason for Visit Reason Comments Knee Problem Encounter Details Date Type Department Care Team Description 08/30/2015 Office Visit Specialty Center Brian Brennan, Oste ochondritis 393 JOHN SANCHEZ dessicans (Primary Dx) Orthopedics [address] [place] [address], [address] [place] [address] [phone] Social History Tobacco Use Types Packs/Day Years [...] Filed: 09/01/15639 Note Time: 09/01/15147 Status: Signed Roofer Metal: Brian Brennan MD (Physician) NAME: MICAH HIGH MR#: [id number] CSN: [id number] AUTHENTICATING CLINICIAN: Brian Brennan MD CONFIRM #: [id number] LOC: 211 CLINIC PROGRESS NOTE DATE OF [...] such short sequence. SPE:MEDQ C: CONFIRM #: [id number] NTORY AUDIT CLERK documented in this encounter Plan of Treatment Not on filedocumented as of this encounter Visit Diagnoses Diagnosis Osteochondritis dessicans - Primary Osteochondritis dissecans documented in this encounter Care Teams Lymphedema Therapist Relationship Specialty Start Date End Date Corinne Hazel MD PCP - General 12/19/10 1415 [facility] [place] [address] documented as of this encounter
--- OUTSIDE RECORDS SUMMARY | 2022-07-17 13:59 | XMS_ITS | Encounter Summary ---
:[address] [facility] Address [address], [place] [address] Care Team Providers Name Role Phone Corinne Hazel MD Primary Care Provider Reason for Visit Reason Comments RESULTS, TEST Encounter Details Date Type Department Care Team Description 07/09/2015 Telephone [facility] Chava Iverson MD RESULTS, TEST 1415 [facility] . [address] [place] [address] [place] [address] [phone] (Wo rk) Social History Tobacco Use Types [...] - 07/09/2015 9:25 AM CDT pcd at [phone], knee XR normal, we will set up the MRI please arrange MRI at [facility] documented in this encounter Plan of Treatment Not on filedocumented as of this encounter Visit Diagnoses Diagnosis Knee instability, left - Primary Left knee pain Pain in joint, lower leg documented in this encounter Care Teams Respiratory Practitioner Relationship Specialty Start Date End Date Corinne Hazel MD PCP - General 12/19/10 1415 [facility] [place] [address] documented as of this encounter
--- OUTSIDE RECORDS SUMMARY | 2022-07-17 13:59 | XMS_ITS | Encounter Summary ---
:2000 [address] [facility] Address [address] [place] [address] Care Team Providers Name Role Phone Corinne Hazel MD Primary Care Provider Encounter Details Date Type Department Care Team Description 07/15/2015 Notes/Orders [facility] Chava Iverson, Closed fracture of [address] proximal end of left [place] [address] tibia with routine [phone] Ave healing, unspecified [place] [address] fracture morphology, subsequent enco unter [...] Primary documented in this encounter Care Teams Clay Products Glazer Relationship Specialty Start Date End Date Corinne Hazel MD PCP - General 12/19/[address] [place] [address] documented as of this encounter
--- OUTSIDE RECORDS SUMMARY | 2022-07-17 13:59 | XMS_ITS | Encounter Summary ---
:1999 Author Organization [facility] Address [address], [place] [address] Care Team Providers Name Role Phone Corinne Hazel MD Primary Care Provider Reason for Visit Reason Comments Information Encounter Details Date Type Department Care Team Description 07/15/2015 Telephone [facility] Chava Iverson MD Information 1415 [facility] . [address]15 [place] [address] [place], [place] [address] (Wo rk) Social History Tobacco Use Types [...] Called mom with message. Mom's number is [phone]. Domi Gregory LPN - 07/15/2015 12:15 PM CDT LMTCB Please transfer to [phone] Chava Iverson MD - 07/15/2015 11:23 AM [...] to see ortho on Sunday for the exterminator plan, I'll put in the order for the ortho appt, mom can call our outsole scheduler to set up the appt. I [...] dissecans documented in this encounter Care Teams Track Subway Repair Supervisor Relationship Specialty Start Date End Date Corinne Hazel MD PCP - General 12/19/10 1415 [place] [address] documented as of this encounter
--- OUTSIDE RECORDS SUMMARY | 2022-07-17 13:59 | XMS_ITS | Encounter Summary ---
:1999 Author Organization [facility] Address [address], [place] [address] Care Team Providers Name Role Phone Corinne Hazel MD Primary Care Provider Reason for Visit Reason Comments Knee Pain or Injury Encounter Details Date Type Department Care Team Description 11/29/2015 Office Visit [facility] Brian Brennan, Oste ochondritis [address] vázquez[address]insomes (Primary Dx) Orthopedics [address] [place] [address], [address] [place] [address] [phone] Social History Tobacco Use Types Packs/Day Years [...] signed by Brian Brennan MD at 12/10/15 0061 Author: Brian Brennan MD Service: (none) Author Type: Physician Filed: 12/10/15 1504 Note Time: 12/10/151421 Status: Signed Die Repair: Brian Brennan MD (Physician) NAME: MICAH HIGH MR#: [id number] CSN: [id number] AUTHENTICATING CLINICIAN: Brian Brennan MD CONFIRM #: [id number] LOC: 211 CLINIC PROGRESS NOTE DATE OF [...] March of 2016. 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
--- OUTSIDE RECORDS SUMMARY | 2022-07-17 13:59 | XMS_ITS | Encounter Summary ---
:1999 [facility] Address [address], [place] [address] Care Team Providers Name Role Phone Corinne Hazel MD Primary Care Provider Reason for Visit Reason Comments ACNE Encounter Details Date Type Department Care Team Description 07/24/2015 Office Visit [facility] Acne vulgaris (Primary Dx) [address] [place] [address] Social History Tobacco Use Types [...] This note has been dictated. Karlos Monroy DRY PRESS HELPER Jennifer Juarez MD - 07/24/2015 12:33 PM CST Progress Notes signed by Jennifer Juarez MD at 08/02/152145 Author: Jennifer Juarez MD Service: (none) Author Type: Physician Filed: 08/02/152145 Note Time: 07/25/15 1016 Status: Addendum Ethics Instructor: Jennifer Juarez MD (Physician) Related Notes: Original Note by Jennifer Juarez MD (Physician) filed at 07/25/151931 NAME: MICAH HIGH MR#: [id number] CSN: [id number] AUTHENTICATING CLINICIAN: Jennifer Juarez MD CONFIRM #: [id number] LOC: 427 CLINIC PROGRESS NOTE DATE OF [...] football, basketball, and baseball. MEDICATIONS: Reviewed in [place]. ALLERGIES: Reviewed in [place]. He has seasonal allergies. REVIEW OF SYSTEMS: [...] the morning, and that he purchase an hdfa-wwi-vqytvzv benzoyl peroxide wash for affected areas. Given [...] Leatha Monroy MD CC: JENNIFER JUAREZ MD [address] [place] [address] KKL:MEDQ C: CONFIRM #: [id number] I personally evaluated and examined the patient with the dermatology resident. I was present for thekey portions of the history and examination. I was present for procedures performed. I discussed andagree with the resident's findings, assessment and plan, as documented in the resident's note. Jennifer Juarez MD DRY PRESS HELPER documented in this encounter Plan of Treatment Not on filedocumented as of this encounter Visit Diagnoses Diagnosis Acne vulgaris - Primary Other acne documented in this encounter Care Teams Platform Power Technician Relationship Specialty Start Date End Date Corinne Hazel MD PCP - General 12/19/10 1415 [place] [address] documented as of this encounter
--- OUTSIDE RECORDS SUMMARY | 2022-07-17 13:59 | XMS_ITS | Encounter Summary ---
:1999 Author Organization [facility] Address [address], [place] [address] Care Team Providers Name Role Phone Corinne Hazel MD Primary Care Provider Reason for Visit Reason Comments Knee Pain or Injury Encounter Details Date Type Department Care Team Description 04/06/2016 Office Visit [facility] Brian Brennan, Oste ochondritis [address] vázquezsiwinsomes (Primary Dx) Orthopedics [address] [place] [address], [address] [place] [address] [phone] Social History Tobacco Use Types Packs/Day Years [...] signed by Brian Brennan MD at 05/12/16 4360 Author: Brian Brennan MD Service: (none) Author Type: Physician Filed: 05/12/16 1310 Note Time: 05/12/16 1305 Status: Signed Customer Account Representative: Brian Brennan MD (Physician) NAME: MICAH HIGH MR#: [id number] CSN: [id number] AUTHENTICATING CLINICIAN: Brian Brennan MD CONFIRM #: [id number] LOC: 211 CLINIC PROGRESS NOTE DATE OF [...] years of age. 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
--- OUTSIDE RECORDS SUMMARY | 2022-07-17 14:00 | XMS_ITS | Encounter Summary ---
:1999 Author Organization [facility] Address [address] [place] [address] Care Team Providers Name Role Phone Corinne Hazel MD Primary Care Provider Encounter Details Date Type Department Care Team Description 03/09/2011 Office Visit [facility] Sondra Weir PA-C [address] [place] [address] [place] [address] [phone] (Wo rk) Social History Tobacco Use Types [...] on filedocumented in this encounter Care Teams Clinical Social Work Therapist Relationship Specialty Start Date End Date Corinne Hazel MD PCP - General 12/19/10 1415 [facility] [place] [address] documented as of this encounter
--- OUTSIDE RECORDS SUMMARY | 2022-07-17 14:00 | XMS_ITS | Encounter Summary ---
:1999 Author Organization [facility] Address [address] [place] [address] Care Team Providers Name Role Phone Corinne Hazel MD Primary Care Provider Encounter Details Date Type Department Care Team Description 01/16/2011 PN Conversion Only [place] [facility] Cinthia Zafar, Medicine SALES HUNTER, CONSULTANT DIETITIAN [address]. [address] [place] [address] [place] [address] [phone] Social History Tobacco Use Types Packs/Day Years [...] on filedocumented in this encounter Care Teams Dry Room Attendant Relationship Specialty Start Date End Date Corinne Hazel MD PCP - General 12/19/10 1415 [facility] [place] [phone] documented as of this encounter
--- OUTSIDE RECORDS SUMMARY | 2022-07-17 14:00 | XMS_ITS | Encounter Summary ---
:1999 Author Organization [facility] Address [address] [place] [address] Care Team Providers Name Role Phone Corinne Hazel MD Primary Care Provider Encounter Details Date Type Department Care Team Description 03/05/2007 Office Visit [facility] Alejo Pearce MD 1415 [facility] . 1415 [place] [address] [place], [place] [address] (Wo rk) Social History Tobacco Use Types [...] signed by Alejo Pearce MD at 04/04/07 5722 Author: Alejo Pearce MD Service: (none) Author Type: Physician Filed: 01/06/113 Note Time: 03/05/072017 Status: Signed Choirmaster: Alejo Pearce MD (Physician) NAME: MICAH HIGH MR#: [id number] ACCT: [id number] VISIT: [id number] DICTATING CLINICIAN: ALEJO PEARCE MD JOB: [id number] LOC: 1202 CLINIC PROGRESS NOTE DATE OF VISIT: 03/05/2007 SUBJECTIVE: : 2000. Here for concerns of allergies, accompanied by mother. Reports they have been more pronounced this spring and fall than previously. Have tried Claritin nxgs-zae-fzblhce with improvement in coryza, however, ongoing rhinorrhea [...] Could also try Zyrtec before consultation requested. [facility]:[id number] C: 03/06/07 14:43 DOCUMENT: [id number] documented in this encounter Plan of Treatment Not on filedocumented as of this encounter Visit Diagnoses Not on filedocumented in this encounter Care Teams Senior Account Manager Relationship Specialty Start Date End Date Corinne Hazel MD PCP - General 12/19/10 1415 [facility] [place] [address] documented as of this encounter
--- OUTSIDE RECORDS SUMMARY | 2022-07-17 14:00 | XMS_ITS | Encounter Summary ---
:1999 Author Organization [facility] Address [address], [place] [address] Care Team Providers Name Role Phone Corinne Hazel MD Primary Care Provider Encounter Details Date Type Department Care Team Description 01/25/2009 Office Visit [facility] Corinne Hazel MD 1415 [facility] . [address] [place] [address] [place], [place] [address] (Wo rk) Social History Tobacco Use Types [...] 1432 Note Time: 01/25/09 0001 Status: Signed Electroless Plater: Corinne Hazel MD (Physician) Acute Clinic Visit [...] updated today on the Health Profile of [facility]. Past History of: Allergic rhinitis. OBJECTIVE: [...] OP Med list on Health Profile in [facility]. Patient was given discharge instructions and was discharged in stable condition. *SH~PC~AURELIANO ~ Shorthand Note completed on: 01/25/2009 10:55 AM documented in this encounter Plan of Treatment Not on filedocumented as of this encounter Visit Diagnoses Not on filedocumented in this encounter Care Teams Frame Sample And Pattern Supervisor Relationship Specialty Start Date End Date Corinne Hazel MD PCP - General 12/19/10 1415 [place] [address] documented as of this encounter
--- OUTSIDE RECORDS SUMMARY | 2022-07-17 14:00 | XMS_ITS | Encounter Summary ---
:1999 Author Organization [facility] Address [address] [place] [address] Care Team Providers Name Role Phone Corinne Hazel MD Primary Care Provider Encounter Details Date Type Department Care Team Description 01/25/2009 PN Conversion Only [place] CONVERSION Corinne Hazel, 1415 [facility] [place] [address] 1419 [facility] evert [place] [address] (Wo rk) Social History Tobacco [...] (01/25/2009 11:20 AM CDT) Analysis Performed At [facility] Time Signature Strep Group A Positive Negative HP CONVERSION Antigen Test Specimen (Source) Anatomical Collection Method Collection Time Re ceived Time Location / / Volume Laterality 01/25/2009 11:20 AM CDT Corinne Hazel MD LAB_1 Performing Organization Address City/State/ZIP Code Phon e Number HP CONVERSION documented in this encounter Visit Diagnoses Not on filedocumented in this encounter Care Teams Front Desk Lead Relationship Specialty Start Date End Date Corinne Hazel MD PCP - General 12/19/10 [address] [place] [address] documented as of this encounter
--- OUTSIDE RECORDS SUMMARY | 2022-07-17 14:00 | XMS_ITS | Encounter Summary ---
:1999 Author Organization [facility] Address [address] [place] [address] Care Team Providers Name Role Phone Corinne Hazel MD Primary Care Provider Reason for Visit Reason Comments WELL CHILD EXAM Encounter Details Date Type Department Care Team Description 03/26/2015 Office Visit [facility] Chava Iverson, Routine child health exam (P rimary Dx); [address] 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 Allergic rhinitis- February/March ??? [place]-Schlatter's disease No past medical history on file. [...] (174 cm) Weight: 141 lb 3.2 oz (48372 g) Wt Readings from Last 3 Encounters: 03/26/15 141 lb 3.2 oz (64948 g) (69.93 %*) 04/16/12 91 lb (22781 g) (43.21 %*) 07/18/10 86 lb 15.9 oz (47464 g) (74.38 %*) * Growth percentiles are based on [facility] 2-20 Years data. 5' 8.5 (174 cm) (62.42 %, Source: [facility] 2-20 Years) General- interactive, comfortable, MMM, color [...] 1. Routine child health exam V20.2 Z00.129 FL DEVELOPMENTAL TEST, MORSE IMMUNIZATION COUNSELING PERFORMED BY CLINICIAN HPV (Gardasil) MCV4 (Menveo) FL VISUAL SCREENING TEST, BILAT FL PURE TONE HEARING TEST, AIR 2. Need for HPV vaccination V04.89 Z23 IMMUNIZATION COUNSELING PERFORMED BY CLINICIAN HPV (Gardasil) 3. Need for meningococcus vaccine V03.89 Z23 IMMUNIZATION COUNSELING PERFORMED BY CLINICIAN MCV4 (Menveo) 4. 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 Examination of eyes and vision V72.0 Z01.00 FL VISUAL SCREENING TEST, BILAT 6. Other examination of ears and hearing V72.19 Z01.10 FL PURE TONE HEARING TEST, AIR 7. 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
--- OUTSIDE RECORDS SUMMARY | 2022-07-17 14:00 | XMS_ITS | Encounter Summary ---
:1999 Author Organization [facility] Address [address] [place] [address] Care Team Providers Name Role Phone Corinne Hazel MD Primary Care Provider Encounter Details Date Type Department Care Team Description 05/06/2008 Office Visit [facility] Yue Mcleod MD [address] [facility] [place] [address] [place] [address] [phone] Social History Tobacco Use Types Packs/Day Years [...] as of this encounter Progress Notes Yue Mcelod - 05/06/2008 12:01 AM CDT Progress Notes signed by Yue Mcleod MD at 05/06/08 1626 Author: Yue Mcleod MD Service: (none) Author Type: Physician Filed: 01/07/11 0746 Note Time: 05/06/08 0001 Status: Signed Filter Press Supervisor: Yue Mcleod MD (Physician) Well Child/Adolescent Visit [...] Social / Family History: Family: Father's occupation: Onion Farmer Mother's occupation: [employer]ilio Number of siblings: Catherine-5 yo healthy Environment: [...] Impressions 05/06/2008 5:19 PM CDT : ??Normal. [id number] Dictating JOSUÉ PRESSELY RADIOLOGIST Narrative 05/06/2008 5:19 PM CDT No [...] EKG and/or cardiac ultrasound. IMPRESSION : Normal. [id number] Dictating JOSUÉ PRESSLEY RADIOLOGIST Yue Mcleod MD RAD GD documented in this encounter Visit Diagnoses Not on filedocumented in this encounter Care Teams Hand Carver Relationship Specialty Start Date End Date Corinne Hazel MD PCP - General 12/19/10 [address] [place] [address] documented as of this encounter
--- OUTSIDE RECORDS SUMMARY | 2022-07-17 14:00 | XMS_ITS | Encounter Summary ---
:1999 Author [facility] Address [address], [place] [address] Care Team Providers Name Role Phone Corinne Hazel MD Primary Care Provider Encounter Details Date Type Department Care Team Description 03/05/2007 PN Conversion Only [place] CONVERSION [address] [place] [address] Social History Tobacco Use Types Packs/Day Years [...] on filedocumented in this encounter Care Teams Blood Splatter Analyst Relationship Specialty Start Date End Date Corinne Hazel MD PCP - General 12/19/10 [address]15 [place] [address] documented as of this encounter
--- OUTSIDE RECORDS SUMMARY | 2022-07-17 14:00 | XMS_ITS | Encounter Summary ---
:1999 [facility] Organization [facility] Address [address], [place] [address] Care Team Providers Name Role Phone Corinne Hazel MD Primary Care Provider Reason for Visit Reason Comments POISON PATITO Encounter Details Date Type Department Care Team Description 03/11/2012 Nurse Triage [facility] Corinne Hazel MD POISON PATITO 1415 [facility] . 1415 [facility] [address] [place] [address] [phone] (Wo rk) Social History Tobacco Use Types [...] CDT Protocol: POISON PATITO - [place]AK - [id number] Affirmative: Face, eyes, lips or genitals are [...] on filedocumented in this encounter Care Teams Drip Box Tender Relationship Specialty Start Date End Date Corinne Hazel MD PCP - General 12/19/10 1415 [facility] [place] [address] documented as of this encounter
--- OUTSIDE RECORDS SUMMARY | 2022-07-17 14:00 | XMS_ITS | Encounter Summary ---
:1999 Author Organization [facility] Address [address], [place] [address] Care Team Providers Name Role Phone Corinne Hazel MD Primary Care Provider Encounter Details Date Type Department Care Team Description 03/09/2011 PN Conversion Only [facility] [address], Dermatology [address] [place] [place] [address] [address] [place], [place] [phone] (Wo rk) Social History Tobacco Use Types [...] on filedocumented in this encounter Care Teams Dental Equipment Technician Relationship Specialty Start Date End Date Corinne Hazel MD PCP - General 12/19/10 [address] [place] [address] documented as of this encounter
--- OUTSIDE RECORDS SUMMARY | 2022-07-17 14:00 | XMS_ITS | Encounter Summary ---
:1999 Author Organization [facility] Address [address], [place] [address] Care Team Providers Name Role Phone Corinne Hazel MD Primary Care Provider Reason for Visit Reason Comments IMMUNIZATIONS Encounter Details Date Type Department Care Team Description 05/19/2014 Telephone [facility] Corinne Hazel MD IMMUNIZATIONS 1415 [facility] . 1415 [facility] [place] [address] [place] [address] [phone] (Wo rk) Social History Tobacco Use Types [...] documented as of this encounter Nursing Notes Amira Desouza RN - 05/19/2014 8:56 AM CDT [...] on filedocumented in this encounter Care Teams Auto Body Repairer Fiberglass Relationship Specialty Start Date End Date Corinne Hazel MD PCP - General 12/19/10 1415 [facility] [place] [address] documented as of this encounter
--- OUTSIDE RECORDS SUMMARY | 2022-07-17 14:00 | XMS_ITS | Encounter Summary ---
:2000 Author Organization [facility] Address [address] [place] [address] Care Team Providers Name Role Phone Corinne Hazel MD Primary Care Provider Encounter Details Date Type Department Care Team Description 05/10/2004 Supervisor Accounts Receivable [facility] Cinthia Zafar, [facility] LEO, CM [address]. [address] [place] [address] [place] [address] [phone] Social History Tobacco Use Types Packs/Day Years [...] CDT H&P signed by Cinthia Zafar APRN, TIE IN MACHINE OPERATOR at 05/10/04 1230 Author: ISA Chavez Service: (none) Author Type: Nurse Practitioner Filed: 01/06/11 0053 Note Time: 05/10/04 0001 Status: Signed Parts Clerk: ISA Chavez (Nurse Practitioner) No History of [...] on filedocumented in this encounter Care Teams Notched Blade Loader Relationship Specialty Start Date End Date Corinne Hazle MD PCP - General 12/19/[address] [place] [address] [place] [address] documented as of this encounter
--- OUTSIDE RECORDS SUMMARY | 2022-07-17 14:00 | XMS_ITS | Encounter Summary ---
:1999 Author Organization [facility] Address [address], [place] [address] Care Team Providers Name Role Phone Corinne Hazel MD Primary Care Provider Encounter Details Date Type Department Care Team Description 07/18/2010 Office Visit Corinne Armenta MD [address] [place], [place] [address] (Wo rk) Social History [...] list. OBJECTIVE Vital Signs : Review[facility]. Weight 87 pounds Extremities: [...] on filedocumented in this encounter Care Teams Cadd Drafter Relationship Specialty Start Date End Date Corinne Hazel MD PCP - General 12/19/10 [address] [place], [place] [address] documented as of this encounter
--- OUTSIDE RECORDS SUMMARY | 2022-07-17 14:00 | XMS_ITS | Encounter Summary ---
:1999 Author Organization [facility] Address [address] [place] [address] Care Team Providers Name Role Phone Corinne Hazel MD Primary Care Provider Encounter Details Date Type Department Care Team Description 05/06/2008 PN Conversion Only [facility] Liang Galan MD [address] [facility] [address] [place] [address] [phone] Social History Tobacco Use Types Packs/Day Years [...] 05/06/2008 3:45 PM CD T Growth Chart: [facility] (Boys, 2-20 Years) documented in this encounter [...] on filedocumented in this encounter Care Teams Candy Counter Clerk Relationship Specialty Start Date End Date Corinne Hazel MD PCP - General 12/19/[address] [place] [address] [place] [id number] documented as of this encounter
--- OUTSIDE RECORDS SUMMARY | 2022-07-17 14:00 | XMS_ITS | Encounter Summary ---
:1999 Author Organization [facility] Address [address] [place] [address] Care Team Providers Name Role Phone Corinne Hazel MD Primary Care Provider Encounter Details Date Type Department Care Team Description [facility] 1415 [facility] . [address] [place] [address] [place], [place] [address] (Wo rk) Social History Tobacco Use Types [...] 05/09/2005 4:06 PM CDT C: 111.8 cm Cyroxt-zdi-Oxkhsu Percentile 45.85 % 05/09/2005 4:06 PM CDT Growth Chart: [facility] (Boys, 2-20 Years) Body Mass Index 15.25 05/09/2005 4:06 PM CDT Body Mass Index Percentile 45.62 % 05/09/2005 4:06 PM CD T Growth Chart: [facility] (Boys, 2-20 Years) documented in this encounter Progress Notes Rolando Stevens MD - 05/09/2005 12:01 AM CDT Progress Notes signed by Rolando Stevens MD at 05/10/05 1456 Author: Rolando Stevens MD Service: (none) Author Type: Physician Filed: 01/06/11 0741 Note Time: 05/09/05 0001 Status: Signed Bat Boy/Girl: Rolando Stevens MD (Physician) NAME: MICAH HIGH MR: [id number] ACCT: [id number] VISIT: [id number] DICTATING CLINICIAN: ROLANDO STEVENS MD JOB: [id number] CLINIC PROGRESS NOTE DATE OF VISIT: 05/09/2005 [...] alert and awake, in no acute distress. Ojr-kfa-obgheerhe. HEENT: NC/AT. JAVIER, EOMI. Conjunctivas clear. Funduscopic [...] exam may require sedation. PLAN: See assessment. RIC:[id number] C: 05/10/05 14:19 DOCUMENT: [id number] documented in this encounter Plan of Treatment Not on filedocumented as of this encounter Visit Diagnoses Not on filedocumented in this encounter Care Teams Sterile Supervisor Relationship Specialty Start Date End Date Corinne Hazel MD PCP - General 12/19/10 14[address] [facility] [place] [id number] documented as of this encounter
--- OUTSIDE RECORDS SUMMARY | 2022-07-17 14:00 | XMS_ITS | Encounter Summary ---
:1999 Author Organization [facility] Address [address] [place] [address] Care Team Providers Name Role Phone Corinne Hazel MD Primary Care Provider Reason for Visit Reason Comments WELL CHILD EXAM Encounter Details Date Type Department Care Team Description 04/16/2012 Office Visit [facility], Routine child health exam (P rimary Dx); [address] MD Nichole Need for meningococcus vaccine; [place] [address] [address] [facility] Need for Tdap vaccination; [phone] Ave Examination of eyes and vision; [place] [...] 04/16/2012 3:23 PM CD T Growth Chart: [facility] (Boys, 2-20 Years) documented in this [...] Need for prophylactic vaccination with c ombined uvkveehjbs-ulwstvf-nryrywrvv (DTP) vaccine Examination of eyes and vision Other examination of ears and hearing documented in this encounter Care Teams Cornice Maker Relationship Specialty Start Date End Date Corinne Hazel MD PCP - General 12/19/10 16[address] [facility] [place] [place] [address] documented as of this encounter
--- OUTSIDE RECORDS SUMMARY | 2022-07-17 14:00 | XMS_ITS | Encounter Summary ---
:1999 Author Organization [facility] Address [address], [place] [address] Care Team Providers Name Role Phone Corinne Hazel MD Primary Care Provider Reason for Visit Reason Comments Other Encounter Details Date Type Department Care Team Description 02/19/2009 Telephone [facility] Lisa Ortiz MD Other 1415 [facility] . [address] [facility] [place] [address] [place] [address] [phone] (Wo rk) Social History Tobacco Use Types [...] 9:42 AM CDT Phone Note filed by [employer] at 01/06/11 2375 Author: [employer] Service: (none) Author Type: (none) Filed: 01/06/11 0414 Note Time: 02/19/09941 Status: Signed Driver Starting Gate: [employer] (Resource) Medication Issue/Refill Caller Name/Relationship:Hetal/mom Primary Boiler Repair Supervisor:none Patient has contacted Pharmacy (yes/no):y Comments:Mom states [...] Name & Phone #:[facility] Street or City:[facility] Drug Name:alternate to angelito Strength:unk Dose/Route/Freq:higher dose requested Concrete Curer:Hetal Best call back number:[phone] Is it OK to leave a confidential message on this voicemail?y Created on 19Feb2009 9:42am by KASEY MAYA On 19Feb2009 10:22am RAJ LANIER wrote: Mom states her insurance ([employer]) will no longer cover Angelito. Would like something similiar. States this worked well. Patient weighs 68.5#. Needs today. [facility]acy: [facility] [place] [facility]. PHone: [phone] gladys/hetal On 19Feb2009 11:22am ABILIO DOMINGUEZ wrote: Mom calling back to say would like [facility] [place] - call [phone]. On 19Feb2009 4:15pm MINAL CONTRERAS wrote: Mom calling back phone [phone] On 19Feb2009 4:20pm RAJ LANIER wrote: Mom calling back. Needs rx today. [id number]. Mom: Hetal [phone] On 19Feb2009 5:26pm LISA ORTIZ III wrote: Called mom and told her to try zyrtec 10mg po qd. Mom will try that. Acknowledged by LISA ORTIZ III on 5:26pm Acknowledged by PROSPER RUEDA on 5:33pm TACKER documented in this encounter Plan of Treatment Not on filedocumented as of this encounter Visit Diagnoses Not on filedocumented in this encounter Care Teams Audio Visual Coordinator Relationship Specialty Start Date End Date Corinne Hazel MD PCP - General 12/19/10 [address] [place] [address] documented as of this encounter
--- OUTSIDE RECORDS SUMMARY | 2022-07-17 14:00 | XMS_ITS | Encounter Summary ---
:1999 [facility] Address [address], [place] [address] Care Team Providers Name Role Phone Corinne Hazel MD Primary Care Provider Encounter Details Date Type Department Care Team Description 02/25/2003 PN Conversion Only [place] CONVERSION Robert Rogers M, [address] [facility] [place] [address] Juan [place] [address] (Wo rk) Social History Tobacco [...] (02/25/2003 4:47 PM CDT) [facility] Strep Group A Negative Negative HP CONVERSION Antigen Test Comment: Culture to follow. Specimen (Source) Anatomical Collection Method Collection Time Re ceived Time Location / / Volume Laterality 02/25/2003 4:47 PM CDT Robert Rogers MD LAB_1 Performing Organization Address City/[facility] Code Phon e Number HP CONVERSION Beta Strep Followup (02/25/2003 4:47 PM CDT) P athologist Signature Strep Screen SEE TEXT HP CONVERSION Comment: Patient: MICAH HIGH Rapid Strep Follow up Culture @ ? Collected: ??[id number] ??[id number] Source: Throat ?Processed: ??[id number] ??[id number] ? S Final Report ------ ?[id number] ??[id number] No beta hemolytic Strep group A isolated . @ = Rapid F/U Cult Performed at ??[address] [place], [place] ?[address] Specimen (Source) Anatomical Collection Method Collection Time Re ceived Time Location / / Volume Laterality 02/25/2003 4:47 PM CDT Robert Rogers MD LAB_1 Performing Organization Address City/[facility] Phon e Number HP CONVERSION documented in this encounter Visit Diagnoses Not on filedocumented in this encounter Care Teams Product Support Analyst Relationship Specialty Start Date End Date Corinne Haezl MD PCP - General 12/19/10 1415 [facility] [place] [address] documented as of this encounter
--- OUTSIDE RECORDS SUMMARY | 2022-07-17 14:00 | XMS_ITS | Encounter Summary ---
:1999 Author Organization [facility] Address [address] [place] [address] Care Team Providers Name Role Phone Corinne Hazel MD Primary Care Provider Encounter Details Date Type Department Care Team Description 02/21/2008 Office Visit [facility] Mini Samuel 1415 [facility] [place] [address] Social History Tobacco Use Types Packs/Day Years [...] 0600 Note Time: 02/21/08 0001 Status: Signed Machine Splitter: Mini Samuel DO (Physician) Acute Clinic Visit [...] on filedocumented in this encounter Care Teams Cable Stretcher And Tester Relationship Specialty Start Date End Date Corinne Hazel MD PCP - General 12/19/10 [address] [facility] [place] [id number] documented as of this encounter
--- OUTSIDE RECORDS SUMMARY | 2022-07-17 14:00 | XMS_ITS | Encounter Summary ---
:1999 Author [facility] Address [address], [place] [address] Care Team Providers Name Role Phone Corinne Hazel MD Primary Care Provider Encounter Details Date Type Department Care Team Description 11/27/2008 Nursing Visit [facility] Bernardo Amaro, PA-C [address] [place] [address] [place] [address] [place] [address] [phone] (Wo rk) Social History Tobacco Use Types [...] on filedocumented in this encounter Care Teams Analytics Intern Relationship Specialty Start Date End Date Corinne Hazel MD PCP - General 12/19/10 14[address] [facility] [place] [address] documented as of this encounter
--- OUTSIDE RECORDS SUMMARY | 2022-07-17 14:00 | XMS_ITS | Encounter Summary ---
:[address] [facility] Address [address], [place] [address] Care Team Providers Name Role Phone Corinne Hazel MD Primary Care Provider Encounter Details Date Type Department Care Team Description 03/09/2011 PN Conversion Only [employer]ORAT[employer] MECHANIC [address], Sondra W, [address] [place] [address] [address] [place], [place] [address] (Wo rk) Social History [...] Component Value Ref Test Analysis Performed At [facility] gist Range Method Time Signature Path: ? Final DERMATOPATHOLOGY REPO RT HP CONVERSION Pathology #: [id number] ? Date Obtained: 03/09/2011 ?Date Received: 03/10/2011 [...] on filedocumented in this encounter Care Teams Incident Manager Relationship Specialty Start Date End Date Corinne Hazel MD PCP - General 12/19/[address] [place] [address] documented as of this encounter
--- OUTSIDE RECORDS SUMMARY | 2022-07-17 14:00 | XMS_ITS | Encounter Summary ---
:[address] [facility] Address [address], [place] [address] Care Team Providers Name Role Phone Corinne Hazel MD Primary Care Provider Encounter Details Date Type Department Care Team Description 04/16/2012 Lab Visit [place] [facility] Routine child health exam 1415 [facility] . [place] [id number] Social History Tobacco Use Types Packs/Day Years [...] Direct LDL(If Needed) (04/16/2012 4:27 PM CDT) [facility] Method Time Signature Cholesterol 147 0 [...] - 04/16/2012 8:38 PM CDT Performed at [facility], [address] [place] [address] Nichole Caputo MD LAB_1 Performing Organization Address City/State/ZIP Code Phon e Number HP CONVERSION documented in this encounter Visit Diagnoses Diagnosis Routine child health exam Routine infant or child health check documented in this encounter Care Teams Web Ui Developer Relationship Specialty Start Date End Date Corinne Hazel MD PCP - General 12/19/10 [address] [facility] [place] [address] documented as of this encounter
--- OUTSIDE RECORDS SUMMARY | 2022-07-17 14:00 | XMS_ITS | Encounter Summary ---
:2000 Author Organization [facility] Address [address] [place] [address] Care Team Providers Name Role Phone Corinne Hazel MD Primary Care Provider Encounter Details Date Type Department Care Team Description 08/18/2003 PN Conversion Only [place] [facility] Nurse, Malvin Fp [address] [facility] [place] [address] Social History Tobacco Use Types Packs/Day Years [...] filed by Clinician Phone Note at 01/03/11 4294 Author: Clinician Phone Note Service: (none) Author Type: Resource Filed: 01/03/11 1223 Note Time: 07/07/03 0001 Status: Signed Care Transport Nurse: Clinician Phone Note (Resource) - REFERRED PATIENT TO URGENT CARE AT [facility] * HOME PHONE:[phone] * SUBJECTIVE: PATIENT COMPLAINS OF... Pain with [...] CALL BY ANAIS POLK SEMI 07/07/2003 04:28PM [phone] ADDENDUM: Selena Vasques - 05/07/2003 12:01 AM CDT Progress Notes signed by Selena High MD at 05/12/03 0803 Author: Selena High MD Service: (none) Author Type: Physician Filed: 01/05/11 1626 Note Time: 05/07/03 0001 Status: Signed Care Transport Nurse: Selena High MD (Physician) NAME: MICAH PRIEST MR: [id number] ACCT: [id number] VISIT: [id number] DICTATING CLINICIAN: SELENA HIGH MD JOB: [id number] CLINIC PROGRESS NOTE DATE OF VISIT: 05/07/2003 SUBJECTIVE: : 2000. Please see [facility] shingle in chart. Micah is a [...] SKIN: No rashes. Please refer to [facility] shingle in chart for rest of [...] or concerns regarding his health. TT: CT: NAVI:[id number] C: 05/07/03 22:30 DOCUMENT: [id number] ITY ASSURANCE ANALYST Robert Romero MD - 02/25/2003 12:01 AM CDT Progress Notes signed by MATEO Sibley at 02/26/03 1039 Author: MATEO Sibley Service: (none) Author Type: Physician Filed: 01/05/11 1519 Note Time: 02/25/03 0001 Status: Signed Care Transport Nurse: MATEO Sibley (Physician) NAME: MICAH PRIEST MR: [id number] ACCT: [id number] VISIT: [id number] DICTATING CLINICIAN: ROBERT ROMERO MD JOB: [id number] CLINIC PROGRESS NOTE DATE OF VISIT: 02/25/2003 SUBJECTIVE: Micah is here for fever. See shingle in the chart. OBJECTIVE: ASSESSMENT: Acute pharyngitis. Rapid strep negative. PLAN: Symptomatic cares. Return if the fever persist or if he gets worse. TT: CT: ADE:[id number] C: 02/26/03 10:31 DOCUMENT: [id number] Robert Romero MD - 12/24/2002 12:01 AM CDT Progress Notes signed by MATEO Sibley at 12/26/02 0858 Author: MATEO Sibley Service: (none) Author Type: Physician Filed: 01/05/11 1418 Note Time: 12/24/02 0001 Status: Signed Care Transport Nurse: MATEO Sibley (Physician) NAME: MICAH PRIEST MR: [id number] ACCT: [id number] VISIT: [id number] DICTATING CLINICIAN: ROBERT ROMERO MD JOB: [id number] CLINIC PROGRESS NOTE DATE OF VISIT: 12/24/2002 SUBJECTIVE: : 2000. CHART NUMBER: [id number]. Micah is here for persistent cold and cough symptoms. See shingle in the chart. OBJECTIVE: ASSESSMENT: Acute sinusitis. PLAN: Amoxicillin, 500 mg b.i.d. times two weeks. Follow up on a p.r.n. basis. TT: CT: DA:[id number] C: 12/26/02 08:41 DOCUMENT: [id number] Corinne Hazel MD - 10/22/2001 12:01 AM CST Progress Notes signed by Corinne Hazel MD at 11/07/01 1334 Author: Corinne Hazel MD Service: (none) Author Type: Physician Filed: 01/05/11 0438 Note Time: 10/22/01 0001 Status: Signed Care Transport Nurse: Corinne Hazel MD (Physician) IMPRESSION: Prominence of the left clavicle, probably normal with no SUBJECTIVE: Goran is a 36-fkgca-uwr brought in by his parents for evaluation [...] Follow up at well-child exam. TT: CT: [facility]:[id number] C: DOCUMENT: [id number] ITY ASSURANCE ANALYST Corinne Hazel MD - 01/17/2001 12:01 AM CDT Progress Notes signed by Corinne Hazel MD at 02/27/01 1814 Author: Corinne Hazel MD Service: (none) Author Type: Physician Filed: 01/04/11 4019 Note Time: 01/17/01 0001 Status: Signed Care Transport Nurse: Corinne Hazel MD (Physician) IMPRESSION: Suture removal. SUBJECTIVE: Goran is a 8-ushge-lai here for suture removal. One suture was removed from his right cheek. He tolerated this well. He is on no medication. NO DRUG ALLERGIES. OBJECTIVE: SKIN: There is good wound closure maintained. ASSESSMENT: Suture removal. PLAN: Wound care reviewed. Follow up p.r.n. [facility]:[id number] C: DOCUMENT: [id number] Corinne Hazel MD - 01/14/2001 12:01 AM CDT Progress Notes signed by Corinne Hazel MD at 02/13/01 1033 Author: Corinne Hazel MD Service: (none) Author Type: Physician Filed: 01/04/11 5236 Note Time: 01/14/01 0001 Status: Signed Care Transport Nurse: Corinne Hazel MD (Physician) IMPRESSION: Suture removal [...] well child exam for further developmental issues. [facility]:[id number] C: DOCUMENT: [id number] Corinne Hazel MD - 11/19/2000 12:01 AM CST Progress Notes signed by Corinne Hazel MD at 01/03/01 1708 Author: Corinne Hazel MD Service: (none) Author Type: Physician Filed: 01/04/112149 Note Time: 11/19/00 0001 Status: Signed Care Transport Nurse: Corinne Hazel MD (Physician) IMPRESSION: NO DICTATION REQUIRED FOR THIS NOTE Lindsey Jordan MD - 11/07/2000 12:01 AM CST Progress Notes signed by Lindsey Jordan MD at 02/12/01 0905 Author: Lindsey Jordan MD Service: (none) Author Type: Physician Filed: 01/04/112138 Note Time: 11/07/00 0001 Status: Signed Care Transport Nurse: Lindsey Jordan MD (Physician) IMPRESSION: Probable viral [...] into his illness he was seen in [place] at urgent care and mom was told [...] tympanic. Wt: 23 pounds 2-1/2 ounces. GENERAL: [place] and healthy appearing boy. HEENT: TMs clear. [...] As above, rectal strep culture is pending. EAS:[id number] C: DOCUMENT: [id number] Grace Garsia MD - 07/28/2000 12:01 AM CST Progress Notes signed by Grace Garsia MD at 09/05/00 8205 Author: Grace Garsia MD Service: (none) Author Type: Physician Filed: 01/04/111953 Note Time: 07/28/00 0001 Status: Signed Care Transport Nurse: Grace Garsia MD (Physician) IMPRESSION: Right serous [...] Ear recheck in two to three weeks. JKM:[id number] C: DOCUMENT: [id number] ITY ASSURANCE ANALYST Robert Romero MD - 2000 12:01 AM CDT Progress Notes signed by MATEO Sibley at 99 1431 Author: MATEO Sibley Service: (none) Author Type: Physician Filed: 01/04/11 1621 Note Time: 99 0001 Status: Signed Care Transport Nurse: MATEO Sibley (Physician) IMPRESSION: Uqn-sdoc-zmc male with a history of projectile vomiting off andon. SUBJECTIVE: Micah is a nvv-kamm-ohh who is brought in because of concerns [...] On exam he was an awake, alert, bya-tphp-zfu in no acute distress. Wt: 10 pounds 15.25 ounces. weight was 7 pounds 10 ounces. When he was here for his rdx-mlsc-lnbxskj, he was 8 pounds 1 ounces. His [...] of Similac and kept that down. ASSESSMENT: Epi-yksf-qvx male with a history of projectile vomiting off and on. PLAN: Observation. Discussed pyloric stenosis. If he was to have projectile vomiting with every feeding, told mom to bring him in so that we could do a barium swallow and an upper GI. DA:[id number] C: DOCUMENT: [id number] Carol Barton MD - 2000 12:01 AM CST Progress Notes signed by Carol Barton MD at 12/19/992017 Author: Carol Barton MD Service: (none) Author Type: Physician Filed: 01/04/11 1552 Note Time: 99 0001 Status: Signed Care Transport Nurse: Carol Barton MD (Physician) IMPRESSION: Well-child check. Rzt-gpuu-tmv. SUBJECTIVE: Micah is a pvg-zqtl-dxs infant brought in today for a well- [...] of 7 pounds 10 ounces. HEENT EXAM: [place] was soft. Conjunctiva were clear. Normal ocular alignment. Red reflex was easily visualized. TMS were normal. OROPHARYNX: Unremarkable, no adenopathy, no thyromegaly. CARDIOVASCULAR, RESPIRATORY, ABDOMINAL, NEUROLOGICAL EXAM: Within normal limits. EXAM: Testes are down. No evidence of inguinal hernia. He was circumcised in the hospital prior to discharge and this was healing well, but no evidence of secondary infection. ASSESSMENT: Well-child check. Wnf-xqmc-icr. PLAN: Followup at two months. Sooner with concerns. WMB:[id number] C: DOCUMENT: [id number] documented in this encounter Plan of Treatment Not on filedocumented as of this encounter Procedures Procedure Name Priority Date/Time Associated Diagnosis Comme nts XR CLAVICLE Routine 10/22/2001 3:59 PM Results f or this QUALITY ASSURANCE ANALYST procedure are i n the results section. GIARDIA ANTIGEN Routine 06/23/2001 8:30 AM Result s for this SCREEN CDT procedure are i n the results section. OVA AND PARASITE Routine 06/22/2001 12:00 PM Resu lts for this CDT procedure are i n the results section. GROUP B STREP Routine 11/07/2000 4:00 PM Results for this SCREEN (OB PTS) QUALITY ASSURANCE ANALYST procedure ar e in the results section. HEMOGLOBIN, BLOOD Routine 09/12/2000 4:34 PM Resu lts for this QUALITY ASSURANCE ANALYST procedure are i n the results section. documented in this encounter Results XR Clavicle (10/22/2001 3:59 PM QUALITY ASSURANCE ANALYST) Anatomical Region Laterality Modality Other Specimen (Source) Anatomical Location Collection Method / Collectio n Time Received Time / Laterality Volume Impressions 10/22/2001 3:59 PM QUALITY ASSURANCE ANALYST : ?NORMAL CLAVICLES. FINDINGS: ?BOTH CLAVICLES ARE INTACT. THERE I S NO FRACTURE OR ?DISLOCATION NOTED. THE AC JOINTS A PPEAR NORMAL BILATERALLY. ?THE CLAVICULAR MANUBRIAL JOINTS AL SO APPEAR NORMAL. ?[facility] TECH-ID : ? RE TRANS-ID: ? EDR Narrative 10/22/2001 3:59 PM QUALITY ASSURANCE ANALYST CLINICAL DATA: ?PAIN Procedure Note Jorge A White MD - 11/23/2016Format ting of this note might be different from the original. CLINICAL DATA: PAIN IMPRESSION : NORMAL CLAVICLES. FINDINGS: BOTH CLAVICLES ARE INTACT. THERE IS NO FRACTURE OR DISLOCATION NOTED. THE AC JOINTS APPEAR NORMAL BILATERALLY. THE CLAVICULAR MANUBRIAL JOINTS ALSO AP PEAR NORMAL. [facility] TECH-ID : RE TRANS-ID: EDR Corinne Hazel MD RAD GD Giardia Antigen Screen (06/23/2001 8:30 AM CDT) athologist Signature Giardia Ab SEE TEXT HP CONVERSION Comment: Patient: MICAH PRIEST Giardia Screen @ ?Collected: ??[id number] ??[id number] Source: Stool ? Processed: ??[id number] ??0904 ? 12 Final Report ------ ?[id number] ??1442 Positive for Giardia antigen Department notified on 06/24/01 1445; SURESH NTED TO LEANA IQBAL, FOR DR. GRACE GARSIA BY [facility] This reportable disease has been reporte d to the [place] [facility]. @ = Giardia Screen Performed at ??[address] [facility] ?[id number] Specimen (Source) Anatomical Collection Method Collection Time Re ceived Time Location / / Volume Laterality 06/23/2001 8:30 AM CDT Grace Garsia MD LAB_1 Performing Organization Address City/State/ZIP Code Phon e Number HP CONVERSION (ABNORMAL) Ova and Parasite (06/22/2001 12:00 PM CDT) [facility] gist Method Time Signature Ova & Parasite SEE TEXT HP CONVERSION Concentrate (A) Comment: Patient: MICAH PRIEST Ova + Parasite Exam @ ? Collected: ??[id number] ??1200 Source: Stool ? Processed: ??[id number] ??0904 ? 12 Final Report ------ ?[id number] ??1324 Giardia lamblia Cysts seen This reportable disease has been reporte d to the [place] [facility]. Printed to: FARIDA SCHUMACHER (LP54) BY MARY. Specimen (Source) Anatomical Collection Method Collection Time Re ceived Time Location / / Volume Laterality 06/22/2001 12:00 PM CDT Grace Garsia MD LAB_1 Performing Organization Address City/State/ZIP Code Phon e Number HP CONVERSION Group B Strep Screen (OB Pts) (11/07/2000 4:00 PM QUALITY ASSURANCE ANALYST) Analysis Performed At Patho logist Time Signature Culture Strep SEE TEXT HP CONVERSION Screen Other Source Comment: Patient: MICAH PRIEST Culture Strep Scr Other Source @ ?Collected: ??[id number] ??1600 Source: RECTAL ?Processed: ??[id number] ??1600 ? 12 Final Report ------ ?[id number] ??1349 No group A or B Streptococcus isolated @ = Strep Screen Performed at ??[address] [place], [place] ?[address] Specimen (Source) Anatomical Collection Method Collection Time Re ceived Time Location / / Volume Laterality 11/07/2000 4:00 PM QUALITY ASSURANCE ANALYST Lindsey Jordan MD LAB_1 Performing Organization Address City/[facility] Phon e Number HP CONVERSION Hemoglobin, Blood (09/12/2000 4:34 PM QUALITY ASSURANCE ANALYST) athologist Signature Hemoglobin 12.8 10.5 - 13.5 HP CONVERSION gm/dL Specimen (Source) Anatomical Collection Method Collection Time Re ceived Time Location / / Volume Laterality 09/12/2000 4:34 PM QUALITY ASSURANCE ANALYST Corinne Hazel MD LAB_1 Performing Organization Address City/[facility] Phon e Number HP CONVERSION documented in this encounter Visit Diagnoses Not on filedocumented in this encounter Care Teams Jet Operator Relationship Specialty Start Date End Date Corinne Hazel MD PCP - General 12/19/10 1415 [place] [address] [id number] documented as of this encounter
--- OUTSIDE RECORDS SUMMARY | 2022-07-17 14:00 | XMS_ITS | Encounter Summary ---
:2000 Author Organization [facility] Address [address], [place] [address] Care Team Providers Name Role Phone Corinne Hazel MD Primary Care Provider Encounter Details Date Type Department Care Team Description 05/06/2008 PN Conversion Only [place] [facility] N Yue Mcleod, [address] [place] [address] [facility] [place] [address] (Wo rk) Social History Tobacco Use Types [...] on filedocumented in this encounter Care Teams Pharmaceutical Operator Relationship Specialty Start Date End Date Corinne Hazel MD PCP - General 12/19/10 1415 [facility] [place] [id number] documented as of this encounter
--- OUTSIDE RECORDS SUMMARY | 2022-07-17 14:00 | XMS_ITS | Encounter Summary ---
:2000 Author [facility] Address [address] [place] [address] Care Team Providers Name Role Phone Corinne Hazel MD Primary Care Provider Encounter Details Date Type Department Care Team Description 05/10/2004 [facility] Cinthia Covarrubias APRN, [address] STOREKEE[employer] [place] [address] [phone] [place], [place] [address] Social History Tobacco Use [...] Progress Notes signed by Cinthia Zafar APRN, STOREKEEPER STEWARD at 05/09/05 1033 Author: ISA Chavez Service: (none) Author Type: Nurse Practitioner Filed: 01/06/11 0054 Note Time: 05/10/04 0001 Status: Signed Whipped Topping Mixer: ISA Chavez (Nurse Practitioner) Acute Clinic Visit [...] on filedocumented in this encounter Care Teams Derrickman Helper Relationship Specialty Start Date End Date Corinne Hazel MD PCP - General 12/19/10 [facility] [place] [id number] documented as of this encounter
--- OUTSIDE RECORDS SUMMARY | 2022-07-17 14:00 | XMS_ITS | Encounter Summary ---
:2000 Author Organization [facility] Address [address] [address] Care Team Providers Name Role Phone Corinne Hazel MD Primary Care Provider Reason for Visit Reason Comments Other Encounter Details Date Type Department Care Team Description 03/16/2011 Telephone [facility] Eleonora Weir PA-C Other [address] [place] [address] [place] [address] [phone] (Wo rk) Social History Tobacco Use Types [...] on filedocumented in this encounter Care Teams Counseling Psychologist Relationship Specialty Start Date End Date Corinne Hazel MD PCP - General 12/19/10 1415 [facility] [place] [id number] documented as of this encounter
--- OUTSIDE RECORDS SUMMARY | 2022-07-17 14:01 | XMS_ITS | Encounter Summary ---
:2000 Author Organization [employer] Address [address] [place] [address] Phone Care Team Providers Name Role Phone Unavailable Primary Care Provider Unavailable Encounter Details Date Type Department Care Team Description 09/06/2020 Lab Requisition INDEPENDENT Pradip Montelongo, Contact [facility] and LAB-VICTOR MANUEL SANCHEZ (suspected) exposure [address] [place] [address] [place] communicable diseases [phone] [place], [place] [address] Social History Tobacco Use Types Packs/Day Years Used Date Smoking Tobacco: Never Assessed Sex Assigned at Date Recorded Not on file documented as of this encounter Plan of Treatment Not on filedocumented as of this encounter Visit Diagnoses Diagnosis Contact with and (suspected) exposure to other viral communicable diseases documented in this encounter Additional Health Concerns Infection Onset Date Last Indicated Resolved Time COVID-19 Confirmed 09/03/2020 09/03/2020 10/03/2020 11 :06 PM COMMERCIAL DIRECTOR documented as of this encounter
--- OUTSIDE RECORDS SUMMARY | 2022-07-17 14:01 | XMS_ITS | Encounter Summary ---
:2000 Author Organization [employer] Address [address] [address] Phone Care Team Providers Name Role Phone Unavailable Primary Care Provider Unavailable Encounter Details Date Type Department Care Team Description 12/30/2020 Lab Requisition INDEPENDENT LAB-[facility] [address] [place], [place] [address] Social History Tobacco Use Types Packs/Day Years Used Date Smoking Tobacco: Never Assessed Sex Assigned at Date Recorded Not on file documented as of this encounter Plan of Treatment Not on filedocumented as of this encounter Visit Diagnoses Not on filedocumented in this encounter
--- OUTSIDE RECORDS SUMMARY | 2022-07-17 14:01 | XMS_ITS | Encounter Summary ---
:2000 Author Organization [employer] Address [address] [place] [address] Phone Care Team Providers Name Role Phone Unavailable Primary Care Provider Unavailable Encounter Details Date Type Department Care Team Description 10/20/2020 Lab Requisition INDEPENDENT Pradip Montelongo, Contact [facility] and LAB-VICTOR MANUEL SANCHEZ (suspected) exposure [address] [facility] [address] [place] [address] [place] communicable diseases [phone] [place], [place] [address] Social History Tobacco Use Types Packs/Day Years Used Date Smoking Tobacco: Never Assessed Sex Assigned at Date Recorded Not on file documented as of this encounter Plan of Treatment Not on filedocumented as of this encounter Visit Diagnoses Diagnosis Contact with and (suspected) exposure to other viral communicable diseases documented in this encounter
--- OUTSIDE RECORDS SUMMARY | 2022-07-17 14:01 | XMS_ITS | Encounter Summary ---
:2000 Author Organization [facility] Address [address] [place] [address] Phone Care Team Providers Name Role Phone Unavailable Primary Care Provider Unavailable Encounter Details Date Type Department Care Team Description 10/27/2020 Lab Requisition INDEPENDENT Pradip Montelongo, Contact [facility] and LAB-VICTOR MANUEL SANCHEZ (suspected) exposure [address] [facility] [address] [place] [address] [place] communicable diseases [phone] [place], [place] [address] Social History Tobacco Use Types Packs/Day Years Used Date Smoking Tobacco: Never Assessed Sex Assigned at Date Recorded Not on file documented as of this encounter Plan of Treatment Not on filedocumented as of this encounter Visit Diagnoses Diagnosis Contact with and (suspected) exposure to other viral communicable diseases documented in this encounter
--- OUTSIDE RECORDS SUMMARY | 2022-07-17 14:01 | XMS_ITS | Encounter Summary ---
:2000 Author Organization [employer] Address [address] [place] [address] Phone Care Team Providers Name Role Phone Unavailable Primary Care Provider Unavailable Encounter Details Date Type Department Care Team Description 09/02/2020 Lab Requisition INDEPENDENT Pradip Montelongo, Contact [facility] and LAB-VICTOR MANUEL SANCHEZ (suspected) exposure [address] [place] [address] [place] communicable diseases [phone] [place], [place] [phone] Social History Tobacco Use Types Packs/Day Years Used Date Smoking Tobacco: Never Assessed Sex Assigned at Date Recorded Not on file documented as of this encounter Plan of Treatment Not on filedocumented as of this encounter Procedures Procedure Name Priority Date/Time Associated Diagnosis Comme nts SARS-COV-2 RNA Routine 09/03/2020 1:56 PM Contact with and Res ults for this (COVID-19), 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 documented in this encounter Results (ABNORMAL) SARS-COV-2 RNA (COVID-19), MOLECULAR DETECTION (COVOO) (09/03/2020 1:56 PM DINING SERVICE INSPECTOR) [facility] Method Time Signature SARS-CoV-2 Detected (A) Undetected 09/04/2020 [facility] RNA 8:56 PM DINING SERVICE INSPECTOR LABORATORIES (COVID-19) Comment: SARS-CoV-2 RNA present. SARS-CoV-2 RNA Method SEE COMMENTS 09/04/2020 8:56 PM [facility] Summary DINING SERVICE INSPECTOR LABORATORIES Comment: PKELM- This test uses the [employer] w Coronavirus Nucleic Acid Detection Kit ([employer] and is performed on the [employer] instrument and [employer] 7500 Fast Real-Time PCR Ivan m. It has received Emergency Use Authorization (EUA) by the U.S. Food and Drug Administration, and is modified from the moss picker's instructions with a bridging study. Perf ormance characteristics were verified by [facility] inic in a manner consistent with CLIA requirements. Fact sheets for this Emergency Use Autho rization (EUA) can be found at the following links: https://www.fda.gov/media/700465/downloa d for Healthcare Providers https://www.fda.gov/media/702483/downloa d for Patients Test Performed by: [facility] [address] [place], [place] [address] Receiver Stocker: Presley Colin M.D. Ph. D.; CLIA# [id number] Source Nares 09/04/2020 8:56 PM DINING SERVICE INSPECTOR [facility] Patient Race Refused 09/04/2020 8:56 PM DINING SERVICE INSPECTOR [facility] Patient Ethnicity Refused 09/04/2020 8:56 PM DINING SERVICE INSPECTOR [facility] Specimen Anatomical Collection Method Collection Time Receive d Time (Source) Location / / Volume Laterality Swab ENTIRE ANTERIOR 09/03/2020 1:56 PM 2019 6:20 [place]AR[place] / Unknown DINING SERVICE INSPECTOR PM DINING SERVICE INSPECTOR Pradip Montelongo MD EC PATHOLOGY ORDERABLES Performing Organization Address City/State/ZIP Code Phon e Number [place] [phone] documented in this encounter Visit Diagnoses Diagnosis Contact with and (suspected) exposure to other viral communicable diseases documented in this encounter Additional Health Concerns Infection Onset Date Last Indicated Resolved Time COVID-19 Confirmed 09/03/2020 09/03/2020 10/03/2020 11 :06 PM DINING SERVICE INSPECTOR documented as of this encounter
--- OUTSIDE RECORDS SUMMARY | 2022-07-17 14:01 | XMS_ITS | Clinical Summary ---
:2000 Author Organization [employer] Address [address] [address] Phone Care Team Providers Name Role Phone [...] Advance Directives For more information, please contact: [phone] Latest Code Status on File Code Status Date Activated Date Inactivated Comments Full Code 04/10/2020 7:35 PM 04/11/2020 1:18 AM
--- OUTSIDE RECORDS SUMMARY | 2022-07-17 14:01 | XMS_ITS | Encounter Summary ---
:2000 Author Organization [employer] Address [address] [place] [address] Phone Care Team Providers Name Role Phone Unavailable Primary Care Provider Unavailable Encounter Details Date Type Department Care Team Description 12/30/2020 Lab Requisition INDEPENDENT Pradip Montelongo, Contact wi and LAB-VICTOR MANUEL SANCHEZ (suspected) exposure [address] [place] [address] [place] communicable diseases [phone] [place] [id number] Social History Tobacco Use Types Packs/Day Years [...] MOLECULAR DETECTION (COVOO) (12/29/2020 2:50 PM CDT) [facility] Method Time Signature SARS-CoV-2 Undetected Undetected 12/31/2020 [facility] RNA 5:39 PM CDT LABORATORIES (COVID-19) Comment: SARS-CoV-2 RNA absent. This result does not rule out COVID-19 in the patient, as the sensitiv ity of the test depends on the timing of the specimen co llection and the quality of the specimen. Result should b e correlated with patient's history and clinical presentat ion. SARS-CoV-2 RNA Method SEE COMMENTS 12/31/2020 5:39 PM [facility] Summary CDT LABORATORIES Comment: THFSH- This PCR test uses the TaqPath CO VID-19 Combo Kit (Envis Isidra.) and is perform ed on the AllSource Analysis magnetic particle proces sor and Applied Vacatia Fast Dx Real-Time PCR Sy stem. It has received Emergency Use Authorization (EU A) by the U.S. Food and Drug Administration. Performance jeanne racteristics were verified by [facility] in a manner cons istent with CLIA requirements. Fact sheets for this Emergency Use Autho rization (EUA) can be found at the following links: https://www.fda.gov/media/688929/downloa d for Healthcare Providers https://www.fda.gov/media/144992/downloa d for Patients Test Performed by: [place] [id number] [employer] Cable Jointer: Presley Colin M.D. Ph. D.; CLIA# [id number] Source Nares 12/31/2020 5:39 PM CDT [facility] LAB[facility]ATORIES Patient Race Not Provided 12/31/2020 5:39 PM CDT [facility]ATORIES Patient Ethnicity Not Provided 12/31/2020 5:39 PM CDT [facility] LABORATORIES Specimen Anatomical Collection Method Collection Time Receive d Time (Source) Location / / Volume Laterality Swab BOTH ANTERIOR Non-blood 12/29/2020 2:50 PM 12/31/19 21 5:46 NARES / Unknown collection / CDT PM CDT Unknown Pradip Montelongo MD EC PATHOLOGY ORDERABLES Performing Organization Address City/State/ZIP Code Phon e Number [place] [phone] documented in this encounter Visit Diagnoses Diagnosis Contact with and (suspected) exposure to other viral communicable diseases documented in this encounter
--- OUTSIDE RECORDS SUMMARY | 2022-07-17 14:02 | XMS_ITS | Encounter Summary ---
:1999 Author Organization [employer] Address [address] [place] [address] Phone Care Team Providers Name Role Phone Unavailable Primary Care Provider Unavailable Encounter Details Date Type Department Care Team Description 07/16/2020 Lab Requisition INDEPENDENT Pradip Montelongo, Contact wi and LAB-VICTOR MANUEL SANCHEZ (suspected) exposure [address] [place] [address] [facility] communicable diseases [phone] [place], [place] [phone] Social History Tobacco Use Types Packs/Day Years Used Date Smoking Tobacco: Never Assessed Sex Assigned at Date Recorded Not on file documented as of this encounter Plan of Treatment Not on filedocumented as of this encounter Procedures Procedure Name Priority Date/Time Associated Diagnosis Comme nts SARS-COV-2 RNA Routine 07/19/2020 2:45 PM Contact with and Res ults for this (COVID-19), 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 documented in this encounter Results SARS-COV-2 RNA (COVID-19) - (COVID) (07/19/2020 2:45 PM CHEESE SPECIALIST) [facility] Method Time Signature SARS-CoV-2 Undetected Undetected 07/21/2020 [facility] RNA 8:36 PM CHEESE SPECIALIST LABORATORIES (COVID-19) Comment: SARS-CoV-2 RNA absent. This result does not rule out COVID-19 in the patient, as the sensitiv ity of the test depends on the timing of the specimen co llection and the quality of the specimen. Result should b e correlated with patient's history and clinical presentat ion. SARS-CoV-2 RNA Method SEE COMMENTS 07/21/2020 8:36 PM [facility] Summary CHEESE SPECIALIST LABORATORIES Comment: THFSH- This test uses the TaqPath COVID- 19 Combo Kit (Novogy Isidra.) and is performed on the [employer] magnetic particle processor and Applied E-House 7500 Fast Dx Real-Time PCR System. It has rec eived Emergency Use Authorization (EUA) by the U.S. Food and Drug Administration. Performance characterist ics were verified by [facility] in a manner consistent wi CLIA requirements. Fact sheets for this Emergency Use Autho rization (EUA) can be found at the following links: https://www.fda.gov/media/834762/downloa d for Healthcare Providers https://www.fda.gov/media/870695/downloa d for Patients Test Performed by: [place] [id number] Auto Air Conditioning Apprentice: Presley Colin M.D. Ph. D.; CLIA# [id number] Source Nares 07/21/2020 8:36 PM CHEESE SPECIALIST [facility] Patient Race Refused 07/21/2020 8:36 PM CHEESE SPECIALIST [facility]ATORIES Patient Ethnicity Refused 07/21/2020 8:36 PM CHEESE SPECIALIST [facility] LABORATORIES Specimen Anatomical Collection Method Collection Time Receive d Time (Source) Location / / Volume Laterality Swab ENTIRE ANTERIOR 07/19/2020 2:45 PM 2019 6:21 NARIS / Unknown CHEESE SPECIALIST PM CHEESE SPECIALIST Pradip Montelongo MD EC PATHOLOGY ORDERABLES Performing Organization Address City/State/ZIP Code Phon e Number [place] [phone] documented in this encounter Visit Diagnoses Diagnosis Contact with and (suspected) exposure to other viral communicable diseases documented in this encounter Additional Health Concerns Infection Onset Date Last Indicated Resolved Time COVID-19 Confirmed 09/03/2020 09/03/2020 10/03/2020 11 :06 PM CHEESE SPECIALIST documented as of this encounter
--- OUTSIDE RECORDS SUMMARY | 2022-07-17 14:02 | XMS_ITS | Encounter Summary ---
:1999 Author Organization [employer] Address [address] [address] Phone Care Team Providers Name Role Phone [...]
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
--- OUTSIDE RECORDS SUMMARY | 2022-07-17 14:02 | XMS_ITS | Encounter Summary ---
:2000 Author Organization [employer] Address [address] [place] [address] Phone Care Team Providers Name Role Phone Unavailable Primary Care Provider Unavailable Encounter Details Date Type Department Care Team Description 08/25/2020 Lab Requisition INDEPENDENT Pradip Montelongo, Contact [facility] and LAB-VICTOR MANUEL SANCHEZ (suspected) exposure [address] [place] [address] [place] communicable diseases [phone] [place], [place] [id number] Social History Tobacco Use Types Packs/Day Years [...] Confirmed 09/03/2020 09/03/2020 10/03/2020 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
--- OUTSIDE RECORDS SUMMARY | 2022-07-17 14:02 | XMS_ITS | Encounter Summary ---
:2000 Author Organization [employer] Address [address] [place] [address] Phone Care Team Providers Name Role Phone Unavailable Primary Care Provider Unavailable Encounter Details Date Type Department Care Team Description 08/19/2020 Lab Requisition INDEPENDENT Pradip Montelongo, Contact [facility] and LAB-VICTOR MANUEL SANCHZE (suspected) exposure [address] [place] [address] [place] communicable diseases [phone] [place] [employer], [place] [id number] Social History Tobacco Use Types Packs/Day Years [...] Confirmed 09/03/2020 09/03/2020 10/03/2020 11 :06 PM 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
--- OUTSIDE RECORDS SUMMARY | 2022-07-17 14:02 | XMS_ITS | Encounter Summary ---
:2000 Author Organization [employer] Address [address] [place] [address] Phone Care Team Providers Name Role Phone Unavailable Primary Care Provider Unavailable Encounter Details Date Type Department Care Team Description 07/23/2020 Lab Requisition INDEPENDENT Pradip Montelongo, Contact [facility] and LAB-VICTOR MANUEL SANCHEZ (suspected) exposure [address] [facility] [address] [place] [place] [address] [place] communicable diseases [phone] [place] [phone] Social History Tobacco Use Types Packs/Day Years [...] Results SARS-COV-2 RNA (COVID-19) - (COVID) (07/23/2020) [facility] Method Time Signature SARS-CoV-2 Undetected Undetected 07/29/2020 [facility] RNA 6:31 AM [facility] (COVID-19) Comment: SARS-CoV-2 RNA absent. This result does not rule out COVID-19 in the patient, as the sensitiv ity of the test depends on the timing of the specimen co llection and the quality of the specimen. Result should b e correlated with patient's history and clinical presentat ion. SARS-CoV-2 RNA Method SEE COMMENTS 07/29/2020 6:31 AM [facility] Summary ROOMING HOUSE OPERATOR LABORATORIES Comment: THFSH- This test uses the TaqPath COVID- 19 Combo Kit ([employer].) and is performed on the [employer] magnetic particle processor and Applied K[place]a Fast Dx Real-Time PCR System. It has rec eived Emergency Use Authorization (EUA) by the U.S. Food and Drug Administration. Performance characterist ics were verified by [facility] in a manner consistent wi CLIA requirements. Fact sheets for this Emergency Use Autho rization (EUA) can be found at the following links: https://www.fda.gov/media/664288/downloa d for Healthcare Providers https://www.fda.gov/media/037145/downloa d for Patients Test Performed by: [facility] [address] [place] [id number] Iuss Analyst: Presley Colin M.D. Ph. D.; CLIA# [id number] Source Nares 07/29/2020 6:31 AM ROOMING HOUSE OPERATOR [facility] Patient Race Refused 07/29/2020 6:31 AM ROOMING HOUSE OPERATOR [facility] Patient Ethnicity Refused 07/29/2020 6:31 AM [facility] Specimen (Source) Anatomical Collection Method Collection Time Re ceived Time Location / / Volume Laterality Swab ENTIRE ANTERIOR 07/23/2020 07/26/2020 6 :03 NARIS / Unknown PM ROOMING HOUSE OPERATOR Pradip Montelongo MD EC PATHOLOGY ORDERABLES Performing Organization Address City/State/ZIP Code Phon e Number [place] [id number] documented in this encounter Visit Diagnoses Diagnosis Contact with and (suspected) exposure to other viral communicable diseases documented in this encounter Additional Health Concerns Infection Onset Date Last Indicated Resolved Time COVID-19 Confirmed 09/03/2020 09/03/2020 10/03/2020 11 :06 PM ROOMING HOUSE OPERATOR documented as of this encounter
--- OUTSIDE RECORDS SUMMARY | 2022-07-17 14:02 | XMS_ITS | Encounter Summary ---
:2000 Author Organization [employer] Address [address] [place] [address] Phone Care Team Providers Name Role Phone Unavailable Primary Care Provider Unavailable Encounter Details Date Type Department Care Team Description 07/29/2020 Lab Requisition INDEPENDENT Pradip Montelongo, Contact [facility] and LAB-VICTOR MANUEL SANCHEZ (suspected) exposure [address] [place] [address] [place] communicable diseases [phone] [place], [place] [address] Social History Tobacco Use Types Packs/Day Years [...] Confirmed 09/03/2020 09/03/2020 10/03/2020 11 :06 PM COUNCIL 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
--- OUTSIDE RECORDS SUMMARY | 2022-07-17 14:02 | XMS_ITS | Encounter Summary ---
:1999 Author Organization [employer] Address [address] [place] [address] Phone Care Team Providers Name Role Phone Unavailable Primary Care Provider Unavailable Encounter Details Date Type Department Care Team Description 08/04/2020 Lab Requisition INDEPENDENT Pradip Montelongo, Contact [facility] and LAB-VICTOR MANUEL SANCHEZ (suspected) exposure [address] [place] [address] [place] communicable diseases [phone] [place], [place] [address] Social History Tobacco Use Types Packs/Day Years [...] Confirmed 09/03/2020 09/03/2020 10/03/2020 11 :06 PM 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
--- OUTSIDE RECORDS SUMMARY | 2022-07-17 14:02 | XMS_ITS | Encounter Summary ---
:1999 Author Organization [employer] Address [address] [place] [address] Phone Care Team Providers Name Role Phone Unavailable Primary Care Provider Unavailable Encounter Details Date Type Department Care Team Description 08/10/2020 Lab Requisition INDEPENDENT Kiana Carreon and [facility] M[facility]onnell APRN, (suspected) exposure [address] [facility] J[facility]NEYMAN POWERHOUSE [place] [address] [address] communicable diseases [phone] [place] [address] Social History Tobacco Use Types [...] Confirmed 09/03/2020 09/03/2020 10/03/2020 11 :06 PM CORPORATE CONTROLLER documented as of this encounter
--- NOTE | 2022-07-17 15:00 | CRLHL7_ITS ---
For Patients: As a result of the Century Cures Act, medical imaging exams and procedure reports are released immediately into your electronic medical record. You may view this report before your referring provider. If you have questions, please contact your health care provider. INDICATION: Hypertension TECHNIQUE: Grayscale, color Doppler and power Doppler evaluation of the renal arteries performed. COMPARISON: None available FINDINGS: BILATERAL RENAL ARTERY DUPLEX ULTRASOUND ABDOMINAL AORTA: Peak systolic velocity = 168 cm/s. No aortic aneurysm. RIGHT KIDNEY: 10.0 cm in length. There is no hydronephrosis. Peak systolic velocity = 180 cm/second Renal artery to aortic peak systolic velocity ratio = 1.1 Resistive indices: 0.6-0.7 Renal vein = patent LEFT KIDNEY: 10.4 cm in length. There is no hydronephrosis. Peak systolic velocity = 226 cm/second Renal artery to aortic peak systolic velocity ratio = 1.3 Resistive indices: 0.6-0.7 Renal vein = patent IMPRESSION: Elevated peak systolic velocity within the mid left renal artery with some mild associated turbulent flow. Mild elevation of the peak systolic velocity within the proximal right renal artery. Consider further evaluation with CTA or MRA. Dictated by Jacob Green MD @ 07/18/2022 10:07:16 AM (Electronically Signed)
== END 2022-07-17 13:56 | disposition home or self-care (01) ==
LOC: RAD 13:56
PROVIDERS: PCP Family Medicine; Visit Provider Internal Medicine Cardiovascular Disease
DX: I10 Essential (primary) hypertension (principal)
CPT/HCPCS: 76775; 93306; 93975

== ENCOUNTER 2023-10-19 08:56 | Outpatient (CLI) | payer BC, SELFPAY ==
--- OUTSIDE RECORDS SUMMARY | 2023-10-19 09:03 | XMS_ITS | Encounter Summary ---
Author Name Unknown Organization [facility] Address [address] [address] Phone Care Team Providers Care President + Publisher Name Role Phone Unavailable Primary Care Provider Unavailabl e Encounter Details Date Type Department Care Team (Late st Contact Info) Description 09/02/2020 Lab Requisition INDEPENDENT LAB-[place] [address] [place] [address] Pradip Montelongo MD [address] [place] [address] Contact with and (suspected) exposure to other viral communicable diseases Social History Tobacco Use Types Packs/Day Years Used Date Smoking Tobacco: Never Assessed Sex and Gender Information Value Date Recorded Sex Assigned at Not on file Gender Identity Not on file Sexual Orientation Not on file documented as of this encounter Plan of Treatment Not on file documented as of this encounter Procedures Procedure Name Priority Date/Time Associated Diagnosis Comments SARS-COV-2 RNA (COVID-19), MOLECULAR DETECTION (COVOO) Routine 09/03/2020 1:56 PM PREFITTER DOORS Contact with and (suspected) exposure to other viral communicable diseases documented in this encounter Results * (ABNORMAL) SARS-COV-2 RNA (COVID-19), MOLECULAR DETECTION (COVOO) (09/03/2020 1:56 PM PREFITTER DOORS) SARS-CoV-2 RNA (COVID-19) Detected(A) Undetected 09/04/2020 8:56 PM PREFITTER DOORS [facility] Comment:SARS-CoV-2 RNA prese nt. SARS-CoV-2 RNA Method Summary SEE COMMENTS 09/04/2020 8:56 PM PREFITTER DOORS [facility] Comment: PKELM- This test uses the Quisk New Coronavirus Nucleic Acid Detection Kit (Quisk, Inc.), and is performed on the FilterSure instrument and Applied SchoolEdge Mobile 7500 Fast Real-Time PCR System. It has received Emergency Use Authorization (EUA) by the U.S. Food and Drug Administration, and is modified from the furnace installer's instructions with a bridging study. Performance characteristics were verified by [facility] in a manner consistent with CLIA requirements. Fact sheets for this Emergency Use Authorization (EUA) can be found at the following links: https://www.fda.gov/media/948227/download for Healthcare Providers https://www.fda.gov/media/850037/download for Patients Test Performed by: [place] [address] Barrel Brander: Presley Colin M.D. Ph.D.; CLIA# [id number] Source Nares 09/04/2020 8:56 PM PREFITTER DOORS [facility] Patient Race Refused 09/04/2020 8:56 PM PREFITTER DOORS [facility] Patient Ethnicity Refused 09/04/2020 8:56 PM PREFITTER DOORS [facility] Swab ENTIRE ANTERIOR NARIS / Unknown 09/03/2020 1:56 PM PREFITTER DOORS 09/03/2020 6:20 PM PREFITTER DOORS Pradip Montelongo MD EC PATHOLOGY ORDERAB LES Performing Organization Address City/State/[facility] [place] [address], [facility] [phone] documented in this encounter Visit Diagnoses Diagnosis Contact with and (suspected) exposure to other viral communicable diseases documented in this encounter Additional Health Concerns Infection Onset Date Last Indicated Resolved Time COVID-19 Confirmed 09/03/2020 09/03/2020 1 11:06 PM PREFITTER DOORS documented as of this encounter
--- OUTSIDE RECORDS SUMMARY | 2023-10-19 09:03 | XMS_ITS | Encounter Summary ---
Author Name Unknown Organization [facility] [employer] [facility] Address [address] [address] Phone Care Team Providers Care Fuse Cutter Name Role Phone Unavailable Primary Care Provider Unavailabl e Encounter Details Date Type Department Care Team (Late st Contact Info) Description 09/06/2020 Lab Requisition INDEPENDENT LAB-[place] [address] [place] [address] Pradip Montelongo MD [address] [place] [address] Contact with and (suspected) exposure [...] on file documented as of this encounter Visit Diagnoses Diagnosis Contact with and (suspected) exposure to other viral communicable diseases documented in this encounter Additional Health Concerns Infection Onset Date Last Indicated Resolved Time COVID-19 Confirmed 09/03/2020 09/03/2020 1 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
--- OUTSIDE RECORDS SUMMARY | 2023-10-19 09:03 | XMS_ITS | Encounter Summary ---
Author Name Unknown Organization [facility] Address [address] [address] Phone Care Team Providers Care Director Stars Name Role Phone Unavailable Primary Care Provider Unavailabl e Encounter Details Date Type Department Care Team (Late st Contact Info) Description 12/30/2020 Lab Requisition INDEPENDENT LAB-[address] [address] Social History Tobacco Use Types Packs/Day Years Used Date Smoking Tobacco: Never Assessed Sex and Gender Information Value Date Recorded Sex Assigned at Not on file Gender Identity Not on file Sexual Orientation Not on file documented as of this encounter Plan of Treatment Not on file documented as of this encounter Visit Diagnoses Not on filedocumented in this encounter
--- OUTSIDE RECORDS SUMMARY | 2023-10-19 09:03 | XMS_ITS | Clinical Summary ---
Author Name Unknown Organization [facility] Address [address] [place] [address] Care Team Providers Care Manager Lpn Name Role Phone Corinne Hazel MD Primary Care Provider [phone] Source Comments You are receiving this document as you are listed as the primary care provider,follow-up provider, or the patient has been referred to you for consultation.This is in compliance with the Medicare and[facility] EHR Incentive Program,which states Providers who transition their patient to another setting of careor provider of care or refers their patient to another provider of care shouldprovide summary care record for each transition of care or referral. [facility] Allergies No known active allergies Medications Medication Sig Dispensed Refills Start Date End Date Status Fexofenadine HCl (AKA AMY) 30 MG tablet Take by mouth 2 times daily. 0 04/16/2012 Active hydrOXYzine pamoate (VISTARIL) 25 MG capsule Take 1 Capsule by mouth three times a day as needed for Itching. 30 Capsule 0 09/05/2018 Active oxyCODONE-acetaminop hen (PERCOCET) 5-325 MG tablet Take 1-2 Tablets by mouth every 4 hours as needed. 30 Tablet 0 09/05/2018 Active Active Problems Problem Noted Date Diagnosed Date Closed fracture of left proximal tibia 5 Osteochondritis dissecans 07/15/2015 [place]-Schlatter's disease 03/29/2015 Allergic rhinitis 04/16/2012 Overview: Allergic rhinitis- Immunizations Name Administration Dates Next Due 4vHPV (Gardasil) 03/26/2015 9vHPV (Gardasil 9) 07/08/2015 DTaP 05/09/2005, 0,03/14/2000,1999 DTaP/Hib 02/18/2001 Flu Vac Preserv Free (3+yrs) 07/29/2010 HepA Ped/Adol (1-18 yrs) 11/27/2008,05/06/2008 HepB Adult (Engerix-B, 20+ y rs, 3 dose series) 11/19/2000,05/09/2000,03/14/2000 Hib (ActHIB) 05/09/2000,03/14/2000,01/11/2000 IPV (Polio) 05/09/2005, 0,03/14/2000,1999 Influenza IIV4 (Quadrivalent ) 0.5mL (91786) 07/08/2015 Influenza, Unspecified Formulation 07/14/2003,,08/15/2001 MCV4 (Menactra) 04/16/2012 MCV4 Menveo 2m.+ (two vial) 03/26/2015 MMR 05/09/2005,02/18/2001 Pneumococcal 7, PED 02/18/2001,11/19/2000,1999 TDAP (ADACEL) 04/16/2012 Varicella 11/27/2008,11/19/2000 Social History Tobacco Use Types Packs/Day Years Used Date Smoking Tobacco: Never Smokeless Tobacco: Never Alcohol Use Standard Drinks/Week Comments Never 0 (1 standard drink = 0.6 oz pur e alcohol) AUDIT-C Answer Date Recorded Frequency of Alcohol Consumption Never 01/11/2019 Average Number of Drinks Not on file 019 Frequency of Binge Drinking Not on file 12/17 Sex and Gender Information Value Date Recorded Sex Assigned at Not on file Gender Identity Not on file Sexual Orientation Not on file Last Filed Vital Signs Vital Sign Reading Time Taken Comments Blood Pressure 130/63 09/05/2018 3:54 PM MOUNTER SMOKING PIPE Pulse 86 09/05/2018 3:54 PM MOUNTER SMOKING PIPE Temperature 36.3 ??C (97.4 ??F) 09/05/2018 3:50 PM CS T Respiratory Rate 16 09/05/2018 3:50 PM MOUNTER SMOKING PIPE Oxygen Saturation 100% 09/05/2018 3:50 PM MOUNTER SMOKING PIPE Inhaled Oxygen Concentration - - Weight 73.5 kg (162 lb) 09/05/2018 10:30 AM MOUNTER SMOKING PIPE Height 180.3 cm (5' 11) 09/05/2018 10:30 AM MOUNTER SMOKING PIPE Body Mass Index 22.59 09/05/2018 10:30 AM MOUNTER SMOKING PIPE Plan of Treatment Health Maintenance Due Date Last Done Comments Hep C Screening (Preventive Services) 1999 COVID-19 Vaccine (#1) 05/08/2000 HIV Screening (Preventive Services) 2015 Adult Preventive Visit 2017 DTaP/Tdap/Td (7 - Tdap) 04/16/2022 04/16/20 12, 05/09/2005, 02/18/2001, Additional history exists Influenza (#1) 2023 08/15/2019, 07/19, 06/27/2017, Additional history exists Zoster/Shingles (1 of 2) 2049 HepB Completed 11/19/2000, 04/18, 03/14/2000 Hib Completed 02/18/2001, 04/18, 03/14/2000, Additional history exists Pneumococcal Aged Out 02/18/2001, 01/2001, 09/12/2000 No longer eligible based on patient's age to complete this topic IPV (Polio) Completed 05/09/2005, 04/18, 05/09/2000, Additional history exists HepA Completed 11/27/2008, 05/06/2008 Varicella Completed 11/27/2008, 11/19/2000 MCV4 Aged Out 03/26/2015, 04/16/2012 No lo nger eligible based on patient's age to complete this topic HPV Vaccine Completed 06/27/2017, 06/18, 03/26/2015 Medical Devices Implanted Type Area Biology Teacher Device Identifier Shelf Expiration Date Model / Serial / Lot Bio-Compression Screw Implanted:Qty: 1 on 09/05/2018 by Kilo Gregg MD at [facility] Left: K[employer]EE [employer] 04/16/2020 AR-5025B- / [id number] Bio-Compression Screw Implanted:Qty: 1 on 09/05/2018 by Kilo Gregg MD at [facility] DEV[facility] Left: KNEE 04/16/2019 AR-[id number]- / [id number] Advance Directives Latest Code Status on File Code Status Date Activated Date Inactivated Comments Full Code 09/05/2018 12:08 PM 09/05/2018 7:17 PM [facility] code in effect for 30 days Care Teams Manager Lpn Relationship Specialty Start Date End Date Corinne Hazel MD [address] [place] [address] PCP - General 12/19/10
--- OUTSIDE RECORDS SUMMARY | 2023-10-19 09:03 | XMS_ITS | Encounter Summary ---
Author Name Unknown Organization [facility] Address [address] [address] Phone Care Team Providers Care Punch Press Operator Name Role Phone Unavailable Primary Care Provider Unavailabl e Encounter Details Date Type Department Care Team (Late st Contact Info) Description 10/27/2020 Lab Requisition INDEPENDENT LAB-[place] [address] [place] [address] Pradip Montelongo MD [address] [place] [address] Contact with and (suspected) exposure [...]
--- OUTSIDE RECORDS SUMMARY | 2023-10-19 09:03 | XMS_ITS | Clinical Summary ---
Author Name Unknown Organization [facility] Address [address] [place], [place] [address] [address] Care Team Providers Care Statistical Developer Name Role Phone None, Primary Care [facility], No Primary Unavailable Unavailable Presley Wu MD Unavailable Allergies No known active allergies Medications No known medications Active Problems Problem Noted Date Diagnosed Date Hypertension 06/30/2022 Closed fracture of left proximal tibia 5 Osteochondritis dissecans 07/15/2015 [place]-Schlatter's disease 03/29/2015 Allergic rhinitis 04/16/2012 Overview: Allergic rhinitis- Social History Tobacco Use Types Packs/Day Years Used Date Smoking Tobacco: Never Assessed Sex and Gender Information Value Date Recorded Sex Assigned at Not on file Gender Identity Not on file Sexual Orientation Not on file Last Filed Vital Signs Vital Sign Reading Time Taken Comments Blood Pressure - - Pulse 101 01/05/2023 12:56 PM CDT Temperature - - Respiratory Rate - - Oxygen Saturation - - Inhaled Oxygen Concentration - - Weight 77.1 kg (170 lb) 01/05/2023 12:56 PM CDT Height 177.8 cm (5' 10) 01/05/2023 12:56 PM CDT Body Mass Index 24.39 01/05/2023 12:56 PM CDT Plan of Treatment Health Maintenance Due Date Last Done Comments Hepatitis C Screening 1999 Anxiety Screening (TRI-2) 2000 Depression Assessment (PHQ-2) 2000 COVID-19 Vaccine ( season) 2023 10/28/2020, 09/30/2020 Influenza Vaccine (#1) 2023 2, 02/02/2022, 09/07/2021, Additional history exists Adult Tetanus Booster 01/02/2032 01/01/2022, 012 Pneumococcal <65 Aged Out 02/18/2001, 01/2001, 09/12/2000 No longer eligible based on patient's age to complete this topic HPV Vaccine Completed 06/27/2017, 06/18, 03/26/2015 Care Teams Statistical Developer Relationship Specialty Start Date End Date Roxy, PCP - General 12/08/22 Clinic, No Primary PCP - Primary Care Clinic 12/08/22 Presley Wu MD [address] [place] [address] Pediatric Neurology 01/02/23
--- OUTSIDE RECORDS SUMMARY | 2023-10-19 09:03 | XMS_ITS | Clinical Summary ---
Author Name Unknown Organization [facility] Address [address] [address] Phone Care Team Providers Care Mobile Home Park Manager Name Role Phone Unavailable Primary Care Provider Unavailabl e Allergies No known active allergies Medications Medication Sig Dispensed Refills Start Date End Date Status Misc Natural Products (MATURE PAYAL HERBAL REMEDY OR) Take by mouth. 0 Active Social History Tobacco Use Types Packs/Day Years [...] 37.3 ??C (99.1 ??F) 04/10/2020 5:00 PM CD T Respiratory Rate 16 04/10/2020 9:00 PM CDT Oxygen Saturation 97% 04/10/2020 9:00 PM CDT Inhaled Oxygen Concentration - - Weight 79.4 kg (175 lb) 04/10/2020 5:00 PM CDT Height 177.8 cm (5' 10) 04/10/2020 5:00 PM CDT Body Mass Index 25.11 04/10/2020 5:00 PM CDT Plan of Treatment Not on file Advance Directives For more information, please contact: [phone] Latest Code Status on File Code Status Date Activated Date Inactivated Comments Full Code 04/10/2020 7:35 PM 04/11/2020 1:18 AM
--- OUTSIDE RECORDS SUMMARY | 2023-10-19 09:03 | XMS_ITS | Encounter Summary ---
Author Name Unknown Organization [facility] Address [address] [address] Phone Care Team Providers Care Dining Services Manager Name Role Phone Unavailable Primary Care Provider Unavailabl e Encounter Details Date Type Department Care Team (Late st Contact Info) Description 10/20/2020 Lab Requisition INDEPENDENT LAB-[place] [address] [place] [address] Pradip Montelongo MD [address] [place] [address] Contact with and (suspected) exposure [...]
--- OUTSIDE RECORDS SUMMARY | 2023-10-19 09:03 | XMS_ITS | Encounter Summary ---
Author Name Unknown Organization [facility] Address [address] [place] [address] [place] [address] Care Team Providers Care Manufacturing Business Analyst Name Role Phone Roxy, Primary Care Provider [facility], No Primary Unavailable Unavailable Presley Wu MD Unavailable [phone] Reason for Visit * Reason Comments Tremors Weakness Encounter Details Date Type Department Care Team (Late st Contact Info) Description 01/05/2023 11:45 AM CDT Office Visit [facility] [address] [place] [id number] Presley Wu MD [address] [place], [place] [id number] Tremor (Primary Dx); Chronic left shoulder pain Social History Tobacco Use Types Packs/Day Years [...] Mass Index 24.39 01/05/2023 12:56 PM CDT documented in this encounter Progress Notes * Presley Wu MD - 01/05/2023 11:45 AM CDT NEUROLOGY CONSULTATION Hayes High is a 22 y.o. right-handed male. This consult was requested for evaluation of tremor. HISTORY OF PRESENT ILLNESS At 17, he fell 10 feet out of a window and landed on his left shoulder. He didn't make much of thisand felt fine. Summer 2021 he developed increasing left neck and shoulder pain with crepitus. The pain moved to his left scapula. He is now having postural/kinetic tremor that fluctuates. He has had weakness in theLUE and reduced dexterity in the left hand. He will get muscle spasms in the neck and LUE mainly but can have them elsewhere. 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 He did take metoprolol for BP prior to worsening tremor. He saw ortho in the fall. He did cervicla and shoulder MRI thatwas told it was unremarkable. Got 2nd opinion from another ortho. Did EMG, brain MRI and testing for thoracic outlet which was unremarkable. B He gets very brief stabbing headaches in the bitemporal area and can be severe. There are no associated MIRIAM. This began fall 2021 and occur several days per week. He does not get other headaches. MEDICATIONS B12, vit D, magnesium ALLERGIES NKDA PAST MEDICAL/SURGICAL HISTORY HTN, resolved. Cardiology consultation, hypertension work-up was unrevealing No hospitalizations or surgeries. FAMILY HISTORY Mom - healthy Dad - healthy Younger sister - healthy SOCIAL HISTORY Patient lives with parents. 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 COMPLETE REVIEW OF SYSTEMS A comprehensive 14 point review of systems was completed and negative other than pertinent positives stated on the table below. Review of Systems NL ABNL COMMENTS Constitutional X Eyes X Ears/Nose/Throat X Respiratory X Cardiovascular X Genitourinary X Skin X Musculoskeletal X Neurologic X See HPI Psychiatric X Development X Endocrinologic X Hematologic X Immunologic X GI X All other systems PHYSICAL EXAM Vitals: 01/05/23 1256 Pulse: (!) 101 Weight: 77.1 kg (170 lb) Height: 5' 10 (1.778 m) Body mass index is 24.39 kg/m??. Patient is counseled on physical activity. 01/05/23 Gen: Well appearing, no acute distress. HEENT: Oropharynx nonerythematous and nonexudative. CV: Warm and well perfused Neurologic examination: Mental Status: Awake and alert with fluent, somewhat pressured speech and normal comprehension. Cranial Nerves: Pupils are equal, round and reactive to light. Extraocular movements are full. Visual acuity was 20/20 -1 OU on near card. Visual peterson are full to confrontation. Optic disc margins are sharp. Light touch is intact in all three divisions. Face is strong and symmetric. Hearing is intactto finger rub bilaterally. There is no dysarthria. Palate and uvula elevate midline. Tongue protrudes midline. Trapezius and sternocleidomastoid power are full bilaterally. Motor: Normal strength in bilateral upper and lower extremities. Program Control Analyst strength 107 lbs right, 97 lbs left. Bulk and tone are normal throughout. There is no pronator drift. Sensation: reactive to light touch, pinprick in neck, back and left upper extremity Coordination: Finger taps are rapid and symmetric bilaterally. Finger to nose and rapid alternatingmovements are normal bilaterally. He does have a mild kinetic mod amplitude tremor in the left thumb and index finger. No clear postural/resting component. Reflexes: Deep tendon reflexes are 2+ and symmetric throughout. Romberg is negative. Gait: Normal stance and stride. Able to heel, toe and tandem walk well. IMPRESSION/PLAN Hayes High is a pleasant 22 y.o. male with chronic left shoulder/neck pain with likely related kinetic tremor in the hand particularly the thumb and index finger. He sustained a fall several years before symptom onset but does seem related. His strength, reflexes are preserved and sensory testingwas unrevealing. He has had extensive work-up of this issue including brain MRI imaging of the neckand shoulder, CT abdomen, EMG-all of which was unrevealing. He has had unremarkable cardiac work-upof tachycardia and hypertension with renal ultrasound, echo and 24-hour urine catecholamine testing. His work-up has ruled out significant disc disease, large fiber neuropathy, myopathy, MS or structural abnormalities of the shoulder. I recommend further laboratory work-up to rule out nutritional, inflammatory or autoimmune contributors. For his symptoms I recommend physical therapy as well as propranolol LA 60 mg once daily. He will think on the propranolol let me know if he would like to trial it. For scheduling follow-up appointments at [place] location [phone] and for [place] location [phone]. Total time spent today for visit was 60 minutes and included: Direct [id number]-bl-odoo time, Review of records, Coordination of care, and Documentation of visit. documented in this encounter Plan of Treatment Not on file documented as of this encounter Procedures Procedure Name Priority Date/Time Associated Diagnosis Comments METANEPHRINES, FRACT, PLASMA FREE ([facility]) Routine 01/05/2023 11:25 AM CDT Tremor CBC/DIFFERENTIAL WITH PLATELET ([facility]) Routine 01/05/2023 11:25 AM CDT Tremor TSH+FREE T4 ([facility]) Routine 01/05/2023 11:25 AM CDT Tremor ANTINUCLEAR AB 9 BY MULTIPLEX ([facility]) Routine 01/05/2023 11:25 AM CDT Tremor VITAMIN D, 25-HYDROXY ([facility]) Routine 01/05/2023 11:25 AM CDT Tremor CK, TOTAL PLUS ISOENZYMES ([facility]) Routine 01/05/2023 11:25 AM CDT Tremor VITAMIN B12 WITH FOLATE ([facility]) Routine 01/05/2023 11:25 AM CDT Tremor COMPREHENSIVE METABOLIC PANEL 12 ([facility]) Routine 01/05/2023 11:25 AM CDT Tremor SEDIMENTATION RATE - WESTERGREN ([facility]) Routine 01/05/2023 11:25 AM CDT Tremor FERRITIN ([facility]) Routine 01/05/2023 11 :25 AM CDT Tremor documented in this encounter Results * METANEPHRINES, FRACT, PLASMA FREE ([facility]) (01/05/2023 11:25 AM CDT) Normetanephrine ([facility]) 46.7 0.0 - 210.1 pg/mL [facility] 4 Metanephrine ([facility]) 16.5 0.0 - 88.0 pg/mL [facility] 4 Blood 01/05/2023 11:2 5 AM CDT 01/04/2023 11:00 PM CDT Narrative [facility] 4 - 01/09/2023 11:06 PM CDT Test(s) 478012-[id number], Pl; [id number]-Porsesudtaxn, Pl was developed and its performance characteristics determined by [facility]. It has not been cleared or approved by the Food and Drug Administration. Performed at: ??04 - [facility] [address] ??[id number] Cow Washer: Brionna Hanna MD, Phone: ??[phone] Presley Wu MD [facility] ORDERABLES Performing Organization Address [facility] de Phone Number [facility] 4 * TSH+FREE T4 ([facility]) (01/05/2023 11:25 AM CDT) TSH ([facility]) 0.996 0.450 - 4.500 uIU/mL [facility] 1 T4, Free (Direct) ([facility]) 1.33 0.82 - 1.77 ng/dL [facility] 1 Blood 01/05/2023 11:2 5 AM CDT 01/04/2023 11:00 PM CDT Narrative [facility] 1 - 01/09/2023 11:06 PM CDT Performed at: ??01 - [facility] [address] ??[id number] Cow Washer: Jagdeep Quintana MD, Phone: ??[phone] Presley Wu MD [facility] ORDERABLES Performing Organization Address City/[facility]/ZIP Co de Phone Number [facility] 1 * FERRITIN ([facility]) (01/05/2023 11:25 AM CDT) Ferritin ([facility]) 138 30 - 400 ng/mL [facility] 1 Blood 01/05/2023 11:2 5 AM CDT 01/04/2023 11:00 PM CDT Narrative [facility] 1 - 01/09/2023 11:06 PM CDT Performed at: ??01 - [facility] [address] ??[id number] Cow Washer: Jagdeep Quintana MD, Phone: ??[phone] Presley Wu MD [facility] ORDERABLES [facility] 1 * CBC/DIFFERENTIAL WITH PLATELET ([facility]) (01/05/2023 11:25 AM CDT) WBC ([facility]) 4.4 3.4 - 10.8 x10E3/uL [facility] 1 RBC ([facility]) 5.15 4.14 - 5.80 x10E6/uL [facility] 1 Hemoglobin ([facility]) 16.3 13.0 - 17.7 g/dL [facility] 1 Hematocrit ([facility]) 49.2 37.5 - 51.0 % [facility] 1 MCV ([facility]) 96 79 - 97 fL [facility] 1 MCH ([facility]) 31.7 26.6 - 33.0 pg [facility] 1 MCHC ([facility]) 33.1 31.5 - 35.7 g/dL [facility] 1 RDW ([facility]) 12.6 11.6 - 15.4 % [facility] 1 Platelets ([facility]) 289 150 - 450 x10E3/uL [facility] 1 Neutrophils ([facility]) 63 Not Estab. % [facility] 1 Lymphocytes ([facility]) 27 Not Estab. % [facility] 1 Monocytes ([facility]) 8 Not Estab. % [facility] 1 Eosinophils ([facility]) 1 Not Estab. % [facility] 1 Basophils ([facility]) 1 Not Estab. % [facility] 1 Neutrophils Absolute ([facility]) 2.8 1.4 - 7.0 x10E3/uL [facility] 1 Lymphocytes Absolute ([facility]) 1.2 0.7 - 3.1 x10E3/uL [facility] 1 Monocytes Absolute ([facility]) 0.4 0.1 - 0.9 x10E3/uL [facility] 1 Eosinophils Absolute ([facility]) 0.1 0.0 - 0.4 x10E3/uL [facility] 1 Basophils Absolute ([facility]) 0.0 0.0 - 0.2 x10E3/uL [facility] 1 Immature Granulocytes ([facility]) 0 Not Estab. % [facility] 1 Immature Granulocytes Absolute ([facility]) 0.0 0.0 - 0.1 x10E3/uL [facility] 1 Blood 01/05/2023 11:2 5 AM CDT 01/04/2023 11:00 PM CDT Narrative [facility] 1 - 01/09/2023 11:06 PM CDT Performed at: ??01 - [facility] [place], [place] ??[id number] Cow Washer: Jagdeep Quintana MD, Phone: ??[phone] Presley Wu MD [facility] ORDERABLES [facility] 1 * (ABNORMAL) COMPREHENSIVE METABOLIC PANEL 12 ([facility]) (01/05/2023 11:25 AM CDT) Glucose ([facility]) 94 70 - 99 mg/dL [facility] 1 BUN ([facility]) 17 6 - 20 mg/dL [facility] 1 Creatinine ([facility]) 1.27 0.76 - 1.27 mg/dL [facility] 1 eGFR ([facility]) 81 >59 mL/min/1.7 3 [facility] 1 BUN/Creatinine Ratio ([facility]) 13 9 - 20 [facility] 1 Sodium ([facility]) 141 134 - 144 mmol/L [facility] 1 Potassium ([facility]) 4.4 3.5 - 5.2 mmol/L [facility] 1 Chloride ([facility]) 101 96 - 106 mmol/L [facility] 1 Calcium ([facility]) 9.7 8.7 - 10.2 mg/dL [facility] 1 Protein Total ([facility]) 7.0 6.0 - 8.5 g/dL [facility] 1 Albumin ([facility]) 4.9 4.1 - 5.2 g/dL [facility] 1 Globulin Total ([facility]) 2.1 1.5 - 4.5 g/dL [facility] 1 A/G Ratio ([facility]) 2.3(H) 1.2 - 2.2 [facility] 1 Bilirubin Total ([facility]) 0.7 0.0 - 1.2 mg/dL [facility] 1 Alkaline Phosphatase ([facility]) 69 44 - 121 IU/L [facility] 1 AST (SGOT) ([facility]) 16 0 - 40 IU/L [facility] 1 Blood 01/05/2023 11:2 5 AM CDT 01/04/2023 11:00 PM CDT Narrative [facility] 1 - 01/09/2023 11:06 PM CDT Performed at: ??01 - [facility] [place], [place] ??[id number] Cow Washer: Jagdeep Quintana MD, Phone: ??[phone] Presley Wu MD [facility] ORDERABLES [facility] 1 * VITAMIN D, 25-HYDROXY ([facility]) (01/05/2023 11:25 AM CDT) Vitamin D,25 Hydroxy ([facility]) 33.1 30.0 - 100.0 ng/mL [facility] 1 Comment: Vitamin D deficiency has been defined by the [place] of Medicine and an Endocrine Society practice guideline as a level of serum 25-OH vitamin D less than 20 ng/mL (1,2). The Endocrine Society went on to further define vitamin D insufficiency as a level between 21 and 29 ng/mL (2). 1. IOM ([place] of Medicine). 2010. Dietary reference ?? intakes for calcium and D. [place]: The ?? National Academies Press. 2. Sally MF, Kelsey NC, Ray RINCON, et al. ?? Evaluation, treatment, and prevention of vitamin D ?? deficiency: an Endocrine Society clinical practice ?? guideline. JCEM. 2010; 96(7):1911-30. Blood 01/05/2023 11:2 5 AM CDT 01/04/2023 11:00 PM CDT Narrative [facility] 1 - 01/09/2023 11:06 PM CDT Performed at: ??01 - [facility] ??[id number] Cow Washer: Jagdeep Quintana MD, Phone: ??[phone] Presley Wu MD [facility] ORDERABLES Performing Organization Address [facility] de Phone Number [facility] 1 * VITAMIN B12 WITH FOLATE ([facility]) (01/05/2023 11:25 AM CDT) Vitamin B12 ([facility]) 638 232 - 1,245 pg/mL [facility] 1 Folate ([facility]) >20.0 >3.0 ng/mL [facility] 1 Comment: A serum folate concentration of less than 3.1 ng/mL is considered to represent clinical deficiency. Blood 01/05/2023 11:2 5 AM CDT 01/04/2023 11:00 PM CDT Narrative [facility] 1 - 01/09/2023 11:06 PM CDT Performed at: ??01 - [facility] ??[id number] Cow Washer: Jagdeep Quintana MD, Phone: ??[phone] Presley Wu MD [facility] ORDERABLES Performing Organization Address [facility] de Phone Number [facility] 1 * CK, TOTAL PLUS ISOENZYMES ([facility]) (01/05/2023 11:25 AM CDT) CK Total ([facility]) 85 49 - 439 U/L [facility] 1 Macro Type 2 ([facility]) 0 Not Observed % [facility] 3 CK-MM ([facility]) 100 97 - 100 % [facility] 3 Macro Type 1 ([facility]) 0 Not Observed % [facility] 3 CK-MB ([facility]) 0 0 - 3 % [facility] 3 CK-BB ([facility]) 0 0 % [facility] 3 Blood 01/05/2023 11:2 5 AM CDT 01/04/2023 11:00 PM CDT Narrative [facility] 3 - 01/09/2023 11:06 PM CDT Performed at: ??01 - [facility] [place] [address] [place], [place] ??[id number] Cow Washer: Jagdeep Quintana MD, Phone: ??[phone] Performed at: ??03 - [facility] [address], [place], [place] ??[id number] Cow Washer: SHANNA Guajardo MD, Phone: ??[phone] Presley Wu MD [facility] ORDERABLES Performing Organization Address [facility] de Phone Number [facility] 3 [facility] 1 * SEDIMENTATION RATE - WESTERGREN ([facility]) (01/05/2023 11:25 AM CDT) Pathologist [facility] Sed Rate- Westergren ([facility]) 4 0 - 15 mm/hr [facility] 1 Blood 01/05/2023 11:2 5 AM CDT 01/04/2023 11:00 PM CDT Narrative [facility] 1 - 01/09/2023 11:06 PM CDT Performed at: ??01 - [facility] [place] [address] [place], [place] ??[id number] Cow Washer: Jagdeep Quintana MD, Phone: ??[phone] Presley Wu MD [facility] ORDERABLES Performing Organization Address [facility] de Phone Number [facility] 1 * ANTINUCLEAR AB 9 BY MULTIPLEX ([facility]) (01/05/2023 11:25 AM CDT) Pathologist [facility] Anti-DNA (DS) Antibody Quant ([facility]) <1 0 - 9 IU/mL [facility] 2 Comment: ? Negative ?<5 ? Equivocal ??5 - 9 ? Positive ?>9 EMERGENCY OPERATOR Antibodies ([facility]) 0.2 0.0 - 0.9 AI [facility] 2 Justice Antibodies ([facility]) <0.2 0.0 - 0.9 AI [facility] 2 Antiscleroderma-70 Antibodies ([facility]) <0.2 0.0 - 0.9 AI [facility] 2 Sjogren's Anti-SS-A ([facility]) <0.2 0.0 - 0.9 AI [facility] 2 Sjogren's Anti-SS-B ([facility]) <0.2 0.0 - 0.9 AI [facility] 2 Antichromatin Antibodies ([facility]) <0.2 0.0 - 0.9 AI [facility] 2 Anti-Pooja-1 ([facility]) <0.2 0.0 - 0.9 AI [facility] 2 Anti-Centromere B Antibodies ([facility]) <0.2 0.0 - 0.9 AI [facility] 2 LIDIA Note ([facility]) Comment [facility] 2 Comment: Autoantibody ? Disease Association ?Condition ?Frequency ? --------- Antinuclear Antibody, ?SLE, mixed connective Direct (LIDIA-D) ? tissue diseases ? --------- dsDNA ?SLE ?40 - 60% ? --------- Chromatin ?Drug induced SLE ?90% ? SLE ?48 - 97% ? --------- SSA (Ro) ? SLE ?25 - 35% ? Sjogren's Syndrome ? 40 - 70% ? Lupus ? 100% ? --------- SSB (La) ? SLE ? 10% ? Sjogren's Syndrome ?30% ?--------- Sm (anti-Justice) ?SLE ?15 - 30% ?--------- EMERGENCY OPERATOR ?Mixed Connective Tissue ? Disease ? 95% (U1 nRNP, ?SLE ?30 - 50% anti-ribonucleoprotein) ??Polymyositis and/or ? Dermatomyositis ? 20% ? --------- Scl-70 (antiDNA ?Scleroderma (diffuse) ?20 - 35% topoisomerase) ? Crest ? 13% ? --------- Pooja-1 ? Polymyositis and/or ? Dermatomyositis ?20 - 40% ? --------- Centromere B ? Scleroderma - Crest ? variant ? 80% Blood 01/05/2023 11:2 5 AM CDT 01/04/2023 11:00 PM CDT Narrative [facility] 2 - 01/09/2023 11:06 PM CDT Performed at: ??02 - [facility] [place] [address] [place] [address] ??[id number] Cow Washer: Jagdeep Quintana MD, Phone: ??[phone] Presley Wu MD [facility] ORDERABLES [facility] 2 documented in this encounter Visit Diagnoses Diagnosis Tremor- Primary Abnormal involuntary movements Chronic left shoulder pain Pain in joint, shoulder region documented in this encounter Care Teams Manufacturing Business Analyst Relationship Specialty Start Date End Date Roxy, PCP - General 12/08/22 Clinic, No Primary PCP - Primary Care Clinic 12/08/22 Presley Wu MD [address] [facility] [address] [place] [address] Pediatric Neurology 01/02/23 documented as of this encounter
--- OUTSIDE RECORDS SUMMARY | 2023-10-19 09:03 | XMS_ITS | Encounter Summary ---
Author Name Unknown Organization [facility] Address [address] [address] Phone Care Team Providers Care Jeep Mechanic Name Role Phone Unavailable Primary Care Provider Unavailabl e Encounter Details Date Type Department Care Team (Late st Contact Info) Description 12/30/2020 Lab Requisition [facility] [address] [place] [address] Pradip Montelongo MD [address] [place] [address] Contact with and (suspected) exposure [...] SARS-COV-2 RNA (COVID-19), MOLECULAR DETECTION ([facility]OV[facility]) Routine 12/29/2020 2:50 PM CDT Contact with and (suspected) exposure to other viral communicable diseases documented in this encounter Results * SARS-COV-2 RNA (COVID-19), MOLECULAR DETECTION ([facility]OV[facility]) (12/29/2020 2:50 PM CDT) SARS-CoV-2 RNA (COVID-19) Undetected Undetected 12/31/2020 5:[address] [facility] Comment: SARS-CoV-2 RNA absent. This result does not rule out COVID-19 in the patient, as the sensitivity of the test depends on the timing of the specimen collection and the quality of the specimen. Result should be correlated with patient's history and clinical presentation. SARS-CoV-2 RNA Method Summary SEE COMMENTS 12/31/2020 5:[address] [facility] Comment: THFSH- This PCR test uses the TaqPath COVID-19 Combo Kit (Wercker Isidra.) and is performed on the Polantis magnetic particle processor and Applied BioTime Fast Dx Real-Time PCR System. It has received Emergency Use Authorization (EUA) by the U.S. Food and Drug Administration. Performance characteristics were verified by [facility] in a manner consistent with CLIA requirements. Fact sheets for this Emergency Use Authorization (EUA) can be found at the following links: https://www.fda.gov/media/279685/download for Healthcare Providers https://www.fda.gov/media/677641/download for Patients Test Performed by: [facility] [place] [address] Collector Of Aquarium Specimens: Presley Colin M.D. Ph.D.; CLIA# [id number] Source Nares 12/31/2020 5:[address] [facility] Patient Race Not Provided 12/31/2020 5:[address] [facility] Patient Ethnicity Not Provided 12/31 5:[address] [facility] Swab BOTH ANTERIOR NARES / Unknown Non-blood collection / Unknown 12/29/2020 2:50 PM CDT 12/30/2020 5:46 PM CDT Pradip Montelongo MD [facility] [place] [address], [facility] [phone] documented in this encounter Visit Diagnoses Diagnosis Contact with and (suspected) exposure to other viral communicable diseases documented in this encounter
--- OUTSIDE RECORDS SUMMARY | 2023-10-19 09:03 | XMS_ITS | Referral Summary ---
Author Name Unknown Organization [facility] Address [address] [place] [address] Care Team Providers Care Rabbler Name Role Phone None, Primary Care Provider [facility] Clinic, No Primary Unavailable Unavailable Presley Wu MD Unavailable [phone] Allergies No known active allergies Medications No [...] 01/05/2023 12:56 PM CDT Plan of Treatment Not on file Care Teams Rabbler Relationship Specialty Start Date End Date Roxy, PCP - General 12/08/22 Clinic, No Primary PCP - Primary Care Clinic 12/08/22 Presley Wu MD [address] [place] [address] Pediatric Neurology 01/02/23
--- OUTSIDE RECORDS SUMMARY | 2023-10-19 09:04 | XMS_ITS | Clinical Summary ---
Author Name Unknown Organization [employer] [facility] Address [place], [place] [address] Care Team Providers Care Bag Machine Helper Name Role Phone Maosn Garcia MD Primary Care Provider [phone] Allergies No known active allergies Medications Medication Sig Dispensed Refills Start Date End Date Status metoprolol succinate (TOPROL XL) 25 mg Sustained-Release tablet Take 25 mg by mouth once daily. 0 09/07/2021 Active Active Problems Problem Noted Date Diagnosed Date Hypertension 06/30/2022 Social History Tobacco Use Types Packs/Day Years Used Date Smoking Tobacco: Never Smokeless Tobacco: Never Social Connections Answer Date Recorded Frequency of Communication with Friends and Fami ly Not on file 06/30/2022 Sex and Gender Information Value Date Recorded Sex Assigned at Not on file Gender Identity Not on file Sexual Orientation Not on file Obstetrics History Last Filed Vital Signs Vital Sign Reading Time Taken Comments Blood Pressure 144/83 07/18/2022 3:08 PM CDT Pulse 71 07/18/2022 3:08 PM CDT Temperature - - Respiratory Rate - - Oxygen Saturation 100% 07/18/2022 3:08 PM CDT Inhaled Oxygen Concentration - - Weight 78.7 kg (173 lb 8 oz) 07/18/2022 3:08 PM CDT Height - - Body Mass Index - - Plan of Treatment Health Maintenance Due Date Last Done Comments HPV series for age 9-26 (1 - Male 2-dose series) 2010 Tdap 2010 Depression screening for age 12+ 2011 HIV for age 15-65 2014 BMI (ht and wt on same day) for age 18+ 2017 Hepatitis C screening for ag e 18-79 2017 Tetanus booster 2019 COVID-19 vaccine series (2022- season) 2023 10/28/2020, 09/30/2020 Influenza for age 9-49 05/18/2023 Pneumococcal series for age 6-64 Aged Out No longer eligible b ased on patient's age to complete this topic Care Teams Bag Machine Helper Relationship Specialty Start Date End Date Mason Garcia MD PCP - General Family Practice 07/17/22
--- OUTSIDE RECORDS SUMMARY | 2023-10-19 09:04 | XMS_ITS | Encounter Summary ---
Author Name Unknown Organization [facility] [facility] Address [address] [address] Phone Care Team Providers Care Wardrobe Supervisor Name Role Phone Unavailable Primary Care Provider Unavailabl e Encounter Details Date Type Department Care Team (Late st Contact Info) Description 08/10/2020 Lab Requisition [facility] [address] [place] [address] Flor Carreon, GLEASON GEAR GENERATOR, HUMAN RESOURCES BENEFITS ADMINISTRATOR [address] [place] [address] Contact with and (suspected) exposure to other [...] COVID-19 Confirmed 09/03/2020 09/03/2020 1 11:06 PM CELERY CUTTER documented as of this encounter
--- OUTSIDE RECORDS SUMMARY | 2023-10-19 09:04 | XMS_ITS | Encounter Summary ---
Author Name Unknown Organization [facility] [employer] [facility] Address [address] [address] Phone Care Team Providers Care [facility] Clergy Name Role Phone Unavailable Primary Care Provider Unavailabl e Encounter Details Date Type Department Care Team (Late st Contact Info) Description 07/29/2020 Lab Requisition [facility] [address] [place] [address] Pradip Montelongo MD [address] [place] [address] Contact with and (suspected) exposure [...] COVID-19 Confirmed 09/03/2020 09/03/2020 1 11:06 PM FAMILY RESOURCE MANAGEMENT SPECIALIST documented as of this encounter
--- OUTSIDE RECORDS SUMMARY | 2023-10-19 09:04 | XMS_ITS | Encounter Summary ---
Author Name Unknown Organization [facility] [employer] [facility] Address [address] [address] Phone Care Team Providers Care Card Cleaner Name Role Phone Unavailable Primary Care Provider Unavailabl e Encounter Details Date Type Department Care Team (Late st Contact Info) Description 07/16/2020 Lab Requisition [facility] [address] [place] [address] Pradip Montelongo MD [address] [place] [address] Contact with and (suspected) exposure [...] SARS-COV-2 RNA (COVID-19), MOLECULAR DETECTION (COVOO) Routine 07/19/2020 2:45 PM NATIONAL BUSINESS DIRECTOR Contact with and (suspected) exposure to other viral communicable diseases documented in this encounter Results * SARS-COV-2 RNA (COVID-19) - (COVID) (07/19/2020 2:45 PM NATIONAL BUSINESS DIRECTOR) SARS-CoV-2 RNA (COVID-19) Undetected Undetected 07/21/2020 8:36 PM NATIONAL BUSINESS DIRECTOR [facility] Comment: SARS-CoV-2 RNA absent. This result does not rule out COVID-19 in the patient, as the sensitivity of the test depends on the timing of the specimen collection and the quality of the specimen. Result should be correlated with patient's history and clinical presentation. SARS-CoV-2 RNA Method Summary SEE COMMENTS 07/21/2020 8:36 PM NATIONAL BUSINESS DIRECTOR [facility] Comment: THFSH- This test uses the TaqPath COVID-19 Combo Kit (RaySat Isidra.) and is performed on the [employer]OT[employer] magnetic particle processor and Applied Lamsa 7500 Fast Dx Real-Time PCR System. It has received Emergency Use Authorization (EUA) by the U.S. Food and Drug Administration. Performance characteristics were verified by [facility] in a manner consistent with CLIA requirements. Fact sheets for this Emergency Use Authorization (EUA) can be found at the following links: https://www.fda.gov/media/158188/download for Healthcare Providers https://www.fda.gov/media/165861/download for Patients Test Performed by: [facility] [place] [address] Signal Operator Linguist: Presley Colin M.D. Ph.D.; CLIA# [id number] Source Nares 07/21/2020 8:36 PM NATIONAL BUSINESS DIRECTOR [facility] Patient Race Refused 07/21/2020 8:36 PM NATIONAL BUSINESS DIRECTOR [facility] Patient Ethnicity Refused 020 8:36 PM NATIONAL BUSINESS DIRECTOR [facility] Swab ENTIRE ANTERIOR NARIS / Unknown 07/19/2020 2:45 PM NATIONAL BUSINESS DIRECTOR 07/19/2020 6:21 PM NATIONAL BUSINESS DIRECTOR Pradip Montelongo MD [facility] PATHOLOG[facility] ORDERAB LES [address] [phone] documented in this encounter Visit Diagnoses Diagnosis Contact with and (suspected) exposure to other viral communicable diseases documented in this encounter Additional Health Concerns Infection Onset Date Last Indicated Resolved Time COVID-19 Confirmed 09/03/2020 09/03/2020 1 11:06 PM NATIONAL BUSINESS DIRECTOR documented as of this encounter
--- OUTSIDE RECORDS SUMMARY | 2023-10-19 09:04 | XMS_ITS | Encounter Summary ---
Author Name Unknown Organization [facility] Address [address] [address] Phone Care Team Providers Care Manager Mechanical Name Role Phone Unavailable Primary Care Provider Unavailabl e Encounter Details Date Type Department Care Team (Late st Contact Info) Description 08/19/2020 Lab Requisition [facility] [address] [place] [address] Pradip Montelongo MD [address] [place] [address] Contact with and (suspected) exposure [...] COVID-19 Confirmed 09/03/2020 09/03/2020 1 11:06 PM CASING MIXER documented as of this encounter
--- OUTSIDE RECORDS SUMMARY | 2023-10-19 09:04 | XMS_ITS | Encounter Summary ---
Author Name Unknown Organization [facility] Address [address] [address] Phone Care Team Providers Care Customer Advocate Name Role Phone Unavailable Primary Care Provider Unavailabl e Encounter Details Date Type Department Care Team ([facility] st Contact Info) Description 07/23/2020 Lab Requisition [facility] [address] [place] [address] Pradip Montelongo MD [address] [place] [address] Contact with and (suspected) exposure [...] SARS-COV-2 RNA (COVID-19), MOLECULAR DETECTION (COVOO) Routine 07/23/2020 Contact with and (suspected) exposure to other viral communicable diseases documented in this encounter Results * SARS-COV-2 RNA (COVID-19) - (COVID) (07/23/2020) SARS-CoV-2 RNA (COVID-19) Undetected Undetected 07/29/2020 6:31 AM [facility] Comment: SARS-CoV-2 RNA absent. This result does not rule out COVID-19 in the patient, as the sensitivity of the test depends on the timing of the specimen collection and the quality of the specimen. Result should be correlated with patient's history and clinical presentation. SARS-CoV-2 RNA Method Summary SEE COMMENTS 07/29/2020 6:31 AM TAKE UP SUPERVISOR [facility] Comment: THFSH- This test uses the TaqPath COVID-19 Combo Kit ([place] Isidra.) and is performed on the Meditech Solution magnetic particle processor and Applied Kagera 7500 Fast Dx Real-Time PCR System. It has received Emergency Use Authorization (EUA) by the U.S. Food and Drug Administration. Performance characteristics were verified by [facility] in a manner consistent with CLIA requirements. Fact sheets for this Emergency Use Authorization (EUA) can be found at the following links: https://www.fda.gov/media/879008/download for Healthcare Providers https://www.fda.gov/media/586838/download for Patients Test Performed by: [place] [address] Gin Pole Operator: Presley Colin M.D. Ph.D.; CLIA# [id number] Source Nares 07/29/2020 6:31 AM TAKE UP SUPERVISOR [facility] Patient Race Refused 07/29/2020 6:31 AM [facility] Patient Ethnicity Refused 020 6:31 AM [facility] Swab ENTIRE ANTERIOR NARIS / Unknown 07/23/2020 07/26/2020 6:03 PM TAKE UP SUPERVISOR Pradip Montelongo MD EC PATHOLOGY ORDERAB LES Performing Organization Address City/State/[facility] Co de Phone Number [address] [phone] documented in this encounter Visit Diagnoses Diagnosis Contact with and (suspected) exposure to other viral communicable diseases documented in this encounter Additional Health Concerns Infection Onset Date Last Indicated Resolved Time COVID-19 Confirmed 09/03/2020 09/03/2020 1 11:06 PM TAKE UP SUPERVISOR documented as of this encounter
--- OUTSIDE RECORDS SUMMARY | 2023-10-19 09:04 | XMS_ITS | Encounter Summary ---
Author Name Unknown Organization [facility] Address [address] [address] Phone Care Team Providers Care Intern Product Marketing Manager Name Role Phone Unavailable Primary Care Provider Unavailabl e Encounter Details Date Type Department Care Team (Late st Contact Info) Description 08/04/2020 Lab Requisition [facility] [address] [place] [address] Pradip Montelongo MD [address] [place] [address] Contact with and (suspected) exposure [...] COVID-19 Confirmed 09/03/2020 09/03/2020 1 11:06 PM ESTHETICIAN SPA documented as of this encounter
--- OUTSIDE RECORDS SUMMARY | 2023-10-19 09:04 | XMS_ITS | Encounter Summary ---
Author Name Unknown Organization [facility] [facility] Address [address] [address] Phone Care Team Providers Care Tape Coater Name Role Phone Unavailable Primary Care Provider Unavailabl e Encounter Details Date Type Department Care Team (Late st Contact Info) Description 08/25/2020 Lab Requisition [facility] [address] [place] [address] Pradip Montelongo MD [address] [place] [address] Contact with and (suspected) exposure [...] COVID-19 Confirmed 09/03/2020 09/03/2020 1 11:06 PM PARCEL POST CLERK documented as of this encounter
== END 2023-10-19 08:57 | disposition home or self-care (01) ==
PROVIDERS: PCP Family Medicine; Visit Provider Family Medicine
DX: R05.9 Cough, unspecified (principal); I10 Essential (primary) hypertension; R61 Generalized hyperhidrosis
CPT/HCPCS: 80053; 86140

== ENCOUNTER 2025-01-20 14:46 | Outpatient (CLI) | payer BC, SELFPAY | END 2025-01-20 14:47 | disposition home or self-care (01) | LOC: LKVREF 14:46 | PROVIDERS: PCP Family Medicine; Visit Provider Emergency Medicine | DX: I10 Essential (primary) hypertension (principal) | CPT/HCPCS: 80048 ==